=== PATIENT | female | born 1985 | race Caucasian/White ===

== ENCOUNTER 2016-09-21 03:56 | Inpatient (IN) | payer BC ==
[2016-09-21] MEDS ORDERED: Ondansetron INJ* 2 MG/ML VIAL IV ONE (05:19)
[2016-09-21] MEDS ORDERED: NS 0.9% 1000 ML* 1,000 ML IV ONE (05:19)
[2016-09-21] MEDS ORDERED: Charcoal ACTIVATED* 25 GM/120 ML BTL PO ONE (05:19)
[2016-09-21 05:24] LABS: Add Diff/Slide Review? Slide Review Added; Comments Flag Yes; Hematocrit 40 % (35-47); Hemoglobin 13.5 g/dl (12.0-16.0); Mean Corpuscular HGB Conc 34 g/dl (31-36); Mean Corpuscular Hemoglobin 31 pg (27-31); Mean Corpuscular Volume 91 fL (80-97); Red Blood Count 4.41 10^6/ul (4.0-5.4); Red Cell Distribution Width 14 % (10.5-15); White Blood Count 12.4 10^3/ul (3.5-10.8)
[2016-09-21 05:29] LABS: ALT 53 U/L (7-52); Albumin 4.4 g/dL (3.2-5.2); Alkaline Phosphatase 72 U/L (34-104); BUN/Creatinine Ratio 21.5 (8-20); Blood Urea Nitrogen 14 mg/dL (6-24); CO2 Carbon Dioxide 23 mmol/L (22-32); Calcium 9.2 mg/dL (8.6-10.3); Chloride 102 mmol/L (101-111); EGFR African American 135.8 (>60); EGFR Non-African American 105.6 (>60); Globulin 3.3 g/dL (2-4); Glucose 168 mg/dL (70-100); Sodium 132 mmol/L (133-145); Total Protein 7.7 g/dL (6.4-8.9)
[2016-09-21 05:46] LABS: Acetaminophen < 15 mcg/mL; Alcohol < 10 mg/dL (<10); Salicylate < 2.50 mg/dL (<30)
[2016-09-21 05:56] LABS: TSH (Thyroid Stimulating Horm) 1.56 mcIU/mL (0.34-5.60)
--- NOTE | 2016-09-21 06:25 | ED ---
Kayode Delarosa Erika, scribed for Omer Yu MD on 09/21/16 at 0522 . Psychiatric Complaint - HPI Summary HPI Summary: Patient is a 30-year-old female presenting to the ED after Benadryl overdose. Patient reports she took 8-9 pills of Benadryl around 00:00 tonight. She is unsure of the dosage of the pills. Pt reports a Hx anxiety and depression, and states she was attempting to harm herself. She states the only other medications she took tonight were her normal daily medications. Pt has no specific complaints right now, but states she does not feel well. - History Of Current Complaint Chief Complaint: EDSubstanceAbuse Time Seen by Provider: 09/21/16 04:03 Hx Obtained From: Patient Onset/Duration: Sudden Onset, Lasting Hours, Still Present Timing: Constant Severity Initially: Moderate Aggravating Factor(s): Recent Stress Alleviating Factor(s): Nothing Related History: Positive For: Prior Psychiatric Issues Has Suicidal: Reports: Thoughts, With A Plan, Demonstrates Gesture Ingestion History: Type/Name Of Drug - Benadryl, Amount Ingested - 8-9 pills of unknown dose, Approximate Time Of Ingestion - 00:00 - Allergies/Home Medications Allergies/Adverse Reactions: Allergies Allergy/AdvReac Type Severity Reaction Status Date / Time Morphine Allergy Severe See Comment Verified 09/21/16 04:36 Aripiprazole [From Abilify] Allergy Intermediate See Comment Verified 09/21/16 04:36 PMH/Surg Hx/FS Hx/Imm Hx Endocrine/Hematology History: Reports: Hx Diabetes, Hx Anemia Cardiovascular History: Reports: Hx Hypertension Musculoskeletal History: Reports: Hx Back Problems, Hx Orthopedic Injury Denies: Hx Arthritis Sensory History: Reports: Hx Contacts or Glasses Opthamlomology History: Reports: Hx Contacts or Glasses Psychiatric History: Reports: Hx Anxiety, Hx Depression, Hx Inpatient Treatment , Hx Community Mental Health Tx, Hx Suicide Attempt Denies: Hx Attention Deficit Hyperactivity Disorder, Hx Eating Disorder, Hx Panic Disorder, Hx Post Traumatic Stress Disorder, Hx Schizophrenia, Hx Bipolar Disorder, Hx of Violent Episodes Against Others, Hx Substance Abuse, Other Psychiatric Issues/Disorders Infectious Disease History: No Infectious Disease History: Denies: Traveled Outside the [place] in Last 30 Days - Family History Known Family History: Positive: Other - anxiety - Social History Lives: With Family Alcohol Use: None Hx Substance Use: No Substance Use Type: Reports: None, Prescribed - OD on klonopin in the past - currently uses this medication as directed for anxiety Hx Tobacco Use: No Smoking Status (MU): Never Smoked Tobacco Review of Systems Negative: Fever Neurological: Other - OD on Benadryl All Other Systems Reviewed And Are Negative: Yes Physical Exam Triage Information Reviewed: Yes Vital Signs On Initial Exam: Initial Vitals Temp Pulse Resp BP Pulse Ox 98.6 F 115 26 120/86 96 09/21/16 04:00 09/21/16 04:00 09/21/16 04:00 09/21/16 04:00 09/21/16 04:00 Vital Signs Reviewed: Yes Appearance: Positive: Well-Appearing, No Pain Distress Skin: Positive: Warm, Skin Color Reflects Adequate Perfusion, Dry Head/Face: Positive: Normal Head/Face Inspection Eyes: Positive: EOMI, EMILY ENT: Positive: Normal ENT inspection Neck: Positive: Supple, Nontender Respiratory/Lung Sounds: Positive: Clear to Auscultation, Breath Sounds Present Cardiovascular: Positive: Tachycardia - at 115 bpm Abdomen Description: Positive: Nontender, Soft Bowel Sounds: Positive: Present Musculoskeletal: Positive: Normal, Strength/ROM Intact Neurological: Positive: Normal, Sensory/Motor Intact, Alert, Oriented to Person Place, Time Psychiatric: Positive: Affect/Mood Appropriate Diagnostics - Vital Signs Vital Signs Temp Pulse Resp BP Pulse Ox 09/21/16 04:00 98.6 F 115 26 120/86 96 - Laboratory Lab Results: Lab Results 09/21/16 09/21/16 09/21/16 Range/Units 04:56 04:56 04:56 WBC 12.4 H (3.5-10.8) 10^3/ul RBC 4.41 (4.0-5.4) 10^6/ul Hgb 13.5 (12.0-16.0) g/dl Hct 40 (35-47) % MCV 91 (80-97) fL MCH 31 (27-31) pg MCHC 34 (31-36) g/dl RDW 14 (10.5-15) % Plt Count 300 (150-450) 10^3/ul Neut % (Auto) 62.3 (38-83) % Lymph % (Auto) 28.7 (25-47) % [place] % (Auto) 6.2 (1-9) % Eos % (Auto) 1.9 (0-6) % Baso % (Auto) 0.9 (0-2) % Absolute Neuts (auto) 7.7 (1.5-7.7) 10^3/ul Absolute Lymphs (auto) 3.5 (1.0-4.8) 10^3/ul Absolute Monos (auto) 0.8 (0-0.8) 10^3/ul Absolute Eos (auto) 0.2 (0-0.6) 10^3/ul Absolute Basos (auto) 0.1 (0-0.2) 10^3/ul Absolute Nucleated RBC 0 10^3/ul Nucleated RBC % 0 Sodium 132 L (133-145) mmol/L Potassium TNP Chloride 102 (101-111) mmol/L Carbon Dioxide 23 (22-32) mmol/L Anion Gap TNP BUN 14 (6-24) mg/dL Creatinine 0.65 (0.51-0.95) mg/dL Est GFR ( Amer) 135.8 (>60) Est GFR (Non-Af Amer) 105.6 (>60) BUN/Creatinine Ratio 21.5 H (8-20) Glucose 168 H (70-100) mg/dL Lactic Acid 1.6 (0.5-2.0) mmol/L Calcium 9.2 (8.6-10.3) mg/dL Total Bilirubin 0.30 (0.2-1.0) mg/dL AST TNP ALT 53 H (7-52) U/L Alkaline Phosphatase 72 (34-104) U/L Total Protein 7.7 (6.4-8.9) g/dL Albumin 4.4 (3.2-5.2) g/dL Globulin 3.3 (2-4) g/dL Albumin/Globulin Ratio 1.3 (1-3) TSH 1.56 (0.34-5.60) mcIU/mL Beta HCG, Quant < 0.60 mIU/mL Salicylates < 2.50 (<30) mg/dL Acetaminophen < 15 mcg/mL Serum Alcohol < 10 (<10) mg/dL Result Diagrams: 09/21/16 04:56 09/21/16 04:56 Lab Statement: Any lab studies that have been ordered have been reviewed, and results considered in the medical decision making process. Course/Dx - Course Assessment/Plan: A 30 y/o F presents to the ED with a CC of Benadryl overdose. Per poison control, must monitor at least 6 hours. PE reveals tachycardia with no other abnormal findings. Pt will be signed out to Dr. Lovelace for further monitoring. MEDICAL CLEARANCE, MHE AND DISPOSITION PENDING AT SHIFT CHANGE. STABLE IN ED. - Differential Dx/Clinical Impression Provider Diagnosis: Mental health problem, Overdose Discharge - Discharge Plan Condition: Stable Disposition: [facility]IATRIC FAC[facility] [place] Disposition Comment: Signed out to Dr. Lovelace pending further monitoring Referrals: Session Eren MARTINEZ [Primary Care Provider] - The documentation as recorded by the Kayode finch Erika accurately reflects the service I personally performed and the decisions made by me, Omer Yu MD.
[2016-09-21 09:14] LABS: Urine Bacteria Absent (Absent); Urine Bilirubin Negative (Negative); Urine Glucose 3+(>=500 mg/dL) (Negative); Urine Nitrite Negative (Negative)
[2016-09-21 09:25] LABS: Benzodiazepine Urine Screen Presumptive Positive (None Detect)
[2016-09-21] MEDS ORDERED: Al Hydrox/Mg Hydrox/Simet LIQ* 30 ML UDC PO PRN (12:51)
[2016-09-21] MEDS ORDERED: Acetaminophen TAB* 325 MG PO PRN (12:51)
[2016-09-21] MEDS ORDERED: hydrOXYzine HCL TAB* 50 MG PO PRN (15:01)
[2016-09-21] MEDS: metFORMIN* 1,000 MG TAB PO SCH (16:26)
[2016-09-21] MEDS: Mirtazapine TAB* 15 MG PO SCH (21:20)
[2016-09-21] MEDS: clonazePAM TAB(*) 1 MG PO SCH (21:20)
[2016-09-21] MEDS: buPROPion SR TAB.SR* 150 MG PO SCH (21:20)
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
[2016-09-22] MEDS: clonazePAM TAB(*) 1 MG PO SCH ×2 (09:12→20:38)
[2016-09-22] MEDS: buPROPion SR TAB.SR* 150 MG PO SCH ×2 (09:12→20:38)
[2016-09-22] MEDS: metFORMIN* 1,000 MG TAB PO SCH ×2 (09:13→16:56)
[2016-09-22] MEDS: Vitamin THERAPEUTIC TAB PO SCH (09:13)
[2016-09-22] MEDS: Venlafaxine EXT RELEASE CAP* 75 MG PO SCH (09:13)
[2016-09-22] MEDS: Mirtazapine TAB* 15 MG PO SCH (20:38)
[2016-09-23] MEDS: Venlafaxine EXT RELEASE CAP* 75 MG PO SCH (09:31)
[2016-09-23] MEDS: clonazePAM TAB(*) 1 MG PO SCH ×2 (09:31→21:40)
[2016-09-23] MEDS: buPROPion SR TAB.SR* 150 MG PO SCH ×2 (09:31→21:41)
[2016-09-23] MEDS: metFORMIN* 1,000 MG TAB PO SCH ×2 (09:31→16:52)
[2016-09-23] MEDS: Vitamin THERAPEUTIC TAB PO SCH (09:31)
--- NOTE | 2016-09-23 15:12 | PN ---
Subjective - Subjective Service Type: 44571 Hosp care 15 min low complexity Subjective: Maria M remains symptomatic with depressed mood, anxiety and stress due to a disfunctional relationship with her of 12 years. Still suicidal without plans. Says she and her fights all the time. Since her admission she has been sleeping good. Objective - Appearance Appearance: Obese Dysmorphic Features: No Hygiene: Normal Grooming: Fairly Well Kept - Behavior Psychomotor Activities: Normal Exhibits Abnormal Movement: No - Attitude and Relatedness Attitude and Relatedness: Appropriate Eye Contact: Good - Speech Quality: Unpressured Latencies: Normal Quantity: Appropriate - Mood Patient's Decription of Mood: "Sad" - Affect Observed Affect: Depressed Affect Consistent with: Dysphoria - Thought Process Patient's Thought Process: Coherent, Goal Directed Thought Content: Yes Passive Wish, No Suicidal Planning, No Homicidal Ideation, No Paranoid Ideation - Sensorium Experiencing Hallucinations: No, Sensorium is Clear Type of Hallucinations: Visual: No, Auditory: No, Command: No - Level of Consciousness Level of Consciousness: Alert Orientation: Yes Intact, Yes Orientated to Time, Yes Orientated to Place, Yes Orientated to Person - Impulse Control Impulse Control: Tenuous - Insight and Judgement Insight and Judgement: Poor - Group Participation Particating in Group Activities: Yes - Medication Management Medication Management Adherence: Yes Assessment - Assessment Merits Inpatient Hospitalization: For Immediate Safety, For Discharge Planning Plan - Plan Treatment Plan: Name: MARIA M MARTINEZ Birthdate: 1985 [id number] Continued Medication Management: Continue Outpt Medication Medications: Current Medications Acetaminophen (Tylenol Tab*) 650 mg PO Q4H PRN PRN Reason: for pain; or Temp >101 F Al Hydrox/Mg Hydrox/Simethicone (Maalox Plus*) 30 ml PO Q4H PRN PRN Reason: INDIGESTION Bupropion HCl (Wellbutrin Sr Tab*) 150 mg PO BID [facility] Last Admin: 09/23/16 09:31 Dose: 150 mg Clonazepam (Klonopin Tab(*)) 1 mg PO BID [facility] Last Admin: 09/23/16 09:31 Dose: 1 mg Diphenhydramine HCl (Benadryl Po*) 50 mg PO BEDTIME PRN PRN Reason: INSOMNIA Hydroxyzine HCl (Atarax Tab*) 50 mg PO Q6H PRN PRN Reason: ANXIETY Metformin HCl (Glucophage*) 1,000 mg PO 0800,1700 [facility] Last Admin: 09/23/16 09:31 Dose: 1,000 mg Mirtazapine (Remeron Tab*) 15 mg PO BEDTIME [facility] Last Admin: 09/22/16 20:38 Dose: 15 mg Multivitamins (Theragran Tab*) 1 tab PO DAILY [facility] Last Admin: 09/23/16 09:31 Dose: 1 tab Venlafaxine HCl (Effexor Xr Cap*) 225 mg PO DAILY [facility] Last Admin: 09/23/16 09:31 Dose: 225 mg - Discharge Plan Discharge Plan: Outpatient Follow Up Outpatient Program: [id number]
[2016-09-23] MEDS: Mirtazapine TAB* 15 MG PO SCH (21:40)
[2016-09-24] MEDS: Vitamin THERAPEUTIC TAB PO SCH (09:03)
[2016-09-24] MEDS: clonazePAM TAB(*) 1 MG PO SCH ×2 (09:04→20:23)
[2016-09-24] MEDS: Venlafaxine EXT RELEASE CAP* 75 MG PO SCH ×2 (09:04→09:44)
[2016-09-24] MEDS: metFORMIN* 1,000 MG TAB PO SCH ×2 (09:04→16:05)
[2016-09-24] MEDS ORDERED: Venlafaxine EXT RELEASE CAP* 75 MG ONE ×2 (09:10→09:17)
[2016-09-24] MEDS: buPROPion SR TAB.SR* 150 MG PO SCH ×2 (09:46→20:22)
--- NOTE | 2016-09-24 11:47 | PN ---
MHU: Group Therapy Note - Service Type Service Type: 70180 Group Psychotherapy - Cognitive Behavioral Group Therapy ( CBT):Patient was attentive and participatory in CBT programming this morning, and remained in good behavioral control. Patient expressed positive insights regarding relevant treatment interventions and goals. Discussion focused on goals in regards to family interests, as well on engaging in follow up outpatient treatment, as Maria M failed to attend her first appointment after her last discharge. Further discussion encouraged her to contemplate timing of discharge, encouraging a short hospitalization. Maria M has very dependent personality structures and needs a great deal of direction, she tends to devolve to complaining about her if afforded unstructured discussion.
--- NOTE | 2016-09-24 14:38 | PN ---
Subjective - Subjective Service Type: 24545 Hosp care 15 min low complexity Subjective: Maria M says overdose on 200 mg diphenhydramine was intended to kill herself, despite this being a clearly sublethal dose. Not immediately receptive to my suggestion that she consider why she engages in repeated suicidal gestures, that she contemplate other possibly subconscious goals of the overdoses. Reports low mood and continued SI. Has spoken of wanting therapy with her . Objective - Appearance Appearance: Obese Dysmorphic Features: No Hygiene: Normal Grooming: Fairly Well Kept - Behavior Psychomotor Activities: Normal Exhibits Abnormal Movement: No - Attitude and Relatedness Attitude and Relatedness: Superficially Cooperative Eye Contact: Good - Speech Quality: Unpressured Latencies: Normal Quantity: Appropriate - Mood Patient's Decription of Mood: "4 or 5/10" - Affect Observed Affect: Depressed Affect Consistent with: Dysphoria - Thought Process Patient's Thought Process: Coherent, Goal Directed, Impoverished Thought Content: Yes Passive Wish, Yes Suicidal Planning, No Homicidal Ideation, No Paranoid Ideation - Sensorium Experiencing Hallucinations: No, Sensorium is Clear Type of Hallucinations: Visual: No, Auditory: No, Command: No - Level of Consciousness Level of Consciousness: Alert Orientation: Yes Intact, Yes Orientated to Time, Yes Orientated to Place, Yes Orientated to Person - Impulse Control Impulse Control: Intact - Insight and Judgement Insight and Judgement: Poor - Group Participation Particating in Group Activities: Yes - Medication Management Medication Management Adherence: Yes Assessment - Assessment Merits Inpatient Hospitalization: For Immediate Safety, For Stabilization, Consolidate Improvements, For Discharge Planning Inpatient DSM-IV Dx: Unspecified depressive and anxiety disorders Clinical Impression: Ms Martinez is a 30 year-old woman readmitted for a sublethal overdose on 200 mg diphenhydramine. She has not been willing to contract for safety to allow discharge home. She seeks couples therapy to address marital issues. She has been compliant with medications. Will discuss with her possible Abilify or similar adjunct med. Plan - Plan Treatment Plan: Name: MARIA M MARTINEZ Birthdate: 1985 [id number] Continue current meds. Monitor MS and safety. Encourage groups and milieu. Dispo to include possible referral to couples' counseling. Medications: Current Medications Acetaminophen (Tylenol Tab*) 650 mg PO Q4H PRN PRN Reason: for pain; or Temp >101 F Al Hydrox/Mg Hydrox/Simethicone (Maalox Plus*) 30 ml PO Q4H PRN PRN Reason: INDIGESTION Bupropion HCl (Wellbutrin Sr Tab*) 150 mg PO BID [facility] Last Admin: 09/24/16 09:46 Dose: 150 mg Clonazepam (Klonopin Tab(*)) 1 mg PO BID [facility] Last Admin: 09/24/16 09:04 Dose: 1 mg Diphenhydramine HCl (Benadryl Po*) 50 mg PO BEDTIME PRN PRN Reason: INSOMNIA Hydroxyzine HCl (Atarax Tab*) 50 mg PO Q6H PRN PRN Reason: ANXIETY Last Admin: 09/23/16 21:42 Dose: 50 mg Metformin HCl (Glucophage*) 1,000 mg PO 0800,1700 [facility] Last Admin: 09/24/16 09:04 Dose: 1,000 mg Mirtazapine (Remeron Tab*) 15 mg PO BEDTIME [facility] Last Admin: 09/23/16 21:40 Dose: 15 mg Multivitamins (Theragran Tab*) 1 tab PO DAILY [facility] Last Admin: 09/24/16 09:03 Dose: 1 tab Venlafaxine HCl (Effexor Xr Cap*) 225 mg PO DAILY [facility] Last Admin: 09/24/16 09:44 Dose: 225 mg - Discharge Plan Discharge Plan: Outpatient Follow Up
[2016-09-24] MEDS: Mirtazapine TAB* 15 MG PO SCH (20:23)
[2016-09-24] MEDS: diPHENhydraMINE PO* 50 MG PO PRN (21:59)
[2016-09-25] MEDS: clonazePAM TAB(*) 1 MG PO SCH ×2 (09:23→20:45)
[2016-09-25] MEDS: Vitamin THERAPEUTIC TAB PO SCH (09:24)
[2016-09-25] MEDS: Venlafaxine EXT RELEASE CAP* 75 MG PO SCH (09:24)
[2016-09-25] MEDS: metFORMIN* 1,000 MG TAB PO SCH ×2 (09:24→17:18)
[2016-09-25] MEDS: buPROPion SR TAB.SR* 150 MG PO SCH ×2 (09:24→20:45)
--- NOTE | 2016-09-25 11:30 | PN ---
MHU: Group Therapy Note - Service Type Service Type: [id number] Group Psychotherapy - Cognitive Behavioral Therapy (CBT): Maria M was frustrated with peers during group, as behavioral issues overwhelmed clinical discussion.
--- NOTE | 2016-09-25 11:47 | PN ---
Subjective - Subjective Service Type: 83966 Hosp care 15 min low complexity Subjective: Maria M reports that she continues to have SI. She continues to maintain that it was her intent to kill herself by taking 200 mg diphenhydramine. She does not believe she had any other goal than to be . She reports her mood is "I'm hanging on." She does not want to discharge to the home she shares with her . Objective - Appearance Appearance: Well Developed/Nourished, Obese Dysmorphic Features: No Hygiene: Normal Grooming: Disheveled - Behavior Psychomotor Activities: Normal Exhibits Abnormal Movement: No - Attitude and Relatedness Attitude and Relatedness: Cooperative Eye Contact: Good - Speech Quality: Unpressured Latencies: Normal Quantity: Appropriate - Mood Patient's Decription of Mood: "I'm hanging in there" - Affect Observed Affect: Fair Affect Consistent with: Dysphoria - but mild - Thought Process Patient's Thought Process: Coherent, Goal Directed Thought Content: Yes Passive Wish, Yes Suicidal Planning, No Homicidal Ideation, No Paranoid Ideation - Sensorium Experiencing Hallucinations: No, Sensorium is Clear Type of Hallucinations: Visual: No, Auditory: No, Command: No - Level of Consciousness Level of Consciousness: Alert Orientation: Yes Intact, Yes Orientated to Time, Yes Orientated to Place, Yes Orientated to Person - Impulse Control Impulse Control: Intact - Insight and Judgement Insight and Judgement: Poor - Group Participation Particating in Group Activities: Yes - Medication Management Medication Management Adherence: Yes Assessment - Assessment Merits Inpatient Hospitalization: For Stabilization, Consolidate Improvements, For Discharge Planning Inpatient DSM-IV Dx: Unspecified depressive and anxiety disorders Clinical Impression: Ms Martinez is a 30 year-old woman readmitted for a sublethal overdose on 200 mg diphenhydramine. She has not been willing to contract for safety to allow discharge home. She seeks couples therapy to address marital issues. She has been compliant with medications. Will discuss with her possible Abilify or similar adjunct med. 1.4.17 Maria M reports past intolerable side effect of general motor impairment on past trial of Abilify. I have aske Dr Fischer to see if he can help her to recognize that her suicide attempts may be intentionally sublethal in order to achieve another goal than , and to develop insight and coping strategies to pursue that goal by a means other than suicidal gestures. She is participating in groups and is med compliant. Disposition may be challenging if she continues to refuse to return to the home she shares with her . She denies that there have been any incidents of domestic violence, she simply considers him to be inconsiderate and not giving in their sexual relations. Plan - Plan Treatment Plan: Name: MARIA M MARTINEZ Birthdate: 1985 [id number] Continue current meds. Monitor MS and safety. Encourage groups and milieu. Dispo to include possible referral to couples' counseling, possible alternate domiciling. Continued Medication Management: Continue Outpt Medication Medications: Current Medications Acetaminophen (Tylenol Tab*) 650 mg PO Q4H PRN PRN Reason: for pain; or Temp >101 F Al Hydrox/Mg Hydrox/Simethicone (Maalox Plus*) 30 ml PO Q4H PRN PRN Reason: INDIGESTION Bupropion HCl (Wellbutrin Sr Tab*) 150 mg PO BID [facility] Last Admin: 09/25/16 09:24 Dose: 150 mg Clonazepam (Klonopin Tab(*)) 1 mg PO BID [facility] Last Admin: 09/25/16 09:23 Dose: 1 mg Diphenhydramine HCl (Benadryl Po*) 50 mg PO BEDTIME PRN PRN Reason: INSOMNIA Last Admin: 09/24/16 21:59 Dose: 50 mg Hydroxyzine HCl (Atarax Tab*) 50 mg PO Q6H PRN PRN Reason: ANXIETY Last Admin: 09/23/16 21:42 Dose: 50 mg Metformin HCl (Glucophage*) 1,000 mg PO 0800,1700 [facility] Last Admin: 09/25/16 09:24 Dose: 1,000 mg Mirtazapine (Remeron Tab*) 15 mg PO BEDTIME [facility] Last Admin: 09/24/16 20:23 Dose: 15 mg Multivitamins (Theragran Tab*) 1 tab PO DAILY [facility] Last Admin: 09/25/16 09:24 Dose: 1 tab Venlafaxine HCl (Effexor Xr Cap*) 225 mg PO DAILY [facility] Last Admin: 09/25/16 09:24 Dose: 225 mg - Discharge Plan Discharge Plan: Outpatient Follow Up
[2016-09-25] MEDS: diPHENhydraMINE PO* 50 MG PO PRN (20:44)
[2016-09-25] MEDS: Mirtazapine TAB* 15 MG PO SCH (20:45)
[2016-09-26] MEDS: clonazePAM TAB(*) 1 MG PO SCH ×2 (09:11→22:08)
[2016-09-26] MEDS: metFORMIN* 1,000 MG TAB PO SCH ×2 (09:11→17:26)
[2016-09-26] MEDS: buPROPion SR TAB.SR* 150 MG PO SCH (09:11)
[2016-09-26] MEDS: Vitamin THERAPEUTIC TAB PO SCH (09:12)
[2016-09-26] MEDS: Venlafaxine EXT RELEASE CAP* 75 MG PO SCH (09:12)
--- NOTE | 2016-09-26 14:38 | PN ---
Subjective - Subjective Service Type: 97574 Hosp care 15 min low complexity Subjective: Maria M continues to say that she feels unsafe going home and needs more time in the hospital. She has been unable to state her reasons for sublethal suicidal gestures. She reports continued low mood and says she thinks she needs a different antidepressant, but then states that she needs to continue venlafaxine because it is helpful against depression. She has no physical complaints. Objective - Appearance Appearance: Obese Dysmorphic Features: No Hygiene: Normal Grooming: Well Kept - Behavior Psychomotor Activities: Normal Exhibits Abnormal Movement: No - Attitude and Relatedness Attitude and Relatedness: Minimally Cooperative Eye Contact: Good - Speech Quality: Unpressured Latencies: Normal Quantity: Appropriate - Mood Patient's Decription of Mood: "Not so good" - Affect Observed Affect: Fair Affect Consistent with: Dysphoria - mild, and not seen when not meeting with me - Thought Process Patient's Thought Process: Goal Directed - toward continued hospitalization Thought Content: Yes Passive Wish, No Suicidal Planning, No Homicidal Ideation, No Paranoid Ideation - Sensorium Experiencing Hallucinations: No, Sensorium is Clear Type of Hallucinations: Visual: No, Auditory: No, Command: No - Level of Consciousness Level of Consciousness: Alert Orientation: Yes Intact, Yes Orientated to Time, Yes Orientated to Place, Yes Orientated to Person - Impulse Control Impulse Control: Intact - Insight and Judgement Insight and Judgement: Poor - Group Participation Particating in Group Activities: Yes Group Participation Comments: about 1/2 - Medication Management Medication Management Adherence: Yes Assessment - Assessment Merits Inpatient Hospitalization: Consolidate Improvements, For Discharge Planning Inpatient DSM-IV Dx: Unspecified depressive and anxiety disorders Clinical Impression: Ms Martinez is a 30 year-old woman readmitted for a sublethal overdose on 200 mg diphenhydramine. She has not been willing to contract for safety to allow discharge home. She seeks couples therapy to address marital issues. She has been compliant with medications. Will discuss with her possible Abilify or similar adjunct med. 1.4.17 Maria M reports past intolerable side effect of general motor impairment on past trial of Abilify. I have aske Dr Fischer to see if he can help her to recognize that her suicide attempts may be intentionally sublethal in order to achieve another goal than , and to develop insight and coping strategies to pursue that goal by a means other than suicidal gestures. She is participating in groups and is med compliant. Disposition may be challenging if she continues to refuse to return to the home she shares with her . She denies that there have been any incidents of domestic violence, she simply considers him to be inconsiderate and not giving in their sexual relations. [id number] Maria M has reluctantly agreed to get on the phone with people she can stay with after discharge, as she does not want to return to the home she shares with her . She continues to give the same report of mood disturbance and vague SI as she has throughout prior hospitalizations, with no indication of gathering insight or good coping skills against recurrent SI. Plan - Plan Treatment Plan: Name: MARIA M MARTINEZ Birthdate: 1985 [id number] Continue current meds with reduction of bupropion dose against patient's complaint of increased anxiety. Monitor MS and safety. Encourage groups and milieu. Dispo to include possible referral to couples' counseling, possible alternate domiciling. Continued Medication Management: Different Medication Medications: Current Medications Acetaminophen (Tylenol Tab*) 650 mg PO Q4H PRN PRN Reason: for pain; or Temp >101 F Al Hydrox/Mg Hydrox/Simethicone (Maalox Plus*) 30 ml PO Q4H PRN PRN Reason: INDIGESTION Bupropion HCl (Wellbutrin Sr Tab*) 150 mg PO BID [facility] Last Admin: 09/26/16 09:11 Dose: 150 mg Clonazepam (Klonopin Tab(*)) 1 mg PO BID [facility] Last Admin: 09/26/16 09:11 Dose: 1 mg Diphenhydramine HCl (Benadryl Po*) 50 mg PO BEDTIME PRN PRN Reason: INSOMNIA Last Admin: 09/25/16 20:44 Dose: 50 mg Hydroxyzine HCl (Atarax Tab*) 50 mg PO Q6H PRN PRN Reason: ANXIETY Last Admin: 09/23/16 21:42 Dose: 50 mg Metformin HCl (Glucophage*) 1,000 mg PO 0800,1700 [facility] Last Admin: 09/26/16 09:11 Dose: 1,000 mg Mirtazapine (Remeron Tab*) 15 mg PO BEDTIME [facility] Last Admin: 09/25/16 20:45 Dose: 15 mg Multivitamins (Theragran Tab*) 1 tab PO DAILY [facility] Last Admin: 09/26/16 09:12 Dose: 1 tab Venlafaxine HCl (Effexor Xr Cap*) 225 mg PO DAILY [facility] Last Admin: 09/26/16 09:12 Dose: 225 mg - Discharge Plan Discharge Plan: Outpatient Follow Up
--- NOTE | 2016-09-26 15:30 | PN ---
Subjective - Subjective Service Type: 56919 Hosp care 15 min low complexity Assessment - Assessment Inpatient DSM-IV Dx: Unspecified depressive and anxiety disorders Clinical Impression: Ms Martinez is a 30 year-old woman readmitted for a sublethal overdose on 200 mg diphenhydramine. She has not been willing to contract for safety to allow discharge home. She seeks couples therapy to address marital issues. She has been compliant with medications. Will discuss with her possible Abilify or similar adjunct med. ..17 Maria M reports past intolerable side effect of general motor impairment on past trial of Abilify. I have aske Dr Fischer to see if he can help her to recognize that her suicide attempts may be intentionally sublethal in order to achieve another goal than , and to develop insight and coping strategies to pursue that goal by a means other than suicidal gestures. She is participating in groups and is med compliant. Disposition may be challenging if she continues to refuse to return to the home she shares with her . She denies that there have been any incidents of domestic violence, she simply considers him to be inconsiderate and not giving in their sexual relations. Plan - Plan Treatment Plan: Name: MARIA M MARTINEZ Birthdate: 1985 [id number] Continue current meds. Monitor MS and safety. Encourage groups and milieu. Dispo to include possible referral to couples' counseling, possible alternate domiciling. Medications: Current Medications Acetaminophen (Tylenol Tab*) 650 mg PO Q4H PRN PRN Reason: for pain; or Temp >101 F Al Hydrox/Mg Hydrox/Simethicone (Maalox Plus*) 30 ml PO Q4H PRN PRN Reason: INDIGESTION Bupropion HCl (Wellbutrin Sr Tab*) 150 mg PO BID [facility] Last Admin: 09/26/16 09:11 Dose: 150 mg Clonazepam (Klonopin Tab(*)) 1 mg PO BID [facility] Last Admin: 09/26/16 09:11 Dose: 1 mg Diphenhydramine HCl (Benadryl Po*) 50 mg PO BEDTIME PRN PRN Reason: INSOMNIA Last Admin: 09/25/16 20:44 Dose: 50 mg Hydroxyzine HCl (Atarax Tab*) 50 mg PO Q6H PRN PRN Reason: ANXIETY Last Admin: 09/23/16 21:42 Dose: 50 mg Metformin HCl (Glucophage*) 1,000 mg PO 0800,1700 [facility] Last Admin: 09/26/16 09:11 Dose: 1,000 mg Mirtazapine (Remeron Tab*) 15 mg PO BEDTIME [facility] Last Admin: 09/25/16 20:45 Dose: 15 mg Multivitamins (Theragran Tab*) 1 tab PO DAILY [facility] Last Admin: 09/26/16 09:12 Dose: 1 tab Venlafaxine HCl (Effexor Xr Cap*) 225 mg PO DAILY [facility] Last Admin: 09/26/16 09:12 Dose: 225 mg
[2016-09-26] MEDS: Mirtazapine TAB* 15 MG PO SCH (22:08)
[2016-09-27] MEDS: BuPROPion XL* 150 MG TAB.XL PO SCH (09:34)
[2016-09-27] MEDS: clonazePAM TAB(*) 1 MG PO SCH ×2 (09:35→21:26)
[2016-09-27] MEDS: Vitamin THERAPEUTIC TAB PO SCH (09:35)
[2016-09-27] MEDS: metFORMIN* 1,000 MG TAB PO SCH ×2 (09:35→17:07)
[2016-09-27] MEDS: Venlafaxine EXT RELEASE CAP* 75 MG PO SCH (09:35)
--- NOTE | 2016-09-27 11:47 | PN ---
MHU: Group Therapy Note - Service Type Service Type: 08888 Psychotherapy - Individual Psychotherapy Note: Maria M discussed her frustrations with her , and described relevant history in more detail. Although she remains hopeful of improving their relationship, she characterizes him as often being sarcastic and disrestpecful to her. She is unsure of what she could do if they werre to seperate, as she does not have any source of income or financial support. She is going through a second appeal of her denial for SSI, describing how her historical TBI exacerbates depressive symptoms when she is not doing well. 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 Interventions focused on utilizing the weekend to prioritize communication with her , with a focus on discharge friday.
--- NOTE | 2016-09-27 11:54 | PN ---
Subjective - Subjective Service Type: 15019 Hosp care 15 min low complexity Subjective: Maria M continues to state vague SI in anticipation of discharge. Complains that all her wants from her in the way of any intimacy is sex for his satisfaction, and that has her feeling very bad. Agrees that she will call family and other supports today to organize for discharge on Friday: feels she needs the to consolidate gains, but states firm commitment to discharge on Friday. Objective - Appearance Appearance: Healthy Appearing, Obese Dysmorphic Features: No Hygiene: Normal Grooming: Disheveled - Behavior Psychomotor Activities: Normal Exhibits Abnormal Movement: No - Attitude and Relatedness Attitude and Relatedness: Cooperative Eye Contact: Fair - Speech Quality: Unpressured Latencies: Normal Quantity: Appropriate - Mood Patient's Decription of Mood: "Hanging in there" - Affect Observed Affect: Fair Affect Consistent with: Dysphoria - mild, worse when sitting with me - Thought Process Patient's Thought Process: Coherent, Goal Directed, Impoverished - mildly Thought Content: Yes Passive Wish, No Suicidal Planning, No Homicidal Ideation, No Paranoid Ideation - Sensorium Experiencing Hallucinations: No, Sensorium is Clear Type of Hallucinations: Visual: No, Auditory: No, Command: No - Level of Consciousness Level of Consciousness: Alert Orientation: Yes Intact, Yes Orientated to Time, Yes Orientated to Place, Yes Orientated to Person - Impulse Control Impulse Control: Intact - Insight and Judgement Insight and Judgement: Poor - Group Participation Particating in Group Activities: Yes - Medication Management Medication Management Adherence: Yes Assessment - Assessment Merits Inpatient Hospitalization: For Stabilization, Consolidate Improvements, For Discharge Planning Inpatient DSM-IV Dx: Unspecified depressive and anxiety disorders Clinical Impression: Ms Martinez is a 30 year-old woman readmitted for a sublethal overdose on 200 mg diphenhydramine. She has not been willing to contract for safety to allow discharge home. She seeks couples therapy to address marital issues. She has been compliant with medications. Will discuss with her possible Abilify or similar adjunct med. 1.4.17 Maria M reports past intolerable side effect of general motor impairment on past trial of Abilify. I have aske Dr Fischer to see if he can help her to recognize that her suicide attempts may be intentionally sublethal in order to achieve another goal than , and to develop insight and coping strategies to pursue that goal by a means other than suicidal gestures. She is participating in groups and is med compliant. Disposition may be challenging if she continues to refuse to return to the home she shares with her . She denies that there have been any incidents of domestic violence, she simply considers him to be inconsiderate and not giving in their sexual relations. 09.27.16 Maria M reports continued vague, passive SI, but is able to respond partially to discussion about finding improved coping strategies to replace suicidal gestures. She says that she will attempt to express her frustration with the cold that has entered into her 12 year marriage with other ways to get her 's attention and to cope on her own with its deficiencies. She has no physical complaints. Plan - Plan Treatment Plan: Name: MARIA M MARTINEZ Birthdate: 1985 [id number] Continue current meds with halved Wellbutrin dose targeting anxiety possibly contributed to by this med. Monitor MS and safety. Encourage groups and milieu. Dispo to include possible referral to couples' counseling, possible alternate domiciling. Planning Friday discharge. Continued Medication Management: Different Medication Medications: Current Medications Acetaminophen (Tylenol Tab*) 650 mg PO Q4H PRN PRN Reason: for pain; or Temp >101 F Last Admin: 09/27/16 09:34 Dose: 650 mg Al Hydrox/Mg Hydrox/Simethicone (Maalox Plus*) 30 ml PO Q4H PRN PRN Reason: INDIGESTION Bupropion HCl (Wellbutrin Xl *) 150 mg PO DAILY [facility] PRN Reason: Protocol Last Admin: 09/27/16 09:34 Dose: 150 mg Clonazepam (Klonopin Tab(*)) 1 mg PO BID [facility] Last Admin: 09/27/16 09:35 Dose: 1 mg Diphenhydramine HCl (Benadryl Po*) 50 mg PO BEDTIME PRN PRN Reason: INSOMNIA Last Admin: 09/25/16 20:44 Dose: 50 mg Hydroxyzine HCl (Atarax Tab*) 50 mg PO Q6H PRN PRN Reason: ANXIETY Last Admin: 09/23/16 21:42 Dose: 50 mg Metformin HCl (Glucophage*) 1,000 mg PO 0800,1700 [facility] Last Admin: 09/27/16 09:35 Dose: 1,000 mg Mirtazapine (Remeron Tab*) 15 mg PO BEDTIME [facility] Last Admin: 09/26/16 22:08 Dose: 15 mg Multivitamins (Theragran Tab*) 1 tab PO DAILY [facility] Last Admin: 09/27/16 09:35 Dose: 1 tab Venlafaxine HCl (Effexor Xr Cap*) 225 mg PO DAILY [facility] Last Admin: 09/27/16 09:35 Dose: 225 mg - Discharge Plan Discharge Plan: Outpatient Follow Up Outpatient Program: [facility]
[2016-09-27] MEDS: Mirtazapine TAB* 15 MG PO SCH (21:27)
[2016-09-28] MEDS: BuPROPion XL* 150 MG TAB.XL PO SCH (09:50)
[2016-09-28] MEDS: clonazePAM TAB(*) 1 MG PO SCH ×2 (09:50→20:59)
[2016-09-28] MEDS: Vitamin THERAPEUTIC TAB PO SCH (09:51)
[2016-09-28] MEDS: Venlafaxine EXT RELEASE CAP* 75 MG PO SCH (09:51)
[2016-09-28] MEDS: metFORMIN* 1,000 MG TAB PO SCH ×2 (09:51→18:16)
[2016-09-28] MEDS: Mirtazapine TAB* 15 MG PO SCH (20:59)
[2016-09-29] MEDS: BuPROPion XL* 150 MG TAB.XL PO SCH (09:36)
[2016-09-29] MEDS: Venlafaxine EXT RELEASE CAP* 75 MG PO SCH (09:36)
[2016-09-29] MEDS: Vitamin THERAPEUTIC TAB PO SCH (09:37)
[2016-09-29] MEDS: metFORMIN* 1,000 MG TAB PO SCH ×2 (09:37→17:07)
[2016-09-29] MEDS: clonazePAM TAB(*) 1 MG PO SCH ×2 (09:37→22:07)
[2016-09-29] MEDS: Mirtazapine TAB* 15 MG PO SCH (22:07)
[2016-09-30 07:52] VITALS: BP 137/77
[2016-09-30] MEDS: BuPROPion XL* 150 MG TAB.XL PO SCH (09:14)
[2016-09-30] MEDS: clonazePAM TAB(*) 1 MG PO SCH (09:15)
[2016-09-30] MEDS: metFORMIN* 1,000 MG TAB PO SCH (09:15)
[2016-09-30] MEDS: Vitamin THERAPEUTIC TAB PO SCH (09:15)
[2016-09-30] MEDS: Venlafaxine EXT RELEASE CAP* 75 MG PO SCH (09:16)
--- NOTE | 2016-09-30 12:00 | PN ---
MHU: Group Therapy Note - Service Type Service Type: [id number] Group Psychotherapy - Cognitive Behavioral Group Therapy ( CBT):Patient was attentive and participatory in CBT programming this morning, and remained in good behavioral control. Patient expressed positive insights regarding relevant treatment interventions and goals.
--- NOTE | 2016-09-30 15:11 | PN ---
Subjective - Subjective Service Type: 50116 Hosp care 15 min low complexity Subjective: Maria M reports to me and to Eli Cruz that she feels safe and ready for discharge. She says that what has changed since earlier this afternoon is that she now feels she can trust her to listen to her when she is upset, so she does not need to make a suicidal gesture to get his attention. She says she would like a medication in addition to venlafaxine against depression. She understands that Wellbutrin is an antidepressant, but she does not think it is effective anymore. She rejected early on in this admission a change away from venlafaxine, because she feels it is effective. She rejected a trial of Abilify , because she says it caused difficulties moving. Her states that he feels they will be able to help her depression by better communication, and that he will be more open to her complaints. She feels that he has been sarcastic and has been unsympathetic at times when she has complained to him that he has not been loving enough toward her. He says that understanding this motivates him to be more aware of this and to be more loving and understanding so that she does not feel she has to make another suicidal gesture to get his attention. She says that if she has intent or plan to kill herself using potentially lethal means, that she will get help instead. Objective - Appearance Appearance: Obese Dysmorphic Features: No Hygiene: Normal Grooming: Fairly Well Kept - Behavior Psychomotor Activities: Normal Exhibits Abnormal Movement: No - Attitude and Relatedness Attitude and Relatedness: Cooperative Eye Contact: Good - Speech Quality: Unpressured Latencies: Normal Quantity: Appropriate - Mood Patient's Decription of Mood: "Okay" - although earlier in the day had said she felt depressed - Affect Observed Affect: Fair Affect Consistent with: Euthymia - Thought Process Patient's Thought Process: Coherent, Goal Directed Thought Content: No Passive Wish, No Suicidal Planning, No Homicidal Ideation, No Paranoid Ideation - Sensorium Experiencing Hallucinations: No, Sensorium is Clear Type of Hallucinations: Visual: No, Auditory: No, Command: No - Level of Consciousness Level of Consciousness: Alert Orientation: Yes Intact, Yes Orientated to Time, Yes Orientated to Place, Yes Orientated to Person - Impulse Control Impulse Control: Intact - Insight and Judgement Insight and Judgement: Fair Assessment - Assessment Inpatient DSM-IV Dx: Unspecified depressive and anxiety disorders Clinical Impression: Ms Martinez is a 30 year-old woman readmitted for a sublethal overdose on 200 mg diphenhydramine. She has not been willing to contract for safety to allow discharge home. She seeks couples therapy to address marital issues. She has been compliant with medications. Will discuss with her possible Abilify or similar adjunct med. 09.25.16 Maria M reports past intolerable side effect of general motor impairment on past trial of Abilify. I have aske Dr Fischer to see if he can help her to recognize that her suicide attempts may be intentionally sublethal in order to achieve another goal than , and to develop insight and coping strategies to pursue that goal by a means other than suicidal gestures. She is participating in groups and is med compliant. Disposition may be challenging if she continues to refuse to return to the home she shares with her . She denies that there have been any incidents of domestic violence, she simply considers him to be inconsiderate and not giving in their sexual relations. 17 Maria M reports continued vague, passive SI, but is able to respond partially to discussion about finding improved coping strategies to replace suicidal gestures. She says that she will attempt to express her frustration with the cold that has entered into her 12 year marriage with other ways to get her 's attention and to cope on her own with its deficiencies. She has no physical complaints. Plan - Plan Treatment Plan: Name: MARIA M MARTINEZ Birthdate: 1985 [id number] Continue current meds with halved Wellbutrin dose targeting anxiety possibly contributed to by this med. Monitor MS and safety. Encourage groups and milieu. Dispo to include possible referral to couples' counseling, possible alternate domiciling. Planning Friday discharge. Medications: Current Medications Acetaminophen (Tylenol Tab*) 650 mg PO Q4H PRN PRN Reason: for pain; or Temp >101 F Last Admin: 09/27/16 09:34 Dose: 650 mg Al Hydrox/Mg Hydrox/Simethicone (Maalox Plus*) 30 ml PO Q4H PRN PRN Reason: INDIGESTION Bupropion HCl (Wellbutrin Xl *) 150 mg PO DAILY [facility] PRN Reason: Protocol Last Admin: 09/30/16 09:14 Dose: 150 mg Clonazepam (Klonopin Tab(*)) 1 mg PO BID [facility] Last Admin: 09/30/16 09:15 Dose: 1 mg Diphenhydramine HCl (Benadryl Po*) 50 mg PO BEDTIME PRN PRN Reason: INSOMNIA Last Admin: 09/25/16 20:44 Dose: 50 mg Hydroxyzine HCl (Atarax Tab*) 50 mg PO Q6H PRN PRN Reason: ANXIETY Last Admin: 09/23/16 21:42 Dose: 50 mg Metformin HCl (Glucophage*) 1,000 mg PO 0800,1700 [facility] Last Admin: 09/30/16 09:15 Dose: 1,000 mg Mirtazapine (Remeron Tab*) 15 mg PO BEDTIME [facility] Last Admin: 09/29/16 22:07 Dose: 15 mg Multivitamins (Theragran Tab*) 1 tab PO DAILY [facility] Last Admin: 09/30/16 09:15 Dose: 1 tab Venlafaxine HCl (Effexor Xr Cap*) 225 mg PO DAILY [facility] Last Admin: 09/30/16 09:16 Dose: 225 mg
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
== END 2016-09-30 16:30 | disposition home or self-care (01) | DRG 754 ==
LOC: ED 03:56 → BSU 12:46
PROVIDERS: ADMIT Psychiatry & Neurology Psychiatry; ATTEND Psychiatry & Neurology Psychiatry
DX: F32.9 Major depressive disorder, single episode, unspecified (principal); E11.9 Type 2 diabetes mellitus without complications; I10 Essential (primary) hypertension; F41.9 Anxiety disorder, unspecified; F79 Unspecified intellectual disabilities; E66.9 Obesity, unspecified; E78.5 Hyperlipidemia, unspecified; T14.91 Suicide attempt; T45.0X2A Poisoning by antiallergic and antiemetic drugs, intentional self-harm, initial encounter; Z68.36 Body mass index [BMI] 36.0-36.9, adult; Y92.009 Unspecified place in unspecified non-institutional (private) residence as the place of occurrence of the external cause; Z79.899 Other long term (current) drug therapy; Z81.8 Family history of other mental and behavioral disorders; Z87.820 Personal history of traumatic brain injury; X58.XXXA Exposure to other specified factors, initial encounter
CPT/HCPCS: 36415; 80053; 80301; 80320; 80329; 81003; 81015; 83605; 84443; 84702; 85025; 87086; 90853; 93005; 99222; 99231; 99238; 99283; A9270-GY; G0479; G0480; J2405

== ENCOUNTER 2017-01-15 23:27 | Inpatient (IN) | payer BC ==
[2017-01-15] MEDS ORDERED: NS 0.9% 1000 ML* 1,000 ML IV ONE (23:29)
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
[2017-01-16] MEDS ORDERED: Insulin REGULAR(*) 1 UNITS UNIT SUBCUT ONE ×3 (00:24→17:13)
[2017-01-16 00:38] LABS: Hematocrit 41 % (35-47); Mean Corpuscular HGB Conc 34 g/dl (31-36); Mean Corpuscular Hemoglobin 31 pg (27-31); Mean Corpuscular Volume 92 fL (80-97); Mean Platelet Volume 7 um3 (7.4-10.4); Red Blood Count 4.51 10^6/ul (4.0-5.4); Red Cell Distribution Width 14 % (10.5-15); White Blood Count 6.6 10^3/ul (3.5-10.8)
[2017-01-16 00:50] LABS: ALT 34 U/L (7-52); AST 19 U/L (13-39); Albumin 4.6 g/dL (3.2-5.2); Alkaline Phosphatase 158 U/L (34-104); Anion Gap 13 mmol/L (2-11); BUN/Creatinine Ratio 9.9 (8-20); Blood Urea Nitrogen 8 mg/dL (6-24); CO2 Carbon Dioxide 25 mmol/L (22-32); Calcium 9.5 mg/dL (8.6-10.3); Chloride 90 mmol/L (101-111); EGFR African American 104.7 (>60); EGFR Non-African American 81.4 (>60); Globulin 2.8 g/dL (2-4); Sodium 128 mmol/L (133-145); Total Protein 7.4 g/dL (6.4-8.9)
[2017-01-16 00:53] LABS: Acetaminophen < 15 mcg/mL; Alcohol < 10 mg/dL (<10); Glucose 739 mg/dL (70-100); Salicylate < 2.50 mg/dL (<30)
[2017-01-16 01:03] LABS: TSH (Thyroid Stimulating Horm) 0.36 mcIU/mL (0.34-5.60)
[2017-01-16 01:12] LABS: Urine Bacteria Absent (Absent); Urine Bilirubin Negative (Negative); Urine Glucose 3+(>=500 mg/dL) (Negative); Urine Nitrite Negative (Negative)
[2017-01-16 01:15] LABS: Benzodiazepine Urine Screen None Detected (None Detect)
[2017-01-16] MEDS ORDERED: NS 0.9% 1000 ML* 1,000 ML IV ONE (01:17)
[2017-01-16 03:48] LABS: BUN/Creatinine Ratio 9.2 (8-20); Calcium 8.6 mg/dL (8.6-10.3); Potassium 3.2 mmol/L (3.5-5.0)
[2017-01-16] MEDS ORDERED: Potassium Chloride LIQUID* 20 MEQ PACKET PO ONE (04:01)
--- NOTE | 2017-01-16 07:48 | RAD ---
INDICATION: Intracranial injury COMPARISON: None TECHNIQUE: Noncontrast axial source images were acquired from the skull base to the vertex. FINDINGS: Ventricles/sulci: The ventricles and cisterns are normal in size and configuration for age. Brain parenchyma: There is no focal parenchymal finding, evidence of intracranial mass, or intracranial mass effect. Intracranial hemorrhage:None. Extra-axial spaces: There are no abnormal extra axial fluid collections or evidence of extra-axial mass. Calvarium: There is mild thickening of the calvarium. Scalp: There is no evidence of scalp or extracalvarial soft tissue abnormality. Paranasal sinuses/mastoid: The paranasal sinuses and mastoid air cells are clear. Other: None. IMPRESSION: No acute intracranial findings.
[2017-01-16 08:19] LABS: Albumin 4.1 g/dL (3.2-5.2); BUN/Creatinine Ratio 9.9 (8-20); Calcium 8.8 mg/dL (8.6-10.3); EGFR African American 121.9 (>60); EGFR Non-African American 94.8 (>60); Globulin 2.5 g/dL (2-4); Potassium 3.7 mmol/L (3.5-5.0); Total Bilirubin 0.4 mg/dL (0.2-1.0); Total Protein 6.6 g/dL (6.4-8.9)
[2017-01-16] MEDS ORDERED: metFORMIN* 500 MG TAB PO ONE (08:55)
--- NOTE | 2017-01-16 16:56 | ED ---
Isaura, Maite Burton, scribed for Flo Francisco MD on 01/16/17 at 1140 . Progress - Progress Note Progress Note: Re-Evaluation at 11:39 - Pt presents with hyperglycemia. She will be started on metformin 500 mg 2x day. She is moving to the flex unit pending disposition by Mental Health. Course/Dx - Diagnoses Provider Diagnoses: Depression The documentation as recorded by the eliezeribeDoctor Tahera accurately reflects the service I personally performed and the decisions made by me, Flo Francisco MD.
[2017-01-16] MEDS ORDERED: metFORMIN* 1,000 MG TAB PO SCH (17:00)
[2017-01-16] MEDS: metFORMIN* 500 MG TAB PO SCH (17:33)
[2017-01-17] MEDS: Insulin LISPRO* 1 UNITS UNIT SUBCUT SCH ×8 (00:44→20:36)
[2017-01-17] MEDS: Insulin GLARGINE(*) 1 UNITS UNIT SUBCUT SCH ×2 (00:44→20:34)
[2017-01-17] MEDS: metFORMIN* 500 MG TAB PO SCH (08:58)
--- NOTE | 2017-01-17 14:52 | PN ---
MHU: Group Therapy Note - Service Type Service Type: [id number] Group Psychotherapy - Cognitive Behavioral Group Therapy ( CBT):Patient was attentive and participatory in CBT programming this morning, and remained in good behavioral control. Patient expressed positive insights regarding relevant treatment interventions and goals.
[2017-01-17] MEDS: metFORMIN* 1,000 MG TAB PO SCH (17:27)
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
[2017-01-17] MEDS: Mirtazapine TAB* 15 MG PO SCH (20:35)
[2017-01-17] MEDS: buPROPion SR TAB.SR* 150 MG PO SCH (20:35)
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
[2017-01-18] MEDS: Insulin LISPRO* 1 UNITS UNIT SUBCUT SCH ×7 (08:30→20:58)
[2017-01-18] MEDS: Venlafaxine EXT RELEASE CAP* 75 MG PO SCH (09:19)
[2017-01-18] MEDS: metFORMIN* 1,000 MG TAB PO SCH ×2 (09:20→16:58)
[2017-01-18] MEDS: buPROPion SR TAB.SR* 150 MG PO SCH ×2 (09:20→20:55)
--- NOTE | 2017-01-18 14:03 | PN ---
Subjective Date of Service: 01/18/17 Interval History: Patient states she has had DM about a year, and intially used insuln 3 time s daily. She states she had many episodes of hypoglycemia. Objective Active Medications: Bupropion HCl (Wellbutrin Sr Tab*) 150 mg PO BID [facility] Last Admin: 01/18/17 09:20 Dose: 150 mg Diphenhydramine HCl (Benadryl Po*) 50 mg PO BEDTIME PRN PRN Reason: INSOMNIA Insulin Human Lispro (Humalog*) 0 units SUBCUT AC [facility] PRN Reason: Protocol Last Admin: 01/18/17 12:05 Dose: 6 unit Insulin Human Lispro (Humalog*) 0 units SUBCUT ACHS [facility] PRN Reason: Protocol Last Admin: 01/18/17 12:05 Dose: 15 units Metformin HCl (Glucophage*) 1,000 mg PO 0800,1700 [facility] Last Admin: 01/18/17 09:20 Dose: 1,000 mg Mirtazapine (Remeron Tab*) 15 mg PO BEDTIME [facility] Last Admin: 01/17/17 20:35 Dose: 15 mg Venlafaxine HCl (Effexor Xr Cap*) 225 mg PO DAILY [facility] Last Admin: 01/18/17 09:19 Dose: 225 mg Vital Signs 01/18/17 01/18/17 07:46 11:13 Temperature 97.7 F Pulse Rate 91 Respiratory 16 16 Rate Blood Pressure 115/76 (mmHg) O2 Sat by Pulse 99 Oximetry Oxygen Devices in Use Now: None Appearance: Alert, sitting on the edge of her bed. In good spirits. Looks comfortable. Eyes: No Scleral Icterus Ears/Nose/Mouth/Throat: NL Teeth, Lips, Gums, Clear Oropharnyx, Mucous Membranes Moist, - Extremities: No Edema, No Clubbing, Cyanosis, - Skin: No Rash or Ulcers, No Nodules or Sclerosis, - Neurological: Alert and Oriented x 3, NL Sensation, NL Gait Result Diagrams: 01/16/17 00:15 01/16/17 07:50 Assess/Plan/Problems-Billing Assessment: - Patient Problems (1) Diabetes Current Visit: Yes Status: Acute Code(s): E11.9 - TYPE 2 DIABETES MELLITUS WITHOUT COMPLICATIONS SNOMED Code(s): 33692735 Comment: Add Lantus 25 U 1800 4/29, continue metformin. Note A1C 12.2% on . (2) Major depression Current Visit: No Status: Chronic Priority: High Onset Date: 06/24/15 Code(s): F32.9 - MAJOR DEPRESSIVE DISORDER, SINGLE EPISODE, UNSPECIFIED SNOMED Code(s): 211150301 Comment: Treatment per psychiatrist.
--- NOTE | 2017-01-18 14:31 | PN ---
Subjective - Subjective Service Type: 58049 Hosp care 15 min low complexity Subjective: I had the opportunity to meet with Maria M today on follow-up. She was quite pleasant and cooperative. She is reporting anxiety as 5/6 on the 1-10 scale in which 10 represents the most anxiety she has ever felt. Similarly, she is reporting depressive symptoms as 5/6 on the 1-10 scale in which 10 represents the most depressed she has ever felt. Today she wanted to discuss the issues surrounding leaving her . She is reporting that she is experiencing symptoms of a yeast infection and is requesting treatment for same. Case was discussed with Dr. Diggs. Objective - Appearance Dysmorphic Features: No Hygiene: Normal Grooming: Well Kept - Behavior Psychomotor Activities: Normal Exhibits Abnormal Movement: No - Attitude and Relatedness Attitude and Relatedness: Cooperative Eye Contact: Good - Speech Quality: Unpressured Latencies: Normal Quantity: Appropriate - Mood Patient's Decription of Mood: "still depressed and anxious" - Affect Observed Affect: Non-labile - Thought Process Patient's Thought Process: Coherent Thought Content: Yes Paranoid Ideation, No Passive Wish, No Suicidal Planning, No Homicidal Ideation - Sensorium Experiencing Hallucinations: No, Sensorium is Clear Type of Hallucinations: Visual: No, Auditory: No, Command: No - Level of Consciousness Level of Consciousness: Alert Orientation: Yes Intact, Yes Orientated to Time, Yes Orientated to Place, Yes Orientated to Person - Impulse Control Impulse Control: Intact - Insight and Judgement Insight and Judgement: Fair - Medication Management Medication Management Adherence: Yes Plan - Plan Treatment Plan: Name: MARIA M MARTINEZ Birthdate: 1985 [id number] Medications: Current Medications Bupropion HCl (Wellbutrin Sr Tab*) 150 mg PO BID [facility] Last Admin: 01/18/17 09:20 Dose: 150 mg Diphenhydramine HCl (Benadryl Po*) 50 mg PO BEDTIME PRN PRN Reason: INSOMNIA Insulin Glargine (Lantus(*)) 25 units SUBCUT Q24H [facility] Insulin Human Lispro (Humalog*) 0 units SUBCUT AC [facility] PRN Reason: Protocol Last Admin: 01/18/17 12:05 Dose: 6 unit Insulin Human Lispro (Humalog*) 0 units SUBCUT ACHS [facility] PRN Reason: Protocol Last Admin: 01/18/17 12:05 Dose: 15 units Metformin HCl (Glucophage*) 1,000 mg PO 0800,1700 [facility] Last Admin: 01/18/17 09:20 Dose: 1,000 mg Mirtazapine (Remeron Tab*) 15 mg PO BEDTIME [facility] Last Admin: 01/17/17 20:35 Dose: 15 mg Venlafaxine HCl (Effexor Xr Cap*) 225 mg PO DAILY [facility] Last Admin: 01/18/17 09:19 Dose: 225 mg
[2017-01-18] MEDS ORDERED: Insulin GLARGINE(*) 1 UNITS UNIT SUBCUT SCH (17:00)
[2017-01-18] MEDS: diPHENhydraMINE PO* 50 MG PO PRN (20:55)
[2017-01-18] MEDS: Mirtazapine TAB* 15 MG PO SCH (20:55)
[2017-01-18] MEDS: Clotrimazole 1% VAGINAL CREAM* 45 GM VAGINAL SCH (20:56)
[2017-01-19] MEDS: Insulin LISPRO* 1 UNITS UNIT SUBCUT SCH ×7 (08:08→20:46)
[2017-01-19] MEDS: buPROPion SR TAB.SR* 150 MG PO SCH ×2 (08:10→20:43)
[2017-01-19] MEDS: metFORMIN* 1,000 MG TAB PO SCH ×2 (08:10→17:02)
[2017-01-19] MEDS: Venlafaxine EXT RELEASE CAP* 75 MG PO SCH (08:10)
[2017-01-19] MEDS: Insulin GLARGINE(*) 1 UNITS UNIT SUBCUT SCH (17:03)
[2017-01-19] MEDS: Mirtazapine TAB* 15 MG PO SCH (20:43)
[2017-01-19] MEDS: diPHENhydraMINE PO* 50 MG PO PRN (20:45)
[2017-01-19] MEDS: Clotrimazole 1% VAGINAL CREAM* 45 GM VAGINAL SCH (20:47)
[2017-01-20] MEDS: Insulin LISPRO* 1 UNITS UNIT SUBCUT SCH ×7 (08:01→21:55)
[2017-01-20] MEDS: metFORMIN* 1,000 MG TAB PO SCH ×2 (09:15→17:44)
[2017-01-20] MEDS: Venlafaxine EXT RELEASE CAP* 75 MG PO SCH (09:15)
[2017-01-20] MEDS: buPROPion SR TAB.SR* 150 MG PO SCH ×2 (09:16→21:34)
--- NOTE | 2017-01-20 11:39 | PN ---
MHU: Group Therapy Note - Service Type Service Type: 96177 Group Psychotherapy - Cognitive Behavioral Group Therapy ( CBT):Patient was attentive and participatory in CBT programming this morning, and remained in good behavioral control. Patient expressed positive insights regarding relevant treatment interventions and goals.
--- NOTE | 2017-01-20 13:02 | PN ---
Subjective - Subjective Service Type: [id number] Hosp care 15 min low complexity Subjective: Maria M was seen mutually by myself and D/C habitat conservation planner Eli Cruz. The patient continues to complain of anxiety but denies SI or HI. She continues to not allow staff to contact her and refuses to return home to their home in [place], [place]. SW was able to confirm that [facility] does not have homeless services and that they contract with service providers in other [facility] in temporary need situations like the patient's. She continues to plan on moving to [place] to be with a new boyfriend there. Staff notes indicate that the patient is bright and social on the unit. Objective - Appearance Appearance: Obese Dysmorphic Features: No Hygiene: Normal Grooming: Well Kept - Behavior Psychomotor Activities: Normal Exhibits Abnormal Movement: No - Attitude and Relatedness Attitude and Relatedness: Cooperative Eye Contact: Fair - Speech Quality: Unpressured Latencies: Normal Quantity: Appropriate - Mood Patient's Decription of Mood: "Anxious" - Affect Observed Affect: Fair Affect Consistent with: Euthymia - Thought Process Patient's Thought Process: Coherent Thought Content: No Passive Wish, No Suicidal Planning, No Homicidal Ideation, No Paranoid Ideation - Sensorium Experiencing Hallucinations: No, Sensorium is Clear Type of Hallucinations: Visual: No, Auditory: No, Command: No - Level of Consciousness Level of Consciousness: Alert Orientation: Yes Intact, Yes Orientated to Time, Yes Orientated to Place, Yes Orientated to Person - Impulse Control Impulse Control: Tenuous - Insight and Judgement Insight and Judgement: Fair - Group Participation Particating in Group Activities: Yes - Medication Management Medication Management Adherence: Yes Assessment - Assessment Merits Inpatient Hospitalization: Pending Safe DC Plan Inpatient DSM-IV Dx: Unspecified Mood DO Clinical Impression: 31 y.o. , white female with a history of anxiety and affective problems who has several recent admissions to the hospital for behavioral problems, and who presents with SI, claiming to have overdosed on her 's clonazepam. Plan - Plan Treatment Plan: Name: MARIA M MARTINEZ Birthdate: 1985 [id number] We have continued the patient's mirtazapine, bupropion and venlafaxine as prescribed on the outpatient basis. We don't feel her condition warrants further inpatient stabilization and, if she insists on not returning to live with her , we are forced to seek alternative housing in the community. Will coordinate homeless services through [facility] and pursue discharge tomorrow once her placement is secured. Appreciate Hospitalist input for diabetic issues. Continued Medication Management: Continue Outpt Medication Medications: Current Medications Bupropion HCl (Wellbutrin Sr Tab*) 150 mg PO BID [facility] Last Admin: 01/20/17 09:16 Dose: 150 mg Clotrimazole (Gyne-Lotrimin 1% Vaginal Cream*) 1 applic VAGINAL BEDTIME [facility] Last Admin: 01/19/17 20:47 Dose: 1 applic Diphenhydramine HCl (Benadryl Po*) 50 mg PO BEDTIME PRN PRN Reason: INSOMNIA Last Admin: 01/19/17 20:45 Dose: 50 mg Insulin Glargine (Lantus(*)) 35 units SUBCUT Q24H [facility] Last Admin: 01/19/17 17:03 Dose: 35 unit Insulin Human Lispro (Humalog*) 0 units SUBCUT AC [facility] PRN Reason: Protocol Last Admin: 01/20/17 12:16 Dose: 6 unit Insulin Human Lispro (Humalog*) 0 units SUBCUT ACHS [facility] PRN Reason: Protocol Last Admin: 01/20/17 12:17 Dose: 12 units Metformin HCl (Glucophage*) 1,000 mg PO 0800,1700 [facility] Last Admin: 01/20/17 09:15 Dose: 1,000 mg Mirtazapine (Remeron Tab*) 15 mg PO BEDTIME [facility] Last Admin: 01/19/17 20:43 Dose: 15 mg Venlafaxine HCl (Effexor Xr Cap*) 225 mg PO DAILY [facility] Last Admin: 01/20/17 09:15 Dose: 225 mg - Discharge Plan Discharge Plan: Outpatient Follow Up Outpatient Program: [facility]
--- NOTE | 2017-01-20 16:16 | CONSULT ---
Subjective Reason for Visit: suicidal ideation Admission Date: 01/15/17 Glucose Level On Admission: 444 History Of Present Illness: Ms. Meyer is a 31 year old female with poorly controlled type II diabetes. She states that she has had the diagnosis of type II diabetes for approximately 1 year, however she also has a history of GDM. When she was initially diagnosed with diabetes, she was prescribed Metformin and Insulin. She reports subsequently being hospitalized for hypoglycemia with blood glucose of 14. Insulin was discontinued after that hospitalization. She has checked her blood glucose in the past and does have a glucometer at home, but reports that she does not know where it is and has not been monitoring her blood glucose at all. She reports polydipsia and polyuria as well as blurred vision, however she also states that one of her glasses lenses was missing. Patient History Surgical History: Yes Surgery Procedure, Year, and Place: [place] teeth removal Highest Level of Education Completed: High School Hx Tobacco Use: No Exercise: Walking Review Of Systems - Review of Systems Eyes: - - reports blurry vision, but also reports that one of the lenses in her glasses was missing Endocrine: - - reports polyuria and polydipsia Objective Allergies Allergy/AdvReac Type Severity Reaction Status Date / Time Morphine Allergy Severe See Comment Verified 09/21/16 13:01 Aripiprazole [From Abilify] Allergy Intermediate See Comment Verified 09/21/16 13:01 Home Medications Medication Instructions Recorded Confirmed Type metFORMIN* [Glucophage 500 MG TAB 500 mg PO BID WITH MEALS 01/16/17 01/16/17 History *] Fenofibrate [Fenofibrate] 145 mg PO DAILY 01/17/17 01/17/17 History Hospital Medications: Current Medications Bupropion HCl (Wellbutrin Sr Tab*) 150 mg PO BID [facility] Last Admin: 01/20/17 09:16 Dose: 150 mg Clotrimazole (Gyne-Lotrimin 1% Vaginal Cream*) 1 applic VAGINAL BEDTIME [facility] Last Admin: 01/19/17 20:47 Dose: 1 applic Diphenhydramine HCl (Benadryl Po*) 50 mg PO BEDTIME PRN PRN Reason: INSOMNIA Last Admin: 01/19/17 20:45 Dose: 50 mg Insulin Glargine (Lantus(*)) 35 units SUBCUT Q24H [facility] Last Admin: 01/19/17 17:03 Dose: 35 unit Insulin Human Lispro (Humalog*) 0 units SUBCUT AC [facility] PRN Reason: Protocol Last Admin: 01/20/17 12:16 Dose: 6 unit Insulin Human Lispro (Humalog*) 0 units SUBCUT ACHS [facility] PRN Reason: Protocol Last Admin: 01/20/17 12:17 Dose: 12 units Metformin HCl (Glucophage*) 1,000 mg PO 0800,1700 [facility] Last Admin: 01/20/17 09:15 Dose: 1,000 mg Mirtazapine (Remeron Tab*) 15 mg PO BEDTIME [facility] Last Admin: 01/19/17 20:43 Dose: 15 mg Venlafaxine HCl (Effexor Xr Cap*) 225 mg PO DAILY [facility] Last Admin: 01/20/17 09:15 Dose: 225 mg Lab Data: Sodium 132 mmol/L (133-145) L 01/16/17 07:50 Potassium 3.7 mmol/L (3.5-5.0) 01/16/17 07:50 BUN 7 mg/dL (6-24) 01/16/17 07:50 Creatinine 0.71 mg/dL (0.51-0.95) 01/16/17 07:50 Hemoglobin A1c 12.2 % (Less than 6.0) H 01/16/17 00:15 Calcium 8.8 mg/dL (8.6-10.3) 01/16/17 07:50 AST 16 U/L (13-39) 01/16/17 07:50 ALT 30 U/L (7-52) 01/16/17 07:50 Vital Signs: Vital Signs 01/20/17 12:49 Respiratory 16 Rate Height: 5 ft 4 in Weight: 84.822 kg Body Mass Index (BMI): 32.1 Physical Exam General Appearance: Positive: Alert, Oriented x3, Well Developed, Overweight, Pleasant, OOB Sitting In Chair Dentition: Positive: Dentition in Good Repair Respiratory: Positive: Non-Labored Plan Of Care Patient's Next Step: Based on the notes from the hospitalist group, it sounds like the plan is for Ms. Meyer to be discharged on oral medications. A glucometer was left at the nurses' station for the patient to have upon discharge. We discussed signs and symptoms of hyper and hypoglycemia, basic nutrition recommendations, blood glucose goals and carbohydrate counting. She is encouraged to follow up at [facility] for further diabetic teaching and DSME classes. Referral To: [facility] For Further OutPT Diabetic Training Diagnosis: Type II diabetes with hyperglycemia Education Education Provided: Blood Glucose Monitoring Handouts Provided: Living Well With Diabetes, My Plate diagram, 45 g. CHO meal plan Goals Goals: According to the [place] [employer], the following are your goals for Hemaglobin A1C Hemaglobin A1C * <7.0% for most Blood Glucose * Fasting Blood Glucose: 80-130 mg/dl * 2 Hour Post Prandial Glucose <180 mg/dl
[2017-01-20] MEDS: Insulin GLARGINE(*) 1 UNITS UNIT SUBCUT SCH (17:44)
[2017-01-20] MEDS: diPHENhydraMINE PO* 50 MG PO PRN (21:34)
[2017-01-20] MEDS: Mirtazapine TAB* 15 MG PO SCH (21:34)
[2017-01-20] MEDS: Clotrimazole 1% VAGINAL CREAM* 45 GM VAGINAL SCH (21:36)
[2017-01-20] MEDS ORDERED: Acetaminophen TAB* 325 MG PO PRN (22:20)
[2017-01-20] MEDS ORDERED: Acetaminophen TAB* 325 MG ONE (22:20)
[2017-01-21 07:42] VITALS: BP 124/84
[2017-01-21] MEDS: Insulin LISPRO* 1 UNITS UNIT SUBCUT SCH ×4 (08:29→11:59)
[2017-01-21] MEDS: Venlafaxine EXT RELEASE CAP* 75 MG PO SCH (08:31)
[2017-01-21] MEDS: metFORMIN* 1,000 MG TAB PO SCH (08:32)
[2017-01-21] MEDS: buPROPion SR TAB.SR* 150 MG PO SCH (08:32)
--- NOTE | 2017-01-21 11:22 | PN ---
MHU: Group Therapy Note - Service Type Service Type: [id number] Group Psychotherapy - Cognitive Behavioral Group Therapy ( CBT):Patient was attentive and participatory in CBT programming this morning, and remained in good behavioral control. Patient expressed positive insights regarding relevant treatment interventions and goals.
--- NOTE | 2017-01-21 11:59 | PN ---
Hospitalist Progress Note Patient seen briefly prior to discharge. BGs have been fairly well controlled on current regimen in the hospital with some occasional elevated levels. It seems that insulin as an outpatient would be a difficult and possibly expensive undertaking. At this point will recommend continuing on increased Metformin dose of 1000 mg BID and will also prescribe Glipizide XL 5 mg daily (rx sent to [facility]). May need further up-titration as an outpatient. Should follow-up with PCP.
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
== END 2017-01-21 12:22 | DRG 756 ==
LOC: ED 23:27 → BSU 01-16 23:29
PROVIDERS: ADMIT Internal Medicine; ATTEND Psychiatry & Neurology Psychiatry
DX: F41.9 Anxiety disorder, unspecified (principal); E11.65 Type 2 diabetes mellitus with hyperglycemia; R45.851 Suicidal ideations; F32.9 Major depressive disorder, single episode, unspecified; F60.3 Borderline personality disorder; I10 Essential (primary) hypertension; E78.5 Hyperlipidemia, unspecified; Z79.84 Long term (current) use of oral hypoglycemic drugs; Z87.820 Personal history of traumatic brain injury; Z79.899 Other long term (current) drug therapy; Z81.8 Family history of other mental and behavioral disorders; Z82.49 Family history of ischemic heart disease and other diseases of the circulatory system; Z83.3 Family history of diabetes mellitus; Z80.3 Family history of malignant neoplasm of breast
CPT/HCPCS: 36415; 70450; 80048; 80053; 80307; 80320; 80329; 81003; 81015; 83036; 84443; 84702; 85025; 87086; 99222; 99231; 99251; A9270-GY; G0480

== ENCOUNTER 2017-10-02 03:39 | Inpatient (IN) | payer BC ==
[2017-10-02] MEDS ORDERED: Insulin REGULAR(*) 1 UNITS UNIT IV PUSH ONE (04:25)
[2017-10-02] MEDS ORDERED: Insulin REGULAR(*) 100 UNITS in NS 0.9% 100 ML* 100 ML IVPB ONE ×2 (04:26→11:00)
[2017-10-02] MEDS ORDERED: NS 0.9% 1000 ML* 1,000 ML IV SCH (04:30)
[2017-10-02 04:53] LABS: ABS Basophils 0.1 10^3/ul (0-0.2); ABS Eosinophils 0 10^3/ul (0-0.6); ABS Monocytes 1.1 10^3/ul (0-0.8); ABS Neutrophils 10.2 10^3/ul (1.5-7.7); ABS Nucleated RBC 0 10^3/ul; Eosinophil % 0.2 % (0-6); Hematocrit 44 % (35-47); Hemoglobin 15.3 g/dl (12.0-16.0); Lymphocyte % 7.8 % (25-47); Mean Corpuscular HGB Conc 35 g/dl (31-36); Mean Corpuscular Hemoglobin 32 pg (27-31); Mean Corpuscular Volume 91 fL (80-97); Mean Platelet Volume 6 um3 (7.4-10.4); Nucleated Red Blood Cells % 0.1; Platelet Count 447 10^3/ul (150-450); Red Blood Count 4.83 10^6/ul (4.0-5.4); Red Cell Distribution Width 13 % (10.5-15); White Blood Count 12.3 10^3/ul (3.5-10.8)
[2017-10-02 05:06] LABS: EGFR Non-African American 70.8 (>60)
[2017-10-02] MEDS ORDERED: Potassium Phosphate IV* 15 MMOLE in NS 0.9% 250 ML* 250 ML IVPB ONE ×3 (05:17→20:00)
[2017-10-02] MEDS ORDERED: NS 0.9% 1000 ML* 2,000 ML IV ONE (05:34)
[2017-10-02] MEDS ORDERED: Al Hydrox/Mg Hydrox/Simet LIQ* 30 ML UDC PO PRN (05:46)
[2017-10-02] MEDS ORDERED: Ondansetron INJ* 2 MG/ML VIAL IV PRN (05:46)
[2017-10-02] MEDS ORDERED: NS 0.9% w/ 20 Meq KCL 1000 ML* 1,000 ML IV SCH (06:00)
[2017-10-02] MEDS ORDERED: Pantoprazole IV* 40 MG IV ONE (06:08)
--- NOTE | 2017-10-02 08:13 | RAD ---
Indication: Shortness of breath. Comparison: No relevant prior exams available on the [facility] PACS for comparison. Technique: Upright AP 0605 hours Report: Clear lungs and pleural spaces. Negative for pneumothorax. The heart, pulmonary vasculature, and mediastinal contours are unremarkable. Unremarkable osseous structures and soft tissue contours. IMPRESSION: No evidence for acute intrathoracic disease.
[2017-10-02 08:49] LABS: ABS Basophils 0.1 10^3/ul (0-0.2); ABS Eosinophils 0 10^3/ul (0-0.6); ABS Lymphocytes 1.2 10^3/ul (1.0-4.8); ABS Monocytes 0.9 10^3/ul (0-0.8); ABS Neutrophils 8.8 10^3/ul (1.5-7.7); ABS Nucleated RBC 0 10^3/ul; Eosinophil % 0.3 % (0-6); Hematocrit 37 % (35-47); Hemoglobin 12.8 g/dl (12.0-16.0); Lymphocyte % 10.6 % (25-47); Mean Corpuscular HGB Conc 35 g/dl (31-36); Mean Corpuscular Hemoglobin 31 pg (27-31); Mean Corpuscular Volume 90 fL (80-97); Mean Platelet Volume 6 um3 (7.4-10.4); Nucleated Red Blood Cells % 0.1; Platelet Count 357 10^3/ul (150-450); Red Blood Count 4.11 10^6/ul (4.0-5.4); Red Cell Distribution Width 13 % (10.5-15)
[2017-10-02 09:02] LABS: Urine Appearance Cloudy; Urine Blood 2+ (Negative); Urine Color Yellow; Urine Ketones 2+ (Negative); Urine Protein 2+(100 mg/dL) (Negative); Urine Specific Gravity 1.029 (1.010-1.030); Urine Urobilinogen Negative (Negative)
[2017-10-02 09:06] LABS: EGFR Non-African American 155.5 (>60)
[2017-10-02] MEDS ORDERED: D5W 1/2 NS 1000 ML BAG* 1,000 ML IV SCH (11:00)
[2017-10-02] MEDS: Oseltamivir CAP* 75 MG CAP PO SCH ×2 (11:21→21:15)
[2017-10-02 13:03] LABS: EGFR Non-African American 144.6 (>60)
[2017-10-02] MEDS ORDERED: KCL 10 MEQ/50 ML IVPREMIX* 10 MEQ/50 ML BAG IV ONE (13:13)
[2017-10-02 13:23] LABS: EGFR Non-African American 114.4 (>60)
--- NOTE | 2017-10-02 13:46 | CONSULT ---
Consult Consult: Psychiatry is aware of the consult for this patient, admitted currently to the ICU with diabetic ketoacidosis and influenza. Staff notes describe her as "loopy" and we are unable to reach the attending clinician. Psychiatry will try to evaluate her tomorrow (10/03/17) if her condition permits.
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
[2017-10-02] MEDS: KCL 10 MEQ/50 ML IVPREMIX* 10 MEQ/50 ML BAG IV SCH ×6 (14:37→21:18)
[2017-10-02] MEDS ORDERED: Ketorolac INJ* 30 MG/ML 1 ML VIAL IV PUSH ONE (16:31)
[2017-10-02 16:36] LABS: EGFR Non-African American 116.7 (>60)
[2017-10-02] MEDS ORDERED: NS IV SCH ×2 (17:00)
[2017-10-02] MEDS ORDERED: SODIUM BICARBONATE IV SCH ×2 (17:00)
[2017-10-02] MEDS ORDERED: Potassium Chloride LIQUID* 20 MEQ PACKET PO ONE (17:01)
--- NOTE | 2017-10-02 17:03 | PN ---
Progress Note - Progress Note Date of Service: 10/02/17 Note: ICU NOTE 32y F admitted with DKA, AG 19, Bicarb 9, hyponatremia, BG >500. Currently on insulin infusion with IVF. last BMP with K 2.8, Bicarb 8, AG 15, Cr 0.59, Last fingersticks 220-290, last BS on chem 326. Would change IVF to NS + 75meq bicarb + 20meq and infuse at 100cc/hour. Cont IV insulin for DKA protocol Once BS drops to <250 consistently, change IVF to D5 NS + KCL and continue with infusion if Anion gag is still >10-12. D/C insulin once AG corrected, change to long acting insulin. Give KCL 10meq x4 runs now Add on phosphorus level to labs to check, replete with Kphos run next. Discussed with Dr Cid and nurses. Alfred Hidalgo Cathodic Protection Technician
[2017-10-02] MEDS ORDERED: Potassium Chlor TAB* 20 MEQ TAB.ER PO ONE (18:00)
[2017-10-02] MEDS ORDERED: D5W 1/2 NS KCl 20 Meq 1000 ML* 1,000 ML IV SCH (21:00)
[2017-10-02] MEDS: Potassium Chloride LIQUID* 20 MEQ PACKET PO SCH (22:19)
[2017-10-02] MEDS ORDERED: Ketorolac INJ* 15 MG/ML 1 ML VIAL IV PUSH ONE (23:19)
[2017-10-03 00:30] LABS: EGFR Non-African American 129.2 (>60)
[2017-10-03] MEDS ORDERED: Dextrose 50% Syringe 50 ML* 25 GM/50 ML SYRINGE IV PUSH PRN ×2 (00:37→00:40)
[2017-10-03] MEDS ORDERED: KCL 10 MEQ/50 ML IVPREMIX* 10 MEQ/50 ML BAG ONE (00:53)
[2017-10-03] MEDS ORDERED: Insulin GLARGINE(*) 1 UNITS UNIT ONE (00:53)
[2017-10-03] MEDS: KCL 10 MEQ/50 ML IVPREMIX* 10 MEQ/50 ML BAG IV SCH (00:56)
[2017-10-03] MEDS ORDERED: Insulin GLARGINE(*) 1 UNITS UNIT SUBCUT SCH (01:00)
[2017-10-03] MEDS: Insulin LISPRO* 1 UNITS UNIT SUBCUT SCH ×7 (02:15→17:04)
[2017-10-03] MEDS: NS 0.9% 1000 ML* 1,000 ML IV SCH ×2 (03:34→14:09)
[2017-10-03] MEDS ORDERED: Acetaminophen TAB* 325 MG ONE (05:03)
[2017-10-03] MEDS: Acetaminophen TAB* 325 MG PO PRN ×2 (05:06→21:02)
[2017-10-03 06:03] LABS: ABS Basophils 0 10^3/ul (0-0.2); ABS Eosinophils 0.1 10^3/ul (0-0.6); ABS Lymphocytes 1.1 10^3/ul (1.0-4.8); ABS Monocytes 0.7 10^3/ul (0-0.8); ABS Neutrophils 5.6 10^3/ul (1.5-7.7); ABS Nucleated RBC 0 10^3/ul; Eosinophil % 1.9 % (0-6); Hematocrit 32 % (35-47); Hemoglobin 11.5 g/dl (12.0-16.0); Lymphocyte % 15.1 % (25-47); Mean Corpuscular HGB Conc 36 g/dl (31-36); Mean Corpuscular Hemoglobin 31 pg (27-31); Mean Corpuscular Volume 88 fL (80-97); Mean Platelet Volume 5 um3 (7.4-10.4); Nucleated Red Blood Cells % 0; Platelet Count 330 10^3/ul (150-450); Red Blood Count 3.66 10^6/ul (4.0-5.4); Red Cell Distribution Width 13 % (10.5-15); White Blood Count 7.6 10^3/ul (3.5-10.8)
[2017-10-03 06:18] LABS: EGFR Non-African American 159.5 (>60)
[2017-10-03] MEDS ORDERED: Calcium Acetate CAP* 667 MG PO ONE (06:26)
[2017-10-03] MEDS: Pantoprazole IV* 40 MG IV SCH (06:56)
[2017-10-03] MEDS ORDERED: ICU Lab Reminder 1 NOTE MISC FOLLOW UP SCH (07:00)
[2017-10-03] MEDS ORDERED: Potassium Chloride LIQUID* 20 MEQ PACKET PO SCH (07:00)
[2017-10-03] MEDS ORDERED: Potassium Phosphate IV* 15 MMOLE in NS 0.9% 250 ML* 250 ML IVPB ONE (07:48)
[2017-10-03] MEDS: Potassium Chloride LIQUID* 20 MEQ PACKET PO SCH (08:27)
[2017-10-03] MEDS: Oseltamivir CAP* 75 MG CAP PO SCH ×2 (08:27→21:03)
[2017-10-03] MEDS: Ketorolac INJ* 15 MG/ML 1 ML VIAL IV PUSH PRN ×3 (08:44→19:42)
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
--- NOTE | 2017-10-03 10:56 | RAD ---
Indication: Chronic left knee pain. 2 views of left knee demonstrates no fracture. No other bone or joint abnormality is identified. IMPRESSION: No fracture of the left knee is noted.
[2017-10-03 13:39] LABS: Urine Appearance Cloudy; Urine Blood 2+ (Negative); Urine Color Yellow; Urine Ketones 2+ (Negative); Urine Protein Negative (Negative); Urine Urobilinogen Negative (Negative)
[2017-10-03] MEDS ORDERED: POTASSIUM CHLORIDE TPN IVPB SCH ×2 (16:15)
[2017-10-03] MEDS ORDERED: NS 0.9% IVPB SCH ×2 (16:15)
[2017-10-03] MEDS: KCL premix 10MEQ/50 ML x 4 RUNS IV SCH ×4 (16:49→21:03)
[2017-10-03] MEDS ORDERED: Insulin REGULAR(*) 100 UNITS in NS 0.9% 100 ML* 100 ML IV SCH ×5 (17:00→20:00)
[2017-10-03] MEDS ORDERED: NS 0.9% w/ 20 Meq KCL 1000 ML* 1,000 ML IV SCH (17:00)
[2017-10-03] MEDS ORDERED: KCL 20 MEQ/100 ML IVPREMIX* 20 MEQ/100 ML BAG IV SCH ×2 (17:00→23:45)
[2017-10-03] MEDS ORDERED: NS 0.9% w/ 40 Meq KCL 1000 ML* 1,000 ML IV SCH (17:09)
[2017-10-03] MEDS ORDERED: Potassium Chlor TAB* 20 MEQ TAB.ER PO PRN (18:00)
[2017-10-03] MEDS ORDERED: Potassium Phosphate IV* 3 MMOLE/ML 5 ML IVPB IV PRN (18:00)
[2017-10-03] MEDS ORDERED: Sodium Phosphate INJ* 3 MMOLE/ML 5 ML IVPB PRN (18:00)
[2017-10-03] MEDS ORDERED: Magnesium Sulfate IV* 0.5 GM/ML 2 ML VIAL (1 GM) IVPB PRN (18:00)
[2017-10-03] MEDS ORDERED: KCL 20 MEQ/100 ML IVPREMIX* 100 ML BAG IV PRN (18:00)
[2017-10-03] MEDS ORDERED: CALCIUM GLUCONATE* 1 GM/10 ML VIAL (in Pyxis) IV PRN (18:00)
[2017-10-03] MEDS ORDERED: D5W 1/2 NS 1000 ML BAG* 1,000 ML IV SCH (19:00)
[2017-10-03] MEDS ORDERED: NS 0.9% 1000 ML* 1,000 ML IV SCH (19:15)
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
[2017-10-03 23:44] LABS: EGFR Non-African American 155.5 (>60)
[2017-10-03] MEDS ORDERED: Potassium Chlor TAB* 20 MEQ TAB.ER PO ONE (23:51)
[2017-10-04] MEDS: KCL premix 10MEQ/50 ML x 6 RUNS IV SCH ×6 (00:30→06:54)
[2017-10-04] MEDS: KCL 10 MEQ/50 ML IVPREMIX* 10 MEQ/50 ML BAG ONE ×2 (00:36→00:44)
[2017-10-04] MEDS ORDERED: Potassium Chloride LIQUID* 20 MEQ PACKET PO ONE ×2 (00:40→09:00)
[2017-10-04] MEDS ORDERED: D5NS 0.9% 1000 ML BAG* 1,000 ML IV SCH (01:00)
[2017-10-04] MEDS: Ketorolac INJ* 15 MG/ML 1 ML VIAL IV PUSH PRN (01:38)
[2017-10-04] MEDS ORDERED: Insulin REGULAR(*) 100 UNITS in NS 0.9% 100 ML* 100 ML IV SCH (03:00)
[2017-10-04] MEDS: traMADol TAB* 50 MG PO PRN ×3 (05:50→20:26)
[2017-10-04] MEDS: Pantoprazole IV* 40 MG IV SCH (06:46)
[2017-10-04] MEDS: Acetaminophen TAB* 325 MG PO PRN ×2 (07:07→20:26)
[2017-10-04 07:11] LABS: ABS Basophils 0 10^3/ul (0-0.2); ABS Eosinophils 0.1 10^3/ul (0-0.6); ABS Lymphocytes 1.2 10^3/ul (1.0-4.8); ABS Neutrophils 6.3 10^3/ul (1.5-7.7); ABS Nucleated RBC 0 10^3/ul; Eosinophil % 0.6 % (0-6); Hematocrit 37 % (35-47); Hemoglobin 13.1 g/dl (12.0-16.0); Lymphocyte % 14.4 % (25-47); Mean Corpuscular HGB Conc 35 g/dl (31-36); Mean Corpuscular Hemoglobin 31 pg (27-31); Mean Corpuscular Volume 89 fL (80-97); Mean Platelet Volume 6 um3 (7.4-10.4); Nucleated Red Blood Cells % 0; Platelet Count 307 10^3/ul (150-450); Red Blood Count 4.18 10^6/ul (4.0-5.4); Red Cell Distribution Width 13 % (10.5-15); White Blood Count 8.6 10^3/ul (3.5-10.8)
[2017-10-04 07:13] LABS: EGFR Non-African American 155.5 (>60)
[2017-10-04] MEDS ORDERED: Potassium Chlor TAB* 20 MEQ TAB.ER PO ONE (07:20)
[2017-10-04] MEDS: Oseltamivir CAP* 75 MG CAP PO SCH ×2 (08:45→20:26)
[2017-10-04] MEDS: Potassium Chloride LIQUID* 20 MEQ PACKET PO SCH (08:45)
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
[2017-10-04] MEDS ORDERED: Insulin NPH(*) 1 UNITS UNIT SUBCUT ONE (12:35)
[2017-10-04] MEDS ORDERED: Potassium Phosphate IV* 15 MMOLE in NS 0.9% 250 ML* 250 ML IVPB ONE (13:00)
[2017-10-04] MEDS: Potassium Acid Phosphate TAB* 500 MG PO SCH ×2 (13:25→20:26)
[2017-10-04] MEDS ORDERED: Dextrose 50% Syringe 50 ML* 25 GM/50 ML SYRINGE IV PUSH PRN (16:34)
[2017-10-04 16:43] LABS: EGFR Non-African American 87.1 (>60)
[2017-10-04] MEDS: Insulin LISPRO* 1 UNITS UNIT SUBCUT SCH ×2 (16:53→21:15)
[2017-10-04] MEDS: Heparin VIAL(*) 5000 UNITS/ML VIAL (FIVE THOUSAND) SUBCUT SCH (20:26)
[2017-10-04] MEDS ORDERED: Fluconazole 100 MG TAB* TAB PO ONE (21:06)
[2017-10-04] MEDS ORDERED: Insulin GLARGINE(*) 1 UNITS UNIT SUBCUT SCH (22:00)
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
[2017-10-05] MEDS: traMADol TAB* 50 MG PO PRN ×4 (02:08→20:42)
[2017-10-05 04:58] LABS: Hematocrit 32 % (35-47); Hemoglobin 11.5 g/dl (12.0-16.0); Mean Corpuscular HGB Conc 36 g/dl (31-36); Mean Corpuscular Hemoglobin 31 pg (27-31); Mean Corpuscular Volume 88 fL (80-97); Mean Platelet Volume 6 um3 (7.4-10.4); Platelet Count 288 10^3/ul (150-450); Red Blood Count 3.67 10^6/ul (4.0-5.4); Red Cell Distribution Width 13 % (10.5-15); White Blood Count 12.2 10^3/ul (3.5-10.8)
[2017-10-05] MEDS ORDERED: NS 0.9% 1000 ML* 1,000 ML IV ONE ×2 (05:22→15:30)
[2017-10-05] MEDS: Acetaminophen TAB* 325 MG PO PRN ×3 (05:47→19:45)
[2017-10-05] MEDS: Ketorolac INJ* 15 MG/ML 1 ML VIAL IV PUSH PRN ×3 (05:47→23:22)
[2017-10-05] MEDS: Potassium Chloride LIQUID* 20 MEQ PACKET PO SCH ×2 (05:48→09:25)
[2017-10-05] MEDS ORDERED: Insulin NPH(*) 1 UNITS UNIT SUBCUT ONE (06:50)
[2017-10-05] MEDS ORDERED: Azithromycin TAB* 250 MG PO ONE (07:44)
[2017-10-05] MEDS: Pantoprazole IV* 40 MG IV SCH (07:44)
--- NOTE | 2017-10-05 08:00 | RAD ---
Indication: Fever. Single frontal view of the chest performed at 0700 hours was reviewed. Comparison is made with previous exam dated October 02, 2017. No mediastinal shift is noted. Heart is of normal size and configuration. Lung rod appear clear. IMPRESSION: NO ACTIVE CARDIOPULMONARY DISEASE IS NOTED.
[2017-10-05] MEDS: Potassium Acid Phosphate TAB* 500 MG PO SCH ×3 (08:17→20:54)
[2017-10-05] MEDS: Oseltamivir CAP* 75 MG CAP PO SCH ×2 (08:18→20:42)
[2017-10-05] MEDS: Insulin LISPRO* 1 UNITS UNIT SUBCUT SCH ×4 (08:18→20:54)
[2017-10-05] MEDS: Heparin VIAL(*) 5000 UNITS/ML VIAL (FIVE THOUSAND) SUBCUT SCH ×2 (08:18→20:42)
--- NOTE | 2017-10-05 08:56 | PN ---
Subjective Date of Service: 10/05/17 Interval History: Still complains of left knee pain. She has a slight cough that is nonproductive , no sore throat, no rashes or ulcers, no tooth aches, no chest pain or shortness of breath, no dysuria, no diarrhea. Family History: Unchanged from Admission Social History: Unchanged from Admission Past Medical History: Unchanged from Admission Objective Active Medications: Acetaminophen (Tylenol Tab*) 650 mg PO Q4H PRN PRN Reason: PAIN Last Admin: 10/05/17 05:47 Dose: 650 mg Al Hydrox/Mg Hydrox/Simethicone (Maalox Plus*) 30 ml PO Q6H PRN PRN Reason: INDIGESTION Azithromycin (Zithromax Tab*) 250 mg PO DAILY [facility] Dextrose (D50w Syringe 50 Ml*) 12.5 gm IV PUSH .FOR FS < 60 - SS PRN PRN Reason: FS < 60 Heparin Sodium (Porcine) (Heparin Vial(*)) 5,000 units SUBCUT Q12HR [facility] Last Admin: 10/05/17 08:18 Dose: 5,000 units Sodium Chloride (Ns 0.9% 1000 Ml*) 1,000 mls @ 175 mls/hr IV PER RATE [facility] Ceftriaxone Sodium 1 gm/ (Sodium Chloride) 50 mls @ 200 mls/hr IVPB Q24H [facility] Insulin Glargine (Lantus(*)) 35 units SUBCUT Q24H [facility] Last Admin: 10/04/17 21:16 Dose: 35 units Insulin Human Lispro (Humalog*) 0 units SUBCUT FS ACHS ICU [facility] PRN Reason: Protocol Last Admin: 10/05/17 08:18 Dose: 6 units Ketorolac Tromethamine (Toradol Inj*) 15 mg IV PUSH Q6H PRN PRN Reason: PAIN Last Admin: 10/05/17 05:47 Dose: 15 mg Ondansetron HCl (Zofran Inj*) 4 mg IV Q4H PRN PRN Reason: NAUSEA/VOMITING Oseltamivir Phosphate (Tamiflu Cap*) 75 mg PO BID [facility] Stop: 10/06/17 21:01 Last Admin: 10/05/17 08:18 Dose: 75 mg Pantoprazole Sodium (Protonix Iv*) 40 mg IV Q24H [facility] Last Admin: 10/05/17 07:44 Dose: 40 mg Potassium Chloride (Klor-Con Liquid*) 40 meq PO Q4H [facility] Stop: 10/05/17 10:01 Last Admin: 10/05/17 05:48 Dose: 40 meq Potassium Chloride (Klor-Con Liquid*) 40 meq PO QAM [facility] Potassium Phosphate (K Phos Original Tab*) 500 mg PO TID [facility] Last Admin: 10/05/17 08:17 Dose: 500 mg Tramadol HCl (Ultram*) 50 mg PO Q6H PRN PRN Reason: PAIN Last Admin: 10/05/17 08:17 Dose: 50 mg Vital Signs - 8 hr 10/05/17 10/05/17 10/05/17 01:00 01:01 02:00 Temperature Pulse Rate 112 110 127 Respiratory 17 18 17 Rate Blood Pressure 117/76 (mmHg) O2 Sat by Pulse 100 99 99 Oximetry 10/05/17 10/05/17 10/05/17 02:02 03:00 03:01 Temperature Pulse Rate 124 113 114 Respiratory 22 19 20 Rate Blood Pressure 117/80 114/78 (mmHg) O2 Sat by Pulse 99 99 99 Oximetry 10/05/17 10/05/17 10/05/17 03:03 04:00 04:01 Temperature 100.2 F Pulse Rate 110 113 Respiratory 22 18 21 Rate Blood Pressure 103/67 (mmHg) O2 Sat by Pulse 99 100 Oximetry 10/05/17 10/05/17 10/05/17 05:00 05:01 05:54 Temperature Pulse Rate 118 119 Respiratory 23 20 24 Rate Blood Pressure 125/92 (mmHg) O2 Sat by Pulse 100 100 Oximetry 10/05/17 10/05/17 10/05/17 06:00 06:01 07:00 Temperature Pulse Rate 122 126 116 Respiratory 19 18 13 Rate Blood Pressure 120/88 114/76 (mmHg) O2 Sat by Pulse 100 100 100 Oximetry 10/05/17 10/05/17 10/05/17 07:01 08:00 08:01 Temperature 97.4 F Pulse Rate 122 102 103 Respiratory 14 14 13 Rate Blood Pressure 109/70 (mmHg) O2 Sat by Pulse 100 98 99 Oximetry Oxygen Devices in Use Now: None Appearance: alert, non-toxic Eyes: No Scleral Icterus Ears/Nose/Mouth/Throat: NL Teeth, Lips, Gums, Clear Oropharnyx Neck: NL Appearance and Movements; NL JVP Respiratory: Symmetrical Chest Expansion and Respiratory Effort, Clear to Auscultation Cardiovascular: - - tachycardic, no murmurs Abdominal: NL Sounds; No Tenderness; No Distention Lymphatic: No Cervical Adenopathy Extremities: No Edema, - - left knee effusion, no erythema, resists passive and active range of motion Skin: No Rash or Ulcers Neurological: Alert and Oriented x 3 Result Diagrams: 10/05/17 04:45 10/05/17 04:45 Microbiology and Other Data: Microbiology 10/02/17 07:30 Nasal Screen MRSA (PCR)([facility]) - Final Nasal Mrsa Negative 10/02/17 07:12 Influenza Types A,B Antigen ([facility]) - Final Nasopharyngeal Specimen received for Influenza A/B Molecular testing Assess/Plan/Problems-Billing Assessment: 1. DKA Likely due to the flu + insulin nonadherence. Gap re-opened this morning; likely from insulin underdosing (weight-based) Will treat with SC insulin today and trend BMP 2. Sepsis Likely related to influenza, however fevers increased after 3 days of tamiflu, suggesting a superimposed bacterial infection. CXR is negative this morning, skin is in tact, synovial fluid is negative for infection (based on WBC cound; culture is pending). Blood cultures are pending, but I have low suspicion for bacteremia. Will add ceftriaxone/azithromycin for CAP today; as that is the most likely source, and radiographic findings may be lagging. 3. Monoarticular arthritis Culture pending from synovial fluid from yesterday. Check GC/CT today 4. Hypophosphatemia likely due to #1 and insulin infusion, may also be related to RTA if present. Replete 5. Hypokalemia likely from #1 also, continue aggressive repletion 6. Borderline personality disorder Psychiatric evaluation encouraged outpatient follow up; no need for inpatient
[2017-10-05] MEDS: cefTRIAXone(*) 1 GM in NS 0.9% 50 ML* 50 ML IVPB SCH (09:17)
[2017-10-05] MEDS: NS 0.9% 1000 ML* 1,000 ML IV SCH ×2 (13:21→20:43)
[2017-10-05 13:31] LABS: EGFR Non-African American 144.6 (>60)
[2017-10-05] MEDS ORDERED: Vancomycin per Pharmacy* NOTE FOLLOW UP PRN (15:29)
[2017-10-05] MEDS ORDERED: Vancomycin(*) 1,250 MG in NS 0.9% 250 ML* 250 ML IVPB ONE (15:40)
[2017-10-05] MEDS: POTASSIUM PHOSPHATE IVPB SCH (16:12)
[2017-10-05] MEDS: NS IVPB SCH (16:12)
[2017-10-05] MEDS ORDERED: Insulin GLARGINE(*) 1 UNITS UNIT SUBCUT SCH (16:36)
[2017-10-05] MEDS: Insulin GLARGINE(*) 1 UNITS UNIT SUBCUT SCH (17:21)
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
[2017-10-06] MEDS: Acetaminophen TAB* 325 MG PO PRN ×5 (00:08→18:23)
[2017-10-06] MEDS: NS 0.9% 1000 ML* 1,000 ML IV SCH ×2 (02:24→08:49)
[2017-10-06] MEDS: traMADol TAB* 50 MG PO PRN ×2 (04:41→12:19)
[2017-10-06 06:30] LABS: EGFR Non-African American 172.7 (>60)
[2017-10-06 06:38] LABS: INR 1.21 (0.77-1.02)
[2017-10-06 07:13] LABS: Hematocrit 29 % (35-47); Mean Corpuscular HGB Conc 35 g/dl (31-36); Mean Corpuscular Hemoglobin 31 pg (27-31); Mean Corpuscular Volume 89 fL (80-97); Mean Platelet Volume 6 um3 (7.4-10.4); Platelet Count 216 10^3/ul (150-450); Red Blood Count 3.23 10^6/ul (4.0-5.4); Red Cell Distribution Width 13 % (10.5-15); White Blood Count 11.2 10^3/ul (3.5-10.8)
[2017-10-06 07:27] LABS: EGFR Non-African American 182.7 (>60)
[2017-10-06] MEDS: Heparin VIAL(*) 5000 UNITS/ML VIAL (FIVE THOUSAND) SUBCUT SCH (07:37)
[2017-10-06] MEDS: Potassium Chloride LIQUID* 20 MEQ PACKET PO SCH ×2 (07:37→10:44)
[2017-10-06] MEDS: Pantoprazole IV* 40 MG IV SCH (07:37)
[2017-10-06] MEDS: Oseltamivir CAP* 75 MG CAP PO SCH (07:37)
[2017-10-06 07:42] LABS: ABS Basophils 0 10^3/ul (0-0.2); ABS Eosinophils 0 10^3/ul (0-0.6); ABS Lymphocytes 0.9 10^3/ul (1.0-4.8); ABS Monocytes 1.6 10^3/ul (0-0.8); ABS Neutrophils 8.7 10^3/ul (1.5-7.7); ABS Nucleated RBC 0 10^3/ul; Eosinophil % 0.2 % (0-6); INR 1.3 (0.77-1.02); Lymphocyte % 8.2 % (25-47); Nucleated Red Blood Cells % 0
[2017-10-06] MEDS: cefTRIAXone(*) 1 GM in NS 0.9% 50 ML* 50 ML IVPB SCH (07:43)
[2017-10-06] MEDS: Insulin LISPRO* 1 UNITS UNIT SUBCUT SCH ×4 (08:22→23:40)
[2017-10-06] MEDS ORDERED: Azithromycin TAB* 250 MG PO SCH (09:00)
[2017-10-06] MEDS: Potassium Acid Phosphate TAB* 500 MG PO SCH ×2 (09:00→13:43)
[2017-10-06] MEDS ORDERED: Magnesium Oxide TAB* 400 MG PO ONE (09:42)
[2017-10-06] MEDS: Vancomycin(*) 1,000 MG in NS 0.9% 250 ML* 250 ML IVPB SCH ×4 (10:39→16:53)
[2017-10-06] MEDS ORDERED: Magnesium Sulf 4 GM/100 ML IV* 4,000 MG/100 ML BAG IVPB ONE (10:42)
--- NOTE | 2017-10-06 11:26 | PN ---
Progress Note - Progress Note Date of Service: 10/06/17 Note: CRITICAL CARE MEDICINE Date: 10/06/17 Time: 1020 SUBJECTIVE: Patient seen and examined. PHYSICAL EXAM: Vital Signs: Reviewed. Neurologic: awake, communcating well. nad HEENT: pupils equal. Sclera anicteric. Trachea midline. Cardiovascular: S1 S2, tachy Respiratory: reg phases and clear Abdomen: Soft, obese, nt. No r/g/r. Extremities: Warm. Left knee joint post tap looks ok, and no appreciable joint fluid but slightly indurated area, edematous and palpable bogginess medial and above knee with small bullae. warm and very mildly uncomfortable to touch. No crepitus. Access: piv LABS: Reviewed. IMAGING: Reviewed. MEDICATIONS: Reviewed. ASSESSMENT: 32 F DKA with uncontrolled DM Left leg cellutitis Influenza + PLAN: Neurologic: stable. Cardiovascular: little tachy but tolerable. going along with fevers. off ivf Respiratory: well. no rales. post considerable fluid hydration without infiltrative disease to suggest any pna. ra Gastrointestinal: po diet. Renal/Metabolic: lytes ok. Phos repleting better. Infectious Disease: on C3 and vanco for possible mrsa cellulitis vs soft tissue infection. certainly not seeeming like fascitis nor septic arthritis, but mri this am and f/u. Doubt surgical needs presently but have ortho f/u. May need to have ID see. Can dc azithro. keep C3 and vanco for now. May be able to downgrade to just clinda soon, but again, may consider ID for longer needs. Hematology: stable. Endocrine: BG improving. AG stable. Musculoskeletal: oob. pt. ortho f/u and mri pending Psych/Social: pt expressed understanding. psych f/u prn Supportive and preventative care as ordered. VTE prophylaxis: heparin Disposition: floor Code Status: Full Critical Care Time: 25min Jinny Mejia DO
--- NOTE | 2017-10-06 11:27 | RAD ---
Indication: Right knee pain and swelling. Image sequences: Axial proton density, sagittal proton density, fat saturated proton density, coronal T1, proton-density, STIR, axial fat-suppressed proton density images of the knee were obtained. The medial meniscus is normal in morphology. No abnormal signal is present to suggest a tear. The lateral meniscus demonstrates a discoid configuration. No definite tear is identified. The anterior and posterior cruciate ligaments appear intact. The quadriceps and infrapatellar tendon are intact. Moderate-sized joint effusion is noted. The medial and lateral retinaculum are unremarkable. There is edema in the right vastus medialis muscle. There is intramuscular fluid noted. There is a fluid collection superficial to the right vastus medialis muscle. This is incompletely imaged and the subcutaneous collection measures 3.2 x 2.2 cm. Intramuscular contusion collection extends to the femur measuring approximately 4.0 x 7.0 cm. Adjacent soft tissue edema is noted. Minimal suprapatellar effusion is noted. Subcutaneous edema is noted. IMPRESSION: Physiologic amount of fluid is noted. There is a fluid collection arising from the distal medialis muscle extending into the soft tissues surrounding the femur. This measures at least 7.1 x 4.1 cm. Additional multiloculated subcutaneous collection is noted measuring 3.2 x 2.2 cm. Underlying abscess is not totally excluded.
[2017-10-06] MEDS: Ketorolac INJ* 15 MG/ML 1 ML VIAL IV PUSH PRN (14:30)
[2017-10-06] MEDS: NS IVPB SCH (16:45)
[2017-10-06] MEDS: POTASSIUM PHOSPHATE IVPB SCH (16:45)
[2017-10-06] MEDS ORDERED: EPINEPHRINE 1 MG/ML 1 ML VIAL ONE (17:02)
[2017-10-06] MEDS ORDERED: Bupivacaine 0.5% SDV PF* 10-30ML VIAL ONE ×2 (17:03→22:36)
[2017-10-06] MEDS: Insulin GLARGINE(*) 1 UNITS UNIT SUBCUT SCH ×2 (18:04→18:18)
[2017-10-06] MEDS ORDERED: ceFAZolin 1 GM in Dextrose (*) 1 GM/50 ML BAG IVPB ONE (20:46)
--- NOTE | 2017-10-06 20:56 | PN ---
Progress Note - Progress Note Date of Service: 10/06/17 SOAP: Subjective: 32 y/o female admitted due to DKA febrile, L knee pain. Patient states pain in L knee has increased over past 24 hours, now unable to ambulate due to pain, was able to yesterday. Increased spread of redness. Pain not inside knee however off to medial side. Febrile overnight to 101 Objective: General- SItting in bed, moderate discomfort, NAD AO L knee- ~ 10cm x 6cm region of erythema, blanching, tender to touch with pustule in middle with serous drainage noted from area. + warmth. ROM L knee non-tender between 20-40 degrees, increased pain over area of erythema with further extension/ flexion. PT 2+, neg homans, non-tender over knee joint, no effusion noted, Vital Signs Temp 99.6 F 10/06/17 18:34 Pulse 111 10/06/17 20:00 Resp 16 10/06/17 20:00 BP 109/75 10/06/17 12:13 Pulse Ox 95 10/06/17 20:00 Intake & Output 10/06/17 10/06/17 10/07/17 06:59 18:59 06:59 Intake Total 5703 2537 Output Total 2200 1650 1000 Balance 3503 887 -1000 Weight 89.4 kg Intake: IV Fluids 4403 2097 ABX - VANCOMYCIN 542 NS (0.9%) 3331 1872 potassium phos 530 225 IVPB 440 NS (0.9%) 440 Oral 1300 Output: Urine 2200 1650 1000 Assessment: FLuid collection L knee Plan: - Aspirate cultures currently no growth - MRI - ~ 7x4cm fluid collection medial L knee, possible underlying abscess. - Discussed with Dr. Chavez and Patient. Patient refuses bed side I&D due to pain, likely to OR this evening for I&D, currently NPO - Possible candidia vulvovaginal infection, discuss with primary physician. Active Medications Generic Name Dose Route Start Last Admin Trade Name Freq PRN Reason Stop Dose Admin Acetaminophen 650 mg 10/03/17 04:53 10/06/17 18:23 Tylenol Tab* PO 650 mg Q4H PRN Administration PAIN Al Hydrox/Mg Hydrox/Simethicone 30 ml 10/02/17 05:46 Maalox Plus* PO Q6H PRN INDIGESTION Dextrose 12.5 gm 10/03/17 00:37 D50w Syringe 50 Ml* IV PUSH .FOR FS < 60 - SS PRN FS < 60 Heparin Sodium (Porcine) 5,000 units 10/04/17 21:00 10/06/17 07:37 Heparin Vial(*) SUBCUT 5,000 units Q12HR [facility] Administration Ceftriaxone Sodium 1 gm/ 50 mls @ 200 mls/hr 10/05/17 08:00 10/06/17 07:43 Sodium Chloride IVPB 200 mls/hr Q24H [facility] Administration Vancomycin HCl 1,000 mg/ 250 mls @ 166.667 mls/hr 10/06/17 00:00 10/06/17 16: 53 Sodium Chloride IVPB 166.667 mls/hr Q8H [facility] Administration Insulin Glargine 55 units 10/05/17 16:37 10/06/17 18:18 Lantus(*) SUBCUT 55 units Q24H [facility] Administration Insulin Human Lispro 0 units 10/04/17 17:00 10/06/17 18:18 Humalog* SUBCUT 3 units FS ACHS ICU [facility] Administration Protocol Ketorolac Tromethamine 15 mg 10/03/17 04:53 10/06/17 14:30 Toradol Inj* IV PUSH 15 mg Q6H PRN Administration PAIN Lorazepam 0.5 mg 10/06/17 14:20 Ativan Tab(*) PO Q6H PRN ANXIETY Ondansetron HCl 4 mg 10/02/17 05:46 Zofran Inj* IV Q4H PRN NAUSEA/VOMITING Oseltamivir Phosphate 75 mg 10/02/17 10:00 10/06/17 07:37 Tamiflu Cap* PO 10/06/17 21:01 75 mg BID [facility] Administration Pharmacy Consult 1 note 10/05/17 15:29 Vancomycin Per Pharmacy* FOLLOW UP . PRN PER PROTOCOL Pharmacy Profile Note 1 note 10/07/17 07:30 Vancomycin Trough Check FOLLOW UP 10/07/17 07:31 0730 ONE Potassium Chloride 40 meq 10/06/17 09:00 10/06/17 07:37 Klor-Con Liquid* PO 40 meq QAM [facility] Administration Potassium Chloride 20 meq 10/06/17 10:00 10/06/17 10:44 Klor-Con Liquid* PO 20 meq DAILY [facility] Administration Potassium Phosphate 500 mg 10/04/17 14:00 10/06/17 13:43 K Phos Original Tab* PO 500 mg TID [facility] Administration Tramadol HCl 50 mg 10/04/17 05:37 10/06/17 12:19 Ultram* PO 50 mg Q6H PRN Administration PAIN <Jeri Page - Last Filed: 10/06/17 21:00> - Progress Note SOAP: Subjective: Increased pain, inability to bear weight in the last 24 hours along with increased medial thigh swelling. Patient refused consideration of bedside I&D. Objective: LLE: - increased soft tissue swelling medial distal thigh with induration, TTP - NVID - Pain c PROM beyond 20-40 flexion Selected Entries 10/06/17 10/06/17 10/06/17 11:00 12:00 12:13 Temperature Heart Rate 114 115 111 10/06/17 10/06/17 10/06/17 12:52 18:00 18:34 Temperature 101.2 F 99.6 F Heart Rate 103 10/06/17 10/06/17 19:00 20:00 Temperature Heart Rate 110 109 Laboratory Tests 10/04/17 10/05/17 10/06/17 06:45 04:45 06:56 WBC 8.6 12.2 H 11.2 H MRI- abscess left medial distal thigh in subQ and also in vastus medialis to femur Assessment: Left distal medial thigh abscess Fevers, tachycardia not thought to be explained by influenza Original admission for DKA Plan: - To OR for I&D - Discussed risks and possible complications <Sam Chavez - Last Filed: 10/06/17 21:10>
[2017-10-06] MEDS ORDERED: Lidocaine 1% INJ* 10 MG/ML 30 ML SDV ONE (21:16)
[2017-10-06] MEDS ORDERED: Succinylcholine* 20 MG/ML 10 ML VIAL ONE (21:16)
[2017-10-06] MEDS ORDERED: fentaNYL* 50 MCG/ML 2 ML VIAL (100 MCG VIAL) ONE ×2 (21:32→23:00)
[2017-10-06] MEDS ORDERED: Midazolam* 1 MG/ML 2 ML VIAL (2 MG) ONE (21:32)
[2017-10-06] MEDS ORDERED: Sodium Chloride * 10 ML ONE (21:47)
[2017-10-06] MEDS ORDERED: diPHENhydraMINE PO* 25 MG PO PRN (22:55)
[2017-10-06] MEDS ORDERED: Naloxone* 0.4 MG/ML 1 ML VIAL IV PRN (23:01)
[2017-10-06] MEDS ORDERED: DiMENhydriNATE IV* 50 MG/ML VIAL IV PUSH PRN (23:01)
[2017-10-06] MEDS: fentaNYL* 50 MCG/ML 2 ML VIAL (100 MCG VIAL) IV PRN ×2 (23:08→23:16)
[2017-10-07] MEDS: Heparin VIAL(*) 5000 UNITS/ML VIAL (FIVE THOUSAND) SUBCUT SCH ×3 (00:06→22:26)
[2017-10-07] MEDS: Potassium Acid Phosphate TAB* 500 MG PO SCH ×2 (00:06→08:40)
[2017-10-07] MEDS: Vancomycin(*) 1,000 MG in NS 0.9% 250 ML* 250 ML IVPB SCH ×2 (00:07→08:40)
[2017-10-07] MEDS ORDERED: Oseltamivir CAP* 75 MG CAP PO ONE (00:15)
[2017-10-07] MEDS: traMADol TAB* 50 MG PO PRN (00:15)
[2017-10-07] MEDS: Oseltamivir CAP* 75 MG CAP PO SCH (00:29)
[2017-10-07] MEDS: Ketorolac INJ* 15 MG/ML 1 ML VIAL IV PUSH PRN (01:09)
[2017-10-07] MEDS ORDERED: LORazepam INJ* 2 MG/ML 1 ML VIAL ONE (01:48)
[2017-10-07 05:30] LABS: ABS Basophils 0 10^3/ul (0-0.2); ABS Eosinophils 0 10^3/ul (0-0.6); ABS Lymphocytes 0.6 10^3/ul (1.0-4.8); ABS Monocytes 0.5 10^3/ul (0-0.8); ABS Neutrophils 8.2 10^3/ul (1.5-7.7); ABS Nucleated RBC 0 10^3/ul; Eosinophil % 0.1 % (0-6); Hematocrit 30 % (35-47); Hemoglobin 10.3 g/dl (12.0-16.0); Lymphocyte % 6.9 % (25-47); Mean Corpuscular HGB Conc 34 g/dl (31-36); Mean Corpuscular Hemoglobin 31 pg (27-31); Mean Corpuscular Volume 90 fL (80-97); Mean Platelet Volume 6 um3 (7.4-10.4); Nucleated Red Blood Cells % 0; Platelet Count 267 10^3/ul (150-450); Red Blood Count 3.34 10^6/ul (4.0-5.4); Red Cell Distribution Width 13 % (10.5-15); White Blood Count 9.4 10^3/ul (3.5-10.8)
[2017-10-07 05:40] LABS: EGFR Non-African American 182.7 (>60)
[2017-10-07] MEDS ORDERED: Vancomycin Trough Check NOTE FOLLOW UP ONE (07:30)
[2017-10-07] MEDS: Magnesium Hydroxide LIQ* 30 ML UDC PO SCH ×3 (08:01→22:51)
[2017-10-07] MEDS: Insulin LISPRO* 1 UNITS UNIT SUBCUT SCH ×4 (08:02→22:27)
[2017-10-07] MEDS: cefTRIAXone(*) 1 GM in NS 0.9% 50 ML* 50 ML IVPB SCH (08:34)
--- NOTE | 2017-10-07 10:42 | PN ---
Progress Note - Progress Note Date of Service: 10/07/17 SOAP: Subjective: []Patient seen at bedside. She reports feeling markedly better than yesterday. She denies fever, chills, LLE pain. Objective: [] Vital Signs Temp 98.9 F 10/07/17 07:40 Pulse 90 10/07/17 09:01 Resp 17 10/07/17 09:01 BP 97/79 10/07/17 09:01 Pulse Ox 100 10/07/17 09:01 Intake & Output 10/06/17 10/07/17 10/07/17 18:59 06:59 18:59 Intake Total 2537 2197.1 Output Total 1650 3900 Balance 887 -1702.9 Weight 197 lb 1.492 oz 208 lb 1.862 oz Intake: IV Fluids 7 1897.1 ABX - VANCOMYCIN 350 NS (0.9%) 1872 1038.1 lr 150 potassium phos 225 359 IVPB 440 NS (0.9%) 440 Oral 300 Output: Urine 1650 3900 Laboratory Last Values WBC 9.4 10^3/ul (3.5-10.8) 10/07/17 05:15 RBC 3.34 10^6/ul (4.0-5.4) L 10/07/17 05:15 Hgb 10.3 g/dl (12.0-16.0) L 10/07/17 05:15 Hct 30 % (35-47) L 10/07/17 05:15 MCV 90 fL (80-97) 10/07/17 05:15 MCH 31 pg (27-31) 10/07/17 05:15 MCHC 34 g/dl (31-36) 10/07/17 05:15 RDW 13 % (10.5-15) 10/07/17 05:15 Plt Count 267 10^3/ul (150-450) 10/07/17 05:15 MPV 6 um3 (7.4-10.4) L 10/07/17 05:15 Neut % (Auto) 87.3 % (38-83) H 10/07/17 05:15 Lymph % (Auto) 6.9 % (25-47) L 10/07/17 05:15 [place] % (Auto) 5.4 % (1-9) 10/07/17 05:15 Eos % (Auto) 0.1 % (0-6) 10/07/17 05:15 Baso % (Auto) 0.3 % (0-2) 10/07/17 05:15 Absolute Neuts (auto) 8.2 10^3/ul (1.5-7.7) H 10/07/17 05:15 Absolute Lymphs (auto) 0.6 10^3/ul (1.0-4.8) L 10/07/17 05:15 Absolute Monos (auto) 0.5 10^3/ul (0-0.8) 10/07/17 05:15 Absolute Eos (auto) 0 10^3/ul (0-0.6) 10/07/17 05:15 Absolute Basos (auto) 0 10^3/ul (0-0.2) 10/07/17 05:15 Absolute Nucleated RBC 0 10^3/ul 10/07/17 05:15 Nucleated RBC % 0 10/07/17 05:15 INR (Anticoag Therapy) 1.30 (0.77-1.02) H 10/06/17 06:56 ABG pH 7.17 (7.35-7.45) L* 10/02/17 05:30 ABG pCO2 12 mmHg (35-45) L* 10/02/17 05:30 ABG pO2 118 mmHg (80-100) H 10/02/17 05:30 ABG HCO3 8.1 mmol/L (19-31) L* 10/02/17 05:30 ABG O2 Saturation 98.9 % (95-98) H 10/02/17 05:30 ABG Base Excess -21.5 (-2.0-2.0) L 10/02/17 05:30 VBG pH 7.22 (7.33-7.43) L 10/02/17 22:40 VBG pCO2 27 mmHg (41-51) L 10/02/17 22:40 VBG pO2 27 mmHg (35-45) L 10/02/17 22:40 VBG HCO3 12.2 mmol/L (24-28) L 10/02/17 22:40 VBG O2 Saturation 60.3 % (70-80) L 10/02/17 22:40 VBG Base Excess -15.1 (0-4) L 10/02/17 22:40 Sodium 131 mmol/L (133-145) L 10/07/17 05:15 Potassium 4.6 mmol/L (3.5-5.0) 10/07/17 05:15 Chloride 99 mmol/L (101-111) L 10/07/17 05:15 Carbon Dioxide 26 mmol/L (22-32) 10/07/17 05:15 Anion Gap 6 mmol/L (2-11) 10/07/17 05:15 BUN 5 mg/dL (6-24) L 10/07/17 05:15 Creatinine 0.40 mg/dL (0.51-0.95) L 10/07/17 05:15 Est GFR ( Amer) 235.0 (>60) 10/07/17 05:15 Est GFR (Non-Af Amer) 182.7 (>60) 10/07/17 05:15 BUN/Creatinine Ratio 12.5 (8-20) 10/07/17 05:15 Glucose 232 mg/dL (70-100) H 10/07/17 05:15 POC Glucose (mg/dL) 226 mg/dL (70-100) H 10/07/17 07:44 Hemoglobin A1c 12.1 % (4.0-5.6) H 10/04/17 11:33 Lactic Acid 1.0 mmol/L (0.5-2.0) 10/05/17 10:30 Calcium 8.3 mg/dL (8.6-10.3) L 10/07/17 05:15 Phosphorus 3.8 mg/dL (2.5-5.0) 10/07/17 05:15 Magnesium 2.4 mg/dL (1.9-2.7) 10/07/17 05:15 Total Bilirubin 0.30 mg/dL (0.2-1.0) 10/06/17 06:56 AST 15 U/L (13-39) 10/06/17 06:56 ALT 9 U/L (7-52) 10/06/17 06:56 Alkaline Phosphatase 93 U/L (34-104) 10/06/17 06:56 Total Creatine Kinase 32 U/L (10-223) 10/06/17 06:56 Total Protein 6.0 g/dL (6.4-8.9) L 10/06/17 06:56 Albumin 2.5 g/dL (3.2-5.2) L 10/06/17 06:56 Globulin 3.5 g/dL (2-4) 10/06/17 06:56 Albumin/Globulin Ratio 0.7 (1-3) L 10/06/17 06:56 TSH 0.81 mcIU/mL (0.34-5.60) 10/05/17 17:11 Free T3 2.90 pg/mL (2.5-3.9) 10/05/17 17:11 Total T3 0.39 ng/mL (0.87-1.78) L 10/05/17 17:11 Beta HCG, Quant < 0.60 mIU/mL 10/02/17 10:15 Urine Color Yellow 10/03/17 12:50 Urine Appearance Cloudy 10/03/17 12:50 Urine pH 6.0 (5-9) 10/03/17 12:50 Ur Specific [place] 1.020 (1.010-1.030) 10/03/17 12:50 Urine Protein Negative (Negative) 10/03/17 12:50 Urine Ketones 2+ (Negative) H 10/03/17 12:50 Urine Blood 2+ (Negative) H 10/03/17 12:50 Urine Nitrate Negative (Negative) 10/03/17 12:50 Urine Bilirubin Negative (Negative) 10/03/17 12:50 Urine Urobilinogen Negative (Negative) 10/03/17 12:50 Ur Leukocyte Esterase 3+ (Negative) H 10/03/17 12:50 Urine WBC (Auto) 3+(>20/hpf) (Absent) H 10/03/17 12:50 Urine RBC (Auto) 3+(>10/hpf) (Absent) H 10/03/17 12:50 Ur Squamous Epith Cells Present (Absent) H 10/03/17 12:50 Urine Bacteria Absent (Absent) 10/03/17 12:50 Urine Yeast Present (Absent) H 10/03/17 12:50 Urine Glucose 3+(>=500 mg/dl) (Negative) H 10/03/17 12:50 Fluid Source Synovial fluid 10/04/17 11:40 Fluid Volume 4.5 mL 10/04/17 11:40 Fluid Color Yellow 10/04/17 11:40 Fluid Appearance Cloudy 10/04/17 11:40 Fluid WBC 354 /mcL (0-039417) 10/04/17 11:40 Fluid RBC 691 /mcL 10/04/17 11:40 Fluid Tot Cell Count 100 10/04/17 11:40 Fluid Neutrophils 31 % 10/04/17 11:40 Fluid Lymphocytes 22 % 10/04/17 11:40 Fluid Monocytes 47 % 10/04/17 11:40 Fluid Cell Count Rvw By 10/04/17 11:40 Fluid Crystals None seen 10/04/17 11:40 Fluid Comment 10/04/17 11:40 Vancomycin Trough 7.3 mcg/mL 10/07/17 08:04 Salicylates < 2.50 mg/dL (<30) 10/02/17 04:35 Urine Opiates Screen None detected (None Detect) 10/02/17 08:30 Ur Barbiturates Screen None detected (None Detect) 10/02/17 08:30 Ur Phencyclidine Scrn None detected (None Detect) 10/02/17 08:30 Ur Amphetamines Screen None detected (None Detect) 10/02/17 08:30 U Benzodiazepines Scrn None detected (None Detect) 10/02/17 08:30 Urine Cocaine Screen None detected (None Detect) 10/02/17 08:30 U Cannabinoids Screen None detected (None Detect) 10/02/17 08:30 Serum Alcohol < 10 mg/dL (<10) 10/02/17 04:35 C.trachomatis (Amp Det) Negative (Negative) 10/05/17 12:26 Influenza A (Rapid) Negative (Negative) 10/02/17 07:30 Influenza B (Rapid) Positive (Negative) H 10/02/17 07:30 N.gonorrhoeae (Amp Det) Negative (Negative) 10/05/17 12:26 General: Appears pale but in good spirits. Talkative and cooperative LLE: Dressing CDI. No erythema proximally or distally. 2+ DP pulse. Minimal ROM of knee due to stiffness. Calves supple and nontender without erythema or edema. Assessment: []POD 1 s/p I&D abscess left medial knee Plan: []Patient has not yet ambulate but nursing staff plans to get her out of bed today WBAT
[2017-10-07] MEDS: ceFAZolin 1 GM VIAL(*) 1 GM in NS 0.9% 50 ML* 50 ML IVPB SCH ×3 (10:50→22:26)
[2017-10-07] MEDS: Potassium Chloride LIQUID* 20 MEQ PACKET PO SCH ×2 (11:03)
--- NOTE | 2017-10-07 11:27 | PN ---
Progress Note - Progress Note Date of Service: 10/07/17 Note: CRITICAL CARE MEDICINE Date: 10/06/17 Time: 900 SUBJECTIVE: Patient seen and examined. feels ok. post or last pm I&D PHYSICAL EXAM: Vital Signs: Reviewed. HR ~100 Neurologic: awake, communcating well. HEENT: pupils equal. Sclera anicteric. Trachea midline. Cardiovascular: S1 S2 Respiratory: reg phases and clear Abdomen: Soft, obese, nt. No r/g/r. Extremities: wrapped and deferred to ortho Access: piv LABS: Reviewed. IMAGING: Reviewed. MEDICATIONS: Reviewed. ASSESSMENT: 32 F DKA with uncontrolled DM Left leg abscess MSSA from wound Influenza + - post tamiflu tx PLAN: Neurologic: stable. Cardiovascular: perfusing. vol status ok. Respiratory: well. IS prn Gastrointestinal: po diet. Renal/Metabolic: lytes ok. f/u Infectious Disease: abx adjusted to ancef for mssa abscess post drainage now. Hematology: stable. Endocrine: BG back up. lantus adjusted slightly. ssi Musculoskeletal: oob. pt. wbat. ortho f/u Psych/Social: pt expressed understanding. psych f/u prn Supportive and preventative care as ordered. VTE prophylaxis: heparin Disposition: floor Code Status: Full Critical Care Time: 25min FNeil Mejia DO
[2017-10-07] MEDS: Insulin GLARGINE(*) 1 UNITS UNIT SUBCUT SCH (12:07)
--- NOTE | 2017-10-07 15:07 | OP ---
OPERATIVE REPORT: DATE OF OPERATION: 10/06/17 DATE OF : 81 SURGEON: Sam Chavez MD [employer] CONSULTANT: AMISH Clements. A physician recruiting assistant was required for the length of the procedure for positioning, instrumentation, retraction, and closure. ANESTHESIOLOGIST: Dr. Eren Palacios. ANESTHESIA: General anesthesia, local anesthesia, 0.5% Marcaine without epinephrine 10 mL. PRE-OP DIAGNOSIS: Abscess, left thigh. POST-OP DIAGNOSIS: Abscess, left thigh. OPERATIVE PROCEDURE: Incision, irrigation and debridement, abscess, left thigh. ANTIBIOTIC: Ancef 2 g IV. IV FLUIDS: Approximately 175 mL. The patient's preoperative crystalloid continuous rate was continu ed during surgery. AMOUNT OF IRRIGATION: 9 L. SPECIMEN: 2 culture swabs, aerobic and anaerobic. IMPLANTS: 1 inch packing strip. COMPLICATIONS: None. EBL: Minimal. INDICATIONS: The patient is a 32-year-old woman, with diabetes mellitus, borderline personality diso rder with multiple psychiatric admissions for suicide attempts and suicidal ideations, who is admitte d to [facility] on 10/02/17 with the diagnosis of diabetic ketoacidosis. During her stay, the patient was diagnosed with influenza. After treatment of diabetic ketoacidosis and influenza, in ICU, the patient continued to have high grade temperature and complained of some pa in and swelling of the left knee. I was consulted and performed a consult on 10/04/17. Patient had an effusion about the left knee. I aspirated the effusion and obtained 34 mL of normal appearing joint fluid. This was sent for analys is and came back negative for infection or crystals. I ordered an MRI scan to look for an internal derangement of the left knee that might be causing the patient's pain and effusion, left knee. When the MRI was finally completed, it demonstrated abscess, left distal thigh. I was informed on . The patient continued to have pain in the left knee and inability to comfortably flex more than 40 de grees. She was unable to walk. She described continued pain. The patient had temperatures as high a s 101 and was tachycardic. The decision was made to do an incision, irrigation and debridement of the abscess given the patient' s symptoms. Patient was not interested in bedside irrigation and debridement. Anyway, the depth of the abscess on MRI made the operating room more appropriate of a venue. MRI showed an abscess in the subcutaneous space, but also a much larger abscess in and around the vas tus medialis and adjacent to the distal femoral shaft. DESCRIPTION OF PROCEDURE: Preoperatively, written consent was signed. The operative extremity was m arked in the ICU. The patient was taken back to the operating room, placed supine on operating table . Patient was sedated and intubated. The patient had a tourniquet placed about the left proximal thigh, but it was never inflated. The le ft lower extremity was prepped with Betadine and then draped. Surgical time-out was performed. The p atient had a skin eruption, several millimeters with some pus emanating from it about the left distal medial thigh. I made an incision from there, longitudinal, both proximal and distal to that eruptio n. Continued incision and dissection down through the subcutaneous tissue. Much pus was encountered. S ignificant quantities of pus were expressed from the subcutaneous tissue. Cultures were obtained, ae robic and anaerobic x2. Once the subcutaneous tissue had been cleared out manually, and with dressin g and suction, we would put some pressure on the deeper submuscular space and much pus emanated from this. There was clearly much pus adjacent to the femoral shaft that was not just intermuscular edema on MRI preoperatively. I made a minimal fascial incision through some vastus medialis fibers to open up access to the submus cular space. Femur well visualized. Retractors placed. Much pus was obtained and sucked out. I started irrigation with pulse lavage. I put 6 L mostly through the submuscular space, but also on the subcutaneous space. I removed some affected with purulence, skin and subcutaneous tissue, about the site of eruption. Continued more irrigation up to approximately 9 L. I placed an 1-inch packing strip down into the submuscular space, both anterior and posterior to the femoral shaft. I placed also some in the subcutaneous space. I closed loosely the subcutaneous tissue with buried simple stitches using PDS 2.0 suture. I closed loosely the skin with some nylon monofilament 4.0 suture, simple stitches. Left it especially loose in the site of former eruption, although all diseased tissue had been removed with sharp dissection o r Carb or curette or rongeur. I cleaned the skin with hydrogen peroxide. I placed dry sterile dressing, ABDs, OPAL bandage. Patient was awakened and extubated and brought to the PACU. DISPOSITION: The patient will be readmitted to the ICU for continued management of her diabetic keto acidosis. We will continue her on her preoperative antibiotics, but we will follow her cultures and adjust antibiotic coverage accordingly. Continue DVT prophylaxis per ICU staff. Pain control as need ed. Recommend physical therapy for weightbearing as tolerated and range of motion, right knee. I think that given the enormous size of this patient's abscess in the distal thigh, it seems to me ve ry possible that this level and extensive infection could have precipitated the patient's diabetic ke toacidosis crisis, but I defer to Medicine on this. I recommend dressing changes starting on postoperative day 2 with backing out of packing, 1 inch per day. [id number]/[facility] #: [id number]
[2017-10-07] MEDS: Venlafaxine EXT RELEASE CAP* 75 MG PO SCH (17:35)
[2017-10-07] MEDS: buPROPion TAB* 100 MG PO SCH (22:27)
[2017-10-07] MEDS: Acetaminophen TAB* 325 MG PO PRN (22:51)
[2017-10-08] MEDS: Magnesium Hydroxide LIQ* 30 ML UDC PO PRN (02:15)
[2017-10-08] MEDS: ceFAZolin 1 GM VIAL(*) 1 GM in NS 0.9% 50 ML* 50 ML IVPB SCH ×4 (04:08→21:36)
[2017-10-08 08:40] LABS: Hematocrit 30 % (35-47); Hemoglobin 10.3 g/dl (12.0-16.0); Mean Corpuscular HGB Conc 34 g/dl (31-36); Mean Corpuscular Hemoglobin 31 pg (27-31); Mean Corpuscular Volume 91 fL (80-97); Mean Platelet Volume 7 um3 (7.4-10.4); Platelet Count 306 10^3/ul (150-450); Red Blood Count 3.31 10^6/ul (4.0-5.4); Red Cell Distribution Width 13 % (10.5-15); White Blood Count 8.8 10^3/ul (3.5-10.8)
--- NOTE | 2017-10-08 08:53 | PN ---
Progress Note - Progress Note Date of Service: 10/08/17 SOAP: Subjective: []Patient seen at bedside. She denies fever, chills, nausea, SOB or CP. She confirms a tolerate pain of LLE operative site with pain remaining significantly reduced from prior to the I&D. Objective: []General: Well appearing, NAD LLE: Dressing changed. Wick pulled out 1 inch, no purulence or bleeding. Incision is CDI, superior sutures loosely approximating wound edges. Erythema has resolved entirely. BL LE: Calves supple and nontender without erythema, edema or palpable cords. Vital Signs Temp 97.7 F 10/08/17 11:14 Pulse 80 10/08/17 11:14 Resp 16 10/08/17 11:14 BP 109/72 10/08/17 11:14 Pulse Ox 100 10/08/17 11:14 Intake & Output 10/07/17 10/08/17 10/08/17 18:59 06:59 18:59 Intake Total 403 440 470 Output Total 0 Balance 403 440 470 Intake: IV Fluids 403 NS (0.9%) 403 Oral 440 470 Output: Urine 0 Other: Estimated Void Medium Date of Last Bowel 10/07/17 Movement # Bowel Movements 1 Estimated Stool Amount Medium # Voids 2 Laboratory Last Values WBC 8.8 10^3/ul (3.5-10.8) 10/08/17 08:25 RBC 3.31 10^6/ul (4.0-5.4) L 10/08/17 08:25 Hgb 10.3 g/dl (12.0-16.0) L 10/08/17 08:25 Hct 30 % (35-47) L 10/08/17 08:25 MCV 91 fL (80-97) 10/08/17 08:25 MCH 31 pg (27-31) 10/08/17 08:25 MCHC 34 g/dl (31-36) 10/08/17 08:25 RDW 13 % (10.5-15) 10/08/17 08:25 Plt Count 306 10^3/ul (150-450) 10/08/17 08:25 MPV 7 um3 (7.4-10.4) L 10/08/17 08:25 Neut % (Auto) 75.0 % (38-83) 10/08/17 08:25 Lymph % (Auto) 16.7 % (25-47) L 10/08/17 08:25 [place] % (Auto) 7.9 % (1-9) 10/08/17 08:25 Eos % (Auto) 0.1 % (0-6) 10/08/17 08:25 Baso % (Auto) 0.3 % (0-2) 10/08/17 08:25 Absolute Neuts (auto) 6.6 10^3/ul (1.5-7.7) 10/08/17 08:25 Absolute Lymphs (auto) 1.5 10^3/ul (1.0-4.8) 10/08/17 08:25 Absolute Monos (auto) 0.7 10^3/ul (0-0.8) 10/08/17 08:25 Absolute Eos (auto) 0 10^3/ul (0-0.6) 10/08/17 08:25 Absolute Basos (auto) 0 10^3/ul (0-0.2) 10/08/17 08:25 Absolute Nucleated RBC 0 10^3/ul 10/08/17 08:25 Nucleated RBC % 0 10/08/17 08:25 INR (Anticoag Therapy) 1.30 (0.77-1.02) H 10/06/17 06:56 ABG pH 7.17 (7.35-7.45) L* 10/02/17 05:30 ABG pCO2 12 mmHg (35-45) L* 10/02/17 05:30 ABG pO2 118 mmHg (80-100) H 10/02/17 05:30 ABG HCO3 8.1 mmol/L (19-31) L* 10/02/17 05:30 ABG O2 Saturation 98.9 % (95-98) H 10/02/17 05:30 ABG Base Excess -21.5 (-2.0-2.0) L 10/02/17 05:30 VBG pH 7.22 (7.33-7.43) L 10/02/17 22:40 VBG pCO2 27 mmHg (41-51) L 10/02/17 22:40 VBG pO2 27 mmHg (35-45) L 10/02/17 22:40 VBG HCO3 12.2 mmol/L (24-28) L 10/02/17 22:40 VBG O2 Saturation 60.3 % (70-80) L 10/02/17 22:40 VBG Base Excess -15.1 (0-4) L 10/02/17 22:40 Sodium 128 mmol/L (133-145) L 10/08/17 08:25 Potassium 4.4 mmol/L (3.5-5.0) 10/08/17 08:25 Chloride 94 mmol/L (101-111) L 10/08/17 08:25 Carbon Dioxide 26 mmol/L (22-32) 10/08/17 08:25 Anion Gap 8 mmol/L (2-11) 10/08/17 08:25 BUN 11 mg/dL (6-24) 10/08/17 08:25 Creatinine 0.41 mg/dL (0.51-0.95) L 10/08/17 08:25 Est GFR ( Amer) 228.4 (>60) 10/08/17 08:25 Est GFR (Non-Af Amer) 177.6 (>60) 10/08/17 08:25 BUN/Creatinine Ratio 26.8 (8-20) H 10/08/17 08:25 Glucose 263 mg/dL (70-100) H 10/08/17 08:25 POC Glucose (mg/dL) 248 mg/dL (70-100) H 10/08/17 12:02 Hemoglobin A1c 12.1 % (4.0-5.6) H 10/04/17 11:33 Lactic Acid 1.0 mmol/L (0.5-2.0) 10/05/17 10:30 Calcium 8.3 mg/dL (8.6-10.3) L 10/08/17 08:25 Phosphorus 3.8 mg/dL (2.5-5.0) 10/07/17 05:15 Magnesium 2.4 mg/dL (1.9-2.7) 10/07/17 05:15 Total Bilirubin 0.30 mg/dL (0.2-1.0) 10/06/17 06:56 AST 15 U/L (13-39) 10/06/17 06:56 ALT 9 U/L (7-52) 10/06/17 06:56 Alkaline Phosphatase 93 U/L (34-104) 10/06/17 06:56 Total Creatine Kinase 32 U/L (10-223) 10/06/17 06:56 Total Protein 6.0 g/dL (6.4-8.9) L 10/06/17 06:56 Albumin 2.5 g/dL (3.2-5.2) L 10/06/17 06:56 Globulin 3.5 g/dL (2-4) 10/06/17 06:56 Albumin/Globulin Ratio 0.7 (1-3) L 10/06/17 06:56 TSH 0.81 mcIU/mL (0.34-5.60) 10/05/17 17:11 Free T3 2.90 pg/mL (2.5-3.9) 10/05/17 17:11 Total T3 0.39 ng/mL (0.87-1.78) L 10/05/17 17:11 Beta HCG, Quant < 0.60 mIU/mL 10/02/17 10:15 Urine Color Yellow 10/03/17 12:50 Urine Appearance Cloudy 10/03/17 12:50 Urine pH 6.0 (5-9) 10/03/17 12:50 Ur Specific [place] 1.020 (1.010-1.030) 10/03/17 12:50 Urine Protein Negative (Negative) 10/03/17 12:50 Urine Ketones 2+ (Negative) H 10/03/17 12:50 Urine Blood 2+ (Negative) H 10/03/17 12:50 Urine Nitrate Negative (Negative) 10/03/17 12:50 Urine Bilirubin Negative (Negative) 10/03/17 12:50 Urine Urobilinogen Negative (Negative) 10/03/17 12:50 Ur Leukocyte Esterase 3+ (Negative) H 10/03/17 12:50 Urine WBC (Auto) 3+(>20/hpf) (Absent) H 10/03/17 12:50 Urine RBC (Auto) 3+(>10/hpf) (Absent) H 10/03/17 12:50 Ur Squamous Epith Cells Present (Absent) H 10/03/17 12:50 Urine Bacteria Absent (Absent) 10/03/17 12:50 Urine Yeast Present (Absent) H 10/03/17 12:50 Urine Glucose 3+(>=500 mg/dl) (Negative) H 10/03/17 12:50 Fluid Source Synovial fluid 10/04/17 11:40 Fluid Volume 4.5 mL 10/04/17 11:40 Fluid Color Yellow 10/04/17 11:40 Fluid Appearance Cloudy 10/04/17 11:40 Fluid WBC 354 /mcL (0-748234) 10/04/17 11:40 Fluid RBC 691 /mcL 10/04/17 11:40 Fluid Tot Cell Count 100 10/04/17 11:40 Fluid Neutrophils 31 % 10/04/17 11:40 Fluid Lymphocytes 22 % 10/04/17 11:40 Fluid Monocytes 47 % 10/04/17 11:40 Fluid Cell Count Rvw By 10/04/17 11:40 Fluid Crystals None seen 10/04/17 11:40 Fluid Comment 10/04/17 11:40 Vancomycin Trough 7.3 mcg/mL 10/07/17 08:04 Salicylates < 2.50 mg/dL (<30) 10/02/17 04:35 Urine Opiates Screen None detected (None Detect) 10/02/17 08:30 Ur Barbiturates Screen None detected (None Detect) 10/02/17 08:30 Ur Phencyclidine Scrn None detected (None Detect) 10/02/17 08:30 Ur Amphetamines Screen None detected (None Detect) 10/02/17 08:30 U Benzodiazepines Scrn None detected (None Detect) 10/02/17 08:30 Urine Cocaine Screen None detected (None Detect) 10/02/17 08:30 U Cannabinoids Screen None detected (None Detect) 10/02/17 08:30 Serum Alcohol < 10 mg/dL (<10) 10/02/17 04:35 C.trachomatis (Amp Det) Negative (Negative) 10/05/17 12:26 Influenza A (Rapid) Negative (Negative) 10/02/17 07:30 Influenza B (Rapid) Positive (Negative) H 10/02/17 07:30 N.gonorrhoeae (Amp Det) Negative (Negative) 10/05/17 12:26 Assessment: []POD 2 s/p I&D abscess left medial knee 10/06, Dr. Chavez Plan: []WBAT Will pull wick out 1 inch further daily, remove entirely in 1 week Daily dry sterile dressing change
[2017-10-08 08:54] LABS: EGFR Non-African American 177.6 (>60)
[2017-10-08 09:11] LABS: ABS Basophils 0 10^3/ul (0-0.2); ABS Eosinophils 0 10^3/ul (0-0.6); ABS Lymphocytes 1.5 10^3/ul (1.0-4.8); ABS Monocytes 0.7 10^3/ul (0-0.8); ABS Neutrophils 6.6 10^3/ul (1.5-7.7); ABS Nucleated RBC 0 10^3/ul; Eosinophil % 0.1 % (0-6); Lymphocyte % 16.7 % (25-47); Nucleated Red Blood Cells % 0
[2017-10-08] MEDS: Magnesium Hydroxide LIQ* 30 ML UDC PO SCH ×2 (09:41→20:45)
[2017-10-08] MEDS: buPROPion TAB* 100 MG PO SCH ×2 (09:41→21:37)
[2017-10-08] MEDS: Venlafaxine EXT RELEASE CAP* 75 MG PO SCH ×2 (09:42→17:53)
[2017-10-08] MEDS: Insulin LISPRO* 1 UNITS UNIT SUBCUT SCH ×4 (09:42→21:37)
[2017-10-08] MEDS: Heparin VIAL(*) 5000 UNITS/ML VIAL (FIVE THOUSAND) SUBCUT SCH ×2 (09:43→21:36)
[2017-10-08] MEDS: Acetaminophen TAB* 325 MG PO PRN ×3 (12:06→21:36)
[2017-10-08] MEDS: Insulin GLARGINE(*) 1 UNITS UNIT SUBCUT SCH (12:46)
[2017-10-08] MEDS ORDERED: Bisacodyl SUPP* 10 MG SUPP PR PRN (13:28)
--- NOTE | 2017-10-08 15:36 | PN ---
Subjective Date of Service: 10/08/17 Interval History: Pt examined today at the bedside. Patient states that she is feeling better. Denies chest pain or sob or cough. States that her knee hurts when she is ambulating. Denies nausea or vomiting. ROS-denies fever, denies chills, denies chest pain, denies sob, denies lightheadedness, denies cough, denies sob, denies abdominal pain, denies nausea or voiting, reivew of 11 systems completed all others negative, Family History: Unchanged from Admission Social History: Unchanged from Admission Past Medical History: Unchanged from Admission Objective Active Medications: Acetaminophen (Tylenol Tab*) 650 mg PO Q4H PRN PRN Reason: PAIN Last Admin: 10/08/17 12:06 Dose: 650 mg Al Hydrox/Mg Hydrox/Simethicone (Maalox Plus*) 30 ml PO Q6H PRN PRN Reason: INDIGESTION Last Admin: 10/08/17 02:15 Dose: 30 ml Bisacodyl (Dulcolax Supp*) 10 mg PA ONCE PRN PRN Reason: CONSTIPATION Bupropion HCl (Wellbutrin Tab*) 150 mg PO BID [facility] Last Admin: 10/08/17 09:41 Dose: 150 mg Dextrose (D50w Syringe 50 Ml*) 12.5 gm IV PUSH .FOR FS < 60 - SS PRN PRN Reason: FS < 60 Diphenhydramine HCl (Benadryl Po*) 25 mg PO Q6H PRN PRN Reason: itching Heparin Sodium (Porcine) (Heparin Vial(*)) 5,000 units SUBCUT Q12HR [facility] Last Admin: 10/08/17 09:43 Dose: 5,000 units Cefazolin Sodium 1 gm/ Sodium (Chloride) 50 mls @ 200 mls/hr IVPB Q6H [facility] Last Admin: 10/08/17 10:04 Dose: 200 mls/hr Insulin Glargine (Lantus(*)) 60 units SUBCUT Q24H [facility] Last Admin: 10/08/17 12:46 Dose: 60 units Insulin Human Lispro (Humalog*) 0 units SUBCUT FS ACHS ICU [facility] PRN Reason: Protocol Last Admin: 10/08/17 12:45 Dose: 6 units Lorazepam (Ativan Tab(*)) 0.5 mg PO Q6H PRN PRN Reason: ANXIETY Magnesium Hydroxide (Milk Of Magnesia Liq*) 30 ml PO BID [facility] Last Admin: 10/08/17 09:41 Dose: 30 ml Magnesium Hydroxide (Milk Of Magnesia Liq*) 30 ml PO Q6H PRN PRN Reason: constipation Last Admin: 10/08/17 02:15 Dose: 30 ml Ondansetron HCl (Zofran Inj*) 4 mg IV Q4H PRN PRN Reason: NAUSEA/VOMITING Oxycodone/Acetaminophen (Percocet 5/325 Tab*) 1 tab PO Q4H PRN PRN Reason: PAIN Tramadol HCl (Ultram*) 50 mg PO Q6H PRN PRN Reason: PAIN Last Admin: 10/07/17 00:15 Dose: 50 mg Venlafaxine HCl (Effexor Xr Cap*) 150 mg PO DAILY [facility] Last Admin: 10/08/17 09:42 Dose: 150 mg Venlafaxine HCl (Effexor Xr Cap*) 75 mg PO QPM [facility] Last Admin: 10/07/17 17:35 Dose: 75 mg Vital Signs - 8 hr 10/08/17 10/08/17 10/08/17 07:49 08:00 11:14 Temperature 98.1 F 97.7 F Pulse Rate 74 80 Respiratory 16 16 16 Rate Blood Pressure 110/65 109/72 (mmHg) O2 Sat by Pulse 98 98 100 Oximetry Oxygen Devices in Use Now: None Appearance: 32 y/o female patient sitting in bed, NAD, Eyes: No Scleral Icterus, PERRLA Ears/Nose/Mouth/Throat: NL Teeth, Lips, Gums, Mucous Membranes Moist Neck: NL Appearance and Movements; NL JVP Respiratory: Symmetrical Chest Expansion and Respiratory Effort, Clear to Auscultation Cardiovascular: NL Sounds; No Murmurs; No JVD Abdominal: NL Sounds; No Tenderness; No Distention Extremities: - - dressing noted left lower exts, CDI, Skin: No Rash or Ulcers Neurological: Alert and Oriented x 3 Lines/Tubes/Other Access: Clean, Dry and Intact Peripheral IV Result Diagrams: 10/08/17 08:25 10/08/17 08:25 Microbiology and Other Data: Microbiology 10/02/17 07:30 Nasal Screen MRSA (PCR)(TIFFANI) - Final Nasal Mrsa Negative 10/02/17 07:12 Influenza Types A,B Antigen (TIFFANI) - Final Nasopharyngeal Specimen received for Influenza A/B Molecular testing Assess/Plan/Problems-Billing Assessment: 32 y/o female patient [place] [facility] [place] complaints of not feeling well found to be in DKA, with influenza and knee abscess, - Patient Problems (1) Sepsis Current Visit: Yes Status: Acute Priority: High Comment: present on admission, suspect, r/t influenza and knee abscess resolved now, continue iv ancef (2) DKA (diabetic ketoacidoses) Current Visit: Yes Status: Acute Priority: High Comment: Resolved, continue insulin hx of non compliance, (3) Influenza Current Visit: Yes Status: Acute Priority: High Comment: S/p tamiflu, continue supportive care, (4) Abscess of knee Current Visit: Yes Status: Acute Priority: High Comment: Ortho following, s/p I/D with ortho, continue ancef, wound cx growing MSSA, (5) FEN Current Visit: Yes Status: Acute Priority: High Comment: Consistent carb diet (6) DVT prophylaxis Current Visit: Yes Status: Acute Priority: High Comment: Heparin sub-q (7) Full code status Current Visit: Yes Status: Acute Priority: High (8) Status post incision and drainage Current Visit: Yes Status: Acute Priority: High Comment: Ortho following, will need outpatient ortho f/u (9) Diabetes Current Visit: Yes Status: Acute Priority: High Comment: Lantus and sliding scale a1c 12, blood glucose in 250-300 rang ewill increase lantus, (10) Anxiety Current Visit: Yes Status: Chronic Priority: High Comment: continue home meds, supportive care, (11) Depression Current Visit: Yes Status: Chronic Priority: High Comment: Psych eval no need for inpatient admission from their standpoint, continue home meds and supportive care, (12) Major depression Current Visit: Yes Status: Chronic Priority: High Comment: continue effexor, (13) Traumatic brain injury Current Visit: Yes Status: Chronic Priority: High Comment: Supportive care Status and Disposition: PT eval today, needs work with stairs, most likley home in 24-48hrs with services, continue abx,
[2017-10-08] MEDS ORDERED: Polyethylene Glycol 3350* 17 GM PACKET PO PRN (18:57)
[2017-10-09] MEDS: Acetaminophen TAB* 325 MG PO PRN ×2 (02:15→17:47)
[2017-10-09] MEDS: ceFAZolin 1 GM VIAL(*) 1 GM in NS 0.9% 50 ML* 50 ML IVPB SCH ×5 (04:16→23:35)
[2017-10-09 07:11] LABS: ABS Basophils 0 10^3/ul (0-0.2); ABS Eosinophils 0.1 10^3/ul (0-0.6); ABS Lymphocytes 1.8 10^3/ul (1.0-4.8); ABS Monocytes 0.8 10^3/ul (0-0.8); ABS Nucleated RBC 0 10^3/ul; Eosinophil % 1.4 % (0-6); Hematocrit 32 % (35-47); Hemoglobin 10.5 g/dl (12.0-16.0); Lymphocyte % 27.3 % (25-47); Mean Corpuscular HGB Conc 33 g/dl (31-36); Mean Corpuscular Hemoglobin 31 pg (27-31); Mean Corpuscular Volume 93 fL (80-97); Mean Platelet Volume 8 um3 (7.4-10.4); Nucleated Red Blood Cells % 0; Platelet Count 239 10^3/ul (150-450); Red Blood Count 3.41 10^6/ul (4.0-5.4); Red Cell Distribution Width 13 % (10.5-15); White Blood Count 6.8 10^3/ul (3.5-10.8)
[2017-10-09 07:14] LABS: EGFR Non-African American 177.6 (>60)
--- NOTE | 2017-10-09 08:38 | PN ---
Progress Note - Progress Note Date of Service: 10/09/17 SOAP: Subjective: []Patient seen at bedside. Her LLE remains sore but no worsening pain. Denies fever or chills. Denies dizziness, nausea, vomiting, CP or SOB. Objective: [] Vital Signs Temp 97.9 F 10/09/17 03:15 Pulse 77 10/09/17 03:15 Resp 16 10/09/17 03:15 BP 107/65 10/09/17 03:15 Pulse Ox 100 10/09/17 03:15 Intake & Output 10/08/17 10/09/17 10/09/17 18:59 06:59 18:59 Intake Total 670 840 Balance 670 840 Intake: Oral 670 840 Other: Estimated Void Medium # Bowel Movements 1 Estimated Stool Amount Large # Voids 1 Laboratory Last Values WBC 6.8 10^3/ul (3.5-10.8) 10/09/17 06:18 RBC 3.41 10^6/ul (4.0-5.4) L 10/09/17 06:18 Hgb 10.5 g/dl (12.0-16.0) L 10/09/17 06:18 Hct 32 % (35-47) L 10/09/17 06:18 MCV 93 fL (80-97) 10/09/17 06:18 MCH 31 pg (27-31) 10/09/17 06:18 MCHC 33 g/dl (31-36) 10/09/17 06:18 RDW 13 % (10.5-15) 10/09/17 06:18 Plt Count 239 10^3/ul (150-450) 10/09/17 06:18 MPV 8 um3 (7.4-10.4) 10/09/17 06:18 Neut % (Auto) 59.4 % (38-83) 10/09/17 06:18 Lymph % (Auto) 27.3 % (25-47) 10/09/17 06:18 [place] % (Auto) 11.3 % (1-9) H 10/09/17 06:18 Eos % (Auto) 1.4 % (0-6) 10/09/17 06:18 Baso % (Auto) 0.6 % (0-2) 10/09/17 06:18 Absolute Neuts (auto) 4.0 10^3/ul (1.5-7.7) 10/09/17 06:18 Absolute Lymphs (auto) 1.8 10^3/ul (1.0-4.8) 10/09/17 06:18 Absolute Monos (auto) 0.8 10^3/ul (0-0.8) 10/09/17 06:18 Absolute Eos (auto) 0.1 10^3/ul (0-0.6) 10/09/17 06:18 Absolute Basos (auto) 0 10^3/ul (0-0.2) 10/09/17 06:18 Absolute Nucleated RBC 0 10^3/ul 10/09/17 06:18 Nucleated RBC % 0 10/09/17 06:18 INR (Anticoag Therapy) 1.30 (0.77-1.02) H 10/06/17 06:56 ABG pH 7.17 (7.35-7.45) L* 10/02/17 05:30 ABG pCO2 12 mmHg (35-45) L* 10/02/17 05:30 ABG pO2 118 mmHg (80-100) H 10/02/17 05:30 ABG HCO3 8.1 mmol/L (19-31) L* 10/02/17 05:30 ABG O2 Saturation 98.9 % (95-98) H 10/02/17 05:30 ABG Base Excess -21.5 (-2.0-2.0) L 10/02/17 05:30 VBG pH 7.22 (7.33-7.43) L 10/02/17 22:40 VBG pCO2 27 mmHg (41-51) L 10/02/17 22:40 VBG pO2 27 mmHg (35-45) L 10/02/17 22:40 VBG HCO3 12.2 mmol/L (24-28) L 10/02/17 22:40 VBG O2 Saturation 60.3 % (70-80) L 10/02/17 22:40 VBG Base Excess -15.1 (0-4) L 10/02/17 22:40 Sodium 133 mmol/L (133-145) 10/09/17 06:18 Potassium 4.2 mmol/L (3.5-5.0) 10/09/17 06:18 Chloride 101 mmol/L (101-111) 10/09/17 06:18 Carbon Dioxide 26 mmol/L (22-32) 10/09/17 06:18 Anion Gap 6 mmol/L (2-11) 10/09/17 06:18 BUN 7 mg/dL (6-24) 10/09/17 06:18 Creatinine 0.41 mg/dL (0.51-0.95) L 10/09/17 06:18 Est GFR ( Amer) 228.4 (>60) 10/09/17 06:18 Est GFR (Non-Af Amer) 177.6 (>60) 10/09/17 06:18 BUN/Creatinine Ratio 17.1 (8-20) 10/09/17 06:18 Glucose 148 mg/dL (70-100) H 10/09/17 06:18 POC Glucose (mg/dL) 150 mg/dL (70-100) H 10/09/17 07:43 Hemoglobin A1c 12.1 % (4.0-5.6) H 10/04/17 11:33 Lactic Acid 1.0 mmol/L (0.5-2.0) 10/05/17 10:30 Calcium 8.2 mg/dL (8.6-10.3) L 10/09/17 06:18 Phosphorus 3.8 mg/dL (2.5-5.0) 10/07/17 05:15 Magnesium 2.4 mg/dL (1.9-2.7) 10/07/17 05:15 Total Bilirubin 0.30 mg/dL (0.2-1.0) 10/06/17 06:56 AST 15 U/L (13-39) 10/06/17 06:56 ALT 9 U/L (7-52) 10/06/17 06:56 Alkaline Phosphatase 93 U/L (34-104) 10/06/17 06:56 Total Creatine Kinase 32 U/L (10-223) 10/06/17 06:56 Total Protein 6.0 g/dL (6.4-8.9) L 10/06/17 06:56 Albumin 2.5 g/dL (3.2-5.2) L 10/06/17 06:56 Globulin 3.5 g/dL (2-4) 10/06/17 06:56 Albumin/Globulin Ratio 0.7 (1-3) L 10/06/17 06:56 TSH 0.81 mcIU/mL (0.34-5.60) 10/05/17 17:11 Free T3 2.90 pg/mL (2.5-3.9) 10/05/17 17:11 Total T3 0.39 ng/mL (0.87-1.78) L 10/05/17 17:11 Beta HCG, Quant < 0.60 mIU/mL 10/02/17 10:15 Urine Color Yellow 10/03/17 12:50 Urine Appearance Cloudy 10/03/17 12:50 Urine pH 6.0 (5-9) 10/03/17 12:50 Ur Specific [place] 1.020 (1.010-1.030) 10/03/17 12:50 Urine Protein Negative (Negative) 10/03/17 12:50 Urine Ketones 2+ (Negative) H 10/03/17 12:50 Urine Blood 2+ (Negative) H 10/03/17 12:50 Urine Nitrate Negative (Negative) 10/03/17 12:50 Urine Bilirubin Negative (Negative) 10/03/17 12:50 Urine Urobilinogen Negative (Negative) 10/03/17 12:50 Ur Leukocyte Esterase 3+ (Negative) H 10/03/17 12:50 Urine WBC (Auto) 3+(>20/hpf) (Absent) H 10/03/17 12:50 Urine RBC (Auto) 3+(>10/hpf) (Absent) H 10/03/17 12:50 Ur Squamous Epith Cells Present (Absent) H 10/03/17 12:50 Urine Bacteria Absent (Absent) 10/03/17 12:50 Urine Yeast Present (Absent) H 10/03/17 12:50 Urine Glucose 3+(>=500 mg/dl) (Negative) H 10/03/17 12:50 Fluid Source Synovial fluid 10/04/17 11:40 Fluid Volume 4.5 mL 10/04/17 11:40 Fluid Color Yellow 10/04/17 11:40 Fluid Appearance Cloudy 10/04/17 11:40 Fluid WBC 354 /mcL ([id number]) 10/04/17 11:40 Fluid RBC 691 /mcL 10/04/17 11:40 Fluid Tot Cell Count 100 10/04/17 11:40 Fluid Neutrophils 31 % 10/04/17 11:40 Fluid Lymphocytes 22 % 10/04/17 11:40 Fluid Monocytes 47 % 10/04/17 11:40 Fluid Cell Count Rvw By 10/04/17 11:40 Fluid Crystals None seen 10/04/17 11:40 Fluid Comment 10/04/17 11:40 Vancomycin Trough 7.3 mcg/mL 10/07/17 08:04 Salicylates < 2.50 mg/dL (<30) 10/02/17 04:35 Urine Opiates Screen None detected (None Detect) 10/02/17 08:30 Ur Barbiturates Screen None detected (None Detect) 10/02/17 08:30 Ur Phencyclidine Scrn None detected (None Detect) 10/02/17 08:30 Ur Amphetamines Screen None detected (None Detect) 10/02/17 08:30 U Benzodiazepines Scrn None detected (None Detect) 10/02/17 08:30 Urine Cocaine Screen None detected (None Detect) 10/02/17 08:30 U Cannabinoids Screen None detected (None Detect) 10/02/17 08:30 Serum Alcohol < 10 mg/dL (<10) 10/02/17 04:35 Lyme Disease Serology Negative (Negative) 10/04/17 11:33 C.trachomatis (Amp Det) Negative (Negative) 10/05/17 12:26 Influenza A (Rapid) Negative (Negative) 10/02/17 07:30 Influenza B (Rapid) Positive (Negative) H 10/02/17 07:30 N.gonorrhoeae (Amp Det) Negative (Negative) 10/05/17 12:26 ]General: Well appearing, NAD LLE: Dressing changed. Wick pulled out 1 inch further, mild bleeding, mild purulence expressed. Slight induration of the distal aspect of the wound. No fluctuance. Incision is CDI, sutures loosely approximating wound edges. No erythema. B/L LE: Calves supple and nontender without erythema, edema or palpable cords. Assessment: []POD 3 s/p I&D abscess left medial knee 10/06, Dr. Chavez Plan: []WBAT Will pull wick out 1 inch further daily, remove entirely in 1 week Daily dry sterile dressing change
[2017-10-09] MEDS: oxyCODONE/Acetamin 5/325 MG* TAB PO PRN ×3 (08:48→23:35)
[2017-10-09] MEDS: Venlafaxine EXT RELEASE CAP* 75 MG PO SCH ×2 (08:49→17:49)
[2017-10-09] MEDS: Magnesium Hydroxide LIQ* 30 ML UDC PO SCH ×2 (08:49→21:12)
[2017-10-09] MEDS: buPROPion TAB* 100 MG PO SCH ×2 (08:50→20:56)
[2017-10-09] MEDS: Heparin VIAL(*) 5000 UNITS/ML VIAL (FIVE THOUSAND) SUBCUT SCH ×2 (08:51→21:11)
[2017-10-09] MEDS: Insulin LISPRO* 1 UNITS UNIT SUBCUT SCH ×4 (08:51→21:11)
[2017-10-09] MEDS: Insulin GLARGINE(*) 1 UNITS UNIT SUBCUT SCH (13:37)
--- NOTE | 2017-10-09 18:52 | PN ---
Subjective Date of Service: 10/09/17 Interval History: Feels tired Pain in knee present but controlled worked with PT and did 1 step up Family History: Unchanged from Admission Social History: Unchanged from Admission Past Medical History: Unchanged from Admission Objective Active Medications: Acetaminophen (Tylenol Tab*) 650 mg PO Q4H PRN PRN Reason: PAIN Last Admin: 10/09/17 17:47 Dose: 650 mg Al Hydrox/Mg Hydrox/Simethicone (Maalox Plus*) 30 ml PO Q6H PRN PRN Reason: INDIGESTION Last Admin: 10/08/17 02:15 Dose: 30 ml Bisacodyl (Dulcolax Supp*) 10 mg DC ONCE PRN PRN Reason: CONSTIPATION Last Admin: 10/08/17 16:33 Dose: 10 mg Bupropion HCl (Wellbutrin Tab*) 150 mg PO BID [facility] Last Admin: 10/09/17 08:50 Dose: 150 mg Dextrose (D50w Syringe 50 Ml*) 12.5 gm IV PUSH .FOR FS < 60 - SS PRN PRN Reason: FS < 60 Diphenhydramine HCl (Benadryl Po*) 25 mg PO Q6H PRN PRN Reason: itching Heparin Sodium (Porcine) (Heparin Vial(*)) 5,000 units SUBCUT Q12HR [facility] Last Admin: 10/09/17 08:51 Dose: 5,000 units Cefazolin Sodium 1 gm/ Sodium (Chloride) 50 mls @ 200 mls/hr IVPB 0000,0600, 1200,1800 [facility] Last Admin: 10/09/17 17:51 Dose: 200 mls/hr Insulin Glargine (Lantus(*)) 70 units SUBCUT Q24H [facility] Last Admin: 10/09/17 13:37 Dose: 70 units Insulin Human Lispro (Humalog*) 0 units SUBCUT FS ACHS ICU [facility] PRN Reason: Protocol Last Admin: 10/09/17 17:50 Dose: 2 units Lorazepam (Ativan Tab(*)) 0.5 mg PO Q6H PRN PRN Reason: ANXIETY Magnesium Hydroxide (Milk Of Magnesia Liq*) 30 ml PO BID [facility] Last Admin: 10/09/17 08:49 Dose: 30 ml Magnesium Hydroxide (Milk Of Magnesia Liq*) 30 ml PO Q6H PRN PRN Reason: constipation Last Admin: 10/08/17 02:15 Dose: 30 ml Ondansetron HCl (Zofran Inj*) 4 mg IV Q4H PRN PRN Reason: NAUSEA/VOMITING Oxycodone/Acetaminophen (Percocet 5/325 Tab*) 1 tab PO Q4H PRN PRN Reason: PAIN Last Admin: 10/09/17 13:19 Dose: 1 tab Polyethylene Glycol/Electrolytes (Miralax*) 17 gm PO DAILY PRN PRN Reason: CONSTIPATION Tramadol HCl (Ultram*) 50 mg PO Q6H PRN PRN Reason: PAIN Last Admin: 10/07/17 00:15 Dose: 50 mg Venlafaxine HCl (Effexor Xr Cap*) 150 mg PO DAILY [facility] Last Admin: 10/09/17 08:49 Dose: 150 mg Venlafaxine HCl (Effexor Xr Cap*) 75 mg PO QPM [facility] Last Admin: 10/09/17 17:49 Dose: 75 mg Vital Signs - 8 hr 10/09/17 10/09/17 10/09/17 11:05 12:06 13:19 Temperature 98.3 F Pulse Rate 92 Respiratory 20 16 18 Rate Blood Pressure 102/65 (mmHg) O2 Sat by Pulse 96 Oximetry 10/09/17 10/09/17 15:30 18:09 Temperature 98.1 F Pulse Rate 79 Respiratory 16 18 Rate Blood Pressure 97/60 (mmHg) O2 Sat by Pulse 98 Oximetry Oxygen Devices in Use Now: None Appearance: NAD, working on [employer] Eyes: No Scleral Icterus, PERRLA Ears/Nose/Mouth/Throat: Clear Oropharnyx, Mucous Membranes Moist Neck: NL Appearance and Movements; NL JVP, Trachea Midline Respiratory: Symmetrical Chest Expansion and Respiratory Effort, Clear to Auscultation Cardiovascular: NL Sounds; No Murmurs; No JVD, RRR Abdominal: NL Sounds; No Tenderness; No Distention Extremities: No Edema Skin: - - left leg wrapped and dressed Neurological: Alert and Oriented x 3 Result Diagrams: 10/09/17 06:18 10/09/17 06:18 Microbiology and Other Data: Microbiology 10/02/17 07:30 Nasal Screen MRSA (PCR)(TIFFANI) - Final Nasal Mrsa Negative 10/02/17 07:12 Influenza Types A,B Antigen (TIFFANI) - Final Nasopharyngeal Specimen received for Influenza A/B Molecular testing Assess/Plan/Problems-Billing Assessment: 32 y/o female patient presenting to [facility] with complaints of not feeling well found to be in DKA, with influenza and knee abscess s/p I&D - Patient Problems (1) Sepsis Comment: present on admission now resolved 2/2 influenza and knee abscess continue iv ancef (2) DKA (diabetic ketoacidoses) Comment: Resolved continue insulin hx of non compliance lantus increased to 70U today (3) Abscess of knee Comment: Ortho following POD 3 I/D continue ancef wound cx growing MSSA, (4) Influenza Comment: S/p tamiflu (5) DVT prophylaxis Comment: HSQ Status and Disposition: 24-48hrs with services although may need SAVANNAH
[2017-10-09] MEDS: LORazepam TAB(*) 0.5 MG PO PRN (23:35)
[2017-10-10] MEDS: oxyCODONE/Acetamin 5/325 MG* TAB PO PRN ×4 (04:57→23:31)
[2017-10-10] MEDS: ceFAZolin 1 GM VIAL(*) 1 GM in NS 0.9% 50 ML* 50 ML IVPB SCH ×4 (05:00→23:31)
[2017-10-10 07:04] LABS: Hematocrit 30 % (35-47); Hemoglobin 10.3 g/dl (12.0-16.0); Mean Platelet Volume 6 um3 (7.4-10.4); Platelet Count 378 10^3/ul (150-450)
[2017-10-10] MEDS: Insulin LISPRO* 1 UNITS UNIT SUBCUT SCH ×4 (07:41→20:39)
[2017-10-10] MEDS: Venlafaxine EXT RELEASE CAP* 75 MG PO SCH ×2 (08:45→17:37)
[2017-10-10] MEDS: Magnesium Hydroxide LIQ* 30 ML UDC PO SCH ×2 (08:45→20:35)
[2017-10-10] MEDS: buPROPion TAB* 100 MG PO SCH ×2 (08:46→20:35)
[2017-10-10] MEDS: Heparin VIAL(*) 5000 UNITS/ML VIAL (FIVE THOUSAND) SUBCUT SCH ×2 (08:46→20:36)
[2017-10-10] MEDS: Insulin GLARGINE(*) 1 UNITS UNIT SUBCUT SCH (12:27)
--- NOTE | 2017-10-10 17:08 | PN ---
Subjective Date of Service: 10/10/17 Interval History: Pain well controlled Ambulating short distances with aid of walker. No bending left knee much. She is unsure she will be able to enter her home or care for herself. She also feels she is improving in her ability to care for herself with which I agree Family History: Unchanged from Admission Social History: Unchanged from Admission Past Medical History: Unchanged from Admission Objective Active Medications: Acetaminophen (Tylenol Tab*) 650 mg PO Q4H PRN PRN Reason: PAIN Last Admin: 10/09/17 17:47 Dose: 650 mg Al Hydrox/Mg Hydrox/Simethicone (Maalox Plus*) 30 ml PO Q6H PRN PRN Reason: INDIGESTION Last Admin: 10/08/17 02:15 Dose: 30 ml Bisacodyl (Dulcolax Supp*) 10 mg MS ONCE PRN PRN Reason: CONSTIPATION Last Admin: 10/08/17 16:33 Dose: 10 mg Bupropion HCl (Wellbutrin Tab*) 150 mg PO BID [facility] Last Admin: 10/10/17 08:46 Dose: 150 mg Dextrose (D50w Syringe 50 Ml*) 12.5 gm IV PUSH .FOR FS < 60 - SS PRN PRN Reason: FS < 60 Diphenhydramine HCl (Benadryl Po*) 25 mg PO Q6H PRN PRN Reason: itching Heparin Sodium (Porcine) (Heparin Vial(*)) 5,000 units SUBCUT Q12HR [facility] Last Admin: 10/10/17 08:46 Dose: 5,000 units Cefazolin Sodium 1 gm/ Sodium (Chloride) 50 mls @ 200 mls/hr IVPB 0000,0600, 1200,1800 [facility] Last Admin: 10/10/17 12:27 Dose: 200 mls/hr Insulin Glargine (Lantus(*)) 70 units SUBCUT Q24H [facility] Last Admin: 10/10/17 12:27 Dose: 70 units Insulin Human Lispro (Humalog*) 0 units SUBCUT FS ACHS ICU [facility] PRN Reason: Protocol Last Admin: 10/10/17 12:27 Dose: 2 units Lorazepam (Ativan Tab(*)) 0.5 mg PO Q6H PRN PRN Reason: ANXIETY Last Admin: 10/09/17 23:35 Dose: 0.5 mg Magnesium Hydroxide (Milk Of Magnesia Liq*) 30 ml PO BID [facility] Last Admin: 10/10/17 08:45 Dose: 30 ml Magnesium Hydroxide (Milk Of Magnesia Liq*) 30 ml PO Q6H PRN PRN Reason: constipation Last Admin: 10/08/17 02:15 Dose: 30 ml Ondansetron HCl (Zofran Inj*) 4 mg IV Q4H PRN PRN Reason: NAUSEA/VOMITING Oxycodone/Acetaminophen (Percocet 5/325 Tab*) 1 tab PO Q4H PRN PRN Reason: PAIN Last Admin: 10/10/17 12:26 Dose: 1 tab Polyethylene Glycol/Electrolytes (Miralax*) 17 gm PO DAILY PRN PRN Reason: CONSTIPATION Tramadol HCl (Ultram*) 50 mg PO Q6H PRN PRN Reason: PAIN Last Admin: 10/07/17 00:15 Dose: 50 mg Venlafaxine HCl (Effexor Xr Cap*) 150 mg PO DAILY [facility] Last Admin: 10/10/17 08:45 Dose: 150 mg Venlafaxine HCl (Effexor Xr Cap*) 75 mg PO QPM [facility] Last Admin: 10/09/17 17:49 Dose: 75 mg Vital Signs - 8 hr 10/10/17 10/10/17 10/10/17 11:05 12:26 14:30 Temperature 97.2 F Pulse Rate 78 Respiratory 16 16 18 Rate Blood Pressure 105/61 (mmHg) O2 Sat by Pulse 96 Oximetry 10/10/17 15:42 Temperature 98.1 F Pulse Rate 89 Respiratory 16 Rate Blood Pressure 97/60 (mmHg) O2 Sat by Pulse 97 Oximetry Oxygen Devices in Use Now: None Appearance: NAD, flat affect Eyes: No Scleral Icterus, PERRLA Ears/Nose/Mouth/Throat: NL Teeth, Lips, Gums, Clear Oropharnyx Neck: NL Appearance and Movements; NL JVP, Trachea Midline Respiratory: Symmetrical Chest Expansion and Respiratory Effort, Clear to Auscultation Cardiovascular: RRR Abdominal: NL Sounds; No Tenderness; No Distention, No Hepatosplenomegaly Lymphatic: No Cervical Adenopathy Extremities: No Edema Skin: - - left knee wrapped Neurological: Alert and Oriented x 3 Result Diagrams: 10/10/17 06:43 10/09/17 06:18 Microbiology and Other Data: Microbiology 10/02/17 07:30 Nasal Screen MRSA (PCR)(TIFFANI) - Final Nasal Mrsa Negative 10/02/17 07:12 Influenza Types A,B Antigen (TIFFANI) - Final Nasopharyngeal Specimen received for Influenza A/B Molecular testing Assess/Plan/Problems-Billing Assessment: 32 y/o [place] patient [place] [facility] [place] of not feeling well found to be in DKA, with influenza and knee abscess s/p I&D - Patient Problems (1) Sepsis Comment: present on admission now resolved 2/2 influenza and knee abscess continue iv ancef (2) DKA (diabetic ketoacidoses) Comment: Resolved continue insulin hx of non compliance lantus increased to 70U AM preprandial checks are well controlled Insulin SS (3) Abscess of knee Comment: Ortho following POD 4 I/D continue ancef wound cx growing MSSA, (4) Influenza Comment: S/p tamiflu (5) DVT prophylaxis Comment: HSQ Status and Disposition: Suspect she will be able to return home shortly otherwise will need SAVANNA[facility] placement.
[2017-10-10] MEDS: LORazepam TAB(*) 0.5 MG PO PRN (20:35)
[2017-10-11] MEDS: oxyCODONE/Acetamin 5/325 MG* TAB PO PRN ×4 (04:31→22:00)
[2017-10-11] MEDS: ceFAZolin 1 GM VIAL(*) 1 GM in NS 0.9% 50 ML* 50 ML IVPB SCH ×2 (04:32→11:51)
[2017-10-11] MEDS: Insulin LISPRO* 1 UNITS UNIT SUBCUT SCH ×4 (07:48→22:01)
[2017-10-11] MEDS: Magnesium Hydroxide LIQ* 30 ML UDC PO SCH ×2 (08:00→19:24)
[2017-10-11] MEDS: buPROPion TAB* 100 MG PO SCH ×2 (08:00→19:23)
[2017-10-11] MEDS: Heparin VIAL(*) 5000 UNITS/ML VIAL (FIVE THOUSAND) SUBCUT SCH ×2 (08:01→19:24)
[2017-10-11] MEDS: Venlafaxine EXT RELEASE CAP* 75 MG PO SCH ×2 (08:01→17:54)
[2017-10-11 08:45] LABS: Hematocrit 31 % (35-47); Hemoglobin 10.3 g/dl (12.0-16.0); Mean Platelet Volume 6 um3 (7.4-10.4); Platelet Count 382 10^3/ul (150-450)
--- NOTE | 2017-10-11 10:43 | PN ---
Subjective Date of Service: 10/11/17 Interval History: Pt is feeling ok. She thinks she is getting around better and better each day. She denies any pain at this time. No diarrhea. Family History: Unchanged from Admission Social History: Unchanged from Admission Past Medical History: Unchanged from Admission Objective Active Medications: Acetaminophen (Tylenol Tab*) 650 mg PO Q4H PRN PRN Reason: PAIN Last Admin: 10/09/17 17:47 Dose: 650 mg Al Hydrox/Mg Hydrox/Simethicone (Maalox Plus*) 30 ml PO Q6H PRN PRN Reason: INDIGESTION Last Admin: 10/08/17 02:15 Dose: 30 ml Bisacodyl (Dulcolax Supp*) 10 mg [place] ONCE PRN PRN Reason: CONSTIPATION Last Admin: 10/08/17 16:33 Dose: 10 mg Bupropion HCl (Wellbutrin Tab*) 150 mg PO BID ELIAN Last Admin: 10/11/17 08:00 Dose: 150 mg Dextrose (D50w Syringe 50 Ml*) 12.5 gm IV PUSH .FOR FS < 60 - SS PRN PRN Reason: FS < 60 Diphenhydramine HCl (Benadryl Po*) 25 mg PO Q6H PRN PRN Reason: itching Heparin Sodium (Porcine) (Heparin Vial(*)) 5,000 units SUBCUT Q12HR [facility] Last Admin: 10/11/17 08:01 Dose: 5,000 units Cefazolin Sodium 1 gm/ Sodium (Chloride) 50 mls @ 200 mls/hr IVPB 0000,0600, 1200,1800 [facility] Stop: 10/11/17 17:59 Last Admin: 10/11/17 04:32 Dose: 200 mls/hr Cefazolin Sodium/Dextrose (Kefzol 1 Gm In Dextrose Duplex (*)) 1 gm in 50 mls @ 200 mls/hr IVPB 0000,0600,1200,1800 [facility] Insulin Glargine (Lantus(*)) 70 units SUBCUT Q24H [facility] Last Admin: 10/10/17 12:27 Dose: 70 units Insulin Human Lispro (Humalog*) 0 units SUBCUT FS ACHS ICU ELIAN PRN Reason: Protocol Last Admin: 10/11/17 07:48 Dose: Not Given Lorazepam (Ativan Tab(*)) 0.5 mg PO Q6H PRN PRN Reason: ANXIETY Last Admin: 10/10/17 20:35 Dose: 0.5 mg Magnesium Hydroxide (Milk Of Magnesia Liq*) 30 ml PO BID [facility] Last Admin: 10/11/17 08:00 Dose: 30 ml Magnesium Hydroxide (Milk Of Magnesia Liq*) 30 ml PO Q6H PRN PRN Reason: constipation Last Admin: 10/08/17 02:15 Dose: 30 ml Ondansetron HCl (Zofran Inj*) 4 mg IV Q4H PRN PRN Reason: NAUSEA/VOMITING Oxycodone/Acetaminophen (Percocet 5/325 Tab*) 1 tab PO Q4H PRN PRN Reason: PAIN Last Admin: 10/11/17 04:31 Dose: 1 tab Polyethylene Glycol/Electrolytes (Miralax*) 17 gm PO DAILY PRN PRN Reason: CONSTIPATION Venlafaxine HCl (Effexor Xr Cap*) 150 mg PO DAILY [facility] Last Admin: 10/11/17 08:01 Dose: 150 mg Venlafaxine HCl (Effexor Xr Cap*) 75 mg PO QPM [facility] Last Admin: 10/10/17 17:37 Dose: 75 mg Vital Signs - 8 hr 10/11/17 10/11/17 10/11/17 03:59 04:31 06:04 Temperature 98.4 F Pulse Rate 73 Respiratory 18 18 16 Rate Blood Pressure 107/64 (mmHg) O2 Sat by Pulse 97 Oximetry 10/11/17 10/11/17 07:55 08:00 Temperature 98.0 F Pulse Rate 71 Respiratory 16 16 Rate Blood Pressure 89/55 (mmHg) O2 Sat by Pulse 95 Oximetry Oxygen Devices in Use Now: None Appearance: Young female sitting up in bed, NAD Eyes: No Scleral Icterus Ears/Nose/Mouth/Throat: Mucous Membranes Moist Respiratory: Symmetrical Chest Expansion and Respiratory Effort, Clear to Auscultation Cardiovascular: NL Sounds; No Murmurs; No JVD, RRR, No Edema Abdominal: NL Sounds; No Tenderness; No Distention Extremities: No Clubbing, Cyanosis Skin: No Nodules or Sclerosis, - - L knee wrapped in OPAL with mild serosanguinous drainage noted Neurological: Alert and Oriented x 3 Result Diagrams: 10/11/17 08:32 10/09/17 06:18 Microbiology and Other Data: Microbiology 10/02/17 07:30 Nasal Screen MRSA (PCR)(TIFFANI) - Final Nasal Mrsa Negative 10/02/17 07:12 Influenza Types A,B Antigen (TIFFANI) - Final Nasopharyngeal Specimen received for Influenza A/B Molecular testing Assess/Plan/Problems-Billing Ms Meyer is a 32 y/o female patient [place] [facility] [place] feeling well found to be in DKA, with influenza and knee abscess, now s/p I&D - Patient Problems (1) Abscess of knee Current Visit: Yes Status: Acute Code(s): L02.419 - CUTANEOUS ABSCESS OF LIMB, UNSPECIFIED SNOMED Code(s): 96661931 Comment: The patient was septic on admission secondary to influenza and likely the L knee abscess. Sepsis has now resolved. Today is POD#5 s/p I&D of L knee abscess. Continue ancef 1g IV q6hr. Will discuss with ID on 10/13/17 about how long to keep her on the Abx. Dressing change daily with pulling out the wick ~1in daily until it is completely removed. (2) DKA (diabetic ketoacidoses) Current Visit: Yes Status: Acute Code(s): E13.10 - OTH DIABETES MELLITUS WITH KETOACIDOSIS WITHOUT COMA SNOMED Code(s): 758793694 Comment: Resolved. (3) Influenza Current Visit: Yes Status: Acute Code(s): J11.1 - FLU DUE TO UNIDENTIFIED INFLUENZA VIRUS W OTH RESP MANIFEST SNOMED Code(s): 1313543 Comment: The patient has completed a full course of tamiflu. (4) Diabetes Current Visit: Yes Status: Acute Code(s): E11.9 - TYPE 2 DIABETES MELLITUS WITHOUT COMPLICATIONS SNOMED Code(s): 28956387 Comment: Type II DM. Sugars are now well controlled on lantus 70 units SQ daily. Continue lantus and lispro sliding scale. (5) Anxiety Current Visit: Yes Status: Chronic Onset Date: 06/24/15 Code(s): F41.9 - ANXIETY DISORDER, UNSPECIFIED SNOMED Code(s): 90919280 Comment: Continue wellbutrin and effexor. (6) DVT prophylaxis Current Visit: Yes Status: Acute Code(s): GUL4580 - SNOMED Code(s): 553194233 Comment: SQ heparin (7) Full code status Current Visit: Yes Status: Acute Code(s): Z78.9 - OTHER SPECIFIED HEALTH STATUS SNOMED Code(s): 849504751 Status and Disposition: likely home 10/13/17
--- NOTE | 2017-10-11 12:38 | PN ---
Progress Note - Progress Note Date of Service: 10/11/17 SOAP: Subjective: Feeling better with less left knee pain. More ambulatory during day. Objective: LLE: - Loose closure of incision with a hole mid-way down incision where the packing exits the wound and an area towards proximal end of incision that has not completely healed - Packing has purulence attached to it - Bloody slightly purulent drainage on dressing - Soft tissue swelling and induration about incision site, slightly decreased from yesterday. No significant erythema. - PROM knee from 15-70 degrees without any discomfort whatsoever. Some pain with terminal extension and flexion. - NVID Selected Entries 10/10/17 10/10/17 10/11/17 19:34 23:20 03:59 Temperature 98.3 F 98.1 F 98.4 F Pulse Rate Respiratory Rate Blood Pressure (mmHg) O2 Sat by Pulse Oximetry 10/11/17 10/11/17 07:55 11:45 Temperature 98.0 F 98.4 F Pulse Rate 84 Respiratory 16 Rate Blood Pressure 110/75 (mmHg) O2 Sat by Pulse 97 Oximetry Laboratory Tests 10/07/17 10/08/17 10/09/17 05:15 08:25 06:18 WBC 9.4 8.8 6.8 Neut % (Auto) 87.3 H 75.0 59.4 C-Reactive Protein 10/11/17 08:32 WBC Neut % (Auto) C-Reactive Protein 49.97 H Assessment: POD 5 I&D left distal medial thigh abscess, deep Plan: - No sign of knee joint infection on exam today, as per previous exams and aspirate - Continue IV antibiotics. Ana has been consulted for Friday10/13/17 - Discussed with patient possibility of repeat I&D with patient given the size and depth of abscess drained on 10/06/17. Repeat I&D is very unlikely, but might be required if swelling/induration/pain persists. I would keep patient on IV antibiotics until swelling/induration become less impressive; then transition to PO. Patient may be able to go home on 10/13/17 if continued improvement. - Continue DSD changes daily or as needed if saturated. - Ortho will remove the packing entirely tomorrow (10/12/17) - I encouraged maximal AGGRESSIVE AROM knee in bed and ambulation to minimize stiffness. PT/OT are seeing the patient. - We will follow CRP to confirm improvement of infection with IV antibiotics. WBC has decreased and left shift lessened as of 10/09/17. - Patient can follow up with me ~ 7 days after discharge from hospital or ~ 14 days postop
[2017-10-11] MEDS: Insulin GLARGINE(*) 1 UNITS UNIT SUBCUT SCH (14:05)
[2017-10-11] MEDS: ceFAZolin 1 GM in Dextrose (*) 1 GM/50 ML BAG IVPB SCH (17:54)
[2017-10-11] MEDS: Acetaminophen TAB* 325 MG PO PRN (19:22)
[2017-10-11] MEDS: CMCS: Melatonin (NF) 3 MG TAB PO SCH (22:31)
[2017-10-12] MEDS: ceFAZolin 1 GM in Dextrose (*) 1 GM/50 ML BAG IVPB SCH ×4 (01:25→18:18)
[2017-10-12] MEDS: LORazepam TAB(*) 0.5 MG PO PRN ×3 (02:52→21:44)
[2017-10-12] MEDS: oxyCODONE/Acetamin 5/325 MG* TAB PO PRN ×2 (02:52→18:21)
[2017-10-12] MEDS: buPROPion TAB* 100 MG PO SCH ×2 (08:55→21:35)
[2017-10-12] MEDS: Venlafaxine EXT RELEASE CAP* 75 MG PO SCH ×2 (08:55→18:18)
[2017-10-12] MEDS: Magnesium Hydroxide LIQ* 30 ML UDC PO SCH ×2 (08:56→21:39)
[2017-10-12] MEDS: Heparin VIAL(*) 5000 UNITS/ML VIAL (FIVE THOUSAND) SUBCUT SCH ×2 (08:56→21:39)
[2017-10-12] MEDS: Insulin LISPRO* 1 UNITS UNIT SUBCUT SCH ×4 (08:56→21:38)
--- NOTE | 2017-10-12 10:08 | PN ---
Progress Note - Progress Note Date of Service: 10/12/17 SOAP: Subjective: POD #6 s/p L thigh open I&D. Continued improvement with knee pain. Able to ambulate more. Pain well controlled. No fevers or chills. Objective: Vital Signs Temp Pulse Resp BP Pulse Ox 97.7 F 72 16 109/65 97 10/12/17 07:49 10/12/17 07:49 10/12/17 08:56 10/12/17 07:49 10/12/17 07:49 Laboratory Results - last 24 hr 10/11/17 10/11/17 10/11/17 12:03 17:09 19:22 POC Glucose (mg/dL) 161 H 104 H 219 H C-Reactive Protein 10/12/17 10/12/17 06:12 07:34 POC Glucose (mg/dL) 143 H C-Reactive Protein 28.20 H Gen: WN, WD, in NAD, A&Ox3, lying comfortably in bed watching TV. LLE: Dressing with some bloody/purulent drainage. Incision intact with incomplete closure at proximal end and hole mid-incision with packing intact. Packing with bloody and purulent discharge. Soft tissue swelling and indurating about incision site without significant erythema. Able to move knee, ankle, and toes. Sensation grossly intact distally, 2+ DP pulse. Assessment: POD #6 I&D left distal medial thigh abscess, deep Plan: - No sign of knee joint infection on exam today, as per previous exams and aspirate - Continue IV antibiotics. Ana consulted for Friday10/13/17 - Discussed with patient possibility of repeat I&D with patient given the size and depth of abscess drained on 10/06/17. Repeat I&D is very unlikely, but might be required if swelling/induration/pain persists. - Patient may be able to go home tomorrow, 10/13/17 if continued improvement. - Continue DSD changes daily or as needed if saturated. - Packing removed today - Continue moving leg and PT/OT. - CRP 28.20 today, was 49.97 yesterday, 10/11, continue daily. - WBC has decreased and left shift resolved. - Plan to follow up in clinic at post-op day 14, 10/20.
--- NOTE | 2017-10-12 10:37 | PN ---
Subjective Date of Service: 10/12/17 Interval History: Pt is feeling well. She still feels like her L knee is stiff. She denies any significant pain at this time. No SOB, no diarrhea. Family History: Unchanged from Admission Social History: Unchanged from Admission Past Medical History: Unchanged from Admission Objective Active Medications: Acetaminophen (Tylenol Tab*) 650 mg PO Q4H PRN PRN Reason: PAIN Last Admin: 10/11/17 19:22 Dose: 650 mg Al Hydrox/Mg Hydrox/Simethicone (Maalox Plus*) 30 ml PO Q6H PRN PRN Reason: INDIGESTION Last Admin: 10/08/17 02:15 Dose: 30 ml Bisacodyl (Dulcolax Supp*) 10 mg LA ONCE PRN PRN Reason: CONSTIPATION Last Admin: 10/08/17 16:33 Dose: 10 mg Bupropion HCl (Wellbutrin Tab*) 150 mg PO BID ELIAN Last Admin: 10/12/17 08:55 Dose: 150 mg Dextrose (D50w Syringe 50 Ml*) 12.5 gm IV PUSH .FOR FS < 60 - SS PRN PRN Reason: FS < 60 Diphenhydramine HCl (Benadryl Po*) 25 mg PO Q6H PRN PRN Reason: itching Heparin Sodium (Porcine) (Heparin Vial(*)) 5,000 units SUBCUT Q12HR ON [facility] Last Admin: 10/12/17 08:56 Dose: 5,000 units Cefazolin Sodium/Dextrose (Kefzol 1 Gm In Dextrose Duplex (*)) 1 gm in 50 mls @ 200 mls/hr IVPB 0000,0600,1200,1800 ON [facility] Last Admin: 10/12/17 06:23 Dose: 200 mls/hr Insulin Glargine (Lantus(*)) 70 units SUBCUT Q24H ON [facility] OF [facility] Last Admin: 10/11/17 14:05 Dose: 70 units Insulin Human Lispro (Humalog*) 0 units SUBCUT FS ACHS ICU ON [facility] OF [facility] PRN Reason: Protocol Last Admin: 10/12/17 08:56 Dose: 2 units Lorazepam (Ativan Tab(*)) 0.5 mg PO Q6H PRN PRN Reason: ANXIETY Last Admin: 10/12/17 08:56 Dose: 0.5 mg Magnesium Hydroxide (Milk Of Magnesia Liq*) 30 ml PO BID ON [facility] Last Admin: 10/12/17 08:56 Dose: 30 ml Magnesium Hydroxide (Milk Of Magnesia Liq*) 30 ml PO Q6H PRN PRN Reason: constipation Last Admin: 10/08/17 02:15 Dose: 30 ml Melatonin (Melatonin (Nf)) 3 mg PO BEDTIME ON LICENSE OF [facility] Last Admin: 10/11/17 22:31 Dose: 3 mg Ondansetron HCl (Zofran Inj*) 4 mg IV Q4H PRN PRN Reason: NAUSEA/VOMITING Oxycodone/Acetaminophen (Percocet 5/325 Tab*) 1 tab PO Q4H PRN PRN Reason: PAIN Last Admin: 10/12/17 02:52 Dose: 1 tab Polyethylene Glycol/Electrolytes (Miralax*) 17 gm PO DAILY PRN PRN Reason: CONSTIPATION Venlafaxine HCl (Effexor Xr Cap*) 150 mg PO DAILY ON [facility] Last Admin: 10/12/17 08:55 Dose: 150 mg Venlafaxine HCl (Effexor Xr Cap*) 75 mg PO QPM ON [facility] Last Admin: 10/11/17 17:54 Dose: 75 mg Vital Signs - 8 hr 10/12/17 10/12/17 10/12/17 02:52 02:55 06:17 Temperature 97.5 F Pulse Rate 66 Respiratory 18 18 16 Rate Blood Pressure 107/65 (mmHg) O2 Sat by Pulse 98 Oximetry 10/12/17 10/12/17 07:49 08:56 Temperature 97.7 F Pulse Rate 72 Respiratory 16 16 Rate Blood Pressure 109/65 (mmHg) O2 Sat by Pulse 97 Oximetry Oxygen Devices in Use Now: None Appearance: Young female sitting up in bed, NAD Eyes: No Scleral Icterus Ears/Nose/Mouth/Throat: Mucous Membranes Moist Respiratory: Symmetrical Chest Expansion and Respiratory Effort, Clear to Auscultation Cardiovascular: NL Sounds; No Murmurs; No JVD, RRR, No Edema Abdominal: NL Sounds; No Tenderness; No Distention Extremities: - - L knee wrapped-dressing just changed by ortho PA therefore not inspected by myself Skin: No Nodules or Sclerosis Neurological: Alert and Oriented x 3 Result Diagrams: 10/11/17 08:32 10/09/17 06:18 Microbiology and Other Data: Microbiology 10/02/17 07:30 Nasal Screen MRSA (PCR)(TIFFANI) - Final Nasal Mrsa Negative 10/02/17 07:12 Influenza Types A,B Antigen (TIFFANI) - Final Nasopharyngeal Specimen received for Influenza A/B Molecular testing Assess/Plan/Problems-Billing Ms Meyer is a 32 y/o female patient [place] [facility] [place] of not feeling well found to be in DKA, with influenza and knee abscess, now s/p I&D - Patient Problems (1) Abscess of knee Current Visit: Yes Status: Acute Code(s): L02.419 - CUTANEOUS ABSCESS OF LIMB, UNSPECIFIED SNOMED Code(s): 07238896 Comment: The patient was septic on admission secondary to influenza and likely the L knee abscess. Sepsis has now resolved. Today is POD#6 s/p I&D of L knee abscess. Continue ancef 1g IV q6hr. Will discuss with ID on 10/13/17 about how long to keep her on the Abx. Dressing change daily or as needed for drainage (wick pulled out today). (2) DKA (diabetic ketoacidoses) Current Visit: Yes Status: Acute Code(s): E13.10 - OTH DIABETES MELLITUS WITH KETOACIDOSIS WITHOUT COMA SNOMED Code(s): 327579902 Comment: Resolved. (3) Influenza Current Visit: Yes Status: Acute Code(s): J11.1 - FLU DUE TO UNIDENTIFIED INFLUENZA VIRUS W OTH RESP MANIFEST SNOMED Code(s): 6114013 Comment: The patient has completed a full course of tamiflu. (4) Diabetes Current Visit: Yes Status: Acute Code(s): E11.9 - TYPE 2 DIABETES MELLITUS WITHOUT COMPLICATIONS SNOMED Code(s): 50871125 Comment: Type II DM. Sugars are now well controlled on lantus 70 units SQ daily. Continue lantus and lispro sliding scale. (5) Anxiety Current Visit: Yes Status: Chronic Onset Date: 06/24/15 Code(s): F41.9 - ANXIETY DISORDER, UNSPECIFIED SNOMED Code(s): 61530911 Comment: Continue wellbutrin and effexor. (6) DVT prophylaxis Current Visit: Yes Status: Acute Code(s): ALH0912 - SNOMED Code(s): 170508871 Comment: SQ heparin (7) Full code status Current Visit: Yes Status: Acute Code(s): Z78.9 - OTHER SPECIFIED HEALTH STATUS SNOMED Code(s): 422900931 Status and Disposition: likely home 10/13/17 with VNS and home PT
[2017-10-12] MEDS: Insulin GLARGINE(*) 1 UNITS UNIT SUBCUT SCH (12:35)
[2017-10-12] MEDS: CMCS: Melatonin (NF) 3 MG TAB PO SCH (21:38)
[2017-10-13] MEDS: ceFAZolin 1 GM in Dextrose (*) 1 GM/50 ML BAG IVPB SCH ×2 (00:30→04:51)
[2017-10-13 06:45] LABS: Hematocrit 30 % (35-47); Hemoglobin 10.2 g/dl (12.0-16.0); Mean Corpuscular HGB Conc 34 g/dl (31-36); Mean Corpuscular Hemoglobin 31 pg (27-31); Mean Corpuscular Volume 92 fL (80-97); Mean Platelet Volume 6 um3 (7.4-10.4); Platelet Count 384 10^3/ul (150-450); Red Blood Count 3.27 10^6/ul (4.0-5.4); Red Cell Distribution Width 13 % (10.5-15); White Blood Count 6.2 10^3/ul (3.5-10.8)
[2017-10-13] MEDS: Heparin VIAL(*) 5000 UNITS/ML VIAL (FIVE THOUSAND) SUBCUT SCH ×2 (09:03→21:59)
[2017-10-13] MEDS: Insulin LISPRO* 1 UNITS UNIT SUBCUT SCH ×4 (09:04→21:58)
[2017-10-13] MEDS: buPROPion TAB* 100 MG PO SCH ×2 (09:05→21:56)
[2017-10-13] MEDS: Venlafaxine EXT RELEASE CAP* 75 MG PO SCH ×2 (09:06→17:44)
[2017-10-13] MEDS: Magnesium Hydroxide LIQ* 30 ML UDC PO SCH ×2 (09:06→22:21)
[2017-10-13] MEDS: ceFAZolin 2 GM PREMIX (*) 2 GM/50 ML BAG IVPB SCH ×2 (10:00→17:44)
--- NOTE | 2017-10-13 10:39 | PN ---
Progress Note - Progress Note Date of Service: 10/13/17 SOAP: Subjective: []Patient seen at bedside. She is feeling well and denies fever, chills, SOB, dizziness. Denies LLE pain. Objective: [] Vital Signs Temp 98.3 F 10/13/17 08:07 Pulse 71 10/13/17 08:07 Resp 16 10/13/17 09:41 BP 108/68 10/13/17 08:07 Pulse Ox 99 10/13/17 08:07 Intake & Output 10/12/17 10/13/17 10/13/17 18:59 06:59 18:59 Intake Total 1560 633 590 Output Total 0 Balance 1560 633 590 Intake: IV Fluids 65 NS (0.9%) 65 IVPB 168 ABX - CEFAZOLIN 168 Oral 1560 400 590 Output: Urine 0 Other: # Bowel Movements 0 # Voids 0 1 Laboratory Last Values WBC 6.2 10^3/ul (3.5-10.8) 10/13/17 06:20 RBC 3.27 10^6/ul (4.0-5.4) L 10/13/17 06:20 Hgb 10.2 g/dl (12.0-16.0) L 10/13/17 06:20 Hct 30 % (35-47) L 10/13/17 06:20 MCV 92 fL (80-97) 10/13/17 06:20 MCH 31 pg (27-31) 10/13/17 06:20 MCHC 34 g/dl (31-36) 10/13/17 06:20 RDW 13 % (10.5-15) 10/13/17 06:20 Plt Count 384 10^3/ul (150-450) 10/13/17 06:20 MPV 6 um3 (7.4-10.4) L 10/13/17 06:20 Neut % (Auto) 59.4 % (38-83) 10/09/17 06:18 Lymph % (Auto) 27.3 % (25-47) 10/09/17 06:18 [place] % (Auto) 11.3 % (1-9) H 10/09/17 06:18 Eos % (Auto) 1.4 % (0-6) 10/09/17 06:18 Baso % (Auto) 0.6 % (0-2) 10/09/17 06:18 Absolute Neuts (auto) 4.0 10^3/ul (1.5-7.7) 10/09/17 06:18 Absolute Lymphs (auto) 1.8 10^3/ul (1.0-4.8) 10/09/17 06:18 Absolute Monos (auto) 0.8 10^3/ul (0-0.8) 10/09/17 06:18 Absolute Eos (auto) 0.1 10^3/ul (0-0.6) 10/09/17 06:18 Absolute Basos (auto) 0 10^3/ul (0-0.2) 10/09/17 06:18 Absolute Nucleated RBC 0 10^3/ul 10/09/17 06:18 Nucleated RBC % 0 10/09/17 06:18 INR (Anticoag Therapy) 1.30 (0.77-1.02) H 10/06/17 06:56 ABG pH 7.17 (7.35-7.45) L* 10/02/17 05:30 ABG pCO2 12 mmHg (35-45) L* 10/02/17 05:30 ABG pO2 118 mmHg (80-100) H 10/02/17 05:30 ABG HCO3 8.1 mmol/L (19-31) L* 10/02/17 05:30 ABG O2 Saturation 98.9 % (95-98) H 10/02/17 05:30 ABG Base Excess -21.5 (-2.0-2.0) L 10/02/17 05:30 VBG pH 7.22 (7.33-7.43) L 10/02/17 22:40 VBG pCO2 27 mmHg (41-51) L 10/02/17 22:40 VBG pO2 27 mmHg (35-45) L 10/02/17 22:40 VBG HCO3 12.2 mmol/L (24-28) L 10/02/17 22:40 VBG O2 Saturation 60.3 % (70-80) L 10/02/17 22:40 VBG Base Excess -15.1 (0-4) L 10/02/17 22:40 Sodium 130 mmol/L (133-145) L 10/13/17 06:20 Potassium 4.5 mmol/L (3.5-5.0) 10/13/17 06:20 Chloride 97 mmol/L (101-111) L 10/13/17 06:20 Carbon Dioxide 28 mmol/L (22-32) 10/13/17 06:20 Anion Gap 5 mmol/L (2-11) 10/13/17 06:20 BUN 10 mg/dL (6-24) 10/13/17 06:20 Creatinine 0.58 mg/dL (0.51-0.95) 10/13/17 06:20 Est GFR ( Amer) 153.0 (>60) 10/13/17 06:20 Est GFR (Non-Af Amer) 119.0 (>60) 10/13/17 06:20 BUN/Creatinine Ratio 17.2 (8-20) 10/13/17 06:20 Glucose 227 mg/dL (70-100) H 10/13/17 06:20 POC Glucose (mg/dL) 211 mg/dL (70-100) H 10/13/17 07:52 Hemoglobin A1c 12.1 % (4.0-5.6) H 10/04/17 11:33 Lactic Acid 1.0 mmol/L (0.5-2.0) 10/05/17 10:30 Calcium 9.0 mg/dL (8.6-10.3) 10/13/17 06:20 Phosphorus 3.8 mg/dL (2.5-5.0) 10/07/17 05:15 Magnesium 2.4 mg/dL (1.9-2.7) 10/07/17 05:15 Total Bilirubin 0.30 mg/dL (0.2-1.0) 10/06/17 06:56 AST 15 U/L (13-39) 10/06/17 06:56 ALT 9 U/L (7-52) 10/06/17 06:56 Alkaline Phosphatase 93 U/L (34-104) 10/06/17 06:56 Total Creatine Kinase 32 U/L (10-223) 10/06/17 06:56 C-Reactive Protein 28.20 mg/L (< 5.00) H 10/12/17 06:12 Total Protein 6.0 g/dL (6.4-8.9) L 10/06/17 06:56 Albumin 2.5 g/dL (3.2-5.2) L 10/06/17 06:56 Globulin 3.5 g/dL (2-4) 10/06/17 06:56 Albumin/Globulin Ratio 0.7 (1-3) L 10/06/17 06:56 TSH 0.81 mcIU/mL (0.34-5.60) 10/05/17 17:11 Free T3 2.90 pg/mL (2.5-3.9) 10/05/17 17:11 Total T3 0.39 ng/mL (0.87-1.78) L 10/05/17 17:11 Beta HCG, Quant < 0.60 mIU/mL 10/02/17 10:15 Urine Color Yellow 10/03/17 12:50 Urine Appearance Cloudy 10/03/17 12:50 Urine pH 6.0 (5-9) 10/03/17 12:50 Ur Specific [place] 1.020 (1.010-1.030) 10/03/17 12:50 Urine Protein Negative (Negative) 10/03/17 12:50 Urine Ketones 2+ (Negative) H 10/03/17 12:50 Urine Blood 2+ (Negative) H 10/03/17 12:50 Urine Nitrate Negative (Negative) 10/03/17 12:50 Urine Bilirubin Negative (Negative) 10/03/17 12:50 Urine Urobilinogen Negative (Negative) 10/03/17 12:50 Ur Leukocyte Esterase 3+ (Negative) H 10/03/17 12:50 Urine WBC (Auto) 3+(>20/hpf) (Absent) H 10/03/17 12:50 Urine RBC (Auto) 3+(>10/hpf) (Absent) H 10/03/17 12:50 Ur Squamous Epith Cells Present (Absent) H 10/03/17 12:50 Urine Bacteria Absent (Absent) 10/03/17 12:50 Urine Yeast Present (Absent) H 10/03/17 12:50 Urine Glucose 3+(>=500 mg/dl) (Negative) H 10/03/17 12:50 Fluid Source Synovial fluid 10/04/17 11:40 Fluid Volume 4.5 mL 10/04/17 11:40 Fluid Color Yellow 10/04/17 11:40 Fluid Appearance Cloudy 10/04/17 11:40 Fluid WBC 354 /mcL (0-591278) 10/04/17 11:40 Fluid RBC 691 /mcL 10/04/17 11:40 Fluid Tot Cell Count 100 10/04/17 11:40 Fluid Neutrophils 31 % 10/04/17 11:40 Fluid Lymphocytes 22 % 10/04/17 11:40 Fluid Monocytes 47 % 10/04/17 11:40 Fluid Cell Count Rvw By 10/04/17 11:40 Fluid Crystals None seen 10/04/17 11:40 B. burgdorferi (PCR) Negative (Negative) 10/04/17 11:40 B. mayonii (PCR) Negative (Negative) 10/04/17 11:40 B.garinii/B.afzelii PCR Negative (Negative) 10/04/17 11:40 Fluid Comment 10/04/17 11:40 Vancomycin Trough 7.3 mcg/mL 10/07/17 08:04 Salicylates < 2.50 mg/dL (<30) 10/02/17 04:35 Urine Opiates Screen None detected (None Detect) 10/02/17 08:30 Ur Barbiturates Screen None detected (None Detect) 10/02/17 08:30 Ur Phencyclidine Scrn None detected (None Detect) 10/02/17 08:30 Ur Amphetamines Screen None detected (None Detect) 10/02/17 08:30 U Benzodiazepines Scrn None detected (None Detect) 10/02/17 08:30 Urine Cocaine Screen None detected (None Detect) 10/02/17 08:30 U Cannabinoids Screen None detected (None Detect) 10/02/17 08:30 Serum Alcohol < 10 mg/dL (<10) 10/02/17 04:35 Lyme Disease Serology Negative (Negative) 10/04/17 11:33 Lyme Specimen Source synovial fluid 10/04/17 11:40 C.trachomatis (Amp Det) Negative (Negative) 10/05/17 12:26 Influenza A (Rapid) Negative (Negative) 10/02/17 07:30 Influenza B (Rapid) Positive (Negative) H 10/02/17 07:30 N.gonorrhoeae (Amp Det) Negative (Negative) 10/05/17 12:26 General: Well appearing, NAD. LLE: Dressing clean and dry. Able to express small amount of serosanguinous drainage, no purulence from incision. Incision intact with incomplete closure at proximal end and hole mid-incision where packing had been. Mild soft tissue swelling and induration about incision site without erythema. Able to move knee , ankle, and toes. Sensation grossly intact distally, 2+ DP pulse. Assessment: POD #7 I&D left distal medial thigh abscess Plan: - Continue IV antibiotics. Followed by Dr. Perez - Will need continued IV abx, may require swing bed status - Continue DSD changes daily or as needed if saturated. - Continue moving leg, PT/OT. - Plan to follow up in clinic at post-op day 14, 10/20.
[2017-10-13] MEDS: Insulin GLARGINE(*) 1 UNITS UNIT SUBCUT SCH (13:16)
--- NOTE | 2017-10-13 16:15 | PN ---
Subjective Date of Service: 10/13/17 Interval History: Pt is feeling ok today. She denies any significant pain. No SOB. No diarrhea. She is not happy that I told her she needs to go to rehab to receive IV Abx. Family History: Unchanged from Admission Social History: Unchanged from Admission Past Medical History: Unchanged from Admission Objective Active Medications: Acetaminophen (Tylenol Tab*) 650 mg PO Q4H PRN PRN Reason: PAIN Last Admin: 10/11/17 19:22 Dose: 650 mg Al Hydrox/Mg Hydrox/Simethicone (Maalox Plus*) 30 ml PO Q6H PRN PRN Reason: INDIGESTION Last Admin: 10/08/17 02:15 Dose: 30 ml Bisacodyl (Dulcolax Supp*) 10 mg NM ONCE PRN PRN Reason: CONSTIPATION Last Admin: 10/08/17 16:33 Dose: 10 mg Bupropion HCl (Wellbutrin Tab*) 150 mg PO BID [facility] Last Admin: 10/13/17 09:05 Dose: 150 mg Dextrose (D50w Syringe 50 Ml*) 12.5 gm IV PUSH .FOR FS < 60 - SS PRN PRN Reason: FS < 60 Diphenhydramine HCl (Benadryl Po*) 25 mg PO Q6H PRN PRN Reason: itching Heparin Sodium (Porcine) (Heparin Vial(*)) 5,000 units SUBCUT Q12HR [facility] Last Admin: 10/13/17 09:03 Dose: 5,000 units Cefazolin Sodium/Dextrose (Kefzol 2 Gm Premix(*)) 2 gm in 50 mls @ 100 mls/hr IVPB Q8H [facility] Last Admin: 10/13/17 10:00 Dose: 100 mls/hr Insulin Glargine (Lantus(*)) 70 units SUBCUT Q24H [facility] Last Admin: 10/13/17 13:16 Dose: 70 units Insulin Human Lispro (Humalog*) 0 units SUBCUT FS ACHS ICU [facility] PRN Reason: Protocol Last Admin: 10/13/17 13:16 Dose: 3 units Lorazepam (Ativan Tab(*)) 0.5 mg PO Q6H PRN PRN Reason: ANXIETY Last Admin: 10/12/17 21:44 Dose: 0.5 mg Magnesium Hydroxide (Milk Of Magnesia Liq*) 30 ml PO BID [facility] Last Admin: 10/13/17 09:06 Dose: 30 ml Magnesium Hydroxide (Milk Of Magnesia Liq*) 30 ml PO Q6H PRN PRN Reason: constipation Last Admin: 10/08/17 02:15 Dose: 30 ml Melatonin (Melatonin (Nf)) 3 mg PO BEDTIME [facility] Last Admin: 10/12/17 21:38 Dose: 3 mg Ondansetron HCl (Zofran Inj*) 4 mg IV Q4H PRN PRN Reason: NAUSEA/VOMITING Oxycodone/Acetaminophen (Percocet 5/325 Tab*) 1 tab PO Q4H PRN PRN Reason: PAIN Last Admin: 10/12/17 18:21 Dose: 1 tab Polyethylene Glycol/Electrolytes (Miralax*) 17 gm PO DAILY PRN PRN Reason: CONSTIPATION Venlafaxine HCl (Effexor Xr Cap*) 150 mg PO DAILY [facility] Last Admin: 10/13/17 09:06 Dose: 150 mg Venlafaxine HCl (Effexor Xr Cap*) 75 mg PO QPM [facility] Last Admin: 10/12/17 18:18 Dose: 75 mg Vital Signs - 8 hr 10/13/17 10/13/17 10/13/17 09:41 11:48 15:46 Temperature 98.3 F Pulse Rate 86 Respiratory 16 18 Rate Blood Pressure 112/71 (mmHg) O2 Sat by Pulse 98 98 Oximetry Oxygen Devices in Use Now: None Appearance: Young female sitting up in bed, NAD Eyes: No Scleral Icterus Ears/Nose/Mouth/Throat: Mucous Membranes Moist Respiratory: Symmetrical Chest Expansion and Respiratory Effort, Clear to Auscultation Cardiovascular: NL Sounds; No Murmurs; No JVD, RRR, No Edema Abdominal: NL Sounds; No Tenderness; No Distention Extremities: No Clubbing, Cyanosis Skin: No Nodules or Sclerosis, - - L knee wrapped in OPAL Neurological: Alert and Oriented x 3 Result Diagrams: 10/13/17 06:20 10/13/17 06:20 Microbiology and Other Data: Microbiology 10/02/17 07:30 Nasal Screen MRSA (PCR)(TIFFANI) - Final Nasal Mrsa Negative 10/02/17 07:12 Influenza Types A,B Antigen (TIFFANI) - Final Nasopharyngeal Specimen received for Influenza A/B Molecular testing Assess/Plan/Problems-Billing Ms Meyer is a 32 y/o female patient presenting to [facility] [place] with complaints of not feeling well found to be in DKA, with influenza and knee abscess, now s/p I&D - Patient Problems (1) Abscess of knee Current Visit: Yes Status: Acute Code(s): L02.419 - CUTANEOUS ABSCESS OF LIMB, UNSPECIFIED SNOMED Code(s): 25219626 Comment: Dr. Perez has seen the patient and thinks she needs nursing home IV Abx. Will continue ancef 2g IV q8hr. I do not think she can manage this at home on her own. Will look into rehab so she can get both PT and IV Abx. (2) DKA (diabetic ketoacidoses) Current Visit: Yes Status: Acute Code(s): E13.10 - OTH DIABETES MELLITUS WITH KETOACIDOSIS WITHOUT COMA SNOMED Code(s): 661391027 Comment: Resolved. (3) Influenza Current Visit: Yes Status: Acute Code(s): J11.1 - FLU DUE TO UNIDENTIFIED INFLUENZA VIRUS W OTH RESP MANIFEST SNOMED Code(s): 4130839 Comment: The patient has completed a full course of tamiflu. (4) Diabetes Current Visit: Yes Status: Acute Code(s): E11.9 - TYPE 2 DIABETES MELLITUS WITHOUT COMPLICATIONS SNOMED Code(s): 75758569 Comment: Sugars more recently have been elevated. Will continue lantus 70 units daily and add lispro 3 units with meals. (5) Anxiety Current Visit: Yes Status: Chronic Onset Date: 06/24/15 Code(s): F41.9 - ANXIETY DISORDER, UNSPECIFIED SNOMED Code(s): 39796908 Comment: Continue wellbutrin and effexor. (6) DVT prophylaxis Current Visit: Yes Status: Acute Code(s): KQC7263 - SNOMED Code(s): 144432898 Comment: SQ heparin (7) Full code status Current Visit: Yes Status: Acute Code(s): Z78.9 - OTHER SPECIFIED HEALTH STATUS SNOMED Code(s): 788198308 Status and Disposition: likely home 10/13/17 with VNS and home PT
--- NOTE | 2017-10-13 20:54 | CONS ---
CONSULTATION REPORT: DATE OF CONSULT: 10/13/17 REQUESTING PHYSICIAN: Dr. Gregory. CONSULTING SERVICE: Infectious Disease. REASON FOR CONSULTATION: Left leg infection. IMPRESSION: 1. Approximately a month of left knee and distal upper leg pain, swelling, redness, decreased range of motion, knee aspiration, short couple hundred of white cells. An MRI showed fluid from the distal medialis muscle descending to soft tissue around the femur 7 x 4 cm, taken to the OR on the by Dr. Chavez, had drainage of abscess and the subcutaneous tissue and submuscular space adjacent to the femoral shaft. Cultures from that procedure were taken and Gram stain showed Gram positive cocci and cluster resembling Staph. Staph aureus PCR positive. MRSA PCR negative. Culture growing Staph aureus, Methylin sensitive. Blood cultures negative. I suspect she had the hematogenous development of an acute osteomyelitis which developed into an adjacent soft tissue abscess. 2. Poorly controlled diabetes, hemoglobin A1c here was 12. 3. Influenza B, resolved. 4. Diabetic ketoacidosis, resolved. RECOMMENDATIONS: Change cefazolin to 2 g IV every 8 hours. I will plan on another 4 weeks of it. She has had about 10 days here. She will have a weekly CBC, CMP and CRP, which I am working out the best place for her to get the antibiotics. HISTORY OF PRESENT ILLNESS: This is a 32-year-old woman with diabetes, admitted with DKA, and left leg pain and swelling. That pain and swelling have been present for over a month. At the time of her admission, she was febrile with myalgia, found to have influenza B and treated with a course of Tamiflu. The left knee had been increasingly hard to bend. It was not really painful with weightbearing in the knee, but up into the muscles above it. She had had some chills and sweats going on for a couple of weeks as far as she can recall. Here she had the MRI and operative intervention as described above. She can bend her knee better. She can straighten it almost all the way out. She does not have pain with weightbearing. She has had no fevers, chills, or sweats recently. She had been tolerating the antibiotics fine. Her appetite is improving. She has had no diarrhea. PAST MEDICAL HISTORY: 1. Insulin-dependent diabetes, not on insulin. 2. DKA. 3. Influenza. 4. 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 5. Hypertension. 6. History of suicide attempts and ideation. 7. Borderline personality disorder. 8. Depression. MEDICATIONS: 1. Ancef 1 g IV every 6 hours. 2. Tylenol. 3. Bupropion. 4. Heparin subcutaneous injection. 5. Insulin glargine. 6. Magnesium. 7. Melatonin. 8. Effexor. ALLERGIES: To MORPHINE. SOCIAL HISTORY: She lives with her in [place]. FAMILY HISTORY: Mother diabetes, father with hyperlipidemia. REVIEW OF SYSTEMS: A 14-point review of systems was negative except as noted above. PHYSICAL EXAMINATION: Vital signs: Temperature is 37, heart rate 70, respiratory rate 17, blood pressure 114/67, oxygen saturation 99% on room air. In general, she is awake, not in distress. Neurologic: She is oriented x3, follows all commands. HEENT: There is no conjunctival hemorrhage. Oropharynx without lesions. Neck: Supple. Lymph Nodes: There is no inguinal, axillary, or epitrochlear lymphadenopathy. Heart has regular rate and rhythm without murmurs, rubs, or gallops. Lungs are clear to auscultation bilaterally. Abdomen: Soft, nontender, nondistended. There are bowel sounds present. Skin : There is no rash or splinter hemorrhages. Musculoskeletal: There is no spine tenderness to palpation. The left distal medial thigh incision, there is a small amount of serous fluid that is expressible. There is no crepitus, fluctuance, or induration. There is no warmth or erythema. She can extend her knee all the way. Flexion is limited. There is no left knee tenderness. DIAGNOSTIC STUDIES/LAB DATA: Creatinine 0.5, CRP 28. White blood cell count 6 , hemoglobin 10, platelets 384. Urinalysis showed blood ketones, leukocyte esterase on admission. Please see impressions and recommendations outlined above, which I have discussed with Dr. Gregory. Thanks for asking me to see Neil Betsy in consultation. [id number]/[facility] #: [id number] REJI
[2017-10-13] MEDS: CMCS: Melatonin (NF) 3 MG TAB PO SCH (21:55)
[2017-10-13] MEDS: Magnesium Hydroxide LIQ* 30 ML UDC PO PRN (21:57)
[2017-10-14] MEDS: ceFAZolin 2 GM PREMIX (*) 2 GM/50 ML BAG IVPB SCH ×3 (00:42→16:37)
[2017-10-14] MEDS: LORazepam TAB(*) 0.5 MG PO PRN ×2 (01:41→23:23)
[2017-10-14] MEDS: Venlafaxine EXT RELEASE CAP* 75 MG PO SCH ×2 (07:52→17:13)
[2017-10-14] MEDS: oxyCODONE/Acetamin 5/325 MG* TAB PO PRN (07:53)
[2017-10-14] MEDS: buPROPion TAB* 100 MG PO SCH ×2 (07:53→23:20)
[2017-10-14] MEDS: Magnesium Hydroxide LIQ* 30 ML UDC PO SCH ×2 (07:54→23:22)
[2017-10-14] MEDS: Heparin VIAL(*) 5000 UNITS/ML VIAL (FIVE THOUSAND) SUBCUT SCH ×2 (07:54→23:18)
[2017-10-14] MEDS: Insulin LISPRO* 1 UNITS UNIT SUBCUT SCH ×4 (08:07→23:16)
--- NOTE | 2017-10-14 10:38 | PN ---
Progress Note - Progress Note Date of Service: 10/14/17 SOAP: Subjective: []Patient seen at bedside. She is tired but otherwise feels well. Denies fever, chills, nausea, CP, SOB. No LLE pain Objective: []General: Well appearing, NAD. LLE: Dressing with serosanguineous drainage. Able to express small amount of serosanguinous drainage, no purulence from incision. Incision intact with incomplete closure at proximal end and hole mid-incision where packing had been. Mild soft tissue swelling and induration about incision site without erythema or tenderness. Able to move knee, ankle, and toes. Sensation grossly intact distally, 2+ DP pulse. Vital Signs Temp 98.0 F 10/14/17 07:22 Pulse 82 10/14/17 07:22 Resp 18 10/14/17 07:53 BP 112/70 10/14/17 07:22 Pulse Ox 99 10/14/17 07:22 Intake & Output 10/13/17 10/14/17 10/14/17 18:59 06:59 18:59 Intake Total 1770 144 Output Total 0 Balance 1770 144 Intake: IV Fluids 50 30 ABX - CEFAZOLIN 50 NS (0.9%) 30 IVPB 114 ABX - CEFAZOLIN 114 Oral 1720 0 Output: Urine 0 Other: Estimated Void Medium # Bowel Movements 0 Estimated Stool Amount Small Medium # Voids 1 Laboratory Last Values WBC 6.2 10^3/ul (3.5-10.8) 10/13/17 06:20 RBC 3.27 10^6/ul (4.0-5.4) L 10/13/17 06:20 Hgb 10.2 g/dl (12.0-16.0) L 10/13/17 06:20 Hct 30 % (35-47) L 10/13/17 06:20 MCV 92 fL (80-97) 10/13/17 06:20 MCH 31 pg (27-31) 10/13/17 06:20 MCHC 34 g/dl (31-36) 10/13/17 06:20 RDW 13 % (10.5-15) 10/13/17 06:20 Plt Count 384 10^3/ul (150-450) 10/13/17 06:20 MPV 6 um3 (7.4-10.4) L 10/13/17 06:20 Neut % (Auto) 59.4 % (38-83) 10/09/17 06:18 Lymph % (Auto) 27.3 % (25-47) 10/09/17 06:18 [place] % (Auto) 11.3 % (1-9) H 10/09/17 06:18 Eos % (Auto) 1.4 % (0-6) 10/09/17 06:18 Baso % (Auto) 0.6 % (0-2) 10/09/17 06:18 Absolute Neuts (auto) 4.0 10^3/ul (1.5-7.7) 10/09/17 06:18 Absolute Lymphs (auto) 1.8 10^3/ul (1.0-4.8) 10/09/17 06:18 Absolute Monos (auto) 0.8 10^3/ul (0-0.8) 10/09/17 06:18 Absolute Eos (auto) 0.1 10^3/ul (0-0.6) 10/09/17 06:18 Absolute Basos (auto) 0 10^3/ul (0-0.2) 10/09/17 06:18 Absolute Nucleated RBC 0 10^3/ul 10/09/17 06:18 Nucleated RBC % 0 10/09/17 06:18 INR (Anticoag Therapy) 1.30 (0.77-1.02) H 10/06/17 06:56 ABG pH 7.17 (7.35-7.45) L* 10/02/17 05:30 ABG pCO2 12 mmHg (35-45) L* 10/02/17 05:30 ABG pO2 118 mmHg (80-100) H 10/02/17 05:30 ABG HCO3 8.1 mmol/L (19-31) L* 10/02/17 05:30 ABG O2 Saturation 98.9 % (95-98) H 10/02/17 05:30 ABG Base Excess -21.5 (-2.0-2.0) L 10/02/17 05:30 VBG pH 7.22 (7.33-7.43) L 10/02/17 22:40 VBG pCO2 27 mmHg (41-51) L 10/02/17 22:40 VBG pO2 27 mmHg (35-45) L 10/02/17 22:40 VBG HCO3 12.2 mmol/L (24-28) L 10/02/17 22:40 VBG O2 Saturation 60.3 % (70-80) L 10/02/17 22:40 VBG Base Excess -15.1 (0-4) L 10/02/17 22:40 Sodium 130 mmol/L (133-145) L 10/13/17 06:20 Potassium 4.5 mmol/L (3.5-5.0) 10/13/17 06:20 Chloride 97 mmol/L (101-111) L 10/13/17 06:20 Carbon Dioxide 28 mmol/L (22-32) 10/13/17 06:20 Anion Gap 5 mmol/L (2-11) 10/13/17 06:20 BUN 10 mg/dL (6-24) 10/13/17 06:20 Creatinine 0.58 mg/dL (0.51-0.95) 10/13/17 06:20 Est GFR ( Amer) 153.0 (>60) 10/13/17 06:20 Est GFR (Non-Af Amer) 119.0 (>60) 10/13/17 06:20 BUN/Creatinine Ratio 17.2 (8-20) 10/13/17 06:20 Glucose 227 mg/dL (70-100) H 10/13/17 06:20 POC Glucose (mg/dL) 183 mg/dL (70-100) H 10/14/17 07:57 Hemoglobin A1c 12.1 % (4.0-5.6) H 10/04/17 11:33 Lactic Acid 1.0 mmol/L (0.5-2.0) 10/05/17 10:30 Calcium 9.0 mg/dL (8.6-10.3) 10/13/17 06:20 Phosphorus 3.8 mg/dL (2.5-5.0) 10/07/17 05:15 Magnesium 2.4 mg/dL (1.9-2.7) 10/07/17 05:15 Total Bilirubin 0.30 mg/dL (0.2-1.0) 10/06/17 06:56 AST 15 U/L (13-39) 10/06/17 06:56 ALT 9 U/L (7-52) 10/06/17 06:56 Alkaline Phosphatase 93 U/L (34-104) 10/06/17 06:56 Total Creatine Kinase 32 U/L (10-223) 10/06/17 06:56 C-Reactive Protein 28.20 mg/L (< 5.00) H 10/12/17 06:12 Total Protein 6.0 g/dL (6.4-8.9) L 10/06/17 06:56 Albumin 2.5 g/dL (3.2-5.2) L 10/06/17 06:56 Globulin 3.5 g/dL (2-4) 10/06/17 06:56 Albumin/Globulin Ratio 0.7 (1-3) L 10/06/17 06:56 TSH 0.81 mcIU/mL (0.34-5.60) 10/05/17 17:11 Free T3 2.90 pg/mL (2.5-3.9) 10/05/17 17:11 Total T3 0.39 ng/mL (0.87-1.78) L 10/05/17 17:11 Beta HCG, Quant < 0.60 mIU/mL 10/02/17 10:15 Urine Color Yellow 10/03/17 12:50 Urine Appearance Cloudy 10/03/17 12:50 Urine pH 6.0 (5-9) 10/03/17 12:50 Ur Specific [place] 1.020 (1.010-1.030) 10/03/17 12:50 Urine Protein Negative (Negative) 10/03/17 12:50 Urine Ketones 2+ (Negative) H 10/03/17 12:50 Urine Blood 2+ (Negative) H 10/03/17 12:50 Urine Nitrate Negative (Negative) 10/03/17 12:50 Urine Bilirubin Negative (Negative) 10/03/17 12:50 Urine Urobilinogen Negative (Negative) 10/03/17 12:50 Ur Leukocyte Esterase 3+ (Negative) H 10/03/17 12:50 Urine WBC (Auto) 3+(>20/hpf) (Absent) H 10/03/17 12:50 Urine RBC (Auto) 3+(>10/hpf) (Absent) H 10/03/17 12:50 Ur Squamous Epith Cells Present (Absent) H 10/03/17 12:50 Urine Bacteria Absent (Absent) 10/03/17 12:50 Urine Yeast Present (Absent) H 10/03/17 12:50 Urine Glucose 3+(>=500 mg/dl) (Negative) H 10/03/17 12:50 Fluid Source Synovial fluid 10/04/17 11:40 Fluid Volume 4.5 mL 10/04/17 11:40 Fluid Color Yellow 10/04/17 11:40 Fluid Appearance Cloudy 10/04/17 11:40 Fluid WBC 354 /mcL (0-116853) 10/04/17 11:40 Fluid RBC 691 /mcL 10/04/17 11:40 Fluid Tot Cell Count 100 10/04/17 11:40 Fluid Neutrophils 31 % 10/04/17 11:40 Fluid Lymphocytes 22 % 10/04/17 11:40 Fluid Monocytes 47 % 10/04/17 11:40 Fluid Cell Count Rvw By 10/04/17 11:40 Fluid Crystals None seen 10/04/17 11:40 B. burgdorferi (PCR) Negative (Negative) 10/04/17 11:40 B. mayonii (PCR) Negative (Negative) 10/04/17 11:40 B.garinii/B.afzelii PCR Negative (Negative) 10/04/17 11:40 Fluid Comment 10/04/17 11:40 Vancomycin Trough 7.3 mcg/mL 10/07/17 08:04 Salicylates < 2.50 mg/dL (<30) 10/02/17 04:35 Urine Opiates Screen None detected (None Detect) 10/02/17 08:30 Ur Barbiturates Screen None detected (None Detect) 10/02/17 08:30 Ur Phencyclidine Scrn None detected (None Detect) 10/02/17 08:30 Ur Amphetamines Screen None detected (None Detect) 10/02/17 08:30 U Benzodiazepines Scrn None detected (None Detect) 10/02/17 08:30 Urine Cocaine Screen None detected (None Detect) 10/02/17 08:30 U Cannabinoids Screen None detected (None Detect) 10/02/17 08:30 Serum Alcohol < 10 mg/dL (<10) 10/02/17 04:35 Lyme Disease Serology Negative (Negative) 10/04/17 11:33 Lyme Specimen Source synovial fluid 10/04/17 11:40 C.trachomatis (Amp Det) Negative (Negative) 10/05/17 12:26 Influenza A (Rapid) Negative (Negative) 10/02/17 07:30 Influenza B (Rapid) Positive (Negative) H 10/02/17 07:30 N.gonorrhoeae (Amp Det) Negative (Negative) 10/05/17 12:26 Assessment: POD #8 I&D left distal medial thigh abscess Plan: - Continue IV antibiotics. Followed by Dr. Perez - Will need continued IV abx, will require rehab/ swing. No bed offers yet. - Continue dry sterile dressing changes daily or as needed if saturated. - Continue moving leg, PT/OT. - Plan to follow up in clinic at post-op day 14, 10/20.
[2017-10-14] MEDS: Insulin GLARGINE(*) 1 UNITS UNIT SUBCUT SCH (12:03)
--- NOTE | 2017-10-14 14:53 | PN ---
Subjective Date of Service: 10/14/17 Interval History: Pt is feeling well. She has accepted the need to be in the hospital or rehab to complete her IV Abx therapy. She denies any pain. No SOB. No diarrhea. Family History: Unchanged from Admission Social History: Unchanged from Admission Past Medical History: Unchanged from Admission Objective Active Medications: Acetaminophen (Tylenol Tab*) 650 mg PO Q4H PRN PRN Reason: PAIN Last Admin: 10/11/17 19:22 Dose: 650 mg Al Hydrox/Mg Hydrox/Simethicone (Maalox Plus*) 30 ml PO Q6H PRN PRN Reason: INDIGESTION Last Admin: 10/08/17 02:15 Dose: 30 ml Bisacodyl (Dulcolax Supp*) 10 mg MT ONCE PRN PRN Reason: CONSTIPATION Last Admin: 10/08/17 16:33 Dose: 10 mg Bupropion HCl (Wellbutrin Tab*) 150 mg PO BID [facility] Last Admin: 10/14/17 07:53 Dose: 150 mg Dextrose (D50w Syringe 50 Ml*) 12.5 gm IV PUSH .FOR FS < 60 - SS PRN PRN Reason: FS < 60 Diphenhydramine HCl (Benadryl Po*) 25 mg PO Q6H PRN PRN Reason: itching Heparin Sodium (Porcine) (Heparin Vial(*)) 5,000 units SUBCUT Q12HR [facility] Last Admin: 10/14/17 07:54 Dose: 5,000 units Cefazolin Sodium/Dextrose (Kefzol 2 Gm Premix(*)) 2 gm in 50 mls @ 100 mls/hr IVPB Q8H [facility] Last Admin: 10/14/17 09:36 Dose: 100 mls/hr Insulin Glargine (Lantus(*)) 70 units SUBCUT Q24H [facility] Last Admin: 10/14/17 12:03 Dose: 70 units Insulin Human Lispro (Humalog*) 0 units SUBCUT FS ACHS ICU [facility] PRN Reason: Protocol Last Admin: 10/14/17 12:03 Dose: 3 units Lorazepam (Ativan Tab(*)) 0.5 mg PO Q6H PRN PRN Reason: ANXIETY Last Admin: 10/14/17 01:41 Dose: 0.5 mg Magnesium Hydroxide (Milk Of Magnesia Liq*) 30 ml PO BID [facility] Last Admin: 10/14/17 07:54 Dose: 30 ml Magnesium Hydroxide (Milk Of Magnesia Liq*) 30 ml PO Q6H PRN PRN Reason: constipation Last Admin: 10/13/17 21:57 Dose: 30 ml Melatonin (Melatonin (Nf)) 3 mg PO BEDTIME [facility] Last Admin: 10/13/17 21:55 Dose: 3 mg Ondansetron HCl (Zofran Inj*) 4 mg IV Q4H PRN PRN Reason: NAUSEA/VOMITING Oxycodone/Acetaminophen (Percocet 5/325 Tab*) 1 tab PO Q4H PRN PRN Reason: PAIN Last Admin: 10/14/17 07:53 Dose: 1 tab Polyethylene Glycol/Electrolytes (Miralax*) 17 gm PO DAILY PRN PRN Reason: CONSTIPATION Venlafaxine HCl (Effexor Xr Cap*) 150 mg PO DAILY [facility] Last Admin: 10/14/17 07:52 Dose: 150 mg Venlafaxine HCl (Effexor Xr Cap*) 75 mg PO QPM [facility] Last Admin: 10/13/17 17:44 Dose: 75 mg Vital Signs - 8 hr 10/14/17 10/14/17 10/14/17 07:22 07:53 08:00 Temperature 98.0 F Pulse Rate 82 Respiratory 16 18 16 Rate Blood Pressure 112/70 (mmHg) O2 Sat by Pulse 99 99 Oximetry 10/14/17 12:02 Temperature Pulse Rate Respiratory 16 Rate Blood Pressure (mmHg) O2 Sat by Pulse Oximetry Oxygen Devices in Use Now: None Appearance: Young female sitting up in bed, NAD Eyes: No Scleral Icterus Ears/Nose/Mouth/Throat: Mucous Membranes Moist Respiratory: Symmetrical Chest Expansion and Respiratory Effort, Clear to Auscultation Cardiovascular: NL Sounds; No Murmurs; No JVD, RRR, No Edema Abdominal: NL Sounds; No Tenderness; No Distention Extremities: No Clubbing, Cyanosis Skin: No Nodules or Sclerosis Neurological: Alert and Oriented x 3 Result Diagrams: 10/13/17 06:20 10/13/17 06:20 Microbiology and Other Data: Microbiology 10/02/17 07:30 Nasal Screen MRSA (PCR)(TIFFANI) - Final Nasal Mrsa Negative 10/02/17 07:12 Influenza Types A,B Antigen (TIFFANI) - Final Nasopharyngeal Specimen received for Influenza A/B Molecular testing Assess/Plan/Problems-Billing Ms Meyer is a 32 y/o female patient [place] [facility] [place] of not feeling well found to be in DKA, with influenza and knee abscess, now s/p I&D - Patient Problems (1) Abscess of knee Current Visit: Yes Status: Acute Code(s): L02.419 - CUTANEOUS ABSCESS OF LIMB, UNSPECIFIED SNOMED Code(s): 14168817 Comment: Dr. Perez has seen the patient and thinks she needs exterminator termite IV Abx (4weeks). Will continue ancef 2g IV q8hr. Await rehab bed offer and if no bed is offered will swing the patient and she will stay in the hospital to complete her therapy. (2) DKA (diabetic ketoacidoses) Current Visit: Yes Status: Acute Code(s): E13.10 - OTH DIABETES MELLITUS WITH KETOACIDOSIS WITHOUT COMA SNOMED Code(s): 455103142 Comment: Resolved. (3) Influenza Current Visit: Yes Status: Acute Code(s): J11.1 - FLU DUE TO UNIDENTIFIED INFLUENZA VIRUS W OTH RESP MANIFEST SNOMED Code(s): 6475283 Comment: The patient has completed a full course of tamiflu. (4) Diabetes Current Visit: Yes Status: Acute Code(s): E11.9 - TYPE 2 DIABETES MELLITUS WITHOUT COMPLICATIONS SNOMED Code(s): 78886855 Comment: Sugars more recently have been elevated. Will continue lantus 70 units daily and add lispro 3 units with meals. (5) Anxiety Current Visit: Yes Status: Chronic Onset Date: 06/24/15 Code(s): F41.9 - ANXIETY DISORDER, UNSPECIFIED SNOMED Code(s): 74995695 Comment: Continue wellbutrin and effexor. (6) DVT prophylaxis Current Visit: Yes Status: Acute Code(s): HTN4452 - SNOMED Code(s): 760469658 Comment: SQ heparin (7) Full code status Current Visit: Yes Status: Acute Code(s): Z78.9 - OTHER SPECIFIED HEALTH STATUS SNOMED Code(s): 544729802 Status and Disposition: likely home 10/13/17 with VNS and home PT
--- NOTE | 2017-10-14 16:26 | PN ---
Progress Note - Progress Note Date of Service: 10/14/17 SOAP: Subjective: CC: Leg infection Subjective:HPI 32 year old diabetic with left proximal leg swelling and pain, found to have muscle abscess s/p I&D. Pain improved, not gone, ROM improving. No fever, rash or diarrhea. Objective: Vital Signs Temp 36.7 C 10/14/17 07:22 Pulse 82 10/14/17 07:22 Resp 16 10/14/17 12:02 BP 112/70 10/14/17 07:22 Pulse Ox 99 10/14/17 08:00 Intake & Output 10/13/17 10/14/17 10/14/17 18:59 06:59 18:59 Intake Total 1770 144 840 Output Total 0 Balance 1770 144 840 Intake: IV Fluids 50 30 ABX - CEFAZOLIN 50 NS (0.9%) 30 IVPB 114 ABX - CEFAZOLIN 114 Oral 1720 0 840 Output: Urine 0 Other: Estimated Void Medium Medium # Bowel Movements 0 Estimated Stool Amount Small Medium # Voids 1 4 Gen:awake, no distress HEENT:PERRL, MMM Heart:RRR no murmur Lungs:CTA BL Abd:+BS NTND soft Skin: no rash MSK: L prox medial leg incision intact Laboratory Results - last 24 hr 10/13/17 10/13/17 10/14/17 17:14 21:03 07:57 POC Glucose (mg/dL) 173 H 182 H 183 H 10/14/17 11:51 POC Glucose (mg/dL) 185 H Microbiology 10/05/17 13:35 Aerobic Blood Culture - Final Blood Venous No Growth Day 5 Anaerobic Blood Culture - Final No Growth Day 5 10/05/17 13:35 Aerobic Blood Culture - Final Blood Venous No Growth Day 5 Anaerobic Blood Culture - Final No Growth Day 5 10/06/17 22:00 Anaerobic Culture - Final Wound - Left Leg 10/04/17 09:15 Aerobic Blood Culture - Final Blood Venous Gram Positive Bacilli Anaerobic Blood Culture - Final No Growth Day 5 10/06/17 22:00 Skin and Soft Tissue MRSA/MSSA (PCR - Final Thigh Left Mrsa Negative S.aureus Positive Gram Stain - Final Wound Culture - Final Staphylococcus Aureus 10/04/17 11:40 Gram Stain - Final Joint Fluid(Synovial) Body Fluid Culture - Final No Growth Day 4 Skin and Soft Tissue MRSA/MSSA (PCR - Final Mrsa Negative S.aureus Negative 10/05/17 15:40 Urine Culture - Final Urine No Growth (<1,000 CFU/mL) 10/03/17 12:50 Urine Culture - Final Urine No Growth (<1,000 CFU/mL) 10/02/17 08:30 Urine Culture - Final Urine 10/02/17 07:30 Nasal Screen MRSA (PCR)(TIFFANI) - Final Nasal Mrsa Negative 10/02/17 07:12 Influenza Types A,B Antigen (TIFFANI) - Final Nasopharyngeal Specimen received for Influenza A/B Molecular testing Assesment: 1. MSSA left leg abscess s/p I&D and acute hematogenous osteomyelitis 2. Insulin dependent diabetes mellitus 3. obesity Plan: 1. continue ancef 2 gm IV Q8hrs day with weekly CBC, CMP, CRP 35 minutes floor time >50% face to face discussing antibiotic plans
[2017-10-14] MEDS: CMCS: Melatonin (NF) 3 MG TAB PO SCH (23:21)
[2017-10-15] MEDS: ceFAZolin 2 GM PREMIX (*) 2 GM/50 ML BAG IVPB SCH ×3 (01:12→17:43)
[2017-10-15] MEDS: Acetaminophen TAB* 325 MG PO PRN (02:15)
[2017-10-15] MEDS: buPROPion TAB* 100 MG PO SCH ×2 (09:24→20:09)
[2017-10-15] MEDS: Magnesium Hydroxide LIQ* 30 ML UDC PO SCH ×2 (09:24→20:11)
[2017-10-15] MEDS: Insulin LISPRO* 1 UNITS UNIT SUBCUT SCH ×4 (09:25→20:10)
[2017-10-15] MEDS: Venlafaxine EXT RELEASE CAP* 75 MG PO SCH ×2 (09:25→17:42)
[2017-10-15] MEDS: Heparin VIAL(*) 5000 UNITS/ML VIAL (FIVE THOUSAND) SUBCUT SCH ×2 (09:26→20:10)
[2017-10-15] MEDS: Insulin GLARGINE(*) 1 UNITS UNIT SUBCUT SCH (12:00)
--- NOTE | 2017-10-15 12:12 | PN ---
Progress Note - Progress Note Date of Service: 10/15/17 SOAP: Subjective: []Patient seen at bedside. She feels well with tolerable and improving LLE pain. No fever, chills, nausea or dizziness. Objective: [] Vital Signs Temp 98.2 F 10/15/17 07:18 Pulse 78 10/15/17 07:18 Resp 16 10/15/17 07:18 BP 107/69 10/15/17 07:18 Pulse Ox 99 10/15/17 07:18 Intake & Output 10/14/17 10/15/17 10/15/17 18:59 06:59 18:59 Intake Total 1470 183 230 Output Total 0 Balance 1470 183 230 Intake: IV Fluids 115 ABX - CEFAZOLIN 100 NS (0.9%) 15 IVPB 68 ABX - CEFAZOLIN 68 Oral 1470 0 230 Output: Urine 0 Other: Estimated Void Medium Medium # Bowel Movements 0 Estimated Stool Amount Medium # Voids 4 1 Laboratory Last Values WBC 6.2 10^3/ul (3.5-10.8) 10/13/17 06:20 RBC 3.27 10^6/ul (4.0-5.4) L 10/13/17 06:20 Hgb 10.2 g/dl (12.0-16.0) L 10/13/17 06:20 Hct 30 % (35-47) L 10/13/17 06:20 MCV 92 fL (80-97) 10/13/17 06:20 MCH 31 pg (27-31) 10/13/17 06:20 MCHC 34 g/dl (31-36) 10/13/17 06:20 RDW 13 % (10.5-15) 10/13/17 06:20 Plt Count 384 10^3/ul (150-450) 10/13/17 06:20 MPV 6 um3 (7.4-10.4) L 10/13/17 06:20 Neut % (Auto) 59.4 % (38-83) 10/09/17 06:18 Lymph % (Auto) 27.3 % (25-47) 10/09/17 06:18 [place] % (Auto) 11.3 % (1-9) H 10/09/17 06:18 Eos % (Auto) 1.4 % (0-6) 10/09/17 06:18 Baso % (Auto) 0.6 % (0-2) 10/09/17 06:18 Absolute Neuts (auto) 4.0 10^3/ul (1.5-7.7) 10/09/17 06:18 Absolute Lymphs (auto) 1.8 10^3/ul (1.0-4.8) 10/09/17 06:18 Absolute Monos (auto) 0.8 10^3/ul (0-0.8) 10/09/17 06:18 Absolute Eos (auto) 0.1 10^3/ul (0-0.6) 10/09/17 06:18 Absolute Basos (auto) 0 10^3/ul (0-0.2) 10/09/17 06:18 Absolute Nucleated RBC 0 10^3/ul 10/09/17 06:18 Nucleated RBC % 0 10/09/17 06:18 INR (Anticoag Therapy) 1.30 (0.77-1.02) H 10/06/17 06:56 ABG pH 7.17 (7.35-7.45) L* 10/02/17 05:30 ABG pCO2 12 mmHg (35-45) L* 10/02/17 05:30 ABG pO2 118 mmHg (80-100) H 10/02/17 05:30 ABG HCO3 8.1 mmol/L (19-31) L* 10/02/17 05:30 ABG O2 Saturation 98.9 % (95-98) H 10/02/17 05:30 ABG Base Excess -21.5 (-2.0-2.0) L 10/02/17 05:30 VBG pH 7.22 (7.33-7.43) L 10/02/17 22:40 VBG pCO2 27 mmHg (41-51) L 10/02/17 22:40 VBG pO2 27 mmHg (35-45) L 10/02/17 22:40 VBG HCO3 12.2 mmol/L (24-28) L 10/02/17 22:40 VBG O2 Saturation 60.3 % (70-80) L 10/02/17 22:40 VBG Base Excess -15.1 (0-4) L 10/02/17 22:40 Sodium 130 mmol/L (133-145) L 10/13/17 06:20 Potassium 4.5 mmol/L (3.5-5.0) 10/13/17 06:20 Chloride 97 mmol/L (101-111) L 10/13/17 06:20 Carbon Dioxide 28 mmol/L (22-32) 10/13/17 06:20 Anion Gap 5 mmol/L (2-11) 10/13/17 06:20 BUN 10 mg/dL (6-24) 10/13/17 06:20 Creatinine 0.58 mg/dL (0.51-0.95) 10/13/17 06:20 Est GFR ( Amer) 153.0 (>60) 10/13/17 06:20 Est GFR (Non-Af Amer) 119.0 (>60) 10/13/17 06:20 BUN/Creatinine Ratio 17.2 (8-20) 10/13/17 06:20 Glucose 227 mg/dL (70-100) H 10/13/17 06:20 POC Glucose (mg/dL) 149 mg/dL (70-100) H 10/15/17 11:42 Hemoglobin A1c 12.1 % (4.0-5.6) H 10/04/17 11:33 Lactic Acid 1.0 mmol/L (0.5-2.0) 10/05/17 10:30 Calcium 9.0 mg/dL (8.6-10.3) 10/13/17 06:20 Phosphorus 3.8 mg/dL (2.5-5.0) 10/07/17 05:15 Magnesium 2.4 mg/dL (1.9-2.7) 10/07/17 05:15 Total Bilirubin 0.30 mg/dL (0.2-1.0) 10/06/17 06:56 AST 15 U/L (13-39) 10/06/17 06:56 ALT 9 U/L (7-52) 10/06/17 06:56 Alkaline Phosphatase 93 U/L (34-104) 10/06/17 06:56 Total Creatine Kinase 32 U/L (10-223) 10/06/17 06:56 C-Reactive Protein 28.20 mg/L (< 5.00) H 10/12/17 06:12 Total Protein 6.0 g/dL (6.4-8.9) L 10/06/17 06:56 Albumin 2.5 g/dL (3.2-5.2) L 10/06/17 06:56 Globulin 3.5 g/dL (2-4) 10/06/17 06:56 Albumin/Globulin Ratio 0.7 (1-3) L 10/06/17 06:56 TSH 0.81 mcIU/mL (0.34-5.60) 10/05/17 17:11 Free T3 2.90 pg/mL (2.5-3.9) 10/05/17 17:11 Total T3 0.39 ng/mL (0.87-1.78) L 10/05/17 17:11 Beta HCG, Quant < 0.60 mIU/mL 10/02/17 10:15 Urine Color Yellow 10/03/17 12:50 Urine Appearance Cloudy 10/03/17 12:50 Urine pH 6.0 (5-9) 10/03/17 12:50 Ur Specific [place] 1.020 (1.010-1.030) 10/03/17 12:50 Urine Protein Negative (Negative) 10/03/17 12:50 Urine Ketones 2+ (Negative) H 10/03/17 12:50 Urine Blood 2+ (Negative) H 10/03/17 12:50 Urine Nitrate Negative (Negative) 10/03/17 12:50 Urine Bilirubin Negative (Negative) 10/03/17 12:50 Urine Urobilinogen Negative (Negative) 10/03/17 12:50 Ur Leukocyte Esterase 3+ (Negative) H 10/03/17 12:50 Urine WBC (Auto) 3+(>20/hpf) (Absent) H 10/03/17 12:50 Urine RBC (Auto) 3+(>10/hpf) (Absent) H 10/03/17 12:50 Ur Squamous Epith Cells Present (Absent) H 10/03/17 12:50 Urine Bacteria Absent (Absent) 10/03/17 12:50 Urine Yeast Present (Absent) H 10/03/17 12:50 Urine Glucose 3+(>=500 mg/dl) (Negative) H 10/03/17 12:50 Fluid Source Synovial fluid 10/04/17 11:40 Fluid Volume 4.5 mL 10/04/17 11:40 Fluid Color Yellow 10/04/17 11:40 Fluid Appearance Cloudy 10/04/17 11:40 Fluid WBC 354 /mcL (0-650243) 10/04/17 11:40 Fluid RBC 691 /mcL 10/04/17 11:40 Fluid Tot Cell Count 100 10/04/17 11:40 Fluid Neutrophils 31 % 10/04/17 11:40 Fluid Lymphocytes 22 % 10/04/17 11:40 Fluid Monocytes 47 % 10/04/17 11:40 Fluid Cell Count Rvw By 10/04/17 11:40 Fluid Crystals None seen 10/04/17 11:40 B. burgdorferi (PCR) Negative (Negative) 10/04/17 11:40 B. mayonii (PCR) Negative (Negative) 10/04/17 11:40 B.garinii/B.afzelii PCR Negative (Negative) 10/04/17 11:40 Fluid Comment 10/04/17 11:40 Vancomycin Trough 7.3 mcg/mL 10/07/17 08:04 Salicylates < 2.50 mg/dL (<30) 10/02/17 04:35 Urine Opiates Screen None detected (None Detect) 10/02/17 08:30 Ur Barbiturates Screen None detected (None Detect) 10/02/17 08:30 Ur Phencyclidine Scrn None detected (None Detect) 10/02/17 08:30 Ur Amphetamines Screen None detected (None Detect) 10/02/17 08:30 U Benzodiazepines Scrn None detected (None Detect) 10/02/17 08:30 Urine Cocaine Screen None detected (None Detect) 10/02/17 08:30 U Cannabinoids Screen None detected (None Detect) 10/02/17 08:30 Serum Alcohol < 10 mg/dL (<10) 10/02/17 04:35 Lyme Disease Serology Negative (Negative) 10/04/17 11:33 Lyme Specimen Source synovial fluid 10/04/17 11:40 C.trachomatis (Amp Det) Negative (Negative) 10/05/17 12:26 Influenza A (Rapid) Negative (Negative) 10/02/17 07:30 Influenza B (Rapid) Positive (Negative) H 10/02/17 07:30 N.gonorrhoeae (Amp Det) Negative (Negative) 10/05/17 12:26 General: Well appearing, NAD. Up around room with walker on her own LLE: Dressing with moderate serosanguineous drainage. Able to express small amount of serosanguinous drainage, no purulence from incision. Incision intact with incomplete closure at proximal end and hole mid-incision where packing had been. Mild induration about incision site without erythema or tenderness. Able to move knee, ankle, and toes. Sensation grossly intact distally, 2+ DP pulse. Assessment: [] I&D left distal medial thigh abscess Plan: - Per ID continue ancef 2 gm IV Q8hrs day with weekly CBC, CMP, CRP - Continue dry sterile dressing changes daily or as needed if saturated. - Continue moving leg, PT/OT. - Plan to follow up in clinic at post-op day 14, 10/20.
--- NOTE | 2017-10-15 17:05 | PN ---
Subjective Date of Service: 10/15/17 Interval History: Pt is feeling well. She denies any significant pain. No diarrhea, in fact she is on the constipated side. Family History: Unchanged from Admission Social History: Unchanged from Admission Past Medical History: Unchanged from Admission Objective Active Medications: Acetaminophen (Tylenol Tab*) 650 mg PO Q4H PRN PRN Reason: PAIN Last Admin: 10/15/17 02:15 Dose: 650 mg Al Hydrox/Mg Hydrox/Simethicone (Maalox Plus*) 30 ml PO Q6H PRN PRN Reason: INDIGESTION Last Admin: 10/08/17 02:15 Dose: 30 ml Bisacodyl (Dulcolax Supp*) 10 mg DC ONCE PRN PRN Reason: CONSTIPATION Last Admin: 10/08/17 16:33 Dose: 10 mg Bupropion HCl (Wellbutrin Tab*) 150 mg PO BID [facility] Last Admin: 10/15/17 09:24 Dose: 150 mg Dextrose (D50w Syringe 50 Ml*) 12.5 gm IV PUSH .FOR FS < 60 - SS PRN PRN Reason: FS < 60 Diphenhydramine HCl (Benadryl Po*) 25 mg PO Q6H PRN PRN Reason: itching Heparin Sodium (Porcine) (Heparin Vial(*)) 5,000 units SUBCUT Q12HR [facility] Last Admin: 10/15/17 09:26 Dose: 5,000 units Cefazolin Sodium/Dextrose (Kefzol 2 Gm Premix(*)) 2 gm in 50 mls @ 100 mls/hr IVPB Q8H [facility] Last Admin: 10/15/17 09:24 Dose: 100 mls/hr Insulin Glargine (Lantus(*)) 72 units SUBCUT Q24H [facility] Last Admin: 10/15/17 12:00 Dose: 72 units Insulin Human Lispro (Humalog*) 0 units SUBCUT FS ACHS ICU [facility] PRN Reason: Protocol Last Admin: 10/15/17 11:59 Dose: 2 units Lorazepam (Ativan Tab(*)) 0.5 mg PO Q6H PRN PRN Reason: ANXIETY Last Admin: 10/14/17 23:23 Dose: 0.5 mg Magnesium Hydroxide (Milk Of Magnesia Liq*) 30 ml PO BID [facility] Last Admin: 10/15/17 09:24 Dose: 30 ml Magnesium Hydroxide (Milk Of Magnesia Liq*) 30 ml PO Q6H PRN PRN Reason: constipation Last Admin: 10/13/17 21:57 Dose: 30 ml Melatonin (Melatonin (Nf)) 3 mg PO BEDTIME [facility] Last Admin: 10/14/17 23:21 Dose: 3 mg Ondansetron HCl (Zofran Inj*) 4 mg IV Q4H PRN PRN Reason: NAUSEA/VOMITING Oxycodone/Acetaminophen (Percocet 5/325 Tab*) 1 tab PO Q4H PRN PRN Reason: PAIN Last Admin: 10/14/17 07:53 Dose: 1 tab Polyethylene Glycol/Electrolytes (Miralax*) 17 gm PO DAILY PRN PRN Reason: CONSTIPATION Venlafaxine HCl (Effexor Xr Cap*) 150 mg PO DAILY [facility] Last Admin: 10/15/17 09:25 Dose: 150 mg Venlafaxine HCl (Effexor Xr Cap*) 75 mg PO QPM [facility] Last Admin: 10/14/17 17:13 Dose: 75 mg Oxygen Devices in Use Now: None Appearance: Young female sitting up in bed, NAD Eyes: No Scleral Icterus Ears/Nose/Mouth/Throat: Mucous Membranes Moist Respiratory: Symmetrical Chest Expansion and Respiratory Effort, Clear to Auscultation Cardiovascular: NL Sounds; No Murmurs; No JVD, RRR, No Edema Abdominal: NL Sounds; No Tenderness; No Distention Extremities: No Clubbing, Cyanosis Skin: No Rash or Ulcers, No Nodules or Sclerosis Neurological: Alert and Oriented x 3 Result Diagrams: 10/13/17 06:20 10/13/17 06:20 Microbiology and Other Data: Microbiology 10/02/17 07:30 Nasal Screen MRSA (PCR)(TIFFANI) - Final Nasal Mrsa Negative 10/02/17 07:12 Influenza Types A,B Antigen (TIFFANI) - Final Nasopharyngeal Specimen received for Influenza A/B Molecular testing Assess/Plan/Problems-Billing Ms Meyer is a 32 y/o female patient [place] [facility] [place] feeling well found to be in DKA, with influenza and knee abscess, now s/p I&D - Patient Problems (1) Abscess of knee Current Visit: Yes Status: Acute Code(s): L02.419 - CUTANEOUS ABSCESS OF LIMB, UNSPECIFIED SNOMED Code(s): 31272444 Comment: Continue ancef 2g IV [id number] is D#12/. Will need weekly CBC, CMP, CRP. (2) DKA (diabetic ketoacidoses) Current Visit: Yes Status: Acute Code(s): E13.10 - OTH DIABETES MELLITUS WITH KETOACIDOSIS WITHOUT COMA SNOMED Code(s): 081072379 Comment: Resolved. (3) Influenza Current Visit: Yes Status: Acute Code(s): J11.1 - FLU DUE TO UNIDENTIFIED INFLUENZA VIRUS W OTH RESP MANIFEST SNOMED Code(s): 4968151 Comment: The patient has completed a full course of tamiflu. (4) Diabetes Current Visit: Yes Status: Acute Code(s): E11.9 - TYPE 2 DIABETES MELLITUS WITHOUT COMPLICATIONS SNOMED Code(s): 91911016 Comment: Sugars are under good control without adding standing lispro with meals. Continue lantus 72 units daily and lispro sliding scale. (5) Anxiety Current Visit: Yes Status: Chronic Onset Date: 06/24/15 Code(s): F41.9 - ANXIETY DISORDER, UNSPECIFIED SNOMED Code(s): 57765779 Comment: Continue wellbutrin and effexor. (6) DVT prophylaxis Current Visit: Yes Status: Acute Code(s): HAN1797 - SNOMED Code(s): 651151942 Comment: SQ heparin (7) Full code status Current Visit: Yes Status: Acute Code(s): Z78.9 - OTHER SPECIFIED HEALTH STATUS SNOMED Code(s): 231141789 Status and Disposition: needs nursing home IV Abx-likely swing bed status while receiving the Abx.
[2017-10-15] MEDS: Magnesium Hydroxide LIQ* 30 ML UDC PO PRN (20:09)
[2017-10-15] MEDS: CMCS: Melatonin (NF) 3 MG TAB PO SCH (20:14)
[2017-10-15] MEDS: LORazepam TAB(*) 0.5 MG PO PRN (20:23)
[2017-10-16] MEDS: ceFAZolin 2 GM PREMIX (*) 2 GM/50 ML BAG IVPB SCH ×3 (01:31→17:26)
[2017-10-16] MEDS: Insulin LISPRO* 1 UNITS UNIT SUBCUT SCH ×4 (09:00→20:59)
[2017-10-16] MEDS: Heparin VIAL(*) 5000 UNITS/ML VIAL (FIVE THOUSAND) SUBCUT SCH ×2 (09:01→20:59)
[2017-10-16] MEDS: Magnesium Hydroxide LIQ* 30 ML UDC PO SCH ×2 (09:01→21:00)
[2017-10-16] MEDS: Venlafaxine EXT RELEASE CAP* 75 MG PO SCH ×2 (09:02→18:45)
[2017-10-16] MEDS: buPROPion TAB* 100 MG PO SCH ×2 (09:02→21:00)
[2017-10-16] MEDS: Acetaminophen TAB* 325 MG PO PRN (10:20)
[2017-10-16] MEDS: Insulin GLARGINE(*) 1 UNITS UNIT SUBCUT SCH (12:44)
--- NOTE | 2017-10-16 14:46 | PN ---
Progress Note - Progress Note Date of Service: 10/16/17 SOAP: Subjective: []Patient seen at bedside. She is active about her room and reports feeling well. Denies LLE pain, fever, chills, nausea, dizziness, confusion, CP or SOB. Objective: []General: Well appearing, NAD. Appears comfortable in bed LLE: Dressing with moderate serosanguineous drainage. Able to express small amount of serosanguinous drainage, no purulence from incision. Incision intact with closure now well approximated aside from hole mid-incision where packing had been and drainage continues. Mild induration, less than previous, about incision site without erythema or tenderness. Able to move knee, ankle, and toes. Sensation grossly intact distally, 2+ DP pulse. Laboratory Last Values WBC 6.2 10^3/ul (3.5-10.8) 10/13/17 06:20 RBC 3.27 10^6/ul (4.0-5.4) L 10/13/17 06:20 Hgb 10.2 g/dl (12.0-16.0) L 10/13/17 06:20 Hct 30 % (35-47) L 10/13/17 06:20 MCV 92 fL (80-97) 10/13/17 06:20 MCH 31 pg (27-31) 10/13/17 06:20 MCHC 34 g/dl (31-36) 10/13/17 06:20 RDW 13 % (10.5-15) 10/13/17 06:20 Plt Count 384 10^3/ul (150-450) 10/13/17 06:20 MPV 6 um3 (7.4-10.4) L 10/13/17 06:20 Neut % (Auto) 59.4 % (38-83) 10/09/17 06:18 Lymph % (Auto) 27.3 % (25-47) 10/09/17 06:18 [place] % (Auto) 11.3 % (1-9) H 10/09/17 06:18 Eos % (Auto) 1.4 % (0-6) 10/09/17 06:18 Baso % (Auto) 0.6 % (0-2) 10/09/17 06:18 Absolute Neuts (auto) 4.0 10^3/ul (1.5-7.7) 10/09/17 06:18 Absolute Lymphs (auto) 1.8 10^3/ul (1.0-4.8) 10/09/17 06:18 Absolute Monos (auto) 0.8 10^3/ul (0-0.8) 10/09/17 06:18 Absolute Eos (auto) 0.1 10^3/ul (0-0.6) 10/09/17 06:18 Absolute Basos (auto) 0 10^3/ul (0-0.2) 10/09/17 06:18 Absolute Nucleated RBC 0 10^3/ul 10/09/17 06:18 Nucleated RBC % 0 10/09/17 06:18 INR (Anticoag Therapy) 1.30 (0.77-1.02) H 10/06/17 06:56 ABG pH 7.17 (7.35-7.45) L* 10/02/17 05:30 ABG pCO2 12 mmHg (35-45) L* 10/02/17 05:30 ABG pO2 118 mmHg (80-100) H 10/02/17 05:30 ABG HCO3 8.1 mmol/L (19-31) L* 10/02/17 05:30 ABG O2 Saturation 98.9 % (95-98) H 10/02/17 05:30 ABG Base Excess -21.5 (-2.0-2.0) L 10/02/17 05:30 VBG pH 7.22 (7.33-7.43) L 10/02/17 22:40 VBG pCO2 27 mmHg (41-51) L 10/02/17 22:40 VBG pO2 27 mmHg (35-45) L 10/02/17 22:40 VBG HCO3 12.2 mmol/L (24-28) L 10/02/17 22:40 VBG O2 Saturation 60.3 % (70-80) L 10/02/17 22:40 VBG Base Excess -15.1 (0-4) L 10/02/17 22:40 Sodium 130 mmol/L (133-145) L 10/13/17 06:20 Potassium 4.5 mmol/L (3.5-5.0) 10/13/17 06:20 Chloride 97 mmol/L (101-111) L 10/13/17 06:20 Carbon Dioxide 28 mmol/L (22-32) 10/13/17 06:20 Anion Gap 5 mmol/L (2-11) 10/13/17 06:20 BUN 10 mg/dL (6-24) 10/13/17 06:20 Creatinine 0.58 mg/dL (0.51-0.95) 10/13/17 06:20 Est GFR ( Amer) 153.0 (>60) 10/13/17 06:20 Est GFR (Non-Af Amer) 119.0 (>60) 10/13/17 06:20 BUN/Creatinine Ratio 17.2 (8-20) 10/13/17 06:20 Glucose 227 mg/dL (70-100) H 10/13/17 06:20 POC Glucose (mg/dL) 131 mg/dL (70-100) H 10/16/17 12:01 Hemoglobin A1c 12.1 % (4.0-5.6) H 10/04/17 11:33 Lactic Acid 1.0 mmol/L (0.5-2.0) 10/05/17 10:30 Calcium 9.0 mg/dL (8.6-10.3) 10/13/17 06:20 Phosphorus 3.8 mg/dL (2.5-5.0) 10/07/17 05:15 Magnesium 2.4 mg/dL (1.9-2.7) 10/07/17 05:15 Total Bilirubin 0.30 mg/dL (0.2-1.0) 10/06/17 06:56 AST 15 U/L (13-39) 10/06/17 06:56 ALT 9 U/L (7-52) 10/06/17 06:56 Alkaline Phosphatase 93 U/L (34-104) 10/06/17 06:56 Total Creatine Kinase 32 U/L (10-223) 10/06/17 06:56 C-Reactive Protein 28.20 mg/L (< 5.00) H 10/12/17 06:12 Total Protein 6.0 g/dL (6.4-8.9) L 10/06/17 06:56 Albumin 2.5 g/dL (3.2-5.2) L 01/15/18 06:56 Globulin 3.5 g/dL (2-4) 10/06/17 06:56 Albumin/Globulin Ratio 0.7 (1-3) L 10/06/17 06:56 TSH 0.81 mcIU/mL (0.34-5.60) 10/05/17 17:11 Free T3 2.90 pg/mL (2.5-3.9) 10/05/17 17:11 Total T3 0.39 ng/mL (0.87-1.78) L 10/05/17 17:11 Beta HCG, Quant < 0.60 mIU/mL 10/02/17 10:15 Urine Color Yellow 10/03/17 12:50 Urine Appearance Cloudy 10/03/17 12:50 Urine pH 6.0 (5-9) 10/03/17 12:50 Ur Specific [place] 1.020 (1.010-1.030) 10/03/17 12:50 Urine Protein Negative (Negative) 10/03/17 12:50 Urine Ketones 2+ (Negative) H 10/03/17 12:50 Urine Blood 2+ (Negative) H 10/03/17 12:50 Urine Nitrate Negative (Negative) 10/03/17 12:50 Urine Bilirubin Negative (Negative) 10/03/17 12:50 Urine Urobilinogen Negative (Negative) 10/03/17 12:50 Ur Leukocyte Esterase 3+ (Negative) H 10/03/17 12:50 Urine WBC (Auto) 3+(>20/hpf) (Absent) H 10/03/17 12:50 Urine RBC (Auto) 3+(>10/hpf) (Absent) H 10/03/17 12:50 Ur Squamous Epith Cells Present (Absent) H 10/03/17 12:50 Urine Bacteria Absent (Absent) 10/03/17 12:50 Urine Yeast Present (Absent) H 10/03/17 12:50 Urine Glucose 3+(>=500 mg/dl) (Negative) H 10/03/17 12:50 Fluid Source Synovial fluid 10/04/17 11:40 Fluid Volume 4.5 mL 10/04/17 11:40 Fluid Color Yellow 10/04/17 11:40 Fluid Appearance Cloudy 10/04/17 11:40 Fluid WBC 354 /mcL (0-281394) 10/04/17 11:40 Fluid RBC 691 /mcL 10/04/17 11:40 Fluid Tot Cell Count 100 10/04/17 11:40 Fluid Neutrophils 31 % 10/04/17 11:40 Fluid Lymphocytes 22 % 10/04/17 11:40 Fluid Monocytes 47 % 10/04/17 11:40 Fluid Cell Count Rvw By 10/04/17 11:40 Fluid Crystals None seen 10/04/17 11:40 B. burgdorferi (PCR) Negative (Negative) 10/04/17 11:40 B. mayonii (PCR) Negative (Negative) 10/04/17 11:40 B.garinii/B.afzelii PCR Negative (Negative) 10/04/17 11:40 Fluid Comment 10/04/17 11:40 Vancomycin Trough 7.3 mcg/mL 10/07/17 08:04 Salicylates < 2.50 mg/dL (<30) 10/02/17 04:35 Urine Opiates Screen None detected (None Detect) 10/02/17 08:30 Ur Barbiturates Screen None detected (None Detect) 10/02/17 08:30 Ur Phencyclidine Scrn None detected (None Detect) 10/02/17 08:30 Ur Amphetamines Screen None detected (None Detect) 10/02/17 08:30 U Benzodiazepines Scrn None detected (None Detect) 10/02/17 08:30 Urine Cocaine Screen None detected (None Detect) 10/02/17 08:30 U Cannabinoids Screen None detected (None Detect) 10/02/17 08:30 Serum Alcohol < 10 mg/dL (<10) 10/02/17 04:35 Lyme Disease Serology Negative (Negative) 10/04/17 11:33 Lyme Specimen Source synovial fluid 10/04/17 11:40 C.trachomatis (Amp Det) Negative (Negative) 10/05/17 12:26 Influenza A (Rapid) Negative (Negative) 10/02/17 07:30 Influenza B (Rapid) Positive (Negative) H 10/02/17 07:30 N.gonorrhoeae (Amp Det) Negative (Negative) 10/05/17 12:26 Vital Signs Temp 98.0 F 10/16/17 07:49 Pulse 96 10/16/17 07:49 Resp 18 10/16/17 07:49 BP 107/77 10/16/17 07:49 Pulse Ox 100 10/16/17 07:49 Intake & Output 10/15/17 10/16/17 10/16/17 18:59 06:59 18:59 Intake Total 1650 50 1110 Output Total 0 Balance 1650 50 1110 Intake: IVPB 60 50 50 ABX - CEFAZOLIN 60 50 50 Oral 1590 0 1060 Output: Urine 0 Other: Estimated Void Medium Medium Medium Date of Last Bowel 1 Movement # Bowel Movements 0 Estimated Stool Amount Medium # Voids 3 1 2 Assessment: [] I&D left distal medial thigh abscess Plan: - Per ID continue ancef 2 gm IV Q8hrs day with weekly CBC, CMP, CRP - Continue dry sterile dressing changes daily or as needed if saturated. - Continue moving leg, PT/OT. - Plan to follow up in clinic at post-op day 14, 10/20.
--- NOTE | 2017-10-16 15:02 | PN ---
Subjective Date of Service: 10/16/17 Interval History: Pt is feeling well. She is very upset that I asked her to complete an additional 4 weeks of IV Abx as opposed to what she thought was going to be only 2 weeks. She denies any SOB, no diarrhea. Family History: Unchanged from Admission Social History: Unchanged from Admission Past Medical History: Unchanged from Admission Objective Active Medications: Acetaminophen (Tylenol Tab*) 650 mg PO Q4H PRN PRN Reason: PAIN Last Admin: 10/16/17 10:20 Dose: 650 mg Al Hydrox/Mg Hydrox/Simethicone (Maalox Plus*) 30 ml PO Q6H PRN PRN Reason: INDIGESTION Last Admin: 10/08/17 02:15 Dose: 30 ml Bisacodyl (Dulcolax Supp*) 10 mg MI ONCE PRN PRN Reason: CONSTIPATION Last Admin: 10/08/17 16:33 Dose: 10 mg Bupropion HCl (Wellbutrin Tab*) 150 mg PO BID ELIAN Last Admin: 10/16/17 09:02 Dose: 150 mg Dextrose (D50w Syringe 50 Ml*) 12.5 gm IV PUSH .FOR FS < 60 - SS PRN PRN Reason: FS < 60 Diphenhydramine HCl (Benadryl Po*) 25 mg PO Q6H PRN PRN Reason: itching Heparin Sodium (Porcine) (Heparin Vial(*)) 5,000 units SUBCUT Q12HR [facility] Last Admin: 10/16/17 09:01 Dose: 5,000 units Heparin Sodium (Porcine) (Heparin Flush Picc/Ml/Cvc(*)) 1 ml FLUSH 0600,1800 ELIAN PRN Reason: Protocol Cefazolin Sodium/Dextrose (Kefzol 2 Gm Premix(*)) 2 gm in 50 mls @ 100 mls/hr IVPB Q8H [facility] Last Admin: 10/16/17 09:04 Dose: 100 mls/hr Insulin Glargine (Lantus(*)) 72 units SUBCUT Q24H [facility] Last Admin: 10/16/17 12:44 Dose: 72 units Insulin Human Lispro (Humalog*) 0 units SUBCUT FS ACHS ICU [facility] PRN Reason: Protocol Last Admin: 10/16/17 12:43 Dose: 2 units Lorazepam (Ativan Tab(*)) 0.5 mg PO Q6H PRN PRN Reason: ANXIETY Last Admin: 10/15/17 20:23 Dose: 0.5 mg Magnesium Hydroxide (Milk Of Magnesia Liq*) 30 ml PO BID [facility] Last Admin: 10/16/17 09:01 Dose: 30 ml Magnesium Hydroxide (Milk Of Magnesia Liq*) 30 ml PO Q6H PRN PRN Reason: constipation Last Admin: 10/15/17 20:09 Dose: 30 ml Melatonin (Melatonin (Nf)) 3 mg PO BEDTIME [facility] Last Admin: 10/15/17 20:14 Dose: 3 mg Ondansetron HCl (Zofran Inj*) 4 mg IV Q4H PRN PRN Reason: NAUSEA/VOMITING Oxycodone/Acetaminophen (Percocet 5/325 Tab*) 1 tab PO Q4H PRN PRN Reason: PAIN Last Admin: 10/14/17 07:53 Dose: 1 tab Polyethylene Glycol/Electrolytes (Miralax*) 17 gm PO DAILY PRN PRN Reason: CONSTIPATION Venlafaxine HCl (Effexor Xr Cap*) 150 mg PO DAILY [facility] Last Admin: 10/16/17 09:02 Dose: 150 mg Venlafaxine HCl (Effexor Xr Cap*) 75 mg PO QPM [facility] Last Admin: 10/15/17 17:42 Dose: 75 mg Vital Signs - 8 hr 10/16/17 07:49 Temperature 98.0 F Pulse Rate 96 Respiratory 18 Rate Blood Pressure 107/77 (mmHg) O2 Sat by Pulse 100 Oximetry Oxygen Devices in Use Now: None Appearance: Young female sitting up in bed, NAD Eyes: No Scleral Icterus Ears/Nose/Mouth/Throat: Mucous Membranes Moist Respiratory: Symmetrical Chest Expansion and Respiratory Effort, Clear to Auscultation Cardiovascular: NL Sounds; No Murmurs; No JVD, RRR, No Edema Abdominal: NL Sounds; No Tenderness; No Distention Extremities: No Clubbing, Cyanosis Skin: - - clean dry dressing over distal L thigh Neurological: Alert and Oriented x 3 Result Diagrams: 10/13/17 06:20 10/13/17 06:20 Microbiology and Other Data: Microbiology 10/02/17 07:30 Nasal Screen MRSA (PCR)(TIFFANI) - Final Nasal Mrsa Negative 10/02/17 07:12 Influenza Types A,B Antigen (TIFFANI) - Final Nasopharyngeal Specimen received for Influenza A/B Molecular testing Assess/Plan/Problems-Billing Ms Meyer is a 32 y/o female patient presenting to [facility] [place] with complaints of not feeling well found to be in DKA, with influenza and knee abscess, now s/p I&D - Patient Problems (1) Abscess of knee Current Visit: Yes Status: Acute Code(s): L02.419 - CUTANEOUS ABSCESS OF LIMB, UNSPECIFIED SNOMED Code(s): 78593775 Comment: Continue ancef 2g IV [id number] is D#12/. Will need weekly CBC, CMP, CRP. I do not think the patient has the ability to manage 3x/day IV abx at home. Her history of non-compliance with her DM managment makes me very concerned that the she has the mental capacity to manage the Abx alone. (2) DKA (diabetic ketoacidoses) Current Visit: Yes Status: Acute Code(s): E13.10 - OTH DIABETES MELLITUS WITH KETOACIDOSIS WITHOUT COMA SNOMED Code(s): 920052440 Comment: Resolved. (3) Influenza Current Visit: Yes Status: Acute Code(s): J11.1 - FLU DUE TO UNIDENTIFIED INFLUENZA VIRUS W OTH RESP MANIFEST SNOMED Code(s): 5287684 Comment: The patient has completed a full course of tamiflu. (4) Diabetes Current Visit: Yes Status: Acute Code(s): E11.9 - TYPE 2 DIABETES MELLITUS WITHOUT COMPLICATIONS SNOMED Code(s): 99180629 Comment: Sugars are under good control without adding standing lispro with meals. Continue lantus 72 units daily and lispro sliding scale. (5) Anxiety Current Visit: Yes Status: Chronic Onset Date: 06/24/15 Code(s): F41.9 - ANXIETY DISORDER, UNSPECIFIED SNOMED Code(s): 16128191 Comment: Continue wellbutrin and effexor. (6) DVT prophylaxis Current Visit: Yes Status: Acute Code(s): UXY3311 - SNOMED Code(s): 787983388 Comment: SQ heparin (7) Full code status Current Visit: Yes Status: Acute Code(s): Z78.9 - OTHER SPECIFIED HEALTH STATUS SNOMED Code(s): 038402600 Status and Disposition: needs termite control servicer IV Abx-likely swing bed status while receiving the Abx.
[2017-10-16] MEDS: CMCS: Melatonin (NF) 3 MG TAB PO SCH (20:59)
[2017-10-16] MEDS: LORazepam TAB(*) 0.5 MG PO PRN (21:06)
[2017-10-17] MEDS: ceFAZolin 2 GM PREMIX (*) 2 GM/50 ML BAG IVPB SCH ×3 (00:41→17:11)
[2017-10-17] MEDS: Magnesium Hydroxide LIQ* 30 ML UDC PO SCH ×2 (09:38→20:48)
[2017-10-17] MEDS: Insulin LISPRO* 1 UNITS UNIT SUBCUT SCH ×4 (09:38→20:49)
[2017-10-17] MEDS: Heparin VIAL(*) 5000 UNITS/ML VIAL (FIVE THOUSAND) SUBCUT SCH ×2 (09:39→20:49)
[2017-10-17] MEDS: buPROPion TAB* 100 MG PO SCH ×2 (09:40→20:47)
[2017-10-17] MEDS: Venlafaxine EXT RELEASE CAP* 75 MG PO SCH ×2 (09:41→17:53)
--- NOTE | 2017-10-17 11:45 | PN ---
Subjective Date of Service: 10/17/17 Interval History: Pt is feeling well. She has been moving around the room without the walker. She denies any pain. No diarrhea. Family History: Unchanged from Admission Social History: Unchanged from Admission Past Medical History: Unchanged from Admission Objective Active Medications: Acetaminophen (Tylenol Tab*) 650 mg PO Q4H PRN PRN Reason: PAIN Last Admin: 10/16/17 10:20 Dose: 650 mg Al Hydrox/Mg Hydrox/Simethicone (Maalox Plus*) 30 ml PO Q6H PRN PRN Reason: INDIGESTION Last Admin: 10/08/17 02:15 Dose: 30 ml Bisacodyl (Dulcolax Supp*) 10 mg VA ONCE PRN PRN Reason: CONSTIPATION Last Admin: 10/08/17 16:33 Dose: 10 mg Bupropion HCl (Wellbutrin Tab*) 150 mg PO BID ELIAN Last Admin: 10/17/17 09:40 Dose: 150 mg Dextrose (D50w Syringe 50 Ml*) 12.5 gm IV PUSH .FOR FS < 60 - SS PRN PRN Reason: FS < 60 Diphenhydramine HCl (Benadryl Po*) 25 mg PO Q6H PRN PRN Reason: itching Heparin Sodium (Porcine) (Heparin Vial(*)) 5,000 units SUBCUT Q12HR [facility] Last Admin: 10/17/17 09:39 Dose: 5,000 units Heparin Sodium (Porcine) (Heparin Flush Picc/Ml/Cvc(*)) 1 ml FLUSH 0600,1800 ELIAN PRN Reason: Protocol Last Admin: 10/17/17 10:38 Dose: 1 ml Cefazolin Sodium/Dextrose (Kefzol 2 Gm Premix(*)) 2 gm in 50 mls @ 100 mls/hr IVPB Q8H [facility] Last Admin: 10/17/17 09:38 Dose: 100 mls/hr Insulin Glargine (Lantus(*)) 72 units SUBCUT Q24H [facility] Last Admin: 10/16/17 12:44 Dose: 72 units Insulin Human Lispro (Humalog*) 0 units SUBCUT FS ACHS ICU ELIAN PRN Reason: Protocol Last Admin: 10/17/17 09:38 Dose: 3 units Lorazepam (Ativan Tab(*)) 0.5 mg PO Q6H PRN PRN Reason: ANXIETY Last Admin: 10/16/17 21:06 Dose: 0.5 mg Magnesium Hydroxide (Milk Of Magnesia Liq*) 30 ml PO BID [facility] Last Admin: 10/17/17 09:38 Dose: 30 ml Magnesium Hydroxide (Milk Of Magnesia Liq*) 30 ml PO Q6H PRN PRN Reason: constipation Last Admin: 10/15/17 20:09 Dose: 30 ml Melatonin (Melatonin (Nf)) 3 mg PO BEDTIME [facility] Last Admin: 10/16/17 20:59 Dose: 3 mg Ondansetron HCl (Zofran Inj*) 4 mg IV Q4H PRN PRN Reason: NAUSEA/VOMITING Oxycodone/Acetaminophen (Percocet 5/325 Tab*) 1 tab PO Q4H PRN PRN Reason: PAIN Last Admin: 10/14/17 07:53 Dose: 1 tab Polyethylene Glycol/Electrolytes (Miralax*) 17 gm PO DAILY PRN PRN Reason: CONSTIPATION Venlafaxine HCl (Effexor Xr Cap*) 150 mg PO DAILY [facility] Last Admin: 10/17/17 09:41 Dose: 150 mg Venlafaxine HCl (Effexor Xr Cap*) 75 mg PO QPM [facility] Last Admin: 10/16/17 18:45 Dose: 75 mg Vital Signs - 8 hr 10/17/17 10/17/17 07:22 08:00 Temperature 98.1 F Pulse Rate 92 Respiratory 18 16 Rate Blood Pressure 108/75 (mmHg) O2 Sat by Pulse 99 Oximetry Oxygen Devices in Use Now: None Appearance: Young female sitting on the edge of the bed, NAD Eyes: No Scleral Icterus Ears/Nose/Mouth/Throat: Mucous Membranes Moist Respiratory: Symmetrical Chest Expansion and Respiratory Effort, Clear to Auscultation Cardiovascular: NL Sounds; No Murmurs; No JVD, RRR, No Edema Abdominal: NL Sounds; No Tenderness; No Distention Extremities: No Clubbing, Cyanosis Skin: - - incision inspected today, about 3/4in opening about 1/3way up from the distal end of the incision, no significant drainage, induration around incision noted, no drainage able to be expressed though mild serosanguinous drainged noted on ABD pad. Neurological: Alert and Oriented x 3 Result Diagrams: 10/13/17 06:20 10/13/17 06:20 Microbiology and Other Data: Microbiology 10/02/17 07:30 Nasal Screen MRSA (PCR)(TIFFANI) - Final Nasal Mrsa Negative 10/02/17 07:12 Influenza Types A,B Antigen (TIFFANI) - Final Nasopharyngeal Specimen received for Influenza A/B Molecular testing Assess/Plan/Problems-Billing Ms Meyer is a 32 y/o female patient presenting to [facility] [place] with complaints of not feeling well found to be in DKA, with influenza and knee abscess, now s/p I&D - Patient Problems (1) Abscess of knee Current Visit: Yes Status: Acute Code(s): L02.419 - CUTANEOUS ABSCESS OF LIMB, UNSPECIFIED SNOMED Code(s): 56782097 Comment: Continue ancef 2g IV [id number] is D#14/42. Will need weekly CBC, CMP, CRP. I do not think the patient has the ability to manage 3x/day IV abx at home. Her history of non-compliance with her DM managment makes me very concerned that the she has the mental capacity to manage the Abx alone. Awaiting peer to peer discussion with insurance company to discuss changing her to swing bed status. Additionally she is hoping to talk with Dr. Perez to discuss completing the last 2 weeks of Abx orally. (2) DKA (diabetic ketoacidoses) Current Visit: Yes Status: Acute Code(s): E13.10 - OTH DIABETES MELLITUS WITH KETOACIDOSIS WITHOUT COMA SNOMED Code(s): 756314632 Comment: Resolved. (3) Influenza Current Visit: Yes Status: Acute Code(s): J11.1 - FLU DUE TO UNIDENTIFIED INFLUENZA VIRUS W OTH RESP MANIFEST SNOMED Code(s): 9688643 Comment: The patient has completed a full course of tamiflu. (4) Diabetes Current Visit: Yes Status: Acute Code(s): E11.9 - TYPE 2 DIABETES MELLITUS WITHOUT COMPLICATIONS SNOMED Code(s): 14459175 Comment: Sugars are under good control without adding standing lispro with meals. Continue lantus 72 units daily and lispro sliding scale. (5) Anxiety Current Visit: Yes Status: Chronic Onset Date: 06/24/15 Code(s): F41.9 - ANXIETY DISORDER, UNSPECIFIED SNOMED Code(s): 32855523 Comment: Continue wellbutrin and effexor. (6) DVT prophylaxis Current Visit: Yes Status: Acute Code(s): XQD9862 - SNOMED Code(s): 095469668 Comment: SQ heparin (7) Full code status Current Visit: Yes Status: Acute Code(s): Z78.9 - OTHER SPECIFIED HEALTH STATUS SNOMED Code(s): 007554783 Status and Disposition: needs superintendent terminal IV Abx-likely swing bed status while receiving the Abx.
[2017-10-17] MEDS: Insulin GLARGINE(*) 1 UNITS UNIT SUBCUT SCH (13:21)
[2017-10-17 14:08] LABS: ABS Basophils 0.1 10^3/ul (0-0.2); ABS Eosinophils 0.1 10^3/ul (0-0.6); ABS Lymphocytes 1.8 10^3/ul (1.0-4.8); ABS Monocytes 0.5 10^3/ul (0-0.8); ABS Neutrophils 5.6 10^3/ul (1.5-7.7); ABS Nucleated RBC 0 10^3/ul; Eosinophil % 0.8 % (0-6); Hematocrit 33 % (35-47); Hemoglobin 11.6 g/dl (12.0-16.0); Lymphocyte % 22.4 % (25-47); Mean Corpuscular HGB Conc 35 g/dl (31-36); Mean Corpuscular Hemoglobin 32 pg (27-31); Mean Corpuscular Volume 91 fL (80-97); Mean Platelet Volume 6 um3 (7.4-10.4); Nucleated Red Blood Cells % 0; Platelet Count 434 10^3/ul (150-450); Red Blood Count 3.64 10^6/ul (4.0-5.4); Red Cell Distribution Width 14 % (10.5-15)
[2017-10-17] MEDS: CMCS: Melatonin (NF) 3 MG TAB PO SCH (20:48)
[2017-10-17] MEDS: LORazepam TAB(*) 0.5 MG PO PRN (20:58)
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
[2017-10-18] MEDS: ceFAZolin 2 GM PREMIX (*) 2 GM/50 ML BAG IVPB SCH ×3 (01:26→17:17)
[2017-10-18] MEDS: Insulin LISPRO* 1 UNITS UNIT SUBCUT SCH ×4 (08:19→20:59)
[2017-10-18] MEDS: Magnesium Hydroxide LIQ* 30 ML UDC PO SCH ×2 (08:30→21:01)
[2017-10-18] MEDS: buPROPion TAB* 100 MG PO SCH ×2 (08:31→20:58)
[2017-10-18] MEDS: Heparin VIAL(*) 5000 UNITS/ML VIAL (FIVE THOUSAND) SUBCUT SCH ×2 (08:31→21:00)
[2017-10-18] MEDS: Venlafaxine EXT RELEASE CAP* 75 MG PO SCH ×2 (08:31→17:30)
[2017-10-18] MEDS: Insulin GLARGINE(*) 1 UNITS UNIT SUBCUT SCH (13:09)
--- NOTE | 2017-10-18 15:53 | PN ---
Subjective Date of Service: 10/18/17 Interval History: Patient doing well. State she can ambulate w/o walker now. She is not sure if she has type 1 or type 2 diabetes. She has primary care in [place], and does not see tar man. Family History: Unchanged from Admission Social History: Unchanged from Admission Past Medical History: Unchanged from Admission Objective Active Medications: Acetaminophen (Tylenol Tab*) 650 mg PO Q4H PRN PRN Reason: PAIN Last Admin: 10/16/17 10:20 Dose: 650 mg Al Hydrox/Mg Hydrox/Simethicone (Maalox Plus*) 30 ml PO Q6H PRN PRN Reason: INDIGESTION Last Admin: 10/08/17 02:15 Dose: 30 ml Bisacodyl (Dulcolax Supp*) 10 mg RI ONCE PRN PRN Reason: CONSTIPATION Last Admin: 10/08/17 16:33 Dose: 10 mg Bupropion HCl (Wellbutrin Tab*) 150 mg PO BID [facility] Last Admin: 10/18/17 08:31 Dose: 150 mg Dextrose (D50w Syringe 50 Ml*) 12.5 gm IV PUSH .FOR FS < 60 - SS PRN PRN Reason: FS < 60 Diphenhydramine HCl (Benadryl Po*) 25 mg PO Q6H PRN PRN Reason: itching Heparin Sodium (Porcine) (Heparin Vial(*)) 5,000 units SUBCUT Q12HR [facility] Last Admin: 10/18/17 08:31 Dose: 5,000 units Heparin Sodium (Porcine) (Heparin Flush Picc/Ml/Cvc(*)) 1 ml FLUSH 0600,1800 ELIAN PRN Reason: Protocol Last Admin: 10/18/17 10:19 Dose: 1 ml Cefazolin Sodium/Dextrose (Kefzol 2 Gm Premix(*)) 2 gm in 50 mls @ 100 mls/hr IVPB Q8H [facility] Last Admin: 10/18/17 08:30 Dose: 100 mls/hr Insulin Glargine (Lantus(*)) 72 units SUBCUT Q24H [facility] Last Admin: 10/18/17 13:09 Dose: 72 units Insulin Human Lispro (Humalog*) 0 units SUBCUT FS ACHS ICU [facility]IAN PRN Reason: Protocol Last Admin: 10/18/17 13:10 Dose: 2 units Lorazepam (Ativan Tab(*)) 0.5 mg PO Q6H PRN PRN Reason: ANXIETY Last Admin: 10/17/17 20:58 Dose: 0.5 mg Magnesium Hydroxide (Milk Of Magnesia Liq*) 30 ml PO BID [facility] Last Admin: 10/18/17 08:30 Dose: 30 ml Magnesium Hydroxide (Milk Of Magnesia Liq*) 30 ml PO Q6H PRN PRN Reason: constipation Last Admin: 10/15/17 20:09 Dose: 30 ml Melatonin (Melatonin (Nf)) 3 mg PO BEDTIME [facility] Last Admin: 10/17/17 20:48 Dose: 3 mg Ondansetron HCl (Zofran Inj*) 4 mg IV Q4H PRN PRN Reason: NAUSEA/VOMITING Oxycodone/Acetaminophen (Percocet 5/325 Tab*) 1 tab PO Q4H PRN PRN Reason: PAIN Last Admin: 10/14/17 07:53 Dose: 1 tab Polyethylene Glycol/Electrolytes (Miralax*) 17 gm PO DAILY PRN PRN Reason: CONSTIPATION Venlafaxine HCl (Effexor Xr Cap*) 150 mg PO DAILY [facility] Last Admin: 10/18/17 08:31 Dose: 150 mg Venlafaxine HCl (Effexor Xr Cap*) 75 mg PO QPM [facility] Last Admin: 10/17/17 17:53 Dose: 75 mg Vital Signs - 8 hr 10/18/17 10/18/17 08:43 09:22 Pulse Rate 82 Respiratory 18 Rate Oxygen Devices in Use Now: None Appearance: young woman, NAD Neck: Trachea Midline Respiratory: Symmetrical Chest Expansion and Respiratory Effort Cardiovascular: NL Sounds; No Murmurs; No JVD, RRR Abdominal: NL Sounds; No Tenderness; No Distention, No Hepatosplenomegaly Extremities: - - LT knee in bandage Neurological: Alert and Oriented x 3 Lines/Tubes/Other Access: Clean, Dry and Intact PICC Line Nutrition: Taking PO's Result Diagrams: 10/17/17 13:50 10/17/17 13:50 Microbiology and Other Data: Microbiology 10/06/17 22:00 Wound - Left Leg Anaerobic Culture - Final 10/06/17 22:00 Thigh Left Skin and Soft Tissue MRSA/MSSA (PCR - Final 10/06/17 22:00 Thigh Left Wound Culture - Final Mrsa Negative S.aureus Positive Staphylococcus Aureus Assess/Plan/Problems-Billing Ms Meyer is a 32 y/o [place] patient [place] [facility] [place] of not feeling well found to be in DKA, with influenza and knee abscess, now s/p I&D - Patient Problems (1) Abscess of knee Current Visit: Yes Status: Acute Priority: High Code(s): L02.419 - CUTANEOUS ABSCESS OF LIMB, UNSPECIFIED SNOMED Code(s): 80952676 Comment: - Continue ancef 2g IV [id number] is D#15/. - Patient cannot manage 3x/day IV abx at home. - Awaiting peer to peer discussion with insurance company to discuss changing her to swing bed status. - Will need to talk to Dr. Perez when available about any other options for treatment (2) Diabetes, type 1.5, uncontrolled, managed as type 1 Current Visit: Yes Status: Acute Priority: Medium Code(s): E10.65 - TYPE 1 DIABETES MELLITUS WITH HYPERGLYCEMIA SNOMED Code(s): 586829954 Comment: - in favor of type 2 diabetes is onset in 30s, with obesity, management with oral agents, currently on >70 units Lantus (insulin resistant) - in favor of type 1 diabetes is relatively young age, and presentation with DKA this admission - will check C-peptide, Islet cell Ab. - continue management with basal/bolus insulin. (3) DVT prophylaxis Current Visit: Yes Status: Acute Priority: Low Code(s): MDE1581 - SNOMED Code(s): 204886271 Comment: SQ heparin Status and Disposition: needs terminal manager IV Abx-likely swing bed status while receiving the Abx.
[2017-10-18] MEDS: CMCS: Melatonin (NF) 3 MG TAB PO SCH (20:57)
[2017-10-18] MEDS: LORazepam TAB(*) 0.5 MG PO PRN (21:05)
[2017-10-19] MEDS: ceFAZolin 2 GM PREMIX (*) 2 GM/50 ML BAG IVPB SCH ×3 (00:51→18:34)
[2017-10-19] MEDS: Acetaminophen TAB* 325 MG PO PRN (03:05)
[2017-10-19 06:07] LABS: EGFR Non-African American 129.2 (>60)
[2017-10-19] MEDS: Heparin VIAL(*) 5000 UNITS/ML VIAL (FIVE THOUSAND) SUBCUT SCH ×2 (08:19→21:22)
[2017-10-19] MEDS: Venlafaxine EXT RELEASE CAP* 75 MG PO SCH ×2 (08:20→18:34)
[2017-10-19] MEDS: Magnesium Hydroxide LIQ* 30 ML UDC PO SCH ×2 (08:20→21:21)
[2017-10-19] MEDS: buPROPion TAB* 100 MG PO SCH ×2 (08:20→21:21)
[2017-10-19] MEDS: Insulin LISPRO* 1 UNITS UNIT SUBCUT SCH ×4 (08:21→21:14)
[2017-10-19] MEDS: Insulin GLARGINE(*) 1 UNITS UNIT SUBCUT SCH (12:43)
--- NOTE | 2017-10-19 16:02 | PN ---
Subjective Date of Service: 10/19/17 Interval History: Patient has no new complaints. LT knee feels sore. She can ambulate a bit. Family History: Unchanged from Admission Social History: Unchanged from Admission Past Medical History: Unchanged from Admission Objective Active Medications: Acetaminophen (Tylenol Tab*) 650 mg PO Q4H PRN PRN Reason: PAIN Last Admin: 10/19/17 03:05 Dose: 650 mg Al Hydrox/Mg Hydrox/Simethicone (Maalox Plus*) 30 ml PO Q6H PRN PRN Reason: INDIGESTION Last Admin: 10/08/17 02:15 Dose: 30 ml Bisacodyl (Dulcolax Supp*) 10 mg [place] ONCE PRN PRN Reason: CONSTIPATION Last Admin: 10/08/17 16:33 Dose: 10 mg Bupropion HCl (Wellbutrin Tab*) 150 mg PO BID ELIAN Last Admin: 10/19/17 08:20 Dose: 150 mg Dextrose (D50w Syringe 50 Ml*) 12.5 gm IV PUSH .FOR FS < 60 - SS PRN PRN Reason: FS < 60 Diphenhydramine HCl (Benadryl Po*) 25 mg PO Q6H PRN PRN Reason: itching Heparin Sodium (Porcine) (Heparin Vial(*)) 5,000 units SUBCUT Q12HR [facility] Last Admin: 10/19/17 08:19 Dose: 5,000 units Heparin Sodium (Porcine) (Heparin Flush Picc/Ml/Cvc(*)) 1 ml FLUSH 0600,1800 ELIAN PRN Reason: Protocol Last Admin: 10/19/17 05:35 Dose: 1 ml Cefazolin Sodium/Dextrose (Kefzol 2 Gm Premix(*)) 2 gm in 50 mls @ 100 mls/hr IVPB Q8H [facility] Last Admin: 10/19/17 08:19 Dose: 100 mls/hr Insulin Glargine (Lantus(*)) 72 units SUBCUT Q24H [facility] Last Admin: 10/19/17 12:43 Dose: 72 units Insulin Human Lispro (Humalog*) 0 units SUBCUT FS ACHS ICU [facility]IAN PRN Reason: Protocol Last Admin: 10/19/17 12:46 Dose: Not Given Lorazepam (Ativan Tab(*)) 0.5 mg PO Q6H PRN PRN Reason: ANXIETY Last Admin: 10/18/17 21:05 Dose: 0.5 mg Magnesium Hydroxide (Milk Of Magnesia Liq*) 30 ml PO BID [facility] Last Admin: 10/19/17 08:20 Dose: 30 ml Magnesium Hydroxide (Milk Of Magnesia Liq*) 30 ml PO Q6H PRN PRN Reason: constipation Last Admin: 10/15/17 20:09 Dose: 30 ml Melatonin (Melatonin (Nf)) 3 mg PO BEDTIME [facility] Last Admin: 10/18/17 20:57 Dose: 3 mg Ondansetron HCl (Zofran Inj*) 4 mg IV Q4H PRN PRN Reason: NAUSEA/VOMITING Oxycodone/Acetaminophen (Percocet 5/325 Tab*) 1 tab PO Q4H PRN PRN Reason: PAIN Last Admin: 10/14/17 07:53 Dose: 1 tab Polyethylene Glycol/Electrolytes (Miralax*) 17 gm PO DAILY PRN PRN Reason: CONSTIPATION Venlafaxine HCl (Effexor Xr Cap*) 150 mg PO DAILY [facility] Last Admin: 10/19/17 08:20 Dose: 150 mg Venlafaxine HCl (Effexor Xr Cap*) 75 mg PO QPM [facility] Last Admin: 10/18/17 17:30 Dose: 75 mg Vital Signs - 8 hr 10/19/17 08:00 Respiratory 16 Rate Oxygen Devices in Use Now: None Appearance: no distress Ears/Nose/Mouth/Throat: Clear Oropharnyx Respiratory: Symmetrical Chest Expansion and Respiratory Effort, Clear to Auscultation Cardiovascular: NL Sounds; No Murmurs; No JVD Abdominal: NL Sounds; No Tenderness; No Distention Neurological: Alert and Oriented x 3 Lines/Tubes/Other Access: Clean, Dry and Intact PICC Line Nutrition: Taking PO's Result Diagrams: 10/17/17 13:50 10/19/17 05:25 Additional Lab and Data: Laboratory Tests 10/18/17 10/18/17 10/19/17 16:53 20:36 05:25 Glucose 130 H POC Glucose (mg/dL) 105 H 204 H 10/19/17 10/19/17 08:07 12:05 Glucose POC Glucose (mg/dL) 145 H 103 H Microbiology and Other Data: Microbiology 10/06/17 22:00 Wound - Left Leg Anaerobic Culture - Final 10/06/17 22:00 Thigh Left Skin and Soft Tissue MRSA/MSSA (PCR - Final 10/06/17 22:00 Thigh Left Wound Culture - Final Mrsa Negative S.aureus Positive Staphylococcus Aureus Assess/Plan/Problems-Billing Ms Meyer is a 32 y/o female patient presenting to [facility] [place] with complaints of not feeling well found to be in DKA, with influenza and knee abscess, now s/p I&D - Patient Problems (1) Abscess of knee Current Visit: Yes Status: Acute Priority: High Code(s): L02.419 - CUTANEOUS ABSCESS OF LIMB, UNSPECIFIED SNOMED Code(s): 90349074 Comment: - Continue ancef 2g IV [id number] is D#16/. - Patient cannot manage 3x/day IV abx at home. - Awaiting peer to peer discussion with insurance company to discuss changing her to swing bed status. - Will need to talk to Dr. Perez tomorrow about any other options for treatment (2) Diabetes, type 1.5, uncontrolled, managed as type 1 Current Visit: Yes Status: Acute Priority: Medium Code(s): E10.65 - TYPE 1 DIABETES MELLITUS WITH HYPERGLYCEMIA SNOMED Code(s): 088215004 Comment: - in favor of type 2 diabetes is onset in 30s, with obesity, management with oral agents, currently on >70 units Lantus (insulin resistant) - in favor of type 1 diabetes is relatively young age, and presentation with DKA this admission - C-peptide, Islet cell Ab pending - sugars under good control - continue management with basal/bolus insulin. (3) DVT prophylaxis Current Visit: Yes Status: Acute Priority: Low Code(s): WOJ9653 - SNOMED Code(s): 368243534 Comment: SQ heparin Status and Disposition: needs intermediate teacher IV Abx-likely swing bed status while receiving the Abx.
[2017-10-19] MEDS: CMCS: Melatonin (NF) 3 MG TAB PO SCH (21:21)
[2017-10-19] MEDS: LORazepam TAB(*) 0.5 MG PO PRN (21:28)
[2017-10-20] MEDS: ceFAZolin 2 GM PREMIX (*) 2 GM/50 ML BAG IVPB SCH ×3 (01:14→17:10)
[2017-10-20] MEDS: Insulin LISPRO* 1 UNITS UNIT SUBCUT SCH ×4 (07:36→20:55)
[2017-10-20] MEDS: Magnesium Hydroxide LIQ* 30 ML UDC PO SCH ×2 (09:15→20:56)
[2017-10-20] MEDS: buPROPion TAB* 100 MG PO SCH ×2 (09:16→20:54)
[2017-10-20] MEDS: Heparin VIAL(*) 5000 UNITS/ML VIAL (FIVE THOUSAND) SUBCUT SCH ×2 (09:16→20:56)
[2017-10-20] MEDS: Venlafaxine EXT RELEASE CAP* 75 MG PO SCH ×2 (09:18→17:11)
[2017-10-20] MEDS: Insulin GLARGINE(*) 1 UNITS UNIT SUBCUT SCH (12:39)
--- NOTE | 2017-10-20 13:25 | PN ---
Subjective Date of Service: 10/20/17 Interval History: Patient seen and examined at bedside. Denies fever, chills, shortness of breath , chest discomfort, N/V/D. Pt is anxious about going home, she doesn't want to go home before her body is ready. Family History: Unchanged from Admission Social History: Unchanged from Admission Past Medical History: Unchanged from Admission Objective Active Medications: Acetaminophen (Tylenol Tab*) 650 mg PO Q4H PRN Reason: PAIN Al Hydrox/Mg Hydrox/Simethicone (Maalox Plus*) 30 ml PO Q6H PRN Reason: INDIGESTION Bisacodyl (Dulcolax Supp*) 10 mg [place] ONCE PRN Reason: CONSTIPATION Bupropion HCl (Wellbutrin Tab*) 150 mg PO BID ELIAN Dextrose (D50w Syringe 50 Ml*) 12.5 gm IV PUSH .FOR FS < 60 - SS PRN Reason: FS < 60 Diphenhydramine HCl (Benadryl Po*) 25 mg PO Q6H PRN Reason: itching Heparin Sodium (Porcine) (Heparin Vial(*)) 5,000 units SUBCUT Q12HR [facility] Heparin Sodium (Porcine) (Heparin Flush Picc/Ml/Cvc(*)) 1 ml FLUSH 0600,1800 ELIAN Cefazolin Sodium/Dextrose (Kefzol 2 Gm Premix(*)) 2 gm in 50 mls @ 100 mls/hr IVPB Q8H [facility] Insulin Glargine (Lantus(*)) 72 units SUBCUT Q24H [facility] Insulin Human Lispro (Humalog*) 0 units SUBCUT FS ACHS ICU [facility] Lorazepam (Ativan Tab(*)) 0.5 mg PO Q6H PRN Reason: ANXIETY Magnesium Hydroxide (Milk Of Magnesia Liq*) 30 ml PO BID ELIAN Magnesium Hydroxide (Milk Of Magnesia Liq*) 30 ml PO Q6H PRN Reason: constipation Melatonin (Melatonin (Nf)) 3 mg PO BEDTIME [facility] Ondansetron HCl (Zofran Inj*) 4 mg IV Q4H PRN Reason: NAUSEA/VOMITING Oxycodone/Acetaminophen (Percocet 5/325 Tab*) 1 tab PO Q4H PRN Reason: PAIN Polyethylene Glycol/Electrolytes (Miralax*) 17 gm PO DAILY PRN Reason: CONSTIPATION Venlafaxine HCl (Effexor Xr Cap*) 150 mg PO DAILY [facility] Venlafaxine HCl (Effexor Xr Cap*) 75 mg PO QPM [facility] Vital Signs - 8 hr 10/20/17 10/20/17 07:22 07:46 Temperature 98.0 F Pulse Rate 98 Respiratory 16 16 Rate Blood Pressure 101/64 (mmHg) O2 Sat by Pulse 99 Oximetry Oxygen Devices in Use Now: None Appearance: NAD, sitting up in bed Ears/Nose/Mouth/Throat: Mucous Membranes Moist Respiratory: Symmetrical Chest Expansion and Respiratory Effort, Clear to Auscultation Cardiovascular: NL Sounds; No Murmurs; No JVD, RRR Abdominal: NL Sounds; No Tenderness; No Distention Extremities: No Edema Skin: No Rash or Ulcers, - - Dressing to left knee clean, dry and intact Neurological: Alert and Oriented x 3, NL Muscle Strength and Tone Lines/Tubes/Other Access: Clean, Dry and Intact PICC Line - site benign Nutrition: Taking PO's Result Diagrams: 10/17/17 13:50 10/19/17 05:25 Additional Lab and Data: Laboratory Tests 10/18/17 10/18/17 10/19/17 16:53 20:36 05:25 Glucose 130 H POC Glucose (mg/dL) 105 H 204 H 10/19/17 10/19/17 08:07 12:05 Glucose POC Glucose (mg/dL) 145 H 103 H Microbiology and Other Data: Microbiology 10/06/17 22:00 Wound - Left Leg Anaerobic Culture - Final 10/06/17 22:00 Thigh Left Skin and Soft Tissue MRSA/MSSA (PCR - Final 10/06/17 22:00 Thigh Left Wound Culture - Final Mrsa Negative S.aureus Positive Staphylococcus Aureus Assess/Plan/Problems-Billing Ms. Meyer is a 32 y/o female patient presenting to [facility] [place] with complaints of not feeling well found to be in DKA, with influenza and knee abscess, now s/p I&D - Patient Problems (1) Abscess of knee Code(s): L02.419 - CUTANEOUS ABSCESS OF LIMB, UNSPECIFIED SNOMED Code(s): 89206168 Comment: - Continue ancef 2g IV [id number] is day - Per Dr. Perez may discharge in AM on PO Bactrim for 4 weeks (2) DKA (diabetic ketoacidoses) Code(s): E13.10 - OTH DIABETES MELLITUS WITH KETOACIDOSIS WITHOUT COMA SNOMED Code(s): 990455656 Comment: - Resolved (3) Influenza Code(s): J11.1 - FLU DUE TO UNIDENTIFIED INFLUENZA VIRUS W OTH RESP MANIFEST SNOMED Code(s): 4014927 Comment: - The patient has completed a full course of tamiflu (4) Diabetes Code(s): E11.9 - TYPE 2 DIABETES MELLITUS WITHOUT COMPLICATIONS SNOMED Code(s) : 27136671 Comment: - Glucose 100-120's - Continue lantus 72 units daily and lispro sliding scale (5) Anxiety Code(s): F41.9 - ANXIETY DISORDER, UNSPECIFIED SNOMED Code(s): 56621076 Comment: - Continue wellbutrin and effexor (6) DVT prophylaxis Code(s): QBD7669 - SNOMED Code(s): 303320499 Comment: - SQ heparin (7) Full code status Code(s): Z78.9 - OTHER SPECIFIED HEALTH STATUS SNOMED Code(s): 527874417 Status and Disposition: Inpatient. Plan for discharge to home in the AM with PO ABX.
[2017-10-20] MEDS: LORazepam TAB(*) 0.5 MG PO PRN (20:55)
[2017-10-20] MEDS: Acetaminophen TAB* 325 MG PO PRN (20:55)
[2017-10-20] MEDS: CMCS: Melatonin (NF) 3 MG TAB PO SCH (20:55)
[2017-10-21] MEDS: ceFAZolin 2 GM PREMIX (*) 2 GM/50 ML BAG IVPB SCH ×3 (00:42→16:48)
[2017-10-21] MEDS: Magnesium Hydroxide LIQ* 30 ML UDC PO SCH (09:10)
[2017-10-21] MEDS: Heparin VIAL(*) 5000 UNITS/ML VIAL (FIVE THOUSAND) SUBCUT SCH (09:10)
[2017-10-21] MEDS: Venlafaxine EXT RELEASE CAP* 75 MG PO SCH ×2 (09:11→17:50)
[2017-10-21] MEDS: buPROPion TAB* 100 MG PO SCH (09:11)
[2017-10-21] MEDS: Insulin LISPRO* 1 UNITS UNIT SUBCUT SCH ×3 (09:13→17:49)
--- NOTE | 2017-10-21 09:58 | PN ---
Subjective Date of Service: 10/21/17 Interval History: Patient seen and examined at bedside. Denies fever, chills, shortness of breath , chest discomfort, N/V/D. Pt states that she is anxious about going home today and would like to stay one more day. We discussed that medically she is ready for discharge today. Discussed with Pt that she would be discharged home with Lantus and she states that she is comfortable with giving herself insulin as she has used it in the past. We also discussed that she should follow-up with the [facility] to assist with management of her diabetes. Family History: Unchanged from Admission Social History: Unchanged from Admission Past Medical History: Unchanged from Admission Objective Active Medications: Acetaminophen (Tylenol Tab*) 650 mg PO Q4H PRN Reason: PAIN Al Hydrox/Mg Hydrox/Simethicone (Maalox Plus*) 30 ml PO Q6H PRN Reason: INDIGESTION Bisacodyl (Dulcolax Supp*) 10 mg [place] ONCE PRN Reason: CONSTIPATION Bupropion HCl (Wellbutrin Tab*) 150 mg PO BID ELIAN Dextrose (D50w Syringe 50 Ml*) 12.5 gm IV PUSH .FOR FS < 60 - SS PRN Reason: FS < 60 Diphenhydramine HCl (Benadryl Po*) 25 mg PO Q6H PRN Reason: itching Heparin Sodium (Porcine) (Heparin Vial(*)) 5,000 units SUBCUT Q12HR [facility] Heparin Sodium (Porcine) (Heparin Flush Picc/Ml/Cvc(*)) 1 ml FLUSH 0600,1800 [facility]IAN Cefazolin Sodium/Dextrose (Kefzol 2 Gm Premix(*)) 2 gm in 50 mls @ 100 mls/hr IVPB Q8H [facility] Insulin Glargine (Lantus(*)) 72 units SUBCUT Q24H [facility] Insulin Human Lispro (Humalog*) 0 units SUBCUT FS ACHS ICU [facility] Lorazepam (Ativan Tab(*)) 0.5 mg PO Q6H PRN Reason: ANXIETY Magnesium Hydroxide (Milk Of Magnesia Liq*) 30 ml PO BID ELIAN Magnesium Hydroxide (Milk Of Magnesia Liq*) 30 ml PO Q6H PRN Reason: constipation Melatonin (Melatonin (Nf)) 3 mg PO BEDTIME [facility] Ondansetron HCl (Zofran Inj*) 4 mg IV Q4H PRN Reason: NAUSEA/VOMITING Oxycodone/Acetaminophen (Percocet 5/325 Tab*) 1 tab PO Q4H PRN Reason: PAIN Polyethylene Glycol/Electrolytes (Miralax*) 17 gm PO DAILY PRN Reason: CONSTIPATION Venlafaxine HCl (Effexor Xr Cap*) 150 mg PO DAILY [facility] Venlafaxine HCl (Effexor Xr Cap*) 75 mg PO QPM [facility] Vital Signs - 8 hr 10/21/17 10/21/17 10/21/17 02:37 03:04 07:23 Temperature 97.1 F 98.2 F Pulse Rate 78 89 Respiratory 16 16 16 Rate Blood Pressure 117/52 106/65 (mmHg) O2 Sat by Pulse 100 100 Oximetry 10/21/17 08:00 Temperature Pulse Rate Respiratory 16 Rate Blood Pressure (mmHg) O2 Sat by Pulse Oximetry Oxygen Devices in Use Now: None Appearance: NAD, sitting up in bed Ears/Nose/Mouth/Throat: Mucous Membranes Moist Respiratory: Symmetrical Chest Expansion and Respiratory Effort, Clear to Auscultation Cardiovascular: NL Sounds; No Murmurs; No JVD, RRR Extremities: - - Mild edema to left knee Skin: - - Dressing to left knee clean, dry and intact Neurological: Alert and Oriented x 3, NL Muscle Strength and Tone Lines/Tubes/Other Access: Clean, Dry and Intact Peripheral IV - site benign, Clean, Dry and Intact PICC Line - site benign Nutrition: Taking PO's Result Diagrams: 10/17/17 13:50 10/19/17 05:25 Additional Lab and Data: Laboratory Tests 10/18/17 10/18/17 10/19/17 16:53 20:36 05:25 Glucose 130 H POC Glucose (mg/dL) 105 H 204 H 10/19/17 10/19/17 08:07 12:05 Glucose POC Glucose (mg/dL) 145 H 103 H Microbiology and Other Data: Microbiology 10/06/17 22:00 Wound - Left Leg Anaerobic Culture - Final 10/06/17 22:00 Thigh Left Skin and Soft Tissue MRSA/MSSA (PCR - Final 10/06/17 22:00 Thigh Left Wound Culture - Final Mrsa Negative S.aureus Positive Staphylococcus Aureus Assess/Plan/Problems-Billing Ms. Meyer is a 32 y/o female patient presenting to [facility] [place] with complaints of not feeling well found to be in DKA, with influenza and knee abscess, now s/p I&D - Patient Problems (1) Abscess of knee Code(s): L02.419 - CUTANEOUS ABSCESS OF LIMB, UNSPECIFIED SNOMED Code(s): 74225772 Comment: - Staph aureus + fluid - Continue ancef 2g IV q8hr, change to PO ABX at discharge - Per Dr. Perez may discharge in AM on PO Bactrim for 4 weeks (2) DKA (diabetic ketoacidoses) Code(s): E13.10 - OTH DIABETES MELLITUS WITH KETOACIDOSIS WITHOUT COMA SNOMED Code(s): 415319875 Comment: - Resolved (3) Influenza Code(s): J11.1 - FLU DUE TO UNIDENTIFIED INFLUENZA VIRUS W OTH RESP MANIFEST SNOMED Code(s): 0394007 Comment: - The patient has completed a full course of tamiflu (4) Diabetes Code(s): E11.9 - TYPE 2 DIABETES MELLITUS WITHOUT COMPLICATIONS SNOMED Code(s) : 51655824 Comment: - Glucose 120-160's - HgA1C 12 - Continue lantus 72 units daily and lispro sliding scale - Will resume metformin at discharge with daily dosing (5) Anxiety Code(s): F41.9 - ANXIETY DISORDER, UNSPECIFIED SNOMED Code(s): 37339816 Comment: - Continue wellbutrin and effexor (6) DVT prophylaxis Code(s): QIJ7260 - SNOMED Code(s): 633017362 Comment: - SQ heparin (7) Full code status Code(s): Z78.9 - OTHER SPECIFIED HEALTH STATUS SNOMED Code(s): 049068943 Status and Disposition: Inpatient. Stable for discharge to home today with PO ABX.
[2017-10-21] MEDS: Insulin GLARGINE(*) 1 UNITS UNIT SUBCUT SCH (12:53)
--- NOTE | 2017-10-21 15:24 | PN ---
Progress Note - Progress Note Date of Service: 10/21/17 SOAP: Subjective: []Patient seen at bedside. She feels well without LLE pain, fever or chills but she is concerned about going home due to the severity of her infection upon presentation. Objective: []General: Patient seen at bedside. She is well appearing, NAD LLE: Sutures removed. Tolerated well. Wound edges well approximated, only area remaining open is roughly 0.5 cm where packing had been. This area is healing well without erythema or discharge. Surrounding area with mild induration, no fluctuance. BL LE: calves supple and nontender without erythema, edema or palpable cords. Vital Signs Temp 98.1 F 10/21/17 11:47 Pulse 95 10/21/17 11:47 Resp 18 10/21/17 11:47 BP 127/85 10/21/17 11:47 Pulse Ox 100 10/21/17 11:47 Intake & Output 10/20/17 10/21/17 10/21/17 18:59 06:59 18:59 Intake Total 1610 50 1110 Output Total 800 0 Balance 334 08 0732 Intake: IV Fluids 100 50 50 ABX - CEFAZOLIN 100 50 50 Oral 1510 0 1060 Output: Urine 800 0 Other: Estimated Void Large Medium # Bowel Movements 0 0 1 Estimated Stool Amount Medium # Voids 3 1 Laboratory Last Values WBC 8.0 10^3/ul (3.5-10.8) 10/17/17 13:50 RBC 3.64 10^6/ul (4.0-5.4) L 10/17/17 13:50 Hgb 11.6 g/dl (12.0-16.0) L 10/17/17 13:50 Hct 33 % (35-47) L 10/17/17 13:50 MCV 91 fL (80-97) 10/17/17 13:50 MCH 32 pg (27-31) H 10/17/17 13:50 MCHC 35 g/dl (31-36) 10/17/17 13:50 RDW 14 % (10.5-15) 10/17/17 13:50 Plt Count 434 10^3/ul (150-450) 10/17/17 13:50 MPV 6 um3 (7.4-10.4) L 10/17/17 13:50 Neut % (Auto) 69.1 % (38-83) 10/17/17 13:50 Lymph % (Auto) 22.4 % (25-47) L 10/17/17 13:50 Gillespie % (Auto) 6.4 % (1-9) 10/17/17 13:50 Eos % (Auto) 0.8 % (0-6) 10/17/17 13:50 Baso % (Auto) 1.3 % (0-2) 10/17/17 13:50 Absolute Neuts (auto) 5.6 10^3/ul (1.5-7.7) 10/17/17 13:50 Absolute Lymphs (auto) 1.8 10^3/ul (1.0-4.8) 10/17/17 13:50 Absolute Monos (auto) 0.5 10^3/ul (0-0.8) 10/17/17 13:50 Absolute Eos (auto) 0.1 10^3/ul (0-0.6) 10/17/17 13:50 Absolute Basos (auto) 0.1 10^3/ul (0-0.2) 10/17/17 13:50 Absolute Nucleated RBC 0 10^3/ul 10/17/17 13:50 Nucleated RBC % 0 10/17/17 13:50 INR (Anticoag Therapy) 1.30 (0.77-1.02) H 10/06/17 06:56 ABG pH 7.17 (7.35-7.45) L* 10/02/17 05:30 ABG pCO2 12 mmHg (35-45) L* 10/02/17 05:30 ABG pO2 118 mmHg (80-100) H 10/02/17 05:30 ABG HCO3 8.1 mmol/L (19-31) L* 10/02/17 05:30 ABG O2 Saturation 98.9 % (95-98) H 10/02/17 05:30 ABG Base Excess -21.5 (-2.0-2.0) L 10/02/17 05:30 VBG pH 7.22 (7.33-7.43) L 10/02/17 22:40 VBG pCO2 27 mmHg (41-51) L 10/02/17 22:40 VBG pO2 27 mmHg (35-45) L 10/02/17 22:40 VBG HCO3 12.2 mmol/L (24-28) L 10/02/17 22:40 VBG O2 Saturation 60.3 % (70-80) L 10/02/17 22:40 VBG Base Excess -15.1 (0-4) L 10/02/17 22:40 Sodium 133 mmol/L (133-145) 10/19/17 05:25 Potassium 3.9 mmol/L (3.5-5.0) 10/19/17 05:25 Chloride 100 mmol/L (101-111) L 10/19/17 05:25 Carbon Dioxide 28 mmol/L (22-32) 10/19/17 05:25 Anion Gap 5 mmol/L (2-11) 10/19/17 05:25 BUN 10 mg/dL (6-24) 10/19/17 05:25 Creatinine 0.54 mg/dL (0.51-0.95) 10/19/17 05:25 Est GFR ( Amer) 166.2 (>60) 10/19/17 05:25 Est GFR (Non-Af Amer) 129.2 (>60) 10/19/17 05:25 BUN/Creatinine Ratio 18.5 (8-20) 10/19/17 05:25 Glucose 130 mg/dL (70-100) H 10/19/17 05:25 POC Glucose (mg/dL) 128 mg/dL (70-100) H 10/21/17 11:19 Hemoglobin A1c 12.1 % (4.0-5.6) H 10/04/17 11:33 C-Peptide ng/ml 2.4 ng/mL (1.1 - 4.4) 10/19/17 05:25 Lactic Acid 1.0 mmol/L (0.5-2.0) 10/05/17 10:30 Calcium 9.2 mg/dL (8.6-10.3) 10/19/17 05:25 Phosphorus 3.8 mg/dL (2.5-5.0) 10/07/17 05:15 Magnesium 2.4 mg/dL (1.9-2.7) 10/07/17 05:15 Total Bilirubin 0.40 mg/dL (0.2-1.0) 10/17/17 13:50 AST 20 U/L (13-39) 10/17/17 13:50 ALT 21 U/L (7-52) 10/17/17 13:50 Alkaline Phosphatase 88 U/L (34-104) 10/17/17 13:50 Total Creatine Kinase 32 U/L (10-223) 10/06/17 06:56 C-Reactive Protein 4.65 mg/L (< 5.00) 10/17/17 13:50 Total Protein 7.4 g/dL (6.4-8.9) 10/17/17 13:50 Albumin 3.8 g/dL (3.2-5.2) 10/17/17 13:50 Globulin 3.6 g/dL (2-4) 10/17/17 13:50 Albumin/Globulin Ratio 1.1 (1-3) 10/17/17 13:50 TSH 0.81 mcIU/mL (0.34-5.60) 10/05/17 17:11 Free T3 2.90 pg/mL (2.5-3.9) 10/05/17 17:11 Total T3 0.39 ng/mL (0.87-1.78) L 10/05/17 17:11 Beta HCG, Quant < 0.60 mIU/mL 10/02/17 10:15 Urine Color Yellow 10/03/17 12:50 Urine Appearance Cloudy 10/03/17 12:50 Urine pH 6.0 (5-9) 10/03/17 12:50 Ur Specific [place] 1.020 (1.010-1.030) 10/03/17 12:50 Urine Protein Negative (Negative) 10/03/17 12:50 Urine Ketones 2+ (Negative) H 10/03/17 12:50 Urine Blood 2+ (Negative) H 10/03/17 12:50 Urine Nitrate Negative (Negative) 10/03/17 12:50 Urine Bilirubin Negative (Negative) 10/03/17 12:50 Urine Urobilinogen Negative (Negative) 10/03/17 12:50 Ur Leukocyte Esterase 3+ (Negative) H 10/03/17 12:50 Urine WBC (Auto) 3+(>20/hpf) (Absent) H 10/03/17 12:50 Urine RBC (Auto) 3+(>10/hpf) (Absent) H 10/03/17 12:50 Ur Squamous Epith Cells Present (Absent) H 10/03/17 12:50 Urine Bacteria Absent (Absent) 10/03/17 12:50 Urine Yeast Present (Absent) H 10/03/17 12:50 Urine Glucose 3+(>=500 mg/dl) (Negative) H 10/03/17 12:50 Fluid Source Synovial fluid 10/04/17 11:40 Fluid Volume 4.5 mL 10/04/17 11:40 Fluid Color Yellow 10/04/17 11:40 Fluid Appearance Cloudy 10/04/17 11:40 Fluid WBC 354 /mcL (0-094021) 10/04/17 11:40 Fluid RBC 691 /mcL 10/04/17 11:40 Fluid Tot Cell Count 100 10/04/17 11:40 Fluid Neutrophils 31 % 10/04/17 11:40 Fluid Lymphocytes 22 % 10/04/17 11:40 Fluid Monocytes 47 % 10/04/17 11:40 Fluid Cell Count Rvw By 10/04/17 11:40 Fluid Crystals None seen 10/04/17 11:40 B. burgdorferi (PCR) Negative (Negative) 10/04/17 11:40 B. mayonii (PCR) Negative (Negative) 10/04/17 11:40 B.garinii/B.afzelii PCR Negative (Negative) 10/04/17 11:40 Fluid Comment 10/04/17 11:40 Vancomycin Trough 7.3 mcg/mL 10/07/17 08:04 Salicylates < 2.50 mg/dL (<30) 10/02/17 04:35 Urine Opiates Screen None detected (None Detect) 10/02/17 08:30 Ur Barbiturates Screen None detected (None Detect) 10/02/17 08:30 Ur Phencyclidine Scrn None detected (None Detect) 10/02/17 08:30 Ur Amphetamines Screen None detected (None Detect) 10/02/17 08:30 U Benzodiazepines Scrn None detected (None Detect) 10/02/17 08:30 Urine Cocaine Screen None detected (None Detect) 10/02/17 08:30 U Cannabinoids Screen None detected (None Detect) 10/02/17 08:30 Serum Alcohol < 10 mg/dL (<10) 10/02/17 04:35 Lyme Disease Serology Negative (Negative) 10/04/17 11:33 Lyme Specimen Source synovial fluid 10/04/17 11:40 C.trachomatis (Amp Det) Negative (Negative) 10/05/17 12:26 Influenza A (Rapid) Negative (Negative) 10/02/17 07:30 Influenza B (Rapid) Positive (Negative) H 10/02/17 07:30 N.gonorrhoeae (Amp Det) Negative (Negative) 10/05/17 12:26 Assessment: [] I&D left distal medial thigh abscess Plan: - Antibiotics per ID - Continue dry sterile dressing changes daily or as needed if saturated. - Continue moving leg, PT/OT. - Plan to follow up in clinic 2 weeks after discharge - DC when medically ready
[2017-10-21 17:22] VITALS: BP 123/79
--- NOTE | 2017-10-23 01:09 | DS ---
CC: Dr. Chavez; AMISH Triplett; [facility] * DISCHARGE SUMMARY: DATE OF ADMISSION: 10/02/17 DATE OF DISCHARGE: 10/21/17 ATTENDING PHYSICIAN: Dr. Swati Cid * dictated by Anna Steen NP) PRIMARY CARE PROVIDER: AMISH Triplett PRIMARY DIAGNOSES: 1. Diabetic ketoacidosis, resolved. 2. Concern for suicidal attempts, suicidal ideation. 3. Left thigh abscess, status post incision and drainage. 4. Influenza B. SECONDARY DIAGNOSES: 1. Anxiety. 2. Diabetes mellitus type 2. CONSULTATIONS WHILE IN THE HOSPITAL: 1. Dr. Montez Hernandez with Psychiatry. 2. Dr. Sam Chavez with Orthopedic Surgery. 3. Dr. Raven Tucker with Pulmonology. 4. Dr. Luis Angel Perez with Infectious Disease. PROCEDURE WHILE IN THE HOSPITAL: Status post incision, irrigation and debridement of a left thigh abscess by Dr. Chavez on 10/06/17. STUDIES WHILE IN THE HOSPITAL: 1. Chest x-ray on 10/02/17. Radiologist's impression, no evidence for acute intrathoracic disease. 2. Left knee x-ray on 10/03/17. Radiologist's impression, no fracture of the left knee is noted. 3. Chest x-ray on 10/05/17. Radiologist's impression, no active cardiopulmonary disease is noted. 4. Left knee MRI on 10/06/17. Radiologist's impression, physiologic amount of fluid is noted. There is a fluid collection arising from the distal medialis muscle extending into soft tissue surrounding the femur. This measures at least 7.1 x 4.1 cm. Additional multiloculated subcutaneous collection is noted measuring 3.2 x 2.2 cm. Underlying abscess is not totally excluded. DISCHARGE MEDICATIONS: New home medications: 1. Acetaminophen 650 mg oral every 4 hours as needed for pain. 2. Lantus insulin KwikPen 70 units subcutaneous daily. 3. Bactrim DS 800/160 one tablet oral twice daily for 4 weeks. 4. Insulin pen needles glucometer test strips and lancets. Continued home medications: 1. Remeron 15 mg oral daily at bedtime. 2. Wellbutrin 150 mg oral twice daily. 3. Effexor XR 75 mg oral every evening. 4. Tricor 145 mg oral every evening. 5. Effexor 150 mg oral every morning. Changed medication: 1. Metformin decreased from 1000 mg oral twice daily to 1000 mg oral once daily. Discontinued home medication: 1. Glipizide. HISTORY OF PRESENT ILLNESS/HOSPITAL COURSE: Ms. Meyer is a 32-year-old female with past medical history significant for diabetes mellitus, traumatic brain injury, hypertension, borderline personality disorder, depression, history of medical noncompliance, who presented to the emergency room complaining of left knee pain, lightheadedness, and generally not feeling well. Per EMS report, the patient was stating she had thoughts of having herself. While in the emergency room, the patient reported taking 4 or 5 clonazepam because she was upset and felt her did not appreciate her. She is living with her parents and had moved back home. She reported that her was hiding her medications so she has been unable to take them. She also reported headaches and backaches for the past several days and taking ibuprofen for the discomfort. She has had issues with her blood sugars for many years. She does not have a glucometer to check her glucose at home. She reports she has not been taking her medications for at least a year. She reports nausea, vomiting, reported dark coffee-ground emesis. While in the emergency room, she had labs showing DKA. She received a liter of saline, received 20 units of regular insulin and was started on an insulin drip. She was admitted to the intensive care unit. While in the hospital, the patient was diagnosed with influenza B. She completed a course of Tamiflu. She was treated for her DKA with an insulin drip. Her anion gap closed. Her hemoglobin A1c was 12. She had a psychiatric consult due to her reports of possible self-harm. Her psychiatry did not feel the patient warranted inpatient treatment. She was taken off her 1-to-1 status and she was instructed to follow up with [facility] after discharge. During her stay, she continued to complain of left leg pain. She had a left knee x-ray showing no acute findings. She had an MRI of her left knee showing a fluid collection. She was seen in consultation by Dr. Chavez with orthopedic surgery who performed an I and D on 10/06/17. The fluid from the patient's I and D grew Staph aureus. The patient was treated for her MSSA cellulitis with IV cefazolin. The initial plan was for the patient to be on IV antibiotics for 4 weeks. She continued to do well and her leukocytosis resolved. She was afebrile. Infectious Disease felt that the patient could be transitioned from IV antibiotics to oral antibiotics to complete another 4-week course. During her stay, she was placed back on diabetic medications including Lantus. Her glucoses remains controlled. It was felt that the patient would best be discharged home on Lantus. She states she has been on insulin in the past and was comfortable giving herself insulin. In addition to that, she reported being comfortable with doing fingersticks, although she reported not having the supplies to do that. Ms. Meyer is stable for discharge to home. Vital signs are temperature 98.6, heart rate 95, respiratory rate 18, O2 sat 100% on room air, blood pressure 127/ 85. DISCHARGE PLAN: Ms. Meyer will be discharged to home. Activity as tolerated. As far as her left thigh abscess, she will be continued on Bactrim DS twice daily for 28 more days. She has a followup appointment with Dr. Chavez on ____ __ at 10.45 p.m. She also has an appointment with her primary care provider on 10/23/17 at 2:30 p.m. [facility] with [facility]. As far as her anxiety and depression, she should be seen by the [facility]. She has also been asked to call the [facility] for further diabetes education. As far as her influenza B, she completed a 5- day course of Tamiflu while in the hospital. The patient was resumed on her usual home medications with the exception of glipizide and her metformin was decreased to 1000 mg daily. She has been started on Lantus 70 units daily. She has been asked to check her glucose 4 times daily and keep her record and bring it to her primary care followup appointment. As far as wound care for her leg, she should have a dry dressing that she changes daily to her left knee. She has been asked to return to the emergency room for any chest pain or shortness of breath. This is a summarized report of her complex medical history and hospital stay. For further details, please see the entire medical record. TIME SPENT: Time for this discharge was approximately 50 minutes, greater than half of that was spent with the patient discussing discharge plans and instructions. CONDITION ON DISCHARGE: Stable. ANNA BUSTAMANTE, TOR [id number]/[facility] #: [id number] REJI
== END 2017-10-21 19:30 | disposition home health service (06) | DRG 710 ==
LOC: ED 03:39 → ICU 05:46 → MED 10-07 15:48
PROVIDERS: ADMIT Pediatrics; ATTEND Internal Medicine
PROC: 0S9D3ZX Drainage of Left Knee Joint, Percutaneous Approach, Diagnostic (ICD-10-PCS; 2017-10-05)
PROC: 0KDR0ZZ Extraction of Left Upper Leg Muscle, Open Approach (ICD-10-PCS; principal; 2017-10-06 19:00)
DX: A41.89 Other specified sepsis (principal); E10.10 Type 1 diabetes mellitus with ketoacidosis without coma; E10.69 Type 1 diabetes mellitus with other specified complication; L02.416 Cutaneous abscess of left lower limb; E83.39 Other disorders of phosphorus metabolism; M86.00 Acute hematogenous osteomyelitis, unspecified site; E87.1 Hypo-osmolality and hyponatremia; L03.116 Cellulitis of left lower limb; M41.9 Scoliosis, unspecified; K58.9 Irritable bowel syndrome, unspecified; I10 Essential (primary) hypertension; F41.9 Anxiety disorder, unspecified; F60.3 Borderline personality disorder; E78.5 Hyperlipidemia, unspecified; E66.9 Obesity, unspecified; F31.9 Bipolar disorder, unspecified; G89.29 Other chronic pain; B95.61 Methicillin susceptible Staphylococcus aureus infection as the cause of diseases classified elsewhere; J10.1 Influenza due to other identified influenza virus with other respiratory manifestations; E87.6 Hypokalemia; Z88.5 Allergy status to narcotic agent; Z87.820 Personal history of traumatic brain injury; Z91.5 Personal history of self-harm; Z81.8 Family history of other mental and behavioral disorders; Z83.3 Family history of diabetes mellitus; Z79.4 Long term (current) use of insulin; Z72.89 Other problems related to lifestyle; Z91.410 Personal history of adult physical and sexual abuse; Z68.35 Body mass index [BMI] 35.0-35.9, adult; Z91.14 Patient's other noncompliance with medication regimen
CPT/HCPCS: 36415; 36600; 71045; 80048; 80053; 80202; 80307; 80320; 80329; 81003; 81015; 82550; 82803; 83036; 83605; 83735; 84100; 84443; 84479; 84481; 84681; 84702; 85014; 85018; 85025; 85027; 85049; 85610; 86140; 86341; 86618; 87040; 87070; 87073; 87077; 87086; 87186; 87205; 87476; 87491; 87502; 87591; 87640; 87641; 87798; 89051; 89060; 93005; 99285; A9270-GY; G0480; J0330; J0690; J0696; J1644; J1815; J1885; J2060; J2250; J3010; J3370; J3475; J3480

== ENCOUNTER 2018-02-12 09:59 | Emergency (ER) | payer BC ==
[2018-02-12 10:17] VITALS: BP 138/96
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
--- NOTE | 2018-02-12 11:54 | RAD ---
Indication: LEFT knee pain and edema. Surgery in September 2017 due to infection. Remote traumatic injury. Comparison: October 06, 2017 MRI. October 03, 2017 radiographs. Technique: LEFT knee: AP, tunnel, lateral, sunrise views. Report: Negative for joint effusion, fracture, or malalignment. Preserved joint spaces. Negative for periosteal reaction or osteolysis. 5 mm focus of osteosclerosis at the distal diaphysis of the femur centered 15 cm above the femoral-tibial joint line is not included in the [id number] on the prior radiographs precluding comparison. This most likely represents a bone island. IMPRESSION: 1. No radiographic abnormality of the LEFT knee. Negative for joint effusion or findings suspicious for septic arthritis or osteomyelitis. 2. Incidental probable 5 mm bone island at the distal diaphysis of the femur. Given absence of prior exams to document stability and history of previous soft tissue infection in the region consider follow-up femur radiographs in 3 months time to assess for stability.
== END 2018-02-12 12:00 | disposition home or self-care (01) ==
LOC: UCEAST 09:59
DX: M25.572 Pain in left ankle and joints of left foot (principal); Z98.890 Other specified postprocedural states; Z88.5 Allergy status to narcotic agent
CPT/HCPCS: 99212; G0463

== ENCOUNTER 2018-02-18 13:14 | Emergency (ER) | payer BC ==
[2018-02-18 14:10] LABS: ABS Basophils 0.1 10^3/ul (0-0.2); ABS Eosinophils 0.1 10^3/ul (0-0.6); ABS Lymphocytes 2.7 10^3/ul (1.0-4.8); ABS Monocytes 0.6 10^3/ul (0-0.8); ABS Nucleated RBC 0 10^3/ul; Eosinophil % 1.4 % (0-6); Hematocrit 40 % (35-47); Hemoglobin 13.9 g/dl (12.0-16.0); Lymphocyte % 28.7 % (25-47); Mean Corpuscular HGB Conc 35 g/dl (31-36); Mean Corpuscular Hemoglobin 32 pg (27-31); Mean Corpuscular Volume 92 fL (80-97); Mean Platelet Volume 6.6 um3 (7.4-10.4); Nucleated Red Blood Cells % 0; Platelet Count 289 10^3/ul (150-450); Red Blood Count 4.36 10^6/ul (4.0-5.4); Red Cell Distribution Width 13 % (10.5-15); White Blood Count 9.6 10^3/ul (3.5-10.8)
[2018-02-18 14:32] LABS: EGFR Non-African American 123.9 (>60)
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
[2018-02-18 19:28] VITALS: BP 133/80
== END 2018-02-18 20:31 | disposition home or self-care (01) ==
LOC: ED 13:14
DX: F32.9 Major depressive disorder, single episode, unspecified (principal); R73.9 Hyperglycemia, unspecified; Z88.5 Allergy status to narcotic agent
CPT/HCPCS: 36415; 80053; 80307; 80320; 80329; 84443; 85025; 99283; G0480

== ENCOUNTER 2018-05-28 18:13 | Inpatient (IN) | payer BC ==
[2018-05-28] MEDS ORDERED: NS 0.9% 1000 ML* 3,000 ML IV ONE (18:28)
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
[2018-05-28 18:58] LABS: ABS Basophils 0 10^3/ul (0-0.2); ABS Eosinophils 0 10^3/ul (0-0.6); ABS Lymphocytes 0.5 10^3/ul (1.0-4.8); ABS Monocytes 0.7 10^3/ul (0-0.8); ABS Neutrophils 12.6 10^3/ul (1.5-7.7); ABS Nucleated RBC 0 10^3/ul; Eosinophil % 0 % (0-6); Hematocrit 43 % (35-47); Hemoglobin 14.4 g/dl (12.0-16.0); Lymphocyte % 3.5 % (25-47); Mean Corpuscular HGB Conc 33 g/dl (31-36); Mean Corpuscular Hemoglobin 31 pg (27-31); Mean Corpuscular Volume 93 fL (80-97); Mean Platelet Volume 7.1 um3 (7.4-10.4); Nucleated Red Blood Cells % 0; Platelet Count 257 10^3/ul (150-450); Red Blood Count 4.63 10^6/ul (4.00-5.40); Red Cell Distribution Width 13 % (10.5-15); White Blood Count 13.8 10^3/ul (3.5-10.8)
[2018-05-28 19:53] LABS: Urine Appearance Clear; Urine Blood 2+ (Negative); Urine Color Straw; Urine Ketones 2+ (Negative); Urine Protein Negative (Negative); Urine Red Blood Cell Trace(0-2/hpf) (Absent); Urine Specific Gravity 1.026 (1.010-1.030); Urine Urobilinogen Negative (Negative); Urine White Blood Cell Absent (Absent)
[2018-05-28] MEDS ORDERED: Insulin IVPB 100 units/100 ml 100 UNITS/100 ML UNIT IVPB SCH (20:00)
[2018-05-28] MEDS ORDERED: LORazepam INJ* 2 MG/ML 1 ML VIAL IV PUSH ONE (20:40)
[2018-05-28] MEDS ORDERED: Acetaminophen SUPP* 650 MG SUPP PR PRN (21:37)
[2018-05-28] MEDS ORDERED: Ondansetron ODT TAB* 4 MG PO PRN (21:40)
[2018-05-28] MEDS ORDERED: NS 0.9% 1000 ML* 1,000 ML IV SCH (21:45)
[2018-05-28 21:54] LABS: EGFR Non-African American 75.5 (>60)
[2018-05-28] MEDS ORDERED: Insulin REGULAR(*) 100 UNITS in NS 0.9% 100 ML* 100 ML IVPB SCH (22:00)
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
[2018-05-28] MEDS ORDERED: Insulin REGULAR(*) 100 UNITS in NS 0.9% 100 ML* 100 ML IV SCH (23:00)
[2018-05-28] MEDS ORDERED: Levofloxacin 750 MG IVPREMIX(* 750 MG/150 ML BAG IVPB SCH (23:00)
[2018-05-28] MEDS ORDERED: D5NS 0.9% 1000 ML BAG* 1,000 ML IV SCH (23:15)
[2018-05-29 01:57] LABS: EGFR Non-African American 95.8 (>60)
[2018-05-29] MEDS: D5W NS 0.9% 20Meq KCL 1000 ML* 1,000 ML IV SCH ×2 (02:47→07:30)
[2018-05-29] MEDS ORDERED: Insulin REGULAR(*) 100 UNITS in NS 0.9% 100 ML* 100 ML IVPB SCH (03:00)
[2018-05-29] MEDS ORDERED: Dextrose 50% Syringe 50 ML* 25 GM/50 ML SYRINGE ONE (06:25)
[2018-05-29] MEDS ORDERED: Dextrose 50% Syringe 50 ML* 25 GM/50 ML SYRINGE IV PUSH ONE (06:25)
[2018-05-29 06:30] LABS: ABS Basophils 0 10^3/ul (0-0.2); ABS Eosinophils 0 10^3/ul (0-0.6); ABS Lymphocytes 0.8 10^3/ul (1.0-4.8); ABS Monocytes 0.5 10^3/ul (0-0.8); ABS Nucleated RBC 0 10^3/ul; Eosinophil % 0.1 % (0-6); Hematocrit 36 % (35-47); Hemoglobin 12.6 g/dl (12.0-16.0); Lymphocyte % 10.5 % (25-47); Mean Corpuscular HGB Conc 35 g/dl (31-36); Mean Corpuscular Hemoglobin 32 pg (27-31); Mean Corpuscular Volume 91 fL (80-97); Mean Platelet Volume 6.5 um3 (7.4-10.4); Nucleated Red Blood Cells % 0.1; Platelet Count 216 10^3/ul (150-450); Red Blood Count 3.98 10^6/ul (4.00-5.40); Red Cell Distribution Width 13 % (10.5-15); White Blood Count 7.3 10^3/ul (3.5-10.8)
[2018-05-29 06:48] LABS: EGFR Non-African American 123.9 (>60)
[2018-05-29] MEDS: Insulin REGULAR(*) 100 UNITS in NS 0.9% 100 ML* 100 ML IV SCH ×2 (07:31→16:59)
--- NOTE | 2018-05-29 08:00 | RAD ---
HISTORY: delerium, tachycardia COMPARISONS: October 05, 2017 VIEWS: 1: frontal portable view of the chest at 10:20 PM FINDINGS: LINES AND TUBES: None. CARDIOMEDIASTINAL SILHOUETTE: The cardiomediastinal silhouette is normal for portable technique. PLEURA: The costophrenic angles are sharp. No pleural abnormalities are noted. LUNG PARENCHYMA: The lungs are clear. ABDOMEN: The upper abdomen is clear. There is no subphrenic gas. BONES AND SOFT TISSUES: No bone or soft tissue abnormalities are noted. IMPRESSION: NO ACTIVE CARDIOPULMONARY DISEASE.
[2018-05-29] MEDS: KCL 20 MEQ/100 ML IVPREMIX* 20 MEQ/100 ML BAG IV SCH ×5 (08:26→20:31)
[2018-05-29] MEDS ORDERED: LORazepam INJ* 2 MG/ML 1 ML VIAL IV PUSH ONE (08:44)
[2018-05-29] MEDS ORDERED: D5W 1/2 NS 40 Meq KCL 1000 ML* 1,000 ML IV SCH (09:00)
[2018-05-29] MEDS: Pantoprazole IV* 40 MG IV SCH (09:45)
[2018-05-29] MEDS ORDERED: Insulin REGULAR(*) IIP for Adult Hyperglycemia (2017) IVPB SCH (10:00)
[2018-05-29] MEDS ORDERED: chlordiazePOXIDE CAP* 25 MG PO ONE (12:00)
--- NOTE | 2018-05-29 13:37 | CONSULT ---
Consult Consult: S: Psychiatry is asked to see this 32 y.o. , white, female diabetic with previous psychiatric admissions for depression and SI, who is currently admitted to the ICU secondary to diabetic ketoacidosis. As per Hospitalist, Dr. Andrei Horner, the patient has been incoherent during her evaluation thus far, but there is a concern that her , who sounded impaired over the phone, alerted them to recent dysphoric mood in the patient and that two of her pill bottles were missing, creating speculation that perhaps she overdosed intentionally. On exam she is extremely confused and wearing mittens to prevent self-harm. She is not coherent or able to participate in a meaningful psychiatric interview. O: middle aged white female in patient gown, wearing mittens; diaphoretic with poor eye contact; unable to respond to questions A/P: Potential OD: psychiatry will track the patient's progress over the weekend and provide a comprehensive consultation when she's able to participate. Recommend continuation of 1:1 for now. This clinician will not be back on service until Friday, June 01. Will sign out the case to weekend psych providers, Dr. Loev and Dr. Carranza. For now, please see my last psychiatric consultation for this patient, dictated on October 03, 2017 for some additional history.
--- NOTE | 2018-05-29 15:53 | PN ---
Subjective Date of Service: 05/29/18 Interval History: insulin gtt off at 630 and got 1/2 amp D50 for hypogylcemia. hypokalemic to 2.8 and Hypernatremic to 146. IVF changed to D51/2NS and insulin gtt restarted at 3U /hr as GLU jaki to low 200s. Pt agitated, distrustful. 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 CTH ordered. Anion gap has closed. Spoke with who seemed altered/drowsy and was a very poor historian: reported she had seemed "more unhappy" for the last 2 days. He found effexor bottle with approximately 15 pills but could not find her gabapentin or wellbutrin bottle. Midline ordered as has been extremely challenging to get labs drawn today. 1st set hemolyzed. Objective Active Medications: Acetaminophen (Tylenol Supp*) 650 mg ID Q6H PRN PRN Reason: FEVER/PAIN Levofloxacin/Dextrose (Levaquin 750 Mg Ivpremix(*)) 750 mg in 150 mls @ 100 mls /hr IVPB Q24H [facility] Last Admin: 05/29/18 00:00 Dose: 100 mls/hr Insulin Human Regular 100 (units/ Sodium Chloride) 100 mls @ 9.7 mls/hr IV Q10H [facility] Last Admin: 05/29/18 07:31 Dose: Not Given Potassium Chloride/Dextrose (D5w 1/2 Ns 40 Meq Kcl 1000 Ml*) 1,000 mls @ 100 mls/hr IV PER RATE [facility] Last Admin: 05/29/18 09:30 Dose: 100 mls/hr Insulin Human Regular (Insulin Regular Ivpb) 100 units in 100 mls @ 3 mls/hr IVPB PER RATE [facility]; Protocol Dexmedetomidine HCl 400 mcg/ (Sodium Chloride) 100 mls @ 4.14 mls/hr IVPB .( Initial Rate) [facility]; Protocol Ondansetron HCl (Zofran Odt Tab*) 4 mg PO Q6H PRN PRN Reason: n/v Pantoprazole Sodium (Protonix Iv*) 40 mg IV DAILY [facility] Last Admin: 05/29/18 09:45 Dose: 40 mg Vital Signs - 8 hr 05/29/18 05/29/18 05/29/18 08:00 08:02 08:16 Temperature 99.3 F 99.3 F 99.5 F Pulse Rate 125 123 126 Respiratory 24 18 25 Rate Blood Pressure 146/105 113/80 117/103 (mmHg) O2 Sat by Pulse 99 98 98 Oximetry 05/29/18 05/29/18 05/29/18 08:30 08:47 09:00 Temperature 99.5 F 99.7 F Pulse Rate 128 127 Respiratory 21 31 20 Rate Blood Pressure 148/97 133/106 (mmHg) O2 Sat by Pulse 98 96 Oximetry 05/29/18 05/29/18 05/29/18 09:01 09:16 09:30 Temperature 99.7 F 99.9 F 99.7 F Pulse Rate 131 130 126 Respiratory 20 22 24 Rate Blood Pressure 142/94 131/83 132/112 (mmHg) O2 Sat by Pulse 98 97 97 Oximetry 05/29/18 05/29/18 05/29/18 09:45 10:00 10:08 Temperature 99.7 F 99.7 F Pulse Rate 131 134 Respiratory 25 21 26 Rate Blood Pressure 172/124 (mmHg) O2 Sat by Pulse 95 96 Oximetry 05/29/18 05/29/18 05/29/18 10:16 10:31 11:00 Temperature 99.7 F 99.7 F Pulse Rate 128 129 Respiratory 31 24 24 Rate Blood Pressure 149/102 139/110 (mmHg) O2 Sat by Pulse 97 97 Oximetry 05/29/18 05/29/18 05/29/18 11:01 11:32 11:47 Temperature 99.7 F 99.7 F 99.7 F Pulse Rate 127 125 129 Respiratory 24 24 16 Rate Blood Pressure 155/90 111/92 112/104 (mmHg) O2 Sat by Pulse 96 97 97 Oximetry 05/29/18 05/29/18 05/29/18 12:00 12:02 12:31 Temperature 99.7 F 99.7 F 99.9 F Pulse Rate 128 129 126 Respiratory 25 18 18 Rate Blood Pressure 188/158 128/89 (mmHg) O2 Sat by Pulse 96 96 97 Oximetry 05/29/18 05/29/18 05/29/18 12:47 13:00 13:02 Temperature 99.9 F 99.7 F Pulse Rate 131 123 Respiratory 27 22 22 Rate Blood Pressure 133/104 143/96 (mmHg) O2 Sat by Pulse 99 95 Oximetry 05/29/18 05/29/18 05/29/18 13:16 13:31 13:37 Temperature 99.7 F 99.7 F Pulse Rate 127 124 Respiratory 23 26 23 Rate Blood Pressure 154/124 148/78 (mmHg) O2 Sat by Pulse 98 98 Oximetry 05/29/18 05/29/18 05/29/18 13:46 14:00 14:01 Temperature 99.7 F 99.7 F 99.7 F Pulse Rate 131 128 127 Respiratory 21 28 26 Rate Blood Pressure 127/111 148/91 (mmHg) O2 Sat by Pulse 98 98 96 Oximetry 05/29/18 05/29/18 05/29/18 14:16 14:31 14:45 Temperature 99.7 F 99.9 F 99.9 F Pulse Rate 130 130 130 Respiratory 22 22 15 Rate Blood Pressure 102/80 133/88 128/99 (mmHg) O2 Sat by Pulse 97 98 98 Oximetry 05/29/18 15:01 Temperature 99.9 F Pulse Rate 126 Respiratory 25 Rate Blood Pressure 116/78 (mmHg) O2 Sat by Pulse 98 Oximetry Oxygen Devices in Use Now: None Appearance: Delirius and agitated. barely audibly whispers vs shouts if does talk Eyes: No Scleral Icterus Ears/Nose/Mouth/Throat: NL Teeth, Lips, Gums, Mucous Membranes Moist Neck: NL Appearance and Movements; NL JVP, Trachea Midline Respiratory: Symmetrical Chest Expansion and Respiratory Effort, Clear to Auscultation, - - exam limited to anterior given patient noncompliance, agitation. Cardiovascular: - - tachycardic, no m/r/g Abdominal: NL Sounds; No Tenderness; No Distention, No Hepatosplenomegaly Extremities: No Edema Skin: No Rash or Ulcers Neurological: - - [place], answering some questions, paranoid. agitated. Nutrition: - - currently npo Result Diagrams: 05/29/18 06:14 05/29/18 15:33 Additional Lab and Data: Laboratory Results - last 24 hr 05/28/18 05/28/18 05/28/18 18:51 20:30 21:21 WBC RBC Hgb Hct MCV MCH MCHC RDW Plt Count MPV Neut % (Auto) Lymph % (Auto) Jackson % (Auto) Eos % (Auto) Baso % (Auto) Absolute Neuts (auto) Absolute Lymphs (auto) Absolute Monos (auto) Absolute Eos (auto) Absolute Basos (auto) Absolute Nucleated RBC Nucleated RBC % VBG pH VBG pCO2 VBG pO2 VBG HCO3 VBG O2 Saturation VBG Base Excess Sodium 138 Potassium 4.7 Chloride 108 Carbon Dioxide 9 L* Anion Gap 21 H BUN 18 Creatinine 1.05 H Est GFR ( Amer) 72.6 Est GFR (Non-Af Amer) 60.0 BUN/Creatinine Ratio 17.1 Glucose 537 H* POC Glucose (mg/dL) 354 H Hemoglobin A1c Lactic Acid 1.0 Calcium 9.5 Magnesium Total Bilirubin 0.70 AST 34 ALT 40 Alkaline Phosphatase 99 Total Creatine Kinase CK-MB (CK-2) Total Protein 8.2 Albumin 5.1 Globulin 3.1 Albumin/Globulin Ratio 1.6 Procalcitonin Beta HCG, Quant < 0.60 Salicylates < 2.50 Acetaminophen < 15 Serum Alcohol < 10 05/28/18 05/28/18 05/28/18 21:30 21:36 22:34 WBC RBC Hgb Hct MCV MCH MCHC RDW Plt Count MPV Neut % (Auto) Lymph % (Auto) Jackson % (Auto) Eos % (Auto) Baso % (Auto) Absolute Neuts (auto) Absolute Lymphs (auto) Absolute Monos (auto) Absolute Eos (auto) Absolute Basos (auto) Absolute Nucleated RBC Nucleated RBC % VBG pH 7.21 L VBG pCO2 25 L VBG pO2 24 L VBG HCO3 10.8 L VBG O2 Saturation 44.1 L VBG Base Excess -16.1 L Sodium 143 Potassium 4.4 Chloride 117 H Carbon Dioxide 10 L* Anion Gap 16 H BUN 14 Creatinine 0.86 Est GFR ( Amer) 91.4 Est GFR (Non-Af Amer) 75.5 BUN/Creatinine Ratio 16.3 Glucose 374 H POC Glucose (mg/dL) 275 H Hemoglobin A1c Lactic Acid Calcium 8.8 Magnesium Total Bilirubin AST ALT Alkaline Phosphatase Total Creatine Kinase CK-MB (CK-2) Total Protein Albumin Globulin Albumin/Globulin Ratio Procalcitonin Beta HCG, Quant Salicylates Cancelled Acetaminophen Serum Alcohol 05/28/18 05/29/18 05/29/18 23:10 00:18 01:30 WBC RBC Hgb Hct MCV MCH MCHC RDW Plt Count MPV Neut % (Auto) Lymph % (Auto) Jackson % (Auto) Eos % (Auto) Baso % (Auto) Absolute Neuts (auto) Absolute Lymphs (auto) Absolute Monos (auto) Absolute Eos (auto) Absolute Basos (auto) Absolute Nucleated RBC Nucleated RBC % VBG pH VBG pCO2 VBG pO2 VBG HCO3 VBG O2 Saturation VBG Base Excess Sodium 144 Potassium 3.6 Chloride 119 H Carbon Dioxide 14 L* Anion Gap 11 BUN 11 Creatinine 0.70 Est GFR ( Amer) 115.9 Est GFR (Non-Af Amer) 95.8 BUN/Creatinine Ratio 15.7 Glucose 251 H POC Glucose (mg/dL) 228 H 233 H Hemoglobin A1c Lactic Acid Calcium 9.0 Magnesium Total Bilirubin AST ALT Alkaline Phosphatase Total Creatine Kinase CK-MB (CK-2) Total Protein Albumin Globulin Albumin/Globulin Ratio Procalcitonin Beta HCG, Quant Salicylates Acetaminophen Serum Alcohol 05/29/18 05/29/18 05/29/18 01:30 01:31 02:31 WBC RBC Hgb Hct MCV MCH MCHC RDW Plt Count MPV Neut % (Auto) Lymph % (Auto) Jackson % (Auto) Eos % (Auto) Baso % (Auto) Absolute Neuts (auto) Absolute Lymphs (auto) Absolute Monos (auto) Absolute Eos (auto) Absolute Basos (auto) Absolute Nucleated RBC Nucleated RBC % VBG pH 7.27 L VBG pCO2 29 L VBG pO2 25 L VBG HCO3 14.1 L VBG O2 Saturation 48.3 L VBG Base Excess -12.2 L Sodium Potassium Chloride Carbon Dioxide Anion Gap BUN Creatinine Est GFR ( Amer) Est GFR (Non-Af Amer) BUN/Creatinine Ratio Glucose POC Glucose (mg/dL) 232 H 232 H Hemoglobin A1c Lactic Acid Calcium Magnesium Total Bilirubin AST ALT Alkaline Phosphatase Total Creatine Kinase CK-MB (CK-2) Total Protein Albumin Globulin Albumin/Globulin Ratio Procalcitonin Beta HCG, Quant Salicylates Acetaminophen Serum Alcohol 05/29/18 05/29/18 05/29/18 03:28 04:56 06:14 WBC RBC Hgb Hct MCV MCH MCHC RDW Plt Count MPV Neut % (Auto) Lymph % (Auto) Jackson % (Auto) Eos % (Auto) Baso % (Auto) Absolute Neuts (auto) Absolute Lymphs (auto) Absolute Monos (auto) Absolute Eos (auto) Absolute Basos (auto) Absolute Nucleated RBC Nucleated RBC % VBG pH VBG pCO2 VBG pO2 VBG HCO3 VBG O2 Saturation VBG Base Excess Sodium 146 H Potassium 2.8 L Chloride 123 H Carbon Dioxide 17 L Anion Gap 6 BUN 8 Creatinine 0.56 Est GFR ( Amer) 149.9 Est GFR (Non-Af Amer) 123.9 BUN/Creatinine Ratio 14.3 Glucose 92 POC Glucose (mg/dL) 193 H 130 H Hemoglobin A1c Lactic Acid Calcium 8.7 Magnesium Total Bilirubin AST ALT Alkaline Phosphatase Total Creatine Kinase CK-MB (CK-2) Total Protein Albumin Globulin Albumin/Globulin Ratio Procalcitonin Beta HCG, Quant Salicylates Acetaminophen Serum Alcohol 05/29/18 05/29/18 05/29/18 06:14 06:14 06:14 WBC 7.3 RBC 3.98 L Hgb 12.6 Hct 36 MCV 91 MCH 32 H MCHC 35 RDW 13 Plt Count 216 MPV 6.5 L Neut % (Auto) 82.1 Lymph % (Auto) 10.5 L Jackson % (Auto) 7.0 Eos % (Auto) 0.1 Baso % (Auto) 0.3 Absolute Neuts (auto) 6.0 Absolute Lymphs (auto) 0.8 L Absolute Monos (auto) 0.5 Absolute Eos (auto) 0 Absolute Basos (auto) 0 Absolute Nucleated RBC 0 Nucleated RBC % 0.1 VBG pH 7.34 VBG pCO2 29 L VBG pO2 20 L VBG HCO3 16.6 L VBG O2 Saturation 41.3 L VBG Base Excess -8.8 L Sodium Potassium Chloride Carbon Dioxide Anion Gap BUN Creatinine Est GFR ( Amer) Est GFR (Non-Af Amer) BUN/Creatinine Ratio Glucose POC Glucose (mg/dL) Hemoglobin A1c 9.2 H Lactic Acid Calcium Magnesium Total Bilirubin AST ALT Alkaline Phosphatase Total Creatine Kinase CK-MB (CK-2) Total Protein Albumin Globulin Albumin/Globulin Ratio Procalcitonin Beta HCG, Quant Salicylates Acetaminophen Serum Alcohol 05/29/18 05/29/18 05/29/18 06:18 07:29 08:42 WBC RBC Hgb Hct MCV MCH MCHC RDW Plt Count MPV Neut % (Auto) Lymph % (Auto) Jackson % (Auto) Eos % (Auto) Baso % (Auto) Absolute Neuts (auto) Absolute Lymphs (auto) Absolute Monos (auto) Absolute Eos (auto) Absolute Basos (auto) Absolute Nucleated RBC Nucleated RBC % VBG pH VBG pCO2 VBG pO2 VBG HCO3 VBG O2 Saturation VBG Base Excess Sodium Potassium Chloride Carbon Dioxide Anion Gap BUN Creatinine Est GFR ( Amer) Est GFR (Non-Af Amer) BUN/Creatinine Ratio Glucose POC Glucose (mg/dL) 83 141 H 253 H Hemoglobin A1c Lactic Acid Calcium Magnesium Total Bilirubin AST ALT Alkaline Phosphatase Total Creatine Kinase CK-MB (CK-2) Total Protein Albumin Globulin Albumin/Globulin Ratio Procalcitonin Beta HCG, Quant Salicylates Acetaminophen Serum Alcohol 05/29/18 05/29/18 05/29/18 10:16 10:19 11:18 WBC RBC Hgb Hct MCV MCH MCHC RDW Plt Count MPV Neut % (Auto) Lymph % (Auto) Jackson % (Auto) Eos % (Auto) Baso % (Auto) Absolute Neuts (auto) Absolute Lymphs (auto) Absolute Monos (auto) Absolute Eos (auto) Absolute Basos (auto) Absolute Nucleated RBC Nucleated RBC % VBG pH VBG pCO2 VBG pO2 VBG HCO3 VBG O2 Saturation VBG Base Excess Sodium Cancelled Potassium Cancelled Chloride Cancelled Carbon Dioxide Cancelled Anion Gap Cancelled BUN Cancelled Creatinine Cancelled Est GFR ( Amer) Cancelled Est GFR (Non-Af Amer) Cancelled BUN/Creatinine Ratio Cancelled Glucose Cancelled POC Glucose (mg/dL) 231 H 200 H Hemoglobin A1c Lactic Acid Calcium Cancelled Magnesium Cancelled Total Bilirubin AST ALT Alkaline Phosphatase Total Creatine Kinase Cancelled CK-MB (CK-2) Cancelled Total Protein Albumin Globulin Albumin/Globulin Ratio Procalcitonin Beta HCG, Quant Salicylates Acetaminophen Serum Alcohol 05/29/18 05/29/18 05/29/18 12:29 13:26 14:25 WBC RBC Hgb Hct MCV MCH MCHC RDW Plt Count MPV Neut % (Auto) Lymph % (Auto) Jackson % (Auto) Eos % (Auto) Baso % (Auto) Absolute Neuts (auto) Absolute Lymphs (auto) Absolute Monos (auto) Absolute Eos (auto) Absolute Basos (auto) Absolute Nucleated RBC Nucleated RBC % VBG pH VBG pCO2 VBG pO2 VBG HCO3 VBG O2 Saturation VBG Base Excess Sodium Potassium Chloride Carbon Dioxide Anion Gap BUN Creatinine Est GFR ( Amer) Est GFR (Non-Af Amer) BUN/Creatinine Ratio Glucose POC Glucose (mg/dL) 189 H 157 H 138 H Hemoglobin A1c Lactic Acid Calcium Magnesium Total Bilirubin AST ALT Alkaline Phosphatase Total Creatine Kinase CK-MB (CK-2) Total Protein Albumin Globulin Albumin/Globulin Ratio Procalcitonin Beta HCG, Quant Salicylates Acetaminophen Serum Alcohol 05/29/18 05/29/18 05/29/18 15:32 15:33 15:33 WBC RBC Hgb Hct MCV MCH MCHC RDW Plt Count MPV Neut % (Auto) Lymph % (Auto) Jackson % (Auto) Eos % (Auto) Baso % (Auto) Absolute Neuts (auto) Absolute Lymphs (auto) Absolute Monos (auto) Absolute Eos (auto) Absolute Basos (auto) Absolute Nucleated RBC Nucleated RBC % VBG pH VBG pCO2 VBG pO2 VBG HCO3 VBG O2 Saturation VBG Base Excess Sodium 141 Potassium 3.6 Chloride 119 H Carbon Dioxide 13 L* Anion Gap 9 BUN 4 L Creatinine 0.58 Est GFR ( Amer) 144.0 Est GFR (Non-Af Amer) 119.0 BUN/Creatinine Ratio 6.9 L Glucose 116 H POC Glucose (mg/dL) 117 H Hemoglobin A1c Lactic Acid Calcium 9.0 Magnesium 1.6 L Total Bilirubin 0.50 AST 44 H ALT 34 Alkaline Phosphatase 74 Total Creatine Kinase 1623 H CK-MB (CK-2) 14.2 H Total Protein 6.7 Albumin 4.2 Globulin 2.5 Albumin/Globulin Ratio 1.7 Procalcitonin 5.4 H Beta HCG, Quant Salicylates Acetaminophen Serum Alcohol 05/29/18 05/29/18 05/29/18 16:34 17:27 18:36 WBC RBC Hgb Hct MCV MCH MCHC RDW Plt Count MPV Neut % (Auto) Lymph % (Auto) Jackson % (Auto) Eos % (Auto) Baso % (Auto) Absolute Neuts (auto) Absolute Lymphs (auto) Absolute Monos (auto) Absolute Eos (auto) Absolute Basos (auto) Absolute Nucleated RBC Nucleated RBC % VBG pH VBG pCO2 VBG pO2 VBG HCO3 VBG O2 Saturation VBG Base Excess Sodium Potassium Chloride Carbon Dioxide Anion Gap BUN Creatinine Est GFR ( Amer) Est GFR (Non-Af Amer) BUN/Creatinine Ratio Glucose POC Glucose (mg/dL) 139 H 142 H 239 H Hemoglobin A1c Lactic Acid Calcium Magnesium Total Bilirubin AST ALT Alkaline Phosphatase Total Creatine Kinase CK-MB (CK-2) Total Protein Albumin Globulin Albumin/Globulin Ratio Procalcitonin Beta HCG, Quant Salicylates Acetaminophen Serum Alcohol 05/29/18 19:37 WBC RBC Hgb Hct MCV MCH MCHC RDW Plt Count MPV Neut % (Auto) Lymph % (Auto) Jackson % (Auto) Eos % (Auto) Baso % (Auto) Absolute Neuts (auto) Absolute Lymphs (auto) Absolute Monos (auto) Absolute Eos (auto) Absolute Basos (auto) Absolute Nucleated RBC Nucleated RBC % VBG pH VBG pCO2 VBG pO2 VBG HCO3 VBG O2 Saturation VBG Base Excess Sodium Potassium Chloride Carbon Dioxide Anion Gap BUN Creatinine Est GFR ( Amer) Est GFR (Non-Af Amer) BUN/Creatinine Ratio Glucose POC Glucose (mg/dL) 182 H Hemoglobin A1c Lactic Acid Calcium Magnesium Total Bilirubin AST ALT Alkaline Phosphatase Total Creatine Kinase CK-MB (CK-2) Total Protein Albumin Globulin Albumin/Globulin Ratio Procalcitonin Beta HCG, Quant Salicylates Acetaminophen Serum Alcohol Microbiology and Other Data: Microbiology 05/29/18 18:20 Nasal Nasal Screen MRSA (PCR) - Final Mrsa Not Detected Assess/Plan/Problems-Billing Assessment: 32 yo female PMH NIDM, TBI s/p [employer] shunt 1993, HTN, SI, BPD presenting with DKA in setting of possible EtOH use and ? of medication bottle being missing ( gabapentin, wellbutrin). Encephalopathic. Anion Gap closed. - Patient Problems (1) DKA (diabetic ketoacidoses) Current Visit: No Status: Acute Code(s): E13.10 - OTH DIABETES MELLITUS WITH KETOACIDOSIS WITHOUT COMA SNOMED Code(s): 526996891 Comment: maintan insulin gtt (critical care but not DKA protocol given closed Anion gap) while encephalopathic and therefore npo. Acidotic and changing from D5 1/2 NS to D5 Bicarb 100mEq gtt BMP again tonight. A1C 9.2, on metformin at home. not clear the precipitant (2) SIRS (systemic inflammatory response syndrome) Current Visit: Yes Status: Acute Code(s): R65.10 - SIRS OF NON-INFECTIOUS ORIGIN W/O ACUTE ORGAN DYSFUNCTION SNOMED Code(s): 779199003 Comment: tachycardic(persists), tachypneic(intermittently), leukocytosis( resolved) was empirically started on levaquin on admission. I am going to change to zosyn to better cover potential aspiration and given quite elevated Procalcitonin 5.4 MRSA nares negative f/u BCx UA not concerning for infection. does reportedly have [employer] shunt CT head pending. may need LP if encephalopathy continues. no nuchal rigidity ddx includes EtOH withdrawal and OD (3) Diabetes Current Visit: No Status: Acute Code(s): E11.9 - TYPE 2 DIABETES MELLITUS WITHOUT COMPLICATIONS SNOMED Code(s): 97396709 Comment: A1C 9.2 on metformin at home. has glucometer but says she rarely uses. anti islet cell antibody negative Sep 2017 when also was in DKA and at that time discharged on 70U Lantus. (4) Anxiety Current Visit: No Status: Chronic Onset Date: 06/24/15 Code(s): F41.9 - ANXIETY DISORDER, UNSPECIFIED SNOMED Code(s): 22092116 Comment: -holding home wellbutrin and effexor in setting of encephalopathy and missing wellbutrin bottle. (5) Depression Current Visit: No Status: Chronic Priority: High Onset Date: 06/24/15 Code(s): F32.9 - MAJOR DEPRESSIVE DISORDER, SINGLE EPISODE, UNSPECIFIED SNOMED Code(s): 41586185 Comment: Appreciate Psychiatry evaluation by Dr. Hernandez. (6) Major depression Current Visit: No Status: Chronic Priority: High Onset Date: 06/24/15 Code(s): F32.9 - MAJOR DEPRESSIVE DISORDER, SINGLE EPISODE, UNSPECIFIED SNOMED Code(s): 510237225 Comment: appreciate psych recs. holding home effexor, wellbutrin. (7) Traumatic brain injury Current Visit: No Status: Chronic Priority: High Onset Date: 06/24/15 Code(s): S06.9X9A - UNSP INTRACRANIAL INJURY W LOC OF UNSP DURATION, INIT SNOMED Code(s): 212773862 Comment: Supportive care (8) Encephalopathy acute Current Visit: Yes Status: Acute Code(s): G93.40 - ENCEPHALOPATHY, UNSPECIFIED SNOMED Code(s): 21732316 Comment: plan as above.
[2018-05-29] MEDS: Dexmedetomidine* 400 MCG in NS 0.9% 100 ML* 96 ML IVPB SCH ×2 (16:53→23:17)
[2018-05-29] MEDS ORDERED: Magnesium Sulfate IV* 3 GM in NS 0.9% 100 ML* 100 ML IVPB ONE (17:00)
[2018-05-29] MEDS ORDERED: Diazepam TAB(*) 5 MG PO ONE (17:45)
[2018-05-29] MEDS ORDERED: Piperacillin/Tazobac ADVAN(*) 3.375 GM in NS 0.9% 100 ML* 100 ML IVPB ONE (17:47)
[2018-05-29] MEDS ORDERED: Sodium Bicarbonate 8.4% IV* 100 MEQ in D5W 1000 ML BAG* 1,000 ML IVPB SCH (18:00)
[2018-05-29] MEDS ORDERED: Zosyn per Pharmacy* NOTE FOLLOW UP SCH (18:00)
[2018-05-29] MEDS: ZOSYN 3.375 GM Q8H per EXTENDED INFUSION IVPB SCH ×2 (22:42)
--- NOTE | 2018-05-29 22:47 | RAD ---
EXAM: CT Head Without Intravenous Contrast CLINICAL HISTORY: 32 years old, female; Signs and symptoms; Altered mental status/memory loss; Other: Dka; Additional info: Encephalopathy, dka. Ed notes from .06.18: . Pt was rec'd from home via [facility]. Per ems pts states pt was out drinking all last night and possibly took a large amount of gabapentin pt is confused and makes no coherent responses to questions. TECHNIQUE: Axial computed tomography images of the head/brain without intravenous contrast. All CT scans at this facility use at least one of these dose optimization techniques: automated exposure control; mA and/or kV adjustment per patient size (includes targeted exams where dose is matched to clinical indication); or iterative reconstruction. COMPARISON: BRAIN WO CT BRAIN WO 01/16/2017 5:33 AM FINDINGS: Brain: No intracranial hemorrhage or extra-axial fluid collection. No evidence of mass effect or midline shift. Ayala-white matter differentiation is normal. Ventricles: Unremarkable. No ventriculomegaly. Bones/joints: Unremarkable. No acute fracture. Soft tissues: Unremarkable. Sinuses: Partially visualized right maxillary sinus mucosal thickening. Mastoid air cells: Unremarkable as visualized. No mastoid effusion. IMPRESSION: No acute intracranial pathology.
[2018-05-29 23:35] LABS: EGFR Non-African American 116.7 (>60)
[2018-05-30] MEDS ORDERED: Sodium Bicarbonate 8.4% IV* 100 MEQ in D5W 1000 ML BAG* 1,000 ML IVPB SCH (03:00)
[2018-05-30] MEDS: NS 0.9% 1000 ML* 1,000 ML IV SCH ×2 (03:05→04:05)
[2018-05-30] MEDS: ZOSYN 3.375 GM Q8H per EXTENDED INFUSION IVPB SCH ×2 (06:08)
[2018-05-30 06:16] LABS: ABS Basophils 0 10^3/ul (0-0.2); ABS Eosinophils 0.1 10^3/ul (0-0.6); ABS Lymphocytes 1.7 10^3/ul (1.0-4.8); ABS Monocytes 0.4 10^3/ul (0-0.8); ABS Neutrophils 3.7 10^3/ul (1.5-7.7); ABS Nucleated RBC 0 10^3/ul; Eosinophil % 2.4 % (0-6); Hematocrit 32 % (35-47); Hemoglobin 11.1 g/dl (12.0-16.0); Lymphocyte % 28.4 % (25-47); Mean Corpuscular HGB Conc 35 g/dl (31-36); Mean Corpuscular Hemoglobin 31 pg (27-31); Mean Corpuscular Volume 90 fL (80-97); Mean Platelet Volume 6.3 um3 (7.4-10.4); Nucleated Red Blood Cells % 0.1; Platelet Count 182 10^3/ul (150-450); Red Blood Count 3.52 10^6/ul (4.00-5.40); Red Cell Distribution Width 13 % (10.5-15)
[2018-05-30] MEDS: Insulin REGULAR(*) 100 UNITS in NS 0.9% 100 ML* 100 ML IV SCH ×2 (07:27→12:20)
[2018-05-30] MEDS ORDERED: Dexmedetomidine* 400 MCG in NS 0.9% 100 ML* 96 ML IVPB SCH (08:00)
--- NOTE | 2018-05-30 08:45 | PN ---
Date of Service: 05/30/18 Critical Care Services: 32F with h/o htn, DM1, TBI s/p [employer] shunt, depression, borderline personality disorder presented with AMS. Patient was found to be in DKA. She was delirious and required precedex gtt for agitation. 05/30: Patient more coherent this am. Lab work improving. Vital Signs: Temp Pulse Resp BP SpO2 FiO2 98.1 F 90 17 95/70 96 05/30/18 08:00 05/30/18 08:00 05/30/18 08:00 05/30/18 08:00 05/30/18 08:00 Physical Exam: Gen - NAD, poor hygiene HEENT - NCAT, eomi, perrl Neck - no jvd CV - s1/s2, no murmur Lungs - cta, no murmur Abd - soft, nt Ext - no cce Neuro - asleep, arousable, answers questions, moving all extremities Fluid Balance (Past 24 Hours): I= O= Net Intake & Output 05/28/18 05/29/18 05/30/18 05/31/18 06:59 06:59 06:59 06:59 Intake Total 3116 5080 Output Total 760 1965 20 Balance 2356 3115 -20 Weight 78.6 kg 83.3 kg Intake: IV Fluids 1292 4013 ABX - LEVAQUIN 42 D5W 1/2 NS 40 meq KCL 667 D5W NS 20 meq KCL 250 MAGNESIUM 101 NS (0.9%) 2029 SODIUM BICARB 1216 IVPB 1733 751 ABX - LEVAQUIN 150 ABX - ZOSYN 238 D5W 1/2 NS 40 meq KCL 300 D5W NS 20 meq KCL 1583 SODIUM BICARB 213 Medicated IV 91 286 CC - Dexmedetomidine/ 139 Precedex CC - Insulin 91 147 Oral 30 Output: Sales 760 1965 20 Other: Estimated Void Large # Voids 1 Labs: Laboratory Results - last 24 hr 05/29/18 05/29/18 05/29/18 06:14 08:42 10:16 WBC RBC Hgb Hct MCV MCH MCHC RDW Plt Count MPV Neut % (Auto) Lymph % (Auto) [place] % (Auto) Eos % (Auto) Baso % (Auto) Absolute Neuts (auto) Absolute Lymphs (auto) Absolute Monos (auto) Absolute Eos (auto) Absolute Basos (auto) Absolute Nucleated RBC Nucleated RBC % Sodium Potassium Chloride Carbon Dioxide Anion Gap BUN Creatinine Est GFR ( Amer) Est GFR (Non-Af Amer) BUN/Creatinine Ratio Glucose POC Glucose (mg/dL) 253 H 231 H Hemoglobin A1c 9.2 H Calcium Magnesium Total Bilirubin AST ALT Alkaline Phosphatase Total Creatine Kinase CK-MB (CK-2) Total Protein Albumin Globulin Albumin/Globulin Ratio Procalcitonin 05/29/18 05/29/18 05/29/18 10:19 11:18 12:29 WBC RBC Hgb Hct MCV MCH MCHC RDW Plt Count MPV Neut % (Auto) Lymph % (Auto) [place] % (Auto) Eos % (Auto) Baso % (Auto) Absolute Neuts (auto) Absolute Lymphs (auto) Absolute Monos (auto) Absolute Eos (auto) Absolute Basos (auto) Absolute Nucleated RBC Nucleated RBC % Sodium Cancelled Potassium Cancelled Chloride Cancelled Carbon Dioxide Cancelled Anion Gap Cancelled BUN Cancelled Creatinine Cancelled Est GFR ( Amer) Cancelled Est GFR (Non-Af Amer) Cancelled BUN/Creatinine Ratio Cancelled Glucose Cancelled POC Glucose (mg/dL) 200 H 189 H Hemoglobin A1c Calcium Cancelled Magnesium Cancelled Total Bilirubin AST ALT Alkaline Phosphatase Total Creatine Kinase Cancelled CK-MB (CK-2) Cancelled Total Protein Albumin Globulin Albumin/Globulin Ratio Procalcitonin 05/29/18 05/29/18 05/29/18 13:26 14:25 15:32 WBC RBC Hgb Hct MCV MCH MCHC RDW Plt Count MPV Neut % (Auto) Lymph % (Auto) [place] % (Auto) Eos % (Auto) Baso % (Auto) Absolute Neuts (auto) Absolute Lymphs (auto) Absolute Monos (auto) Absolute Eos (auto) Absolute Basos (auto) Absolute Nucleated RBC Nucleated RBC % Sodium Potassium Chloride Carbon Dioxide Anion Gap BUN Creatinine Est GFR ( Amer) Est GFR (Non-Af Amer) BUN/Creatinine Ratio Glucose POC Glucose (mg/dL) 157 H 138 H 117 H Hemoglobin A1c Calcium Magnesium Total Bilirubin AST ALT Alkaline Phosphatase Total Creatine Kinase CK-MB (CK-2) Total Protein Albumin Globulin Albumin/Globulin Ratio Procalcitonin 05/29/18 05/29/18 05/29/18 15:33 15:33 16:34 WBC RBC Hgb Hct MCV MCH MCHC RDW Plt Count MPV Neut % (Auto) Lymph % (Auto) [place] % (Auto) Eos % (Auto) Baso % (Auto) Absolute Neuts (auto) Absolute Lymphs (auto) Absolute Monos (auto) Absolute Eos (auto) Absolute Basos (auto) Absolute Nucleated RBC Nucleated RBC % Sodium 141 Potassium 3.6 Chloride 119 H Carbon Dioxide 13 L* Anion Gap 9 BUN 4 L Creatinine 0.58 Est GFR ( Amer) 144.0 Est GFR (Non-Af Amer) 119.0 BUN/Creatinine Ratio 6.9 L Glucose 116 H POC Glucose (mg/dL) 139 H Hemoglobin A1c Calcium 9.0 Magnesium 1.6 L Total Bilirubin 0.50 AST 44 H ALT 34 Alkaline Phosphatase 74 Total Creatine Kinase 1623 H CK-MB (CK-2) 14.2 H Total Protein 6.7 Albumin 4.2 Globulin 2.5 Albumin/Globulin Ratio 1.7 Procalcitonin 5.4 H 05/29/18 05/29/18 05/29/18 17:27 18:36 19:37 WBC RBC Hgb Hct MCV MCH MCHC RDW Plt Count MPV Neut % (Auto) Lymph % (Auto) [place] % (Auto) Eos % (Auto) Baso % (Auto) Absolute Neuts (auto) Absolute Lymphs (auto) Absolute Monos (auto) Absolute Eos (auto) Absolute Basos (auto) Absolute Nucleated RBC Nucleated RBC % Sodium Potassium Chloride Carbon Dioxide Anion Gap BUN Creatinine Est GFR ( Amer) Est GFR (Non- Amer) BUN/Creatinine Ratio Glucose POC Glucose (mg/dL) 142 H 239 H 182 H Hemoglobin A1c Calcium Magnesium Total Bilirubin AST ALT Alkaline Phosphatase Total Creatine Kinase CK-MB (CK-2) Total Protein Albumin Globulin Albumin/Globulin Ratio Procalcitonin 05/29/18 05/29/18 05/29/18 20:30 21:32 23:00 WBC RBC Hgb Hct MCV MCH MCHC RDW Plt Count MPV Neut % (Auto) Lymph % (Auto) [place] % (Auto) Eos % (Auto) Baso % (Auto) Absolute Neuts (auto) Absolute Lymphs (auto) Absolute Monos (auto) Absolute Eos (auto) Absolute Basos (auto) Absolute Nucleated RBC Nucleated RBC % Sodium 140 Potassium 3.6 Chloride 114 H Carbon Dioxide 19 L Anion Gap 7 BUN 3 L Creatinine 0.59 Est GFR ( Amer) 141.2 Est GFR (Non-Af Amer) 116.7 BUN/Creatinine Ratio 5.1 L Glucose 207 H POC Glucose (mg/dL) 211 H 220 H Hemoglobin A1c Calcium 8.5 L Magnesium 2.0 Total Bilirubin AST ALT Alkaline Phosphatase Total Creatine Kinase CK-MB (CK-2) Total Protein Albumin Globulin Albumin/Globulin Ratio Procalcitonin 05/29/18 05/30/18 05/30/18 23:02 00:00 01:00 WBC RBC Hgb Hct MCV MCH MCHC RDW Plt Count MPV Neut % (Auto) Lymph % (Auto) [place] % (Auto) Eos % (Auto) Baso % (Auto) Absolute Neuts (auto) Absolute Lymphs (auto) Absolute Monos (auto) Absolute Eos (auto) Absolute Basos (auto) Absolute Nucleated RBC Nucleated RBC % Sodium Potassium Chloride Carbon Dioxide Anion Gap BUN Creatinine Est GFR ( Amer) Est GFR (Non-Af Amer) BUN/Creatinine Ratio Glucose POC Glucose (mg/dL) 196 H 188 H 183 H Hemoglobin A1c Calcium Magnesium Total Bilirubin AST ALT Alkaline Phosphatase Total Creatine Kinase CK-MB (CK-2) Total Protein Albumin Globulin Albumin/Globulin Ratio Procalcitonin 05/30/18 05/30/18 05/30/18 01:59 03:08 04:04 WBC RBC Hgb Hct MCV MCH MCHC RDW Plt Count MPV Neut % (Auto) Lymph % (Auto) [place] % (Auto) Eos % (Auto) Baso % (Auto) Absolute Neuts (auto) Absolute Lymphs (auto) Absolute Monos (auto) Absolute Eos (auto) Absolute Basos (auto) Absolute Nucleated RBC Nucleated RBC % Sodium Potassium Chloride Carbon Dioxide Anion Gap BUN Creatinine Est GFR ( Amer) Est GFR (Non-Af Amer) BUN/Creatinine Ratio Glucose POC Glucose (mg/dL) 189 H 178 H 122 H Hemoglobin A1c Calcium Magnesium Total Bilirubin AST ALT Alkaline Phosphatase Total Creatine Kinase CK-MB (CK-2) Total Protein Albumin Globulin Albumin/Globulin Ratio Procalcitonin 05/30/18 05/30/18 05/30/18 04:59 05:57 06:00 WBC 6.0 RBC 3.52 L Hgb 11.1 L Hct 32 L MCV 90 MCH 31 MCHC 35 RDW 13 Plt Count 182 MPV 6.3 L Neut % (Auto) 61.5 Lymph % (Auto) 28.4 [place] % (Auto) 7.3 H Eos % (Auto) 2.4 Baso % (Auto) 0.4 Absolute Neuts (auto) 3.7 Absolute Lymphs (auto) 1.7 Absolute Monos (auto) 0.4 Absolute Eos (auto) 0.1 Absolute Basos (auto) 0 Absolute Nucleated RBC 0 Nucleated RBC % 0.1 Sodium Potassium Chloride Carbon Dioxide Anion Gap BUN Creatinine Est GFR ( Amer) Est GFR (Non-Af Amer) BUN/Creatinine Ratio Glucose POC Glucose (mg/dL) 120 H 130 H Hemoglobin A1c Calcium Magnesium Total Bilirubin AST ALT Alkaline Phosphatase Total Creatine Kinase CK-MB (CK-2) Total Protein Albumin Globulin Albumin/Globulin Ratio Procalcitonin 05/30/18 05/30/18 05/30/18 06:00 07:03 08:05 WBC RBC Hgb Hct MCV MCH MCHC RDW Plt Count MPV Neut % (Auto) Lymph % (Auto) [place] % (Auto) Eos % (Auto) Baso % (Auto) Absolute Neuts (auto) Absolute Lymphs (auto) Absolute Monos (auto) Absolute Eos (auto) Absolute Basos (auto) Absolute Nucleated RBC Nucleated RBC % Sodium 142 Potassium 3.2 L Chloride 117 H Carbon Dioxide 20 L Anion Gap 5 BUN 4 L Creatinine 0.51 Est GFR ( Amer) 167.0 Est GFR (Non-Af Amer) 138.0 BUN/Creatinine Ratio 7.8 L Glucose 133 H POC Glucose (mg/dL) 180 H 149 H Hemoglobin A1c Calcium 7.7 L Magnesium Total Bilirubin AST ALT Alkaline Phosphatase Total Creatine Kinase 545 H CK-MB (CK-2) Total Protein Albumin Globulin Albumin/Globulin Ratio Procalcitonin Studies: Head CT 05/29 IMPRESSION: No acute intracranial pathology. CXR 05/28 IMPRESSION: NO ACTIVE CARDIOPULMONARY DISEASE. Impression: 32F with h/o htn, DM1, TBI s/p [employer] shunt, depression, borderline personality disorder presented with AMS. Patient was found to be in DKA. She was delirious and required precedex gtt for agitation. Possible effexor/welbutrin overdose. Plan: Neuro - AMS - delirium - head ct negative - improved on precedex - will wean as tolerated Psych - depression, borderline personality, possible overdose - 1:1 for safety - psychiatry consult CV - bp borderline low - no evidence of hypoperfusion Pulm - oxygenating well on room air ID - - initial wbc elevated - procal mildly elevated - ua/cxr negative - blood cultures negative to date - will discontinue abx GI - npo - anti-emetics prn Renal - metabolic acidosis, hypokalemia, rhabo - 2/2 dka - iv hydration - replete electrolytes - bmp q6 Endo - DKA - insulin gtt - fs q1h - AG closed - once able to tolerate po will transition to lantus - d5 1/2 ns to prevent hypoglycemia Heme - monitor cbc Lines - piv, sales PPx - gi/dvt Full Code Critical Care Time: 45 mins
[2018-05-30] MEDS: KCL 20 MEQ/100 ML IVPREMIX* 20 MEQ/100 ML BAG IV SCH ×3 (09:04→13:22)
[2018-05-30] MEDS: Pantoprazole IV* 40 MG IV SCH (09:05)
[2018-05-30] MEDS ORDERED: D5W 1/2 NS 40 Meq KCL 1000 ML* 1,000 ML IV SCH (10:00)
[2018-05-30] MEDS ORDERED: Magnesium Sulfate 2 GM IV* 2 GM/50 ML BAG IVPB ONE ×2 (11:06→23:07)
[2018-05-30] MEDS ORDERED: Sodium Phosphate INJ* 15 MMOLE in NS 0.9% 250 ML* 250 ML IVPB ONE (12:00)
[2018-05-30] MEDS ORDERED: Dextrose 50% Syringe 50 ML* 25 GM/50 ML SYRINGE IV PUSH PRN (15:59)
[2018-05-30] MEDS: Insulin LISPRO* 1 UNITS UNIT SUBCUT SCH ×2 (18:08→21:19)
[2018-05-30] MEDS: Insulin GLARGINE(*) 1 UNITS UNIT SUBCUT SCH (18:11)
[2018-05-30] MEDS ORDERED: Acetaminophen TAB* 325 MG PO PRN (20:45)
[2018-05-30 22:44] LABS: EGFR Non-African American 129.2 (>60)
[2018-05-31] MEDS ORDERED: Sodium Phosphate INJ* 15 MMOLE in NS 0.9% 250 ML* 250 ML IVPB ONE ×2
[2018-05-31 05:45] LABS: ABS Basophils 0 10^3/ul (0-0.2); ABS Eosinophils 0.1 10^3/ul (0-0.6); ABS Lymphocytes 1.8 10^3/ul (1.0-4.8); ABS Monocytes 0.3 10^3/ul (0-0.8); ABS Neutrophils 2.4 10^3/ul (1.5-7.7); ABS Nucleated RBC 0 10^3/ul; Eosinophil % 2.9 % (0-6); Hematocrit 36 % (35-47); Lymphocyte % 39.2 % (25-47); Mean Corpuscular HGB Conc 34 g/dl (31-36); Mean Corpuscular Hemoglobin 31 pg (27-31); Mean Corpuscular Volume 90 fL (80-97); Mean Platelet Volume 6.3 um3 (7.4-10.4); Nucleated Red Blood Cells % 0.1; Platelet Count 207 10^3/ul (150-450); Red Blood Count 3.93 10^6/ul (4.00-5.40); Red Cell Distribution Width 13 % (10.5-15); White Blood Count 4.7 10^3/ul (3.5-10.8)
[2018-05-31 06:02] LABS: EGFR Non-African American 159.5 (>60)
[2018-05-31] MEDS: Insulin LISPRO* 1 UNITS UNIT SUBCUT SCH ×4 (08:58→21:47)
[2018-05-31] MEDS: Pantoprazole IV* 40 MG IV SCH (08:58)
--- NOTE | 2018-05-31 13:00 | PN ---
Subjective Date of Service: 05/31/18 Interval History: Patient is very alert and oriented and pleasant. Patient denies any pain, F/C, CP, Dizziness, Palpitations, diarrhea, Abdominal Pain, dysuria, SOB, or other pain. Patient denies taking any of her medications extra and states that she did not do anything with her Wellbutrin or Gabapentin bottles. Patient states that she was going hypoglycemic with the insulin she was prescribed in September. Patient states that both of her parents as well as several of her other family members had diabetes though she states she does not know at what age they developed it. Patient denies SI/HI but is amenable to psychiatric consultation. Patient denies any recent illness or sick contacts. Family History: Unchanged from Admission Social History: Unchanged from Admission Past Medical History: Unchanged from Admission Objective Active Medications: Acetaminophen (Tylenol Tab*) 650 mg PO Q6H PRN PRN Reason: PAIN OR TEMPERATURE Last Admin: 05/30/18 21:20 Dose: 650 mg Dextrose (D50w Syringe 50 Ml*) 12.5 gm IV PUSH .FOR FS < 60 - SS PRN PRN Reason: FS < 60 Insulin Glargine (Lantus(*)) 15 units SUBCUT Q24H [facility] Last Admin: 05/30/18 18:11 Dose: 15 units Insulin Human Lispro (Humalog*) 0 units SUBCUT FS ACHS ICU [facility]; Protocol Last Admin: 05/31/18 08:58 Dose: 2 units Omeprazole (Prilosec Cap*) 20 mg PO DAILY@0600 [facility] Ondansetron HCl (Zofran Odt Tab*) 4 mg PO Q6H PRN PRN Reason: n/v Vital Signs - 8 hr 05/31/18 05/31/18 05/31/18 05:00 05:30 06:00 Temperature Pulse Rate 102 102 100 Respiratory 18 17 17 Rate Blood Pressure 109/82 108/77 105/82 (mmHg) O2 Sat by Pulse 94 95 94 Oximetry 05/31/18 05/31/18 05/31/18 06:30 07:00 08:00 Temperature 98.1 F Pulse Rate 101 101 101 Respiratory 17 17 17 Rate Blood Pressure 111/82 110/77 112/86 (mmHg) O2 Sat by Pulse 94 95 94 Oximetry 05/31/18 05/31/18 05/31/18 09:07 10:00 11:00 Temperature Pulse Rate Respiratory 19 18 17 Rate Blood Pressure (mmHg) O2 Sat by Pulse Oximetry 05/31/18 12:00 Temperature 97.0 F Pulse Rate Respiratory 19 Rate Blood Pressure (mmHg) O2 Sat by Pulse Oximetry Oxygen Devices in Use Now: None Appearance: Patient is a 32yo female who appears stated age and is sitting in the bed in NAD. Eyes: No Scleral Icterus, PERRLA Ears/Nose/Mouth/Throat: NL Teeth, Lips, Gums, Mucous Membranes Moist Neck: NL Appearance and Movements; NL JVP Respiratory: Symmetrical Chest Expansion and Respiratory Effort, Clear to Auscultation Cardiovascular: NL Sounds; No Murmurs; No JVD, No Edema, - - Tachycardic Abdominal: NL Sounds; No Tenderness; No Distention, No Hepatosplenomegaly Lymphatic: No Cervical Adenopathy Extremities: No Edema, No Clubbing, Cyanosis Skin: No Rash or Ulcers, No Nodules or Sclerosis Neurological: Alert and Oriented x 3, NL Sensation, NL Muscle Strength and Tone , - - CN II-XII intact. Result Diagrams: 05/31/18 05:30 05/31/18 05:30 Microbiology and Other Data: Microbiology 05/29/18 18:20 Nasal Nasal Screen MRSA (PCR) - Final Mrsa Not Detected Assess/Plan/Problems-Billing Assessment: 32 yo female PMH NIDM, TBI s/p NURSE TECH shunt 1993, HTN, SI, BPD presenting with DKA in setting of possible EtOH use and ? of medication bottle being missing ( gabapentin, wellbutrin). Anion Gap closed. Patient is improving and is no longer encephalopathic. - Patient Problems (1) DKA (diabetic ketoacidoses) Current Visit: No Status: Acute Code(s): E13.10 - OTH DIABETES MELLITUS WITH KETOACIDOSIS WITHOUT COMA SNOMED Code(s): 912463960 Comment: - Anion Gap Closed, Bicarbonate normalized, Potassium, Magnesium, Phosphorus WNL - BMP daily - A1C 9.2, on metformin at home. - No clear provoking factor, Possible infection - Will likely need to be discharged on Insulin - Fluids discontinued (2) SIRS (systemic inflammatory response syndrome) Current Visit: Yes Status: Acute Code(s): R65.10 - SIRS OF NON-INFECTIOUS ORIGIN W/O ACUTE ORGAN DYSFUNCTION SNOMED Code(s): 726357175 Comment: - Tachycardia consistent with previous admission - Leukocytosis resolved - Antibiotics stopped - Procalcitonin 5.4, Repeat Pending. - Blood Culture Negative to date, UA not concerning for infection. - NURSE TECH shunt benign on CT head. - Possible EtOH withdrawal or OD. Continue to monitor (3) Encephalopathy acute Current Visit: Yes Status: Acute Code(s): G93.40 - ENCEPHALOPATHY, UNSPECIFIED SNOMED Code(s): 05108320 Comment: - Resolved - Due to DKA and possible unknown factors such as OD or Infection (4) Diabetes Current Visit: No Status: Acute Code(s): E11.9 - TYPE 2 DIABETES MELLITUS WITHOUT COMPLICATIONS SNOMED Code(s): 51799035 Comment: - A1C 9.2 - On metformin at home only - Anti islet cell antibody negative - SSI and Lantus, would recommend discharging on Insulin. - Likely DM I, Would recommend barmaid referral at discharge. (5) Depression Current Visit: No Status: Chronic Priority: High Onset Date: 06/24/15 Code(s): F32.9 - MAJOR DEPRESSIVE DISORDER, SINGLE EPISODE, UNSPECIFIED SNOMED Code(s): 44914878 Comment: - Appreciate Psychiatry evaluation by Dr. Hernandez. - Will repeat evalutation today and recommendations appreciated on ongoing medical therapy. (6) DVT prophylaxis Current Visit: No Status: Acute Priority: Low Code(s): JEG2728 - SNOMED Code(s): 577808390 Comment: - SQ heparin Status and Disposition: Inpatient
--- NOTE | 2018-05-31 14:28 | PN ---
Progress Note - Progress Note Date of Service: 05/31/18 Note: Saw Maria M in ICU bed side to determine whether she will continue to require an 1 :1 sitter for her safety. This 32 y/o WF known to psychiatry from previous admission due to depression and suicidal ideation reports that she has been experiencing frequent mood swings despite the fact that she was taking her meds. Thoughts of self harm including suicide crossed her mind but not sure when. Says she has been in and out of confusion but feels a lot better today although feels sad and depressed. However, denies taking an OD on her meds. Also denies hallucinations, delusions or homicidal thoughts. Ambivalent about suicidal thoughts. Alert and oriented to place and person only. Speech is normal in all spheres. Intelligence is WNL. Insight and judgment poor. Reliability of her current reporting is questionable. A/P : Patient appears to be moderately depressed with fleeting thoughts of suicide and over all an unreliable historian at this time. My recommendation will be to continue her 1:1 observation for now for her safety until psychiatry sees her again.
[2018-05-31] MEDS: Insulin GLARGINE(*) 1 UNITS UNIT SUBCUT SCH (17:40)
[2018-06-01] MEDS: Omeprazole CAP* 20 MG PO SCH (05:16)
[2018-06-01 05:44] LABS: EGFR Non-African American 126.5 (>60)
[2018-06-01 06:30] LABS: ABS Basophils 0 10^3/ul (0-0.2); ABS Eosinophils 0.1 10^3/ul (0-0.6); ABS Lymphocytes 1.8 10^3/ul (1.0-4.8); ABS Monocytes 0.4 10^3/ul (0-0.8); ABS Neutrophils 1.9 10^3/ul (1.5-7.7); ABS Nucleated RBC 0 10^3/ul; Hematocrit 37 % (35-47); Hemoglobin 12.8 g/dl (12.0-16.0); Mean Corpuscular HGB Conc 35 g/dl (31-36); Mean Corpuscular Hemoglobin 31 pg (27-31); Mean Corpuscular Volume 89 fL (80-97); Mean Platelet Volume 6.2 um3 (7.4-10.4); Nucleated Red Blood Cells % 0.1; Platelet Count 205 10^3/ul (150-450); Red Blood Count 4.13 10^6/ul (4.00-5.40); Red Cell Distribution Width 13 % (10.5-15); White Blood Count 4.2 10^3/ul (3.5-10.8)
[2018-06-01] MEDS: Insulin LISPRO* 1 UNITS UNIT SUBCUT SCH ×4 (08:24→21:16)
[2018-06-01] MEDS ORDERED: Magnesium Sulfate 1 GM IV* 1 GM/100 ML BAG IV ONE (08:57)
[2018-06-01] MEDS ORDERED: Insulin GLARGINE(*) 1 UNITS UNIT SUBCUT SCH (12:09)
[2018-06-01] MEDS ORDERED: NS 0.9% 500 ML* 500 ML IV ONE (12:13)
[2018-06-01] MEDS ORDERED: Dextrose 50% Syringe 50 ML* 25 GM/50 ML SYRINGE IV PUSH PRN (12:30)
[2018-06-01] MEDS ORDERED: Insulin LISPRO* 1 UNITS UNIT SUBCUT ONE (12:30)
--- NOTE | 2018-06-01 16:28 | CONSULT ---
Consult Consult: Maria M is seen for follow up by the psych consult team. She is well known to this observer. Please see my full dictated consultation. I will be resuming her psychiatric medications and taking her off 1:1. Psychiatry will continue to follow.
--- NOTE | 2018-06-01 16:57 | PN ---
Subjective Date of Service: 06/01/18 Interval History: Patient seen and examined. States she is feeling better, denies any suicidal ideation. Contracts for safety. BG quite elevated again today after lunch but patient asymptomatic. Denies fever fatigue chills headache SOB or chest pain. Family History: Unchanged from Admission Social History: Unchanged from Admission Past Medical History: Unchanged from Admission Objective Active Medications: Acetaminophen (Tylenol Tab*) 650 mg PO Q6H PRN PRN Reason: PAIN OR TEMPERATURE Last Admin: 05/30/18 21:20 Dose: 650 mg Bupropion HCl (Wellbutrin Sr Tab*) 150 mg PO BID [facility] Dextrose (D50w Syringe 50 Ml*) 12.5 gm IV PUSH .FOR FS < 60 - SS PRN PRN Reason: FS < 60 Gabapentin (Neurontin Cap(*)) 100 mg PO TID [facility] Insulin Glargine (Lantus(*)) 20 units SUBCUT Q24H [facility] Last Admin: 06/01/18 12:41 Dose: 20 units Insulin Human Lispro (Humalog*) 0 units SUBCUT FS ACHS ICU [facility]; Protocol Mirtazapine (Remeron Tab*) 15 mg PO BEDTIME [facility] Omeprazole (Prilosec Cap*) 20 mg PO DAILY@0600 [facility] Last Admin: 06/01/18 05:16 Dose: 20 mg Ondansetron HCl (Zofran Odt Tab*) 4 mg PO Q6H PRN PRN Reason: n/v Venlafaxine HCl (Effexor Xr Cap*) 75 mg PO BID [facility] Vital Signs - 8 hr 06/01/18 06/01/18 06/01/18 11:15 15:07 16:31 Temperature 97.8 F 97.6 F Pulse Rate 117 121 Respiratory 16 16 Rate Blood Pressure 128/85 128/92 (mmHg) O2 Sat by Pulse 95 97 Oximetry Oxygen Devices in Use Now: None Appearance: Alert, NAD Eyes: No Scleral Icterus, PERRLA Ears/Nose/Mouth/Throat: Clear Oropharnyx, Mucous Membranes Moist Neck: NL Appearance and Movements; NL JVP, Trachea Midline Respiratory: Symmetrical Chest Expansion and Respiratory Effort, Clear to Auscultation Cardiovascular: NL Sounds; No Murmurs; No JVD, RRR, No Edema Extremities: No Edema, No Clubbing, Cyanosis Neurological: Alert and Oriented x 3, NL Sensation, NL Gait Nutrition: Taking PO's Result Diagrams: 06/01/18 06:15 06/01/18 05:15 Additional Lab and Data: Laboratory Results - last 24 hr 05/28/18 05/28/18 05/28/18 18:51 20:30 21:21 WBC RBC Hgb Hct MCV MCH MCHC RDW Plt Count MPV Neut % (Auto) Lymph % (Auto) [place] % (Auto) Eos % (Auto) Baso % (Auto) Absolute Neuts (auto) Absolute Lymphs (auto) Absolute Monos (auto) Absolute Eos (auto) Absolute Basos (auto) Absolute Nucleated RBC Nucleated RBC % VBG pH VBG pCO2 VBG pO2 VBG HCO3 VBG O2 Saturation VBG Base Excess Sodium 138 Potassium 4.7 Chloride 108 Carbon Dioxide 9 L* Anion Gap 21 H BUN 18 Creatinine 1.05 H Est GFR ( Amer) 72.6 Est GFR (Non-Af Amer) 60.0 BUN/Creatinine Ratio 17.1 Glucose 537 H* POC Glucose (mg/dL) 354 H Hemoglobin A1c Lactic Acid 1.0 Calcium 9.5 Magnesium Total Bilirubin 0.70 AST 34 ALT 40 Alkaline Phosphatase 99 Total Creatine Kinase CK-MB (CK-2) Total Protein 8.2 Albumin 5.1 Globulin 3.1 Albumin/Globulin Ratio 1.6 Procalcitonin Beta HCG, Quant < 0.60 Salicylates < 2.50 Acetaminophen < 15 Serum Alcohol < 10 05/28/18 05/28/18 05/28/18 21:30 21:36 22:34 WBC RBC Hgb Hct MCV MCH MCHC RDW Plt Count MPV Neut % (Auto) Lymph % (Auto) [place] % (Auto) Eos % (Auto) Baso % (Auto) Absolute Neuts (auto) Absolute Lymphs (auto) Absolute Monos (auto) Absolute Eos (auto) Absolute Basos (auto) Absolute Nucleated RBC Nucleated RBC % VBG pH 7.21 L VBG pCO2 25 L VBG pO2 24 L VBG HCO3 10.8 L VBG O2 Saturation 44.1 L VBG Base Excess -16.1 L Sodium 143 Potassium 4.4 Chloride 117 H Carbon Dioxide 10 L* Anion Gap 16 H BUN 14 Creatinine 0.86 Est GFR ( Amer) 91.4 Est GFR (Non-Af Amer) 75.5 BUN/Creatinine Ratio 16.3 Glucose 374 H POC Glucose (mg/dL) 275 H Hemoglobin A1c Lactic Acid Calcium 8.8 Magnesium Total Bilirubin AST ALT Alkaline Phosphatase Total Creatine Kinase CK-MB (CK-2) Total Protein Albumin Globulin Albumin/Globulin Ratio Procalcitonin Beta HCG, Quant Salicylates Cancelled Acetaminophen Serum Alcohol 05/28/18 05/29/18 05/29/18 23:10 00:18 01:30 WBC RBC Hgb Hct MCV MCH MCHC RDW Plt Count MPV Neut % (Auto) Lymph % (Auto) [place] % (Auto) Eos % (Auto) Baso % (Auto) Absolute Neuts (auto) Absolute Lymphs (auto) Absolute Monos (auto) Absolute Eos (auto) Absolute Basos (auto) Absolute Nucleated RBC Nucleated RBC % VBG pH VBG pCO2 VBG pO2 VBG HCO3 VBG O2 Saturation VBG Base Excess Sodium 144 Potassium 3.6 Chloride 119 H Carbon Dioxide 14 L* Anion Gap 11 BUN 11 Creatinine 0.70 Est GFR ( Amer) 115.9 Est GFR (Non-Af Amer) 95.8 BUN/Creatinine Ratio 15.7 Glucose 251 H POC Glucose (mg/dL) 228 H 233 H Hemoglobin A1c Lactic Acid Calcium 9.0 Magnesium Total Bilirubin AST ALT Alkaline Phosphatase Total Creatine Kinase CK-MB (CK-2) Total Protein Albumin Globulin Albumin/Globulin Ratio Procalcitonin Beta HCG, Quant Salicylates Acetaminophen Serum Alcohol 05/29/18 05/29/18 05/29/18 01:30 01:31 02:31 WBC RBC Hgb Hct MCV MCH MCHC RDW Plt Count MPV Neut % (Auto) Lymph % (Auto) [place] % (Auto) Eos % (Auto) Baso % (Auto) Absolute Neuts (auto) Absolute Lymphs (auto) Absolute Monos (auto) Absolute Eos (auto) Absolute Basos (auto) Absolute Nucleated RBC Nucleated RBC % VBG pH 7.27 L VBG pCO2 29 L VBG pO2 25 L VBG HCO3 14.1 L VBG O2 Saturation 48.3 L VBG Base Excess -12.2 L Sodium Potassium Chloride Carbon Dioxide Anion Gap BUN Creatinine Est GFR ( Amer) Est GFR (Non-Af Amer) BUN/Creatinine Ratio Glucose POC Glucose (mg/dL) 232 H 232 H Hemoglobin A1c Lactic Acid Calcium Magnesium Total Bilirubin AST ALT Alkaline Phosphatase Total Creatine Kinase CK-MB (CK-2) Total Protein Albumin Globulin Albumin/Globulin Ratio Procalcitonin Beta HCG, Quant Salicylates Acetaminophen Serum Alcohol 05/29/18 05/29/18 05/29/18 03:28 04:56 06:14 WBC RBC Hgb Hct MCV MCH MCHC RDW Plt Count MPV Neut % (Auto) Lymph % (Auto) [place] % (Auto) Eos % (Auto) Baso % (Auto) Absolute Neuts (auto) Absolute Lymphs (auto) Absolute Monos (auto) Absolute Eos (auto) Absolute Basos (auto) Absolute Nucleated RBC Nucleated RBC % VBG pH VBG pCO2 VBG pO2 VBG HCO3 VBG O2 Saturation VBG Base Excess Sodium 146 H Potassium 2.8 L Chloride 123 H Carbon Dioxide 17 L Anion Gap 6 BUN 8 Creatinine 0.56 Est GFR ( Amer) 149.9 Est GFR (Non-Af Amer) 123.9 BUN/Creatinine Ratio 14.3 Glucose 92 POC Glucose (mg/dL) 193 H 130 H Hemoglobin A1c Lactic Acid Calcium 8.7 Magnesium Total Bilirubin AST ALT Alkaline Phosphatase Total Creatine Kinase CK-MB (CK-2) Total Protein Albumin Globulin Albumin/Globulin Ratio Procalcitonin Beta HCG, Quant Salicylates Acetaminophen Serum Alcohol 05/29/18 05/29/18 05/29/18 06:14 06:14 06:14 WBC 7.3 RBC 3.98 L Hgb 12.6 Hct 36 MCV 91 MCH 32 H MCHC 35 RDW 13 Plt Count 216 MPV 6.5 L Neut % (Auto) 82.1 Lymph % (Auto) 10.5 L [place] % (Auto) 7.0 Eos % (Auto) 0.1 Baso % (Auto) 0.3 Absolute Neuts (auto) 6.0 Absolute Lymphs (auto) 0.8 L Absolute Monos (auto) 0.5 Absolute Eos (auto) 0 Absolute Basos (auto) 0 Absolute Nucleated RBC 0 Nucleated RBC % 0.1 VBG pH 7.34 VBG pCO2 29 L VBG pO2 20 L VBG HCO3 16.6 L VBG O2 Saturation 41.3 L VBG Base Excess -8.8 L Sodium Potassium Chloride Carbon Dioxide Anion Gap BUN Creatinine Est GFR ( Amer) Est GFR (Non-Af Amer) BUN/Creatinine Ratio Glucose POC Glucose (mg/dL) Hemoglobin A1c 9.2 H Lactic Acid Calcium Magnesium Total Bilirubin AST ALT Alkaline Phosphatase Total Creatine Kinase CK-MB (CK-2) Total Protein Albumin Globulin Albumin/Globulin Ratio Procalcitonin Beta HCG, Quant Salicylates Acetaminophen Serum Alcohol 05/29/18 05/29/18 05/29/18 06:18 07:29 08:42 WBC RBC Hgb Hct MCV MCH MCHC RDW Plt Count MPV Neut % (Auto) Lymph % (Auto) [place] % (Auto) Eos % (Auto) Baso % (Auto) Absolute Neuts (auto) Absolute Lymphs (auto) Absolute Monos (auto) Absolute Eos (auto) Absolute Basos (auto) Absolute Nucleated RBC Nucleated RBC % VBG pH VBG pCO2 VBG pO2 VBG HCO3 VBG O2 Saturation VBG Base Excess Sodium Potassium Chloride Carbon Dioxide Anion Gap BUN Creatinine Est GFR ( Amer) Est GFR (Non-Af Amer) BUN/Creatinine Ratio Glucose POC Glucose (mg/dL) 83 141 H 253 H Hemoglobin A1c Lactic Acid Calcium Magnesium Total Bilirubin AST ALT Alkaline Phosphatase Total Creatine Kinase CK-MB (CK-2) Total Protein Albumin Globulin Albumin/Globulin Ratio Procalcitonin Beta HCG, Quant Salicylates Acetaminophen Serum Alcohol 05/29/18 05/29/18 05/29/18 10:16 10:19 11:18 WBC RBC Hgb Hct MCV MCH MCHC RDW Plt Count MPV Neut % (Auto) Lymph % (Auto) [place] % (Auto) Eos % (Auto) Baso % (Auto) Absolute Neuts (auto) Absolute Lymphs (auto) Absolute Monos (auto) Absolute Eos (auto) Absolute Basos (auto) Absolute Nucleated RBC Nucleated RBC % VBG pH VBG pCO2 VBG pO2 VBG HCO3 VBG O2 Saturation VBG Base Excess Sodium Cancelled Potassium Cancelled Chloride Cancelled Carbon Dioxide Cancelled Anion Gap Cancelled BUN Cancelled Creatinine Cancelled Est GFR ( Amer) Cancelled Est GFR (Non-Af Amer) Cancelled BUN/Creatinine Ratio Cancelled Glucose Cancelled POC Glucose (mg/dL) 231 H 200 H Hemoglobin A1c Lactic Acid Calcium Cancelled Magnesium Cancelled Total Bilirubin AST ALT Alkaline Phosphatase Total Creatine Kinase Cancelled CK-MB (CK-2) Cancelled Total Protein Albumin Globulin Albumin/Globulin Ratio Procalcitonin Beta HCG, Quant Salicylates Acetaminophen Serum Alcohol 05/29/18 05/29/18 05/29/18 12:29 13:26 14:25 WBC RBC Hgb Hct MCV MCH MCHC RDW Plt Count MPV Neut % (Auto) Lymph % (Auto) [place] % (Auto) Eos % (Auto) Baso % (Auto) Absolute Neuts (auto) Absolute Lymphs (auto) Absolute Monos (auto) Absolute Eos (auto) Absolute Basos (auto) Absolute Nucleated RBC Nucleated RBC % VBG pH VBG pCO2 VBG pO2 VBG HCO3 VBG O2 Saturation VBG Base Excess Sodium Potassium Chloride Carbon Dioxide Anion Gap BUN Creatinine Est GFR ( Amer) Est GFR (Non-Af Amer) BUN/Creatinine Ratio Glucose POC Glucose (mg/dL) 189 H 157 H 138 H Hemoglobin A1c Lactic Acid Calcium Magnesium Total Bilirubin AST ALT Alkaline Phosphatase Total Creatine Kinase CK-MB (CK-2) Total Protein Albumin Globulin Albumin/Globulin Ratio Procalcitonin Beta HCG, Quant Salicylates Acetaminophen Serum Alcohol 05/29/18 05/29/18 05/29/18 15:32 15:33 15:33 WBC RBC Hgb Hct MCV MCH MCHC RDW Plt Count MPV Neut % (Auto) Lymph % (Auto) [place] % (Auto) Eos % (Auto) Baso % (Auto) Absolute Neuts (auto) Absolute Lymphs (auto) Absolute Monos (auto) Absolute Eos (auto) Absolute Basos (auto) Absolute Nucleated RBC Nucleated RBC % VBG pH VBG pCO2 VBG pO2 VBG HCO3 VBG O2 Saturation VBG Base Excess Sodium 141 Potassium 3.6 Chloride 119 H Carbon Dioxide 13 L* Anion Gap 9 BUN 4 L Creatinine 0.58 Est GFR ( Amer) 144.0 Est GFR (Non-Af Amer) 119.0 BUN/Creatinine Ratio 6.9 L Glucose 116 H POC Glucose (mg/dL) 117 H Hemoglobin A1c Lactic Acid Calcium 9.0 Magnesium 1.6 L Total Bilirubin 0.50 AST 44 H ALT 34 Alkaline Phosphatase 74 Total Creatine Kinase 1623 H CK-MB (CK-2) 14.2 H Total Protein 6.7 Albumin 4.2 Globulin 2.5 Albumin/Globulin Ratio 1.7 Procalcitonin 5.4 H Beta HCG, Quant Salicylates Acetaminophen Serum Alcohol 05/29/18 05/29/18 05/29/18 16:34 17:27 18:36 WBC RBC Hgb Hct MCV MCH MCHC RDW Plt Count MPV Neut % (Auto) Lymph % (Auto) [place] % (Auto) Eos % (Auto) Baso % (Auto) Absolute Neuts (auto) Absolute Lymphs (auto) Absolute Monos (auto) Absolute Eos (auto) Absolute Basos (auto) Absolute Nucleated RBC Nucleated RBC % VBG pH VBG pCO2 VBG pO2 VBG HCO3 VBG O2 Saturation VBG Base Excess Sodium Potassium Chloride Carbon Dioxide Anion Gap BUN Creatinine Est GFR ( Amer) Est GFR (Non-Af Amer) BUN/Creatinine Ratio Glucose POC Glucose (mg/dL) 139 H 142 H 239 H Hemoglobin A1c Lactic Acid Calcium Magnesium Total Bilirubin AST ALT Alkaline Phosphatase Total Creatine Kinase CK-MB (CK-2) Total Protein Albumin Globulin Albumin/Globulin Ratio Procalcitonin Beta HCG, Quant Salicylates Acetaminophen Serum Alcohol 05/29/18 19:37 WBC RBC Hgb Hct MCV MCH MCHC RDW Plt Count MPV Neut % (Auto) Lymph % (Auto) [place] % (Auto) Eos % (Auto) Baso % (Auto) Absolute Neuts (auto) Absolute Lymphs (auto) Absolute Monos (auto) Absolute Eos (auto) Absolute Basos (auto) Absolute Nucleated RBC Nucleated RBC % VBG pH VBG pCO2 VBG pO2 VBG HCO3 VBG O2 Saturation VBG Base Excess Sodium Potassium Chloride Carbon Dioxide Anion Gap BUN Creatinine Est GFR ( Amer) Est GFR (Non-Af Amer) BUN/Creatinine Ratio Glucose POC Glucose (mg/dL) 182 H Hemoglobin A1c Lactic Acid Calcium Magnesium Total Bilirubin AST ALT Alkaline Phosphatase Total Creatine Kinase CK-MB (CK-2) Total Protein Albumin Globulin Albumin/Globulin Ratio Procalcitonin Beta HCG, Quant Salicylates Acetaminophen Serum Alcohol Microbiology and Other Data: Microbiology 05/29/18 18:20 Nasal Nasal Screen MRSA (PCR) - Final Mrsa Not Detected Assess/Plan/Problems-Billing Assessment: This is a 32 yo female PMH uncontrolled diabetes, TBI s/p [employer] AG[employer] shunt 1993, HTN, SI , BPD presenting with encephalopathy and DKA in setting of possible ETOH use and ? of medication bottle being missing (gabapentin, wellbutrin). Anion Gap closed. - Patient Problems (1) Encephalopathy acute Code(s): G93.40 - ENCEPHALOPATHY, UNSPECIFIED SNOMED Code(s): 72309237 Comment: - Metabolic, resolved with correction of DKA - Does not appear to be infectious etiology - Urine tox screen negative (2) Suicidal ideation Code(s): R45.851 - SUICIDAL IDEATIONS SNOMED Code(s): 9355743 Comment: - 1:1 DC'd as per psych - Wellbutrin restarted, appreciate further recs for discharge (3) DKA (diabetic ketoacidoses) Code(s): E13.10 - OTH DIABETES MELLITUS WITH KETOACIDOSIS WITHOUT COMA SNOMED Code(s): 885764374 Comment: - Anion Gap closed, replete magnesium today - Consult with Dr. Rohith Francisco for insulin managment, CDE consult placed as well - A1C 9.2, was over 12 earlier this year - Patient was on insulin at one time, then taken off and placed on metformin only - Sugars labile today, likely due to dietary issues, note to dietary for no sugar (4) Diabetes, type 1.5, uncontrolled, managed as type 1 Code(s): E10.65 - TYPE 1 DIABETES MELLITUS WITH HYPERGLYCEMIA SNOMED Code(s): 538166057 Comment: - concern for non-compliance, as this is 2nd episode of DKA - Appreciate rec's from endocrine - Continue lantus and lispro SS (5) Traumatic brain injury Code(s): S06.9X9A - UNSP INTRACRANIAL INJURY W LOC OF UNSP DURATION, INIT SNOMED Code(s): 673639401 Comment: - With [employer] shunt, stable - Supportive care (6) DVT prophylaxis Code(s): TXC0228 - SNOMED Code(s): 031425051 Comment: - SQ heparin (7) Full code status Code(s): Z78.9 - OTHER SPECIFIED HEALTH STATUS SNOMED Code(s): 753579710 Status and Disposition: Ready for medical DC after seen by endocrine, pending psych disposition.
--- NOTE | 2018-06-01 17:20 | CONSULT ---
Consult Consult: [facility] Inpatient Consult Note Date of Service: 06/01/2018 Reason for Consult: Ketosis-Prone Diabetes HPI: 32 yo F with history of TBI at age 8, HTN, depression with suicidal ideation and presumed (borderline) personality disorder who presented with acute change in mental status. Her noted confusion at home and contacted EMS for transport to the hospital. She does not have clear recollection of these events or what may have prompted the confusion, including alcohol consumption. Upon arrival in ED, she had profound hyperglycemia with anion gap metabolic acidosis consistent with recurrent DKA. The clinical presentation was similar to an admission in September 2017, where she presented with hyperglycemia and acidosis; her syndrome at that time was attributed to a soft tissue infection of the lower extremity. In the four days since admission, she has had steady recovery in her mental status and metabolic parameters. Her blood glucose was <250 with insulin glargine 15 and lispro 6 units plus sliding scale, but she experienced recurrent hyperglycemia >400 without acidosis yesterday and today today. Her diabetes history is peculiar. She presented with severe hyperglycemia at age 29 with A1c >9%. She was treated with insulin initially, but noted frequently hypoglycemia and has used only oral medications (metformin, glipizide ) since then. Her A1c was >12% on several occasions in 2016, when she presented with non-ketotis hyperosmolar state. Her hyperglycemia improved with oral therapies until September 2017, when she presented with first-time DKA. Note is made of normal range C-peptide on 10/19/17 with ambient blood glucose of 130 mg/ dL. 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 She denies medication changes or drug use other than alcohol in the past several weeks. She lives with her , who provides only limited social support to her. She is from her children, all four of whom have been removed from her custody. She does not follow any particular diet, but tries to "eat healthy" by avoid breads and starch. I note in the chart the mention of insulin-resistant diabetes requiring >70 units/day, although the patient tells me that she has not used insulin in many years. She tells me that she achieved her highest adult weight of >230 lbs in 2017 and has lost weight since then, although I was unable to confirm this in hospital vital sign records. PMH: - diabetes, ketosis-prone, insulin-deficient - history of traumatic brain injury in mid-childhood - depression and anxiety - axis II personality disorder MED: - bupropion - glipizide (?) - metformin - venlafaxine (?) - gabapentin - mirtazipine Acetaminophen (Tylenol Tab*) 650 mg PO Q6H PRN PRN Reason: PAIN OR TEMPERATURE Last Admin: 05/30/18 21:20 Dose: 650 mg Bupropion HCl (Wellbutrin Sr Tab*) 150 mg PO BID [facility] Dextrose (D50w Syringe 50 Ml*) 12.5 gm IV PUSH .FOR FS < 60 - SS PRN PRN Reason: FS < 60 Gabapentin (Neurontin Cap(*)) 100 mg PO TID [facility] Insulin Glargine (Lantus(*)) 20 units SUBCUT Q24H [facility] Last Admin: 06/01/18 12:41 Dose: 20 units Insulin Human Lispro (Humalog*) 0 units SUBCUT FS ACHS ICU [facility]; Protocol Last Admin: 06/01/18 17:19 Dose: 6 unit Mirtazapine (Remeron Tab*) 15 mg PO BEDTIME [facility] Omeprazole (Prilosec Cap*) 20 mg PO DAILY@0600 [facility] Last Admin: 06/01/18 05:16 Dose: 20 mg Ondansetron HCl (Zofran Odt Tab*) 4 mg PO Q6H PRN PRN Reason: n/v Venlafaxine HCl (Effexor Xr Cap*) 75 mg PO BID [facility] ALL: [facility] SOC: lives with , who also suffers from persistent mental illness ( schizophrenia); from children; denies tobacco use or alcohol abuse; no other drugs ROS: As above. 10-system review is otherwise normal. Specifically, she denies recent illness, acute or localized pain, fevers, chills, vomiting and dyspnea. EXAM: Temp Pulse Resp BP Pulse Ox 97.6 F 121 16 128/92 97 06/01/18 15:07 06/01/18 15:07 06/01/18 16:31 06/01/18 15:07 06/01/18 15:07 GEN: alert, pleasant, no distress, obese, supine in bed NECK supple, no thyromegaly CHEST: CTAB CV: tachycardia noted ABD: S/NT/ND EXT: no edema, intact pulses and sensation LABS: Glucose Results 05/30/18 17:00 176 05/30/18 18:00 169 05/30/18 19:34 273 05/30/18 21:00 253 05/31/18 08:37 181 05/31/18 12:20 275 05/31/18 16:30 278 05/31/18 21:00 295 06/01/18 05:15 Total Bilirubin 0.50 mg/dL (0.2-1.0) 05/29/18 15:33 AST 44 U/L (13-39) H 05/29/18 15:33 ALT 34 U/L (7-52) 05/29/18 15:33 Alkaline Phosphatase 74 U/L (34-104) 05/29/18 15:33 CK-MB (CK-2) 14.2 ng/mL (0.6-6.3) H 05/29/18 15:33 Total Protein 6.7 g/dL (6.4-8.9) 05/29/18 15:33 Albumin 4.2 g/dL (3.2-5.2) 05/29/18 15:33 Globulin 2.5 g/dL (2-4) 05/29/18 15:33 Albumin/Globulin Ratio 1.7 (1-3) 05/29/18 15:33 ASSESSMENT: 32 yo F with second admission for ketosis-prone diabetes and acute encephalopathy in setting of chronic mental health disorder(s). Her labs in September revealed at least some residual beta-cell function with intact C- peptide. Her IA2 antibody was negative, although this is an insensitive test for autoimmune diabetes. Her A1c has come down from >12% to ~9% in the past year , although she continues to lose weight and report symptoms of uncontrolled diabetes. I suspect that her SSRI/SNRI medications may be aggravating her diabetes, especially when used in combination. She will require at least daily insulin injections for the foreseeable future. Her total daily insulin requirement is approximately 50 units/day = 0.6 units/kg /day, of which 50% should be given as basal dose. Her need for prandial insulin at home is hard to predict at this time, as I suspect that diet is aggravating her hyperglycemia. Metformin may be used safely in this patient with normal renal function and no history of lactic acidosis. I do not recommend glipizide or other SFU in this patient; Januvia or other DPP4 may be more useful. PLAN: - CHECK GAD65 antibody (most specific for autoimmune diabetes) - await C-peptide (sent previously this admission) - INCREASE glargine to 25 units daily - titrate glargine dose by 5 units daily for target BG 100-160 in the morning - INCREASE lispro to 8 units TID-AC - titrate lispro dose by 2 units/meal daily for pre-meal BG 100-180 - INCREASE lispro sliding scale to 2 units/50 for BG>200 - AVOID combinations of SSRI/SNRI, if possible - discharge on metformin, glargine, lispro (will address need for long-term insulin as outpatient) - insulin teaching from floor nurse(s) - affirm carbohydrate-restricted diet - follow-up with [facility] in 2-3 weeks after discharge
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
[2018-06-01] MEDS ORDERED: Mirtazapine TAB* 15 MG PO SCH (21:00)
[2018-06-01] MEDS: Venlafaxine EXT RELEASE CAP* 75 MG PO SCH (21:16)
[2018-06-01] MEDS: Gabapentin CAP(*) 100 MG PO SCH (21:16)
[2018-06-01] MEDS: buPROPion SR TAB.SR* 150 MG PO SCH (21:16)
[2018-06-02] MEDS: Omeprazole CAP* 20 MG PO SCH (05:37)
[2018-06-02 06:16] LABS: ABS Basophils 0 10^3/ul (0-0.2); ABS Eosinophils 0.2 10^3/ul (0-0.6); ABS Lymphocytes 2.1 10^3/ul (1.0-4.8); ABS Monocytes 0.4 10^3/ul (0-0.8); ABS Neutrophils 2.4 10^3/ul (1.5-7.7); ABS Nucleated RBC 0 10^3/ul; Eosinophil % 3.3 % (0-6); Hematocrit 38 % (35-47); Hemoglobin 12.9 g/dl (12.0-16.0); Lymphocyte % 40.2 % (25-47); Mean Corpuscular HGB Conc 34 g/dl (31-36); Mean Corpuscular Hemoglobin 31 pg (27-31); Mean Corpuscular Volume 90 fL (80-97); Mean Platelet Volume 6.3 um3 (7.4-10.4); Nucleated Red Blood Cells % 0.3; Platelet Count 228 10^3/ul (150-450); Red Blood Count 4.21 10^6/ul (4.00-5.40); Red Cell Distribution Width 13 % (10.5-15); White Blood Count 5.1 10^3/ul (3.5-10.8)
[2018-06-02 06:31] LABS: EGFR Non-African American 132.1 (>60)
[2018-06-02] MEDS: Gabapentin CAP(*) 100 MG PO SCH (09:07)
[2018-06-02] MEDS: Insulin LISPRO* 1 UNITS UNIT SUBCUT SCH ×2 (09:07→12:26)
[2018-06-02] MEDS: buPROPion SR TAB.SR* 150 MG PO SCH (09:08)
[2018-06-02] MEDS: Venlafaxine EXT RELEASE CAP* 75 MG PO SCH (09:08)
[2018-06-02] MEDS ORDERED: Insulin GLARGINE(*) 1 UNITS UNIT SUBCUT SCH (09:51)
[2018-06-02] MEDS ORDERED: Insulin LISPRO* 1 UNITS UNIT SUBCUT SCH (11:30)
--- NOTE | 2018-06-02 13:20 | CONSULT ---
Identification - Patient Identification Reason for Psychiatric Consultation: Other -: Patient is a 32 year old, F admitted on 05/28/18. - [facility] Identification Employment Status: Disabled Hx Psychiatric Hospitalization: Yes History - Objective HPI: Maria M is seen for follow up today. She is in good spirits and announces that she will be discharged to home today. She is grateful for the resumption in her antidepressant medications and is tolerating them well. She is future- oriented and plans to follow up with her therapist at [facility] on FridayJune 08. She continues to deny SI. Exam Appearance: Well Developed/Nourished Hygiene: Normal Grooming: Well Kept Psychomotor Activities: Normal Exhibits Abnormal Movement: No Attitude and Relatedness: Cooperative Eye Contact: Good - Speech Quality: Unpressured Latencies: Normal Quantity: Appropriate Patient's Decription of Mood: "Good" Observed Affect: Good Affect Consistent with: Euthymia Patient's Thought Process: Coherent Thought Content: No Passive Wish, No Suicidal Planning, No Homicidal Ideation, No Paranoid Ideation Experiencing Hallucinations: No, Sensorium is Clear Type of Hallucinations: Visual: No, Auditory: No, Command: No Level of Consciousness: Alert Orientation: Yes Intact, Yes Orientated to Time, Yes Orientated to Place, Yes Orientated to Person Impulse Control: Intact Insight and Judgement: Good Impression - Impression Clinical Impression: 32 y.o. , white female, well known to [facility] from several past admissions, currently admitted to 4-S telemetry due to diabetic ketoacidosis, who we are asked to see to rule out suicidal ideation. Inpatient DSM-V Dx: F33.0 Merits Inpatient Hospitalization: No Problem List - MHU Problems Type of Problem: Mood Status of Problem: Resolved Plan - Treatment Plan Treatment Plan: The patient is back on her outpatient regimen of bupropion SR, venlafaxine XR, mirtazapine and gabapentin. She is denying SI and her mood is euthymic. She is psychiatrically cleared for discharge and can follow up with [facility] on June 08. Psychiatry is signing off. Continued Medication Management: Continue Outpt Medication Medications: Current Medications Acetaminophen (Tylenol Tab*) 650 mg PO Q6H PRN PRN Reason: PAIN OR TEMPERATURE Last Admin: 05/30/18 21:20 Dose: 650 mg Bupropion HCl (Wellbutrin Sr Tab*) 150 mg PO BID [facility] Last Admin: 06/02/18 09:08 Dose: 150 mg Dextrose (D50w Syringe 50 Ml*) 12.5 gm IV PUSH .FOR FS < 60 - SS PRN PRN Reason: FS < 60 Gabapentin (Neurontin Cap(*)) 100 mg PO TID [facility] Last Admin: 06/02/18 09:07 Dose: 100 mg Insulin Glargine (Lantus(*)) 25 units SUBCUT Q24H [facility] Last Admin: 06/02/18 10:19 Dose: 25 unit Insulin Human Lispro (Humalog*) 0 units SUBCUT FS ACHS ICU [facility]; Protocol Last Admin: 06/02/18 12:26 Dose: 6 unit Insulin Human Lispro (Humalog*) 8 units SUBCUT AC [facility] Last Admin: 06/02/18 12:26 Dose: 8 units Mirtazapine (Remeron Tab*) 15 mg PO BEDTIME [facility] Last Admin: 06/01/18 21:16 Dose: 15 mg Omeprazole (Prilosec Cap*) 20 mg PO DAILY@0600 [facility] Last Admin: 06/02/18 05:37 Dose: 20 mg Ondansetron HCl (Zofran Odt Tab*) 4 mg PO Q6H PRN PRN Reason: n/v Venlafaxine HCl (Effexor Xr Cap*) 75 mg PO BID [facility] Last Admin: 06/02/18 09:08 Dose: 75 mg - Discharge Plan Discharge Plan: Outpatient Follow Up
[2018-06-02 14:20] VITALS: BP 132/94
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
== END 2018-06-02 14:19 | disposition home or self-care (01) | DRG 420 ==
LOC: ED 18:13 → ICU 21:32 → MEDTELE 05-31 23:47 → UNDODISIN 06-02 14:19
PROVIDERS: ADMIT Hospitalist; ATTEND Internal Medicine
DX: E10.10 Type 1 diabetes mellitus with ketoacidosis without coma (principal); G93.41 Metabolic encephalopathy; R45.851 Suicidal ideations; R65.10 Systemic inflammatory response syndrome (SIRS) of non-infectious origin without acute organ dysfunction; F33.0 Major depressive disorder, recurrent, mild; R41.0 Disorientation, unspecified; I10 Essential (primary) hypertension; F41.9 Anxiety disorder, unspecified; R00.0 Tachycardia, unspecified; F60.3 Borderline personality disorder; Z87.820 Personal history of traumatic brain injury; Z79.1 Long term (current) use of non-steroidal anti-inflammatories (NSAID); Z79.899 Other long term (current) drug therapy; Z79.84 Long term (current) use of oral hypoglycemic drugs; Z88.5 Allergy status to narcotic agent; Z91.030 Bee allergy status; Z98.2 Presence of cerebrospinal fluid drainage device; Z83.3 Family history of diabetes mellitus; Z82.49 Family history of ischemic heart disease and other diseases of the circulatory system
CPT/HCPCS: 36415; 70450; 71045; 80048; 80053; 80307; 80320; 80329; 81003; 81015; 82550; 82553; 82803; 82947; 83036; 83605; 83735; 84100; 84145; 84702; 85025; 87040; 87641; 93005; 99285; A9270-GY; G0480; J1815; J2060; J2543; J3475; J3480; J7060